=== PATIENT | female | born 1985 | race Caucasian/White ===

== ENCOUNTER 2016-05-18 20:16 | Observation (INO) | payer SELFPAY ==
[~2016-05-18] VITALS: Ht 165.1 cm; Wt 63.7 kg
[2016-05-18] MEDS ORDERED: SODIUM CHLORIDE 0.9% 1000ML 1,000 ML IV STA (20:59)
[2016-05-18] MEDS ORDERED: METH10TA2 PO (21:11)
[2016-05-18] MEDS ORDERED: FERR18TA2 PO (21:11)
[2016-05-18] MEDS ORDERED: HYDROmorphone INJ 1 MG/ML SYR IV STA (21:24)
--- NOTE | 2016-05-18 21:31 | EMERGENCY ROOM VISIT NOTE ---
History Report prepared by Tala: Matt Ann Under the Supervision of: Dr. Mynor Cali M.D. First contact with patient: 20:51 Chief Complaint: URINARY SYMPTOMS Stated Complaint: PAIN IN THE BLADDER Nursing Triage Summary: c/o abd pain and bladder pain hx of lymphoma takes methadone for pain has had uti not any better. pt required an relationship associate in triage. History of Present Illness The patient is a 30 year old female who presents to the Emergency Room with complaints of persistent urinary symptoms beginning 10 days ago. She notes having burning during urination and has had pain in her bladder area and lower abdomen. She has been on Amoxicillin for 5 days which initially helped, but her symptoms have returned. She notes having chills, rhinorrhea, and cough, but denies any fever, rashes, nausea, vomiting, or vaginal pain. She has not recently passed out or fallen. The patient has been taking Methadone for chronic pain. She has no known drug allergies. Source of History: patient Onset: 10 days ago Position: pelvis, other (bladder) Quality: burning, other (urinary symptoms) Timing: other (persistent) Modifying Factors (Relieving): other (Amoxicillin) Associated Symptoms: + abdominal pain, + chills, + cough, No fevers, No nausea, No rash, No vomiting Note: The patient notes having rhinorrhea. The patient denies any vaginal pain. Review of Systems See HPI for pertinent positives & negatives. A total of 10 systems reviewed and were otherwise negative. Past Medical & Surgical Medical Problems: (1) Abdominal pain (2) No Known Active Medical Problems Family History No pertinent family history stated. Social History Smoking Status: Never Smoker Current/Historical Medications Scheduled Ferrous Fumarate (Iron), 1 TAB PO TID Methadone Hcl (Dolophine), 10 MG PO QID Allergies Coded Allergies: No Known Allergies (Unverified , 05/18/16) Physical Exam Vital Signs Date Time Temp Pulse Resp B/P Pulse Ox O2 Delivery O2 Flow Rate FiO2 05/18/16 23:15 78 18 106/62 98 Room Air 05/18/16 21:54 81 18 106/64 100 Room Air 05/18/16 20:21 36.8 97 18 99/66 99 Room Air Physical Exam GENERAL: Patient is uncomfortable appearing and in mild distress. HEENT: No acute trauma, normocephalic atraumatic, mucous membranes moist, no nasal congestion, no scleral icterus. NECK: No stridor, no adenopathy, no meningismus, trachea is midline. LUNGS: No dyspnea. Clear to auscultation and equal bilaterally. No wheeze, no rhonchi. HEART: Regular rate and rhythm. No murmurs, rubs, gallops appreciated. ABDOMEN: Soft; vague left lower quadrant tenderness to palpation; bowel sounds positive, no masses appreciated, no peritonitis. BACK: No midline tenderness, no CVA tenderness EXTREMITIES: Normal motion all extremities, no cyanosis, no edema. NEUROLOGIC: Alert and oriented, no acute motor or sensory deficits, no focal weakness, cranial nerves grossly intact. SKIN: No rash, no jaundice, no diaphoresis. Medical Decision & Procedures ER Provider Diagnostic Interpretation: CT results are stated below per my interpretation and the radiologist's interpretation. CT SCAN OF THE ABDOMEN AND PELVIS WITH IV CONTRAST FINDINGS: Lung bases: The heart is normal in size and without pericardial effusion. Postoperative change is suspected at the medial right lung base with associated scarring. There is dependent atelectasis. Lung bases are otherwise clear. Liver: The contrast-enhanced liver is normal in size, contour, and attenuation. There is central intrahepatic biliary ductal dilatation. The hepatic veins and portal veins are patent. Fatty infiltration is seen adjacent to the falciform ligament. Gallbladder: The gallbladder is nondistended. There is questionable gallbladder wall thickening/edema. No significant pericholecystic inflammation is seen. Spleen: The spleen is enlarged, measuring 14.8 cm in length. Pancreas: Unremarkable. Adrenal glands: Unremarkable. Kidneys: The contrast enhanced kidneys are normal in size and without hydronephrosis. The kidneys enhance symmetrically. Abdominal vasculature: The abdominal aorta is normal in course and caliber. Bowel: The rectal wall is markedly thickened, edematous, and hyperemic. Mildly enlarged perirectal lymph nodes are likely on a reactive basis. There is moderate to severe constipation. No bowel obstruction is identified. The appendix is well-visualized and normal. Peritoneum: There is no intraperitoneal free air or abdominal ascites. There is a small fat-containing umbilical hernia. Lymphadenopathy: None. Pelvic viscera: The bladder, uterus, and adnexa are normal as visualized. There are bilateral ovarian follicles. Skeletal structures: No lytic or blastic lesions are seen. IMPRESSION: 1. The rectum is markedly thickened, edematous, and hyperemic. The appearance is consistent with a nonspecific proctitis. 2. Severe constipation. No bowel obstruction is seen. 3. There is intrahepatic biliary ductal dilatation. The gallbladder is nondistended but the wall appears slightly thickened/edematous. There is no pericholecystic inflammation identified. Correlate with serum bilirubin levels and clinical findings for evidence of cholecystitis. If further assessment is desired then a right upper quadrant ultrasound would be appropriate. 4. Splenomegaly. 5. Postoperative change is identified at the medial right lung base. Correlation with clinical/surgical history will be required. 6. Additional changes as above. Electronically signed by: Jose Leonardo M.D. 05/18/2016 10:41 PM Dictated Date/Time: 05/18/2016 10:33 PM Laboratory Results 05/18/16 21:12 Red Blood Count 4.19, Mean Corpuscular Volume 66.3, Mean Corpuscular Hemoglobin 19.6, Mean Corpuscular Hemoglobin Concent 29.5, Mean Platelet Volume 8.9 05/18/16 21:12 Test 05/18/16 21:12 White Blood Count 4.67 K/uL (4.8-10.8) Red Blood Count 4.19 M/uL (4.2-5.4) Hemoglobin 8.2 g/dL (12.0-16.0) Hematocrit 27.8 % (37-47) Mean Corpuscular Volume 66.3 fL (80-100) Mean Corpuscular Hemoglobin 19.6 pg (25-34) Mean Corpuscular Hemoglobin Concent 29.5 g/dl (32-36) Platelet Count 414 K/uL (130-400) Mean Platelet Volume 8.9 fL (7.4-10.4) RDW Standard Deviation 47.8 fL (36.4-46.3) RDW Coefficient of Variation 21.1 % (11.5-14.5) Neutrophils % (Manual) 69.3 % Lymphocytes % (Manual) 15.8 % Variant Lymphocytes % (manual) 11.4 % Monocytes % (Manual) 0.9 % Eosinophils % (Manual) 2.6 % Neutrophils # (Manual) 3.24 K/uL (1.4-6.5) Total Absolute Neutrophils 3.24 K/uL (1.4-6.5) Lymphocytes # (Manual) 0.74 K/uL (1.2-3.4) Absolute Variant Lymphocytes 0.53 K/uL Total Absolute Lymphocytes 1.27 K/uL (1.2-3.4) Monocytes # (Manual) 0.04 K/uL (0.11-0.59) Eosinophils # (Manual) 0.12 K/uL (0-0.5) Polychromasia 1+ Anisocytosis PRESENT Microcytosis PRESENT Tear Drop Cells OCCASIONAL Urine Color YELLOW Urine Appearance CLEAR (CLEAR) Urine pH 7.5 (4.5-7.5) Urine Specific [place] 1.011 (1.000-1.030) Urine Protein NEG (NEG) Urine Glucose (UA) NEG (NEG) Urine Ketones NEG (NEG) Urine Occult Blood NEG (NEG) Urine Nitrite NEG (NEG) Urine Bilirubin NEG (NEG) Urine Urobilinogen NEG (NEG) Urine Leukocyte Esterase NEG (NEG) Urine WBC (Auto) 1-5 /hpf (0-5) Urine RBC (Auto) 0-4 /hpf (0-4) Urine Hyaline Casts (Auto) 1-5 /lpf (0-5) Urine Epithelial Cells (Auto) >30 /lpf (0-5) Urine Bacteria (Auto) NEG (NEG) Urine Test NEG (NEG) Anion Gap 9.0 mmol/L (3-11) Est Creatinine Clear Calc Drug Dose 83.0 ml/min Estimated GFR () 100.1 Estimated GFR (Non- 86.4 BUN/Creatinine Ratio 12.8 (10-20) Calcium Level 8.8 mg/dl (8.5-10.1) Total Bilirubin 0.2 mg/dl (0.2-1) Direct Bilirubin < 0.1 mg/dl (0-0.2) Aspartate Amino Transf (AST/SGOT) 20 U/L (15-37) Alanine Aminotransferase (ALT/SGPT) 46 U/L (12-78) Alkaline Phosphatase 143 U/L (45-117) Total Protein 7.5 gm/dl (6.4-8.2) Albumin 3.2 gm/dl (3.4-5.0) Lipase 98 U/L (73-393) Laboratory results as reviewed by me. Medications Administered Medications (Trade) Dose Ordered Sig/Garret Route Start Time Stop Time Status Last Admin Dose Admin Sodium Chloride (Nss 1000ml) 1,000 ml @ 999 mls/hr Q1H1M STAT IV 1/17/17 20:59 05/18/16 21:59 DC 05/18/16 21:12 999 MLS/HR Ketorolac Tromethamine (Toradol Inj) 30 mg NOW STAT IV 05/18/16 21:43 05/18/16 21:45 DC 05/18/16 21:51 30 MG Ciprofloxacin/ Dextrose (Cipro / D5w) 400 mg NOW STAT IV 05/18/16 23:41 05/18/16 23:43 DC 05/19/16 00:17 400 MG Metronidazole (Flagyl / Nss) 500 mg NOW STAT IV 05/18/16 23:41 05/18/16 23:43 DC 05/19/16 00:17 500 MG Sodium Biphosphate/ Sodium Phosphate (Fleet Enema) 132 ml NOW STAT OK 05/18/16 23:41 05/18/16 23:43 DC 05/19/16 00:17 132 ML ED Course 2051: The patient was evaluated in room C5. A complete history and physical exam was performed. 2058: Ordered NSS 1,000 ml @ 999 mls/hr IV. 2123: Ordered Dilaudid Inj 1 mg IV. 3: Ordered Toradol Inj 30 mg IV. 8: I talked to the patient about a CT and she is in agreement. 2315: I spoke with Dr. Elier Corona. He advised fleet enema and antibiotics plus or minus. 2319: The patient cannot decide if she wants to stay or go home. 2340: The patient is willing to stay. 2341: Ordered Fleet Enema 132 ml OK, Flagyl / Nss 500 mg IV, and Cipro / D5w 400 mg IV. Medical Decision Differential: Appendicitis, Ovarian Torsion, PID, Tubo-ovarian Abscess, Intrauterine , Ectopic , Endometriosis, amongst other pathologies entertained. 30 yr old female arrives with mid/left lower abdominal/pelvic pain. Recently treated for UTI without improvement thus comes to ED for further evaluation. She is clearly uncomfortable though declined pain medications initially. UA is clear thus felt further work-up necessary. CT notes severe constipation with severe proctitis. She was also found to be anemic with microcytic. I discussed case with GI who note that she may warrant colonoscopy/sigmoidoscopy in am and they will evaluate her as inpatient. Discussed with medical team who will evaluate her for further work-up/treatment. She is Indonesian speaking only thus prototype fabricator was used for much of discussions with patient. Given she was recently on abx and has worsening of symptoms felt dose abx here in ED reasonable. Consults Time Called: [phone] Consulting Physician: Chloe Cleveland Returned Call: [phone] Elier Corona. He advised fleet enema and antibiotics plus or minus. Impression Primary Impression: Proctitis Additional Impression: Constipation Scribe Attestation The scribe's documentation has been prepared under my direction and personally reviewed by me in its entirety. I confirm that the note above accurately reflects all work, treatment, procedures, and medical decision making performed by me. Departure Information Referrals No Doctor, Assigned (PCP) Patient Instructions [facility] Problem Qualifiers Additional Impression: Constipation Constipation type: unspecified constipation type Qualified Codes: K59.00 - Constipation, unspecified
[2016-05-18 21:36] LABS: URINE APPEARANCE CLEAR (CLEAR); URINE BILIRUBIN NEG (NEG); URINE COLOR YELLOW; URINE EPITHELIAL CELL AUTO >30 /lpf (0-5); URINE NITRITE NEG (NEG); URINE PH 7.5 (4.5-7.5); URINE SPECIFIC GRAVITY 1.011 (1.000-1.030); UROBILINOGEN NEG (NEG); ZZUR CULT IF INDIC CLEAN CATCH NO
[2016-05-18 21:38] LABS: MANUAL MICROSCOPIC REQUIRED? NO; REVIEW REQ? NO
[2016-05-18 21:43] LABS: BUN/CREATININE RATIO 12.8 (10-20); CALCIUM 8.8 mg/dl (8.5-10.1); CREATININE 0.9 mg/dl (0.60-1.20)
[2016-05-18] MEDS ORDERED: KETOROLAC TROMETHAMINE 30 MG/ML VIAL IV STA (21:43)
[2016-05-18 21:58] LABS: ANISOCYTOSIS PRESENT; COMPLETE YES; EOSINOPHIL % 2.6 %; HEMATOCRIT 27.8 % (37-47); LYMPH ABS # 0.74 K/uL (1.2-3.4); LYMPHOCYTE % 15.8 %; MEAN CELL VOLUME 66.3 fL (80-100); MEAN CORPUSCULAR HEMOGLOBIN 19.6 pg (25-34); MEAN CORPUSCULAR HGB CONC 29.5 g/dl (32-36); MEAN PLATELET VOLUME 8.9 fL (7.4-10.4); MICROCYTOSIS PRESENT; NEUTROPHILS % 69.3 %; PLATELET COUNT 414 K/uL (130-400); POLYCHROMASIA 1+; RED BLOOD COUNT 4.19 M/uL (4.2-5.4); TEAR DROP CELLS OCCASIONAL; VARIANT LYM ABS # 0.53 K/uL; VARIANT LYMPHOCYTE % 11.4 %; WHITE BLOOD COUNT 4.67 K/uL (4.8-10.8)
[2016-05-18] MEDS ORDERED: OPTIRAY 320 IV PRN (22:15)
--- NOTE | 2016-05-18 22:42 | DIAGNOSTIC IMAGING REPORT ---
CT SCAN OF THE ABDOMEN AND PELVIS WITH IV CONTRAST CLINICAL HISTORY: Left lower quadrant abdominal pain. COMPARISON STUDY: Pelvic ultrasound dated 03/16/2016. TECHNIQUE: Following the IV administration of 94 cc of Optiray 320, CT scan of the abdomen and pelvis is performed from the lung bases to the proximal femora. Images are reviewed in the axial, sagittal, and coronal planes. IV contrast was administered without complication. Automated dose control exposure was utilized. CT DOSE: 334.33 mGy.cm FINDINGS: Lung bases: The heart is normal in size and without pericardial effusion. Postoperative change is suspected at the medial right lung base with associated scarring. There is dependent atelectasis. Lung bases are otherwise clear. Liver: The contrast-enhanced liver is normal in size, contour, and attenuation. There is central intrahepatic biliary ductal dilatation. The hepatic veins and portal veins are patent. Fatty infiltration is seen adjacent to the falciform ligament. Gallbladder: The gallbladder is nondistended. There is questionable gallbladder wall thickening/edema. No significant pericholecystic inflammation is seen. Spleen: The spleen is enlarged, measuring 14.8 cm in length. Pancreas: Unremarkable. Adrenal glands: Unremarkable. Kidneys: The contrast enhanced kidneys are normal in size and without hydronephrosis. The kidneys enhance symmetrically. Abdominal vasculature: The abdominal aorta is normal in course and caliber. Bowel: The rectal wall is markedly thickened, edematous, and hyperemic. Mildly enlarged perirectal lymph nodes are likely on a reactive basis. There is moderate to severe constipation. No bowel obstruction is identified. The appendix is well-visualized and normal. Peritoneum: There is no intraperitoneal free air or abdominal ascites. There is a small fat-containing umbilical hernia. Lymphadenopathy: None. Pelvic viscera: The bladder, uterus, and adnexa are normal as visualized. There are bilateral ovarian follicles. Skeletal structures: No lytic or blastic lesions are seen. IMPRESSION: 1. The rectum is markedly thickened, edematous, and hyperemic. The appearance is consistent with a nonspecific proctitis. 2. Severe constipation. No bowel obstruction is seen. 3. There is intrahepatic biliary ductal dilatation. The gallbladder is nondistended but the wall appears slightly thickened/edematous. There is no pericholecystic inflammation identified. Correlate with serum bilirubin levels and clinical findings for evidence of cholecystitis. If further assessment is desired then a right upper quadrant ultrasound would be appropriate. 4. Splenomegaly. 5. Postoperative change is identified at the medial right lung base. Correlation with clinical/surgical history will be required. 6. Additional changes as above. Electronically signed by: Jose Leonardo M.D. 05/18/2016 10:41 PM Dictated Date/Time: 05/18/2016 10:33 PM
[2016-05-18 23:25] LABS: ALKALINE PHOSPHATASE 143 U/L (45-117); ALT/SGPT 46 U/L (12-78); AST/SGOT 20 U/L (15-37)
[2016-05-18] MEDS ORDERED: METRONIDAZOLE 500MG / 100ML NSS IV STA (23:41)
[2016-05-18] MEDS ORDERED: CIPROFLOXACIN 400MG / 200ML D5W IV STA (23:41)
[2016-05-18] MEDS ORDERED: SOD PHOSPHATE/SOD BIPHOSPHATE ENEMA 132 ML BTL PR STA (23:41)
[2016-05-19] MEDS ORDERED: TRAMADOL HCL 50 MG TAB PO PRN (01:00)
[2016-05-19] MEDS ORDERED: PROMETHAZINE HCL INJ 12.5 MG in SODIUM CHLORIDE 0.9% 50ML 50 ML IV PRN (01:00)
[2016-05-19] MEDS ORDERED: ACETAMINOPHEN 325 MG TAB PO PRN (01:00)
[2016-05-19] MEDS ORDERED: IBUPROFEN 200 MG TAB PO PRN (01:00)
[2016-05-19] MEDS ORDERED: DOCUSATE SODIUM/SENNA 50/8.6MG TAB PO ONE (01:12)
[2016-05-19 01:40] VITALS: BP 91/60; PULSE 78; TEMP 36.8; O2SAT 98; Ht 165.1 cm; Wt 63.7 kg
[2016-05-19 01:51] LABS: MAGNESIUM 2.6 mg/dl (1.8-2.4)
[2016-05-19] MEDS: KETOROLAC TROMETHAMINE 30 MG/ML VIAL IV PRN ×3 (02:15→17:20)
--- NOTE | 2016-05-19 03:20 | HISTORY & PHYSICAL EXAMINATION ---
DATE OF ADMISSION: 05/19/2016 PCP: EDWARD Limited history from the patient secondary to language barrier. History obtained from patient through assistance of spanish interpreter. Additional history obtained from records and ER MD CHIEF COMPLAINT: Abdominal pain. HISTORY OF PRESENT ILLNESS: Medical history is significant for Hodgkin's lymphoma sp chemoradiation, history of chronic pain on narcotics, history of lung surgery for lung infection related to radiotx as per px. chronic anemia/thalassemia (baseline hemoglobin 7). Patient diagnosed to have Hodgkin's lymphoma in 2008, subsequently underwent chemoradiation in [facility]. Subsequently, she developed lung infection requiring lung surgery leading to chronic pain. Patient moved to [facility] a few years ago for chemotherapy at [facility]. Px currently in remission. Patient recently moved to [facility]. Px currently [facility] [place]. Last week, patient noted hypogastric discomfort, incomplete bladder emptying, some chills, somewhat constipated. Last BM today. No chest pain, no shortness of breath. Patient denies hx of black bloody stools. Patient was seen at the Emergency Room. CAT scan showed markedly thickened, edematous, hyperemic rectum proctitis, constipation, intrahepatic biliary dilatation, splenomegaly. Patient received Cipro, Flagyl and Fleet enema in the Emergency Room. MEDICAL HISTORY: As above. Recent outpatient anemia workup showed iron deficiency anemia. SURGERIES: She has had lung surgery. HOME MEDICATIONS: Include; methadone and ferrous sulfate. ALLERGIES: No drug allergies. FAMILY HISTORY: Cannot be obtained. PERSONAL AND SOCIAL HISTORY: Nonsmoker. No chronic intake of alcoholic beverages. 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 REVIEW OF SYSTEMS: Cannot be reliably obtained. PHYSICAL EXAMINATION: VITAL SIGNS: Blood pressure was noted to be 106/64, pulse rate 81, RR 18, temperature 36.8, sats 99 on room air. GENERAL: comfortable, no resp distress SKIN : pallor . HEENT: Pale palpebral conjunctivae. Dry mucosa. NECK: No JVD. Supple. CHEST: Clear to auscultation. HEART: Regular rate and rhythm. ABDOMEN: soft NT. EXTREMITIES: No edema, no tenderness. NEUROLOGIC: No gross focality. LABORATORIES: Hemoglobin was noted to be 8.2, BC 4.6, platelets 414 Sodium 140 potassium 4, chloride 104, CO2 27, BUN 12, creatinine 0.[address] of abdomen and pelvis as above. UA : white lacey, 1-5 hyaline casts, epithelial cells ASSESSMENT: 1. Abdominal pain secondary to proctitis likely secondary to narcotic induced constipation. chronic pain on narcotics 2. History of HL sp chemoradiation, currently in remission. 3. Chronic anemia hx thalassemia as per outpx records hemoglobin better than baseline of 7 as per outpx records 4. hx lung surgery PLAN: Observation GMF Bowel regimen. stool softeners on discharge GI consult. ER MD already in touch with fire claims adjuster retail client solutions analyst, Dr. Thapa. possible endocopy in AM as per GI DVT prophylaxis, SCDs RE anemia. Full code. MTDD
[2016-05-19] MEDS ORDERED: SODIUM CHLORIDE 0.9% 1000ML 1,000 ML IV SCH (04:15)
[2016-05-19 08:01] VITALS: BP 81/51; PULSE 80; TEMP 36.6; O2SAT 95
[2016-05-19] MEDS: METHADONE HCL 10 MG TAB PO SCH ×4 (09:07→21:54)
[2016-05-19] MEDS: DOCUSATE SODIUM/SENNA 50/8.6MG TAB PO SCH ×2 (09:07→21:55)
[2016-05-19] MEDS: FERROUS FUMARATE CONTR REL CAP 65 MG CAPCR PO SCH ×3 (09:07→17:20)
[2016-05-19] MEDS ORDERED: PROPOFOL IV EMULSION 10 MG/ML 20 ML VIAL IV ONE (15:17)
[2016-05-19] MEDS ORDERED: LIDOCAINE HCL 2% 2 ML VIAL (20MG/ML) ONE (15:17)
[2016-05-19 15:33] VITALS: BP 94/62; PULSE 87; TEMP 36.4; O2SAT 98
[2016-05-19] MEDS ORDERED: SOD PHOSPHATE/SOD BIPHOSPHATE ENEMA 132 ML BTL ONE (15:40)
[2016-05-19 15:45] VITALS: O2SAT 98
[2016-05-19] MEDS ORDERED: NURSING VERBAL MED ORDER ONE (15:45)
--- NOTE | 2016-05-19 18:37 | Progress Note ---
Medicine Progress Note Date & Time of Visit: May 19, 2016 at 18:30. Subjective seen laying in bed, talking on her cellphone states her abdominal pain, lower abdomen, central, still about the same- pressure type no nausea (+) flatus, no BM yet denies other symptoms Objective Last 8 Hrs Date Time Temp Pulse Resp B/P Pulse Ox O2 Delivery O2 Flow Rate FiO2 05/19/16 15:33 36.4 87 20 94/62 98 Room Air Physical Exam: General- oriented x 3, not in distress, speaks in sentences Eyes- EOMI, anicteric Neck- no JVD Lungs- clear to auscultation b/l Heart-normal rate, regular rhythm; no murmurs Abdomen- normal bowel sounds, non distended, soft, mild tenderness on the lower abdomen Extremities- no pretibial edema, no calf tenderness Neuro- alert, oriented x 3;no gross focal deficits Skin- warm & dry Laboratory Results: Last 24 Hours Test 05/18/16 21:12 White Blood Count 4.67 K/uL Red Blood Count 4.19 M/uL Hemoglobin 8.2 g/dL Hematocrit 27.8 % Mean Corpuscular Volume 66.3 fL Mean Corpuscular Hemoglobin 19.6 pg Mean Corpuscular Hemoglobin Concent 29.5 g/dl Platelet Count 414 K/uL Mean Platelet Volume 8.9 fL RDW Standard Deviation 47.8 fL RDW Coefficient of Variation 21.1 % Neutrophils % (Manual) 69.3 % Lymphocytes % (Manual) 15.8 % Variant Lymphocytes % (manual) 11.4 % Monocytes % (Manual) 0.9 % Eosinophils % (Manual) 2.6 % Neutrophils # (Manual) 3.24 K/uL Total Absolute Neutrophils 3.24 K/uL Lymphocytes # (Manual) 0.74 K/uL Absolute Variant Lymphocytes 0.53 K/uL Total Absolute Lymphocytes 1.27 K/uL Monocytes # (Manual) 0.04 K/uL Eosinophils # (Manual) 0.12 K/uL Polychromasia 1+ Anisocytosis PRESENT Microcytosis PRESENT Tear Drop Cells OCCASIONAL Urine Color YELLOW Urine Appearance CLEAR Urine pH 7.5 Urine Specific Pep 1.011 Urine Protein NEG Urine Glucose (UA) NEG Urine Ketones NEG Urine Occult Blood NEG Urine Nitrite NEG Urine Bilirubin NEG Urine Urobilinogen NEG Urine Leukocyte Esterase NEG Urine WBC (Auto) 1-5 /hpf Urine RBC (Auto) 0-4 /hpf Urine Hyaline Casts (Auto) 1-5 /lpf Urine Epithelial Cells (Auto) >30 /lpf Urine Bacteria (Auto) NEG Urine Test NEG Sodium Level 140 mmol/L Potassium Level 4.0 mmol/L Chloride Level 104 mmol/L Carbon Dioxide Level 27 mmol/L Anion Gap 9.0 mmol/L Blood Urea Nitrogen 12 mg/dl Creatinine 0.90 mg/dl Est Creatinine Clear Calc Drug Dose 83.0 ml/min Estimated GFR () 100.1 Estimated GFR (Non- 86.4 BUN/Creatinine Ratio 12.8 Random Glucose 88 mg/dl Calcium Level 8.8 mg/dl Magnesium Level 2.6 mg/dl Total Bilirubin 0.2 mg/dl Direct Bilirubin < 0.1 mg/dl Aspartate Amino Transf (AST/SGOT) 20 U/L Alanine Aminotransferase (ALT/SGPT) 46 U/L Alkaline Phosphatase 143 U/L Total Protein 7.5 gm/dl Albumin 3.2 gm/dl Lipase 98 U/L Thyroid Stimulating Hormone (TSH) 1.670 uIu/ml Date/Time Source Procedure Growth Status 05/18/16 21:12 Urine , Clean Catch Urine Culture Pending Received Assessment & Plan ABDOMINAL PAIN, LIKELY FROM CONSTIPATION, R/O PROCTITIS - fleet enema x 2 , unsuccessful discussed with Dr. Thapa for Colonoscopy in AM may have clears for dinner - PRN Morphine, Toradol History of HL sp chemoradiation, currently in remission. Chronic anemia hx thalassemia as per outpx records hemoglobin better than baseline of 7 as per outpx records - obtain outpatient records hx lung surgery - respiratory status stable Current Inpatient Medications: Current Inpatient Medications Medications (Trade) Dose Ordered Sig/Garret Route Start Time Stop Time Status Last Admin Dose Admin Ioversol (Optiray 320) 100 ml UD PRN IV 05/18/16 22:15 05/22/16 22:14 Senna/Docusate Sodium (Senokot S Tab) 1 tab BID PO 05/19/16 09:00 06/18/16 08:59 05/19/16 09:07 1 TAB Acetaminophen (Tylenol Tab) 650 mg Q4H PRN PO 05/19/16 01:00 06/18/16 00:59 Ketorolac Tromethamine (Toradol Inj) 30 mg Q6H PRN IV 05/19/16 01:00 1/23/17 00:59 05/19/16 17:20 30 MG Tramadol HCl (Ultram Tab) 25 mg Q6H PRN PO 05/19/16 01:00 06/18/16 00:59 Ibuprofen (Advil Tab) 400 mg Q6H PRN PO 05/19/16 01:00 06/18/16 00:59 Ondansetron HCl 4 mg 4 mg Q6H PRN IV 05/19/16 01:00 06/18/16 00:59 Promethazine HCl 12.5 mg/Sodium Chloride 50.5 ml @ 204 mls/hr Q6H PRN IV 05/19/16 01:00 06/18/16 00:59 Sodium Chloride (Nss 1000ml) 1,000 ml @ 50 mls/hr Q20H IV 05/19/16 04:15 06/18/16 04:14 05/19/16 05:24 50 MLS/HR Methadone HCl (Dolophine Tab) 10 mg QID PO 05/19/16 09:00 06/02/16 08:59 05/19/16 17:19 10 MG Ferrous Fumarate (Cathy-Sequels Contr Rel Cap) 50 mg TIDM PO 05/19/16 08:00 06/18/16 07:59 05/19/16 17:20 50 MG Morphine Sulfate (MoRPHine SULFATE INJ) 4 mg Q6H PRN IV 05/19/16 01:00 06/02/16 00:59 Polyethylene Glycol/ Electrolytes (Golytely Soln) 1 dose UD PO 05/19/16 18:15 06/18/16 18:14 UNV
[2016-05-19] MEDS ORDERED: LAVAGE SOLUTION 4000ML PO SCH (19:00)
[2016-05-19] MEDS: MoRPHine SULFATE 4 MG/ML 1 ML CARP\\VIAL IV PRN (19:03)
[2016-05-19] MEDS: D5W AND NSS 1,000 ML IV SCH (19:11)
[2016-05-19 23:30] VITALS: BP 94/61; PULSE 87; TEMP 36.9; O2SAT 94
[2016-05-20] VITALS (11 sets, daily range): BP systolic 80–113; BP diastolic 48–76; PULSE 69–90; TEMP 36.2–37; O2SAT 94–100
[2016-05-20] MEDS: ONDANSETRON INJ 2 MG/ML 2 ML VIAL IV PRN ×2 (00:06→07:25)
[2016-05-20] MEDS: KETOROLAC TROMETHAMINE 30 MG/ML VIAL IV PRN ×3 (00:06→20:38)
[2016-05-20] MEDS: D5W AND NSS 1,000 ML IV SCH ×2 (05:30→14:12)
[2016-05-20] MEDS: FERROUS FUMARATE CONTR REL CAP 65 MG CAPCR PO SCH ×3 (07:24→18:25)
[2016-05-20] MEDS: DOCUSATE SODIUM/SENNA 50/8.6MG TAB PO SCH ×2 (07:25→20:52)
[2016-05-20] MEDS: METHADONE HCL 10 MG TAB PO SCH ×4 (07:25→22:25)
[2016-05-20 07:52] LABS: BASO % 0.3 %; BASO ABS # 0.01 K/uL (0-0.2); EOS % 2.5 %; HEMATOCRIT 24.4 % (37-47); LYMPH % 40.4 %; LYMPH ABS # 1.28 K/uL (1.2-3.4); MEAN CELL VOLUME 65.6 fL (80-100); MEAN CORPUSCULAR HEMOGLOBIN 19.1 pg (25-34); MEAN CORPUSCULAR HGB CONC 29.1 g/dl (32-36); MEAN PLATELET VOLUME 9.2 fL (7.4-10.4); MONO % 7.3 %; NEUT % 49.5 %; PLATELET COUNT 347 K/uL (130-400); RED BLOOD COUNT 3.72 M/uL (4.2-5.4); WHITE BLOOD COUNT 3.17 K/uL (4.8-10.8)
[2016-05-20 08:21] LABS: BUN/CREATININE RATIO 10.9 (10-20); CALCIUM 7.5 mg/dl (8.5-10.1); CREATININE 0.65 mg/dl (0.60-1.20); POTASSIUM 3.6 mmol/L (3.5-5.1)
[2016-05-20 08:32] LABS: ANISOCYTOSIS PRESENT; COMPLETE YES; MICROCYTOSIS PRESENT; OVALOCYTES 1+; POIKILOCYTOSIS PRESENT
[2016-05-20] MEDS ORDERED: SOD PHOSPHATE/SOD BIPHOSPHATE ENEMA 132 ML BTL PR STA (10:50)
[2016-05-20] MEDS ORDERED: MAGNESIUM CITRATE 296 ML/BTL PO ONE (11:00)
[2016-05-20] MEDS ORDERED: METOCLOPRAMIDE HCL INJ 5 MG/ML 2 ML VIAL IV PRN (11:00)
--- NOTE | 2016-05-20 11:13 | Progress Note ---
Medicine Progress Note Date & Time of Visit: May 20, 2016 at 11:05. Subjective seen with HATTIE Perkins at bedside, Helmet Coverer via Ipad utilized sitting up in bed, comfortable states she had few moderate BMs since last night- dark green, no blood states abdominal pain has improved- mild not tolerating golytely well- finished 05/04 so far, due to nausea otherwise, denies chest pain, dyspnea, palpitations, dizziness no changes with urination, no vaginal bleeding Objective Last 8 Hrs Date Time Temp Pulse Resp B/P Pulse Ox O2 Delivery O2 Flow Rate FiO2 05/20/16 08:00 Room Air 05/20/16 07:26 36.8 80 18 96/62 97 05/20/16 04:00 Room Air Physical Exam: General- oriented x 3, not in distress, speaks in sentences Eyes-anicteric Lungs- clear breath sounds bilaterally Heart-normal rate, regular rhythm; no murmurs Abdomen- normal bowel sounds, non distended, soft, mild tenderness on the lower abdomen Extremities- no pretibial edema, no calf tenderness Neuro- alert, oriented x 3;no gross focal deficits Skin- warm & dry Laboratory Results: Last 24 Hours Test 05/20/16 06:59 White Blood Count 3.17 K/uL Red Blood Count 3.72 M/uL Hemoglobin 7.1 g/dL Hematocrit 24.4 % Mean Corpuscular Volume 65.6 fL Mean Corpuscular Hemoglobin 19.1 pg Mean Corpuscular Hemoglobin Concent 29.1 g/dl Platelet Count 347 K/uL Mean Platelet Volume 9.2 fL Neutrophils (%) (Auto) 49.5 % Lymphocytes (%) (Auto) 40.4 % Monocytes (%) (Auto) 7.3 % Eosinophils (%) (Auto) 2.5 % Basophils (%) (Auto) 0.3 % Neutrophils # (Auto) 1.57 K/uL Lymphocytes # (Auto) 1.28 K/uL Monocytes # (Auto) 0.23 K/uL Eosinophils # (Auto) 0.08 K/uL Basophils # (Auto) 0.01 K/uL RDW Standard Deviation 48.8 fL RDW Coefficient of Variation 21.7 % Immature Granulocyte % (Auto) 0.0 % Immature Granulocyte # (Auto) 0.00 K/uL Poikilocytosis PRESENT Anisocytosis PRESENT Microcytosis PRESENT Ovalocytes 1+ Sodium Level 143 mmol/L Potassium Level 3.6 mmol/L Chloride Level 111 mmol/L Carbon Dioxide Level 23 mmol/L Anion Gap 9.0 mmol/L Blood Urea Nitrogen 7 mg/dl Creatinine 0.65 mg/dl Est Creatinine Clear Calc Drug Dose 106.4 ml/min Estimated GFR () 139.1 Estimated GFR (Non- 120.0 BUN/Creatinine Ratio 10.9 Random Glucose 84 mg/dl Calcium Level 7.5 mg/dl Assessment & Plan ABDOMINAL PAIN, LIKELY FROM CONSTIPATION- OPIOID INDUCED?, R/O PROCTITIS - improving with BMs - will try Mag Citrate and Fleet enema prior to colonoscopy today Reglan PRN added discussed with Dr. Thapa History of HL sp chemoradiation, currently in remission. - follows with Dr. 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 Mine Warfare Officer on feso4 - work up in progress for possible thalassemia Chronic Pain - on Methadone History of lung surgery - respiratory status stable Irregular Menstruation - follows with Gyne as outpatient DVT prophlaxis SCDs for now Dispo pending Current Inpatient Medications: Current Inpatient Medications Medications (Trade) Dose Ordered Sig/Garret Route Start Time Stop Time Status Last Admin Dose Admin Ioversol (Optiray 320) 100 ml UD PRN IV 05/18/16 22:15 05/22/16 22:14 Senna/Docusate Sodium (Senokot S Tab) 1 tab BID PO 05/19/16 09:00 06/18/16 08:59 05/20/16 07:25 1 TAB Acetaminophen (Tylenol Tab) 650 mg Q4H PRN PO 05/19/16 01:00 06/18/16 00:59 Ketorolac Tromethamine (Toradol Inj) 30 mg Q6H PRN IV 05/19/16 01:00 05/24/16 00:59 05/20/16 07:25 30 MG Tramadol HCl (Ultram Tab) 25 mg Q6H PRN PO 05/19/16 01:00 06/18/16 00:59 Ibuprofen (Advil Tab) 400 mg Q6H PRN PO 05/19/16 01:00 06/18/16 00:59 Ondansetron HCl 4 mg 4 mg Q6H PRN IV 05/19/16 01:00 06/18/16 00:59 05/20/16 07:25 4 MG Promethazine HCl/ Sodium Chloride (Phenergan Inj/ Nss 50ml) 50.5 ml @ 204 mls/hr Q6H PRN IV 05/19/16 01:00 06/18/16 00:59 Methadone HCl (Dolophine Tab) 10 mg QID PO 05/19/16 09:00 06/02/16 08:59 05/20/16 07:25 10 MG Ferrous Fumarate (Cathy-Sequels Contr Rel Cap) 50 mg TIDM PO 05/19/16 08:00 06/18/16 07:59 05/20/16 07:24 50 MG Morphine Sulfate 4 mg 4 mg Q6H PRN IV 05/19/16 01:00 06/02/16 00:59 05/19/16 19:03 4 MG Dextrose/Sodium Chloride (D5W And Nss) 1,000 ml @ 100 mls/hr Q10H IV 05/19/16 18:45 06/18/16 18:44 05/20/16 05:30 100 MLS/HR Metoclopramide HCl (Reglan Inj) 10 mg Q6H PRN IV 05/20/16 11:00 06/19/16 10:59
[2016-05-20] MEDS: MoRPHine SULFATE 4 MG/ML 1 ML CARP\\VIAL IV PRN ×3 (13:15→23:44)
--- NOTE | 2016-05-20 14:02 | GASTROINTESTINAL CONSULTATION ---
DATE OF CONSULTATION: 05/19/2016 CHIEF COMPLAINT: Obstipation, abnormal CT with rectal inflammation, microcytic anemia. I was contacted through the Emergency Room regarding the patient with obstipation and abnormal CT changes. The patient has a history of Hodgkin lymphoma treated in 2008 with chemoradiation in [facility]. The patient moved to [place] 2-3 years ago and received chemotherapy at [facility] and the patient is currently seeing a [facility] medical oncologist for Hodgkin lymphoma. The patient reports a lower suprapubic pain for the past week or so, for which initially urinalysis was obtained and performed and UTI was suspected. The patient received amoxicillin according to the patient's who was present in the room this evening. This however did not relieve the symptoms. Her pain continued and subsequently presented to the Emergency Room where CT scan found evidence of obstipation in the rectum along with thickening of the rectal wall of uncertain significance. The patient denies any diarrhea, rectal bleeding, weight loss or prior history of chronic inflammatory bowel disease. PAST MEDICAL HISTORY: Includes the Hodgkin lymphoma. The patient had an outpatient workup also for iron deficiency anemia and there was mention that the patient may have a thalassemia, although the details of this are not available or clear. Additional past medical history includes lung surgery for a lung infection, related to the radiation treatment and there is report of a baseline hemoglobin of approximately 7. MEDICATIONS AT HOME: Include methadone and ferrous sulfate for the iron deficiency. ALLERGIES: The patient has no known drug allergies. FAMILY HISTORY: Essentially unremarkable and noncontributory. SOCIAL HISTORY: The patient denies tobacco or alcohol use, is with 1 child. REVIEW OF SYSTEMS: Limited, however there are no abnormalities except for noted above by 14-point exam. There has been no recent fever, shaking chills, nausea, vomiting, hematemesis, or coffee-ground emesis. She denies dysuria or hematuria. PHYSICAL EXAMINATION: Today, VITAL SIGNS ON ADMISSION: Blood pressure 106/64, heart rate 81, respirations 18. She is 99% on room air, afebrile. GENERAL: The patient currently is resting in bed. She is awake, alert and oriented although much of our conversation was through her in order to obtain history. HEENT: The oral mucosa is moist. NECK: There is no cervical or supraclavicular adenopathy. I do not appreciate thyromegaly. HEART: Normal S1, S2. LUNGS: Clear to auscultation. ABDOMEN: Soft, mildly tender in the suprapubic area without rebound or guarding. There is no evidence of ventral wall hernia, abdominal tenderness or asymmetry. There is no evidence of ascites or shifting dullness. EXTREMITIES: Without clubbing, cyanosis or edema. RECTAL: Deferred at this time. LABORATORY DATA: Laboratory review includes white count 4.6, hemoglobin 8.2, MCV is 66.3, platelets of 414,000. There are microcytosis, anisocytosis, and teardrops noted. On serum chemistry, BUN and creatinine are normal at 12 and 0.9. LFTs show only a mild elevation in alkaline phosphatase at 143 with a slightly diminished albumin of 3.2. Transaminases and bilirubin are also within normal range. TSH is normal at 1.6. Urinalysis showed only greater than 30 urinary epithelial cells without markers to suggest infection, leuk esterase and nitrate are both negative. CT scan demonstrated intrahepatic bile duct dilation of unclear origin. The gallbladder is not distended but the wall may be slightly thickened or edematous, however pericholecystic inflammation is not identified (this may be on the basis of chronic opiate use). There is evidence of splenomegaly and the rectum shows a markedly thickened, edematous and hyperemic pattern, suggesting a nonspecific proctitis. There is also severe constipation. IMPRESSION: A 30-year-old female with Hodgkin lymphoma status post chemotherapy, radiation. Regarding the changes in her CT, there is no family history of Crohn disease or ulcerative colitis. The patient denies melena or bright red blood per rectum and has not had diarrhea. The source of this proctitis is unclear but possibly could be related to changes of fecal retention. I made the following recommendations. We will begin a bowel prep today this evening with anticipation of a colonoscopy tomorrow in order to assess this mucosa. Regarding the anemia, clarification from records regarding thalassemia or iron deficiency would be helpful. If this is suggesting iron deficiency, upper endoscopy may also be warranted. Regarding the patient's ductal dilation, the source of this is unclear but may reflect chronic opiate use. There are no abnormalities with LFT save a slight elevation in alkaline phosphatase. It may be reasonable to perform an MRCP to assess for any filling defects within the bile duct although presently the patient does not have any localizing symptoms in the right upper quadrant. Further recommendations once the colonoscopy is completed. All questions answered. Thank you for allowing me to participate in this patient's care.
--- NOTE | 2016-05-20 16:37 | GI REPORT ---
Procedure Date: 05/20/2016 4:02 PM Procedure: Colonoscopy Indications: Abnormal CT of the GI tract Medicines: Propofol per Anesthesia Complications: No immediate complications. Estimated blood loss: Minimal. Estimated Blood Loss: Estimated blood loss was minimal. Procedure: Pre-Anesthesia Assessment: - Prior to the procedure, a History and Physical was performed, and patient medications and allergies were reviewed. The patient's tolerance of previous anesthesia was also reviewed. The risks and benefits of the procedure and the sedation options and risks were discussed with the patient. All questions were answered, and informed consent was obtained. Prior Anticoagulants: The patient has taken no previous anticoagulant or antiplatelet agents. ASA Grade Assessment: II - A patient with mild systemic disease. After reviewing the risks and benefits, the patient was deemed in satisfactory condition to undergo the procedure. After I obtained informed consent, the scope was passed under direct vision. Throughout the procedure, the patient's blood pressure, pulse, and oxygen saturations were monitored continuously. The scope was introduced through the anus with the intention of advancing to the cecum. The scope was advanced to the transverse colon before the procedure was aborted. Medications were given. The colonoscopy was performed with moderate difficulty due to inadequate bowel prep. The patient tolerated the procedure well. The quality of the bowel preparation was inadequate. Findings: The perianal and digital rectal examinations were normal. Pertinent negatives include normal sphincter tone, no palpable rectal lesions and no anal lesion or abnormality was detected. A continuous area of nonbleeding ulcerated mucosa with no stigmata of recent bleeding was present in the rectum. Biopsies were taken with a cold forceps for histology. Biopsies were taken with a cold forceps for histology. Bx taken for viral culture Estimated blood loss was minimal. Verification of patient identification for the specimen was done by the physician and pathology technician using the patient's name and medical record number. The area from 15 to 80 cm proximal to the anus appeared normal. Biopsies were taken with a cold forceps for histology. Estimated blood loss was minimal. Verification of patient identification for the specimen was done by the physician and pathology technician using the patient's name and medical record number. A large amount of semi-solid stool was found in the entire colon, interfering with visualization. Lavage of the area was performed using a moderate amount of sterile water, resulting in incomplete clearance with continued poor visualization. Impression: - Preparation of the colon was inadequate. - Mucosal ulceration. Biopsied. - The area from 15 to 80 cm proximal to the anus is normal. Biopsied. - Stool in the entire examined colon. - Likely stercoral ulcer however will exclude CMV proctitis and lymphoma by histology and viral cx. Recommendation: - [facility]. - Clear liquid diet. - Continue present medications. - Await pathology results. - Patient needs a formal bowel regimen especially with chronic methadone therapy. This can include Miralax twice daily, mag Citrate or Senokot as tolerated by patient. MD Tuan Rocha MD 05/20/2016 4:35:49 PM This report has been signed electronically. Note Initiated On: 05/20/2016 4:02 PM
--- NOTE | 2016-05-20 16:44 | Anesthesiology Progress Note ---
Anesthesia Post Op Note Date & Time May 20, 2016 at 16:43 Vital Signs Pain Intensity: 0.0 Vital Signs Past 12 Hours Date Time Temp Pulse Resp B/P Pulse Ox O2 Delivery O2 Flow Rate FiO2 05/20/16 16:30 75 16 99/64 97 Room Air 05/20/16 15:32 36.7 86 16 114/75 100 Room Air 05/20/16 15:00 36.5 80 20 80/48 98 Room Air 05/20/16 11:38 36.8 80 18 96/62 97 Room Air 05/20/16 08:00 Room Air 05/20/16 07:26 36.8 80 18 96/62 97 Notes Mental Status: alert / awake / arousable, participated in evaluation Pt Amnestic to Procedure: Yes Nausea / Vomiting: adequately controlled Pain: adequately controlled Airway Patency, RR, SpO2: stable & adequate BP & HR: stable & adequate Hydration State: stable & adequate Anesthetic Complications: no major complications apparent Pt doing well.
--- NOTE | 2016-05-20 17:06 | History & Physical Bridge Note ---
H&P Re-Evaluation Bridge Note: I have examined the patient, reviewed the History & Physical and in the interval since the performance of the History & Physical I have noted the following changes of clinical significance: No changes noted
[2016-05-20] MEDS ORDERED: PANTOprazole INJ 40 MG in SYRINGE 0 ML IV ONE (18:45)
[2016-05-21 00:23] VITALS: BP 109/72; PULSE 72; TEMP 36.6; O2SAT 97
[2016-05-21 00:50] VITALS: BP 105/69; PULSE 72; TEMP 36.5; O2SAT 96
[2016-05-21] MEDS: MoRPHine SULFATE 4 MG/ML 1 ML CARP\\VIAL IV PRN ×2 (05:37→12:28)
[2016-05-21 07:04] VITALS: BP 97/64; PULSE 76; TEMP 36.9; O2SAT 95
[2016-05-21] MEDS: METHADONE HCL 10 MG TAB PO SCH ×2 (07:48→12:27)
[2016-05-21] MEDS: DOCUSATE SODIUM/SENNA 50/8.6MG TAB PO SCH (07:48)
[2016-05-21] MEDS: FERROUS FUMARATE CONTR REL CAP 65 MG CAPCR PO SCH ×2 (07:48→12:27)
[2016-05-21 08:13] LABS: BUN/CREATININE RATIO 5.1 (10-20); CALCIUM 7.9 mg/dl (8.5-10.1); CREATININE 0.72 mg/dl (0.60-1.20); POTASSIUM 3.8 mmol/L (3.5-5.1)
[2016-05-21 08:19] LABS: HEMATOCRIT 31.2 % (37-47); MEAN CORPUSCULAR HEMOGLOBIN 21.9 pg (25-34); MEAN CORPUSCULAR HGB CONC 31.7 g/dl (32-36); MEAN PLATELET VOLUME 9.5 fL (7.4-10.4); PLATELET COUNT 331 K/uL (130-400); RED BLOOD COUNT 4.52 M/uL (4.2-5.4); WHITE BLOOD COUNT 4.17 K/uL (4.8-10.8)
[2016-05-21 09:13] LABS: ANISOCYTOSIS PRESENT; BASO % 0.5 %; BASO ABS # 0.02 K/uL (0-0.2); COMPLETE YES; EOS % 2.9 %; IG% 0.2 %; LYMPH % 32.9 %; LYMPH ABS # 1.37 K/uL (1.2-3.4); MICROCYTOSIS PRESENT; NEUT % 56.5 %; POIKILOCYTOSIS PRESENT; POLYCHROMASIA 1+
[2016-05-21] MEDS: KETOROLAC TROMETHAMINE 30 MG/ML VIAL IV PRN (10:50)
[2016-05-21] MEDS ORDERED: PANTOprazole INJ 40 MG in SYRINGE 0 ML IV SCH (11:00)
[2016-05-21 14:47] VITALS: BP 114/77; PULSE 72; TEMP 37.2; O2SAT 98
[2016-05-21 16:00] VITALS: O2SAT 98
--- NOTE | 2016-05-21 16:13 | Progress Note ---
Medicine Progress Note Date & Time of Visit: May 21, 2016 at 16:03. Subjective s/p Colonoscopy yesterday, tolerated well s/p 2 units PRBC seen sitting up in bed, comfortable, in good spirits states she feels better overall today less abdominal pain tolerating diet well denies other symptoms states she is ready and would like to go home today Objective Last 8 Hrs Date Time Temp Pulse Resp B/P Pulse Ox O2 Delivery O2 Flow Rate FiO2 05/21/16 14:47 37.2 72 18 114/77 98 Physical Exam: General- oriented x 3, not in distress, speaks in sentences Eyes-anicteric Lungs- clear breath sounds bilaterally, no rales/wheeze Heart-normal rate, regular rhythm; no murmurs Abdomen- normal bowel sounds, non distended, soft, no tenderness on the lower abdomen Extremities- no pretibial edema, no calf tenderness Neuro- alert, oriented x 3;no gross focal deficits Skin- warm & dry Laboratory Results: Last 24 Hours Test 05/20/16 16:21 05/21/16 07:14 White Blood Count 4.17 K/uL Red Blood Count 4.52 M/uL Hemoglobin 9.9 g/dL Hematocrit 31.2 % Mean Corpuscular Volume 69.0 fL Mean Corpuscular Hemoglobin 21.9 pg Mean Corpuscular Hemoglobin Concent 31.7 g/dl Platelet Count 331 K/uL Mean Platelet Volume 9.5 fL Neutrophils (%) (Auto) 56.5 % Lymphocytes (%) (Auto) 32.9 % Monocytes (%) (Auto) 7.0 % Eosinophils (%) (Auto) 2.9 % Basophils (%) (Auto) 0.5 % Neutrophils # (Auto) 2.36 K/uL Lymphocytes # (Auto) 1.37 K/uL Monocytes # (Auto) 0.29 K/uL Eosinophils # (Auto) 0.12 K/uL Basophils # (Auto) 0.02 K/uL RDW Standard Deviation 56.5 fL RDW Coefficient of Variation 22.6 % Immature Granulocyte % (Auto) 0.2 % Immature Granulocyte # (Auto) 0.01 K/uL Polychromasia 1+ Poikilocytosis PRESENT Anisocytosis PRESENT Microcytosis PRESENT Sodium Level 141 mmol/L Potassium Level 3.8 mmol/L Chloride Level 110 mmol/L Carbon Dioxide Level 21 mmol/L Anion Gap 10.0 mmol/L Blood Urea Nitrogen 4 mg/dl Creatinine 0.72 mg/dl Est Creatinine Clear Calc Drug Dose 96.1 ml/min Estimated GFR () 131.2 Estimated GFR (Non- 113.2 BUN/Creatinine Ratio 5.1 Random Glucose 79 mg/dl Calcium Level 7.9 mg/dl Assessment & Plan ABDOMINAL PAIN, LIKELY FROM CONSTIPATION- OPIOID INDUCED?, RECTAL ULCER - given Fleet Enemas, Laxatives (+) BMs - s/p Colonoscopy by Dr. Thapa 05/20/16 (full report noted below) (+) rectal mucosa ulcer, biopsy obtained and pathology report pending, please follow up - recommend bowel regimen - abdominal pain has improved - discharge on Senokot S and Miralax ff up with PCP in 3-5 days ff up with Communications Tower Technician Dr. Thapa in 1 week History of Hodgkins Lymphoma - sp chemoradiation - discussed with Dr. Vasquez, follow up with him as advised Chronic anemia, Iron Deficiency - Hg 7.4 on 05/14/16 Hg 7.1 05/20/16 - discussed with Dr. Vasquez, recommended 2 units PRBC transfusion and this was given Hg improved to 9.9 - continue Iron supplement ff up with Dr. Vasquez as advised Chronic Pain - on Methadone History of lung surgery - respiratory status stable Irregular Menstruation - follows with Gyne as outpatient DVT prophlaxis SCDs given Dispo d/c home today ff up with PCP in 3-5 days ff up with Communications Tower Technician Dr. Tuan Thapa in 1 week Tel. No. ff up with Dr. Vasquez as advised COLONOSCOPY 05/20/16 Impression: - Preparation of the colon was inadequate. - Mucosal ulceration. Biopsied. - The area from 15 to 80 cm proximal to the anus is normal. Biopsied. - Stool in the entire examined colon. - Likely stercoral ulcer however will exclude CMV proctitis and lymphoma by histology and viral cx. Recommendation: - [facility] to [facility] for [facility] care. - Clear liquid diet. - Continue present medications. - Await pathology results. - Patient needs a formal bowel regimen especially with chronic methadone therapy. This can include Miralax twice daily, mag Citrate or Senokot as tolerated by patient. Current Inpatient Medications: Current Inpatient Medications Medications (Trade) Dose Ordered Sig/Garret Route Start Time Stop Time Status Last Admin Dose Admin Ioversol (Optiray 320) 100 ml UD PRN IV 05/18/16 22:15 05/22/16 22:14 Senna/Docusate Sodium (Senokot S Tab) 1 tab BID PO 05/19/16 09:00 06/18/16 08:59 05/21/16 07:48 1 TAB Acetaminophen (Tylenol Tab) 650 mg Q4H PRN PO 05/19/16 01:00 06/18/16 00:59 Ketorolac Tromethamine (Toradol Inj) 30 mg Q6H PRN IV 05/19/16 01:00 05/24/16 00:59 05/21/16 10:50 30 MG Tramadol HCl (Ultram Tab) 25 mg Q6H PRN PO 05/19/16 01:00 06/18/16 00:59 05/20/16 22:26 25 MG Ibuprofen (Advil Tab) 400 mg Q6H PRN PO 05/19/16 01:00 06/18/16 00:59 Ondansetron HCl 4 mg 4 mg Q6H PRN IV 05/19/16 01:00 06/18/16 00:59 05/20/16 07:25 4 MG Promethazine HCl/ Sodium Chloride (Phenergan Inj/ Nss 50ml) 50.5 ml @ 204 mls/hr Q6H PRN IV 05/19/16 01:00 06/18/16 00:59 Methadone HCl (Dolophine Tab) 10 mg QID PO 05/19/16 09:00 06/02/16 08:59 05/21/16 12:27 10 MG Ferrous Fumarate (Cathy-Sequels Contr Rel Cap) 50 mg TIDM PO 05/19/16 08:00 06/18/16 07:59 05/21/16 12:27 50 MG Morphine Sulfate (MoRPHine SULFATE INJ) 4 mg Q6H PRN IV 05/19/16 01:00 06/02/16 00:59 05/21/16 12:28 4 MG Metoclopramide HCl 10 mg 10 mg Q6H PRN IV 05/20/16 11:00 06/19/16 10:59 05/20/16 11:12 10 MG Pantoprazole Sodium/Syringe (Protonix Inj/ Syringe) 10 ml @ 5 mls/min DAILY@11 IV 05/21/16 11:00 06/20/16 10:59 05/21/16 10:50 5 MLS/MIN
[2016-05-21] MEDS ORDERED: SENN8.6T7 PO (16:18)
[2016-05-21] MEDS ORDERED: MRLP17X PO (16:18)
--- NOTE | 2016-05-21 16:26 | Discharge Instructions ---
Discharge Instructions Admission Reason for Admission: Abdominal Pain Discharge Discharge Diagnosis / Problem: ABDOMINAL PAIN FROM CONSTIPATION, RECTAL MUCOSA ULCER Discharge Goals Goal(s): Diagnostic testing, Therapeutic intervention Activity Recommendations Activity Limitations: as noted below (no heavy exertion until re-evaluated by Primary Care Physician) . Instructions / Follow-Up Instructions / Follow-Up PLEASE REVIEW YOUR MEDICATION LIST AND FOLLOW INSTRUCTIONS CAREFULLY. CALL YOUR PRIMARY CARE PHYSICIAN IF WITH CONSTIPATION FOR MORE THAN 2 DAYS, RETURN OR WORSENING OF SYMPTOMS, BLACK OR BLOOD IN THE STOOLS, WEAKNESS, DIZZINESS, SHORTNESS OF BREATH. DRINK PLENTY OF FLUIDS. EAT HIGH FIBER DIET. FOLLOW UP WITH PRIMARY CARE PHYSICIAN IN 3-[address] JORGENSEN SCHEDUL[address]. DR. AMBROSIO GOMEZ (ENFORCEMENT MANAGER) IN 1 WEEK. TEL NO. Current Hospital Diet Patient's current hospital diet: Clear Liquid Diet Discharge Diet Recommended Diet: Regular Diet Procedures Procedures Performed: COLONOSCOPY, WITH BIOPSY Pending Studies Studies pending at discharge: yes List of pending studies: Repeat blood work- CBC, Follow up Biopsy from Colonoscopy Laboratory Results Lipid Panel Test 03/31/16 09:45 Range/Units Triglycerides Level 79 0-150 mg/dl Cholesterol Level 123 0-200 mg/dl HDL Cholesterol 53 mg/dl Cholesterol/HDL Ratio 2.3 LDL Cholesterol, Calculated 54 mg/dl Medical Emergencies . Who to Call and When: Medical Emergencies: If at any time you feel your situation is an emergency, please call 911 immediately. . Non-Emergent Contact Non-Emergency issues call your: Primary Care Provider Call Non-Emergent contact if: you have a fever, your pain is not controlled . . "Provider Documentation" section prepared by David Miller. VTE Core Measure Inpt VTE Proph given/why not?: SCD's [place] Drug Monitoring Program Search Results: patient reviewed within database, no issues identified
--- NOTE | 2016-05-21 16:30 | Discharge Summary ---
Discharge Summary Admission Date: May 19, 2016 at 00:30 Discharge Date: May 21, 2016 Discharge Disposition: Home Principal Diagnosis: ABDOMINAL PAIN, LIKELY FROM CONSTIPATION- possibly OPIOID INDUCED, RECTAL ULCER Secondary Diagnoses/Problems: Please refer to hospital course below. Procedures: s/p Colonoscopy with Biopsy 05/20/16 Consultations: Banking Pin Adjuster Dr. Tuan Thapa- [facility] Pending Studies/Follow-Up: Repeat CBC to monitor Hg, Follow up Biopsy of the Rectal Mucosa, Please refer to hospital course below for further details. Medication Reconciliation New Medications: Polyethylene (Miralax) 17 Gm Pow 17 GM PO DAILY PRN for Constipation, #14 PKT 0 Refills Sennosides-Docusate Sodium (Senokot S) 1 Tab Tab 1 TAB PO BID for 30 Days, #60 TAB 2 Refills Continued Medications: Ferrous Fumarate (Iron) Unknown Strength Tab 1 TAB PO TID Methadone Hcl (Dolophine) 10 Mg Tab 10 MG PO QID, TAB Admission Information HPI (per Admitting provider): Limited history from the patient secondary to language barrier. History obtained from patient through assistance of prosthetic technician. Additional history obtained from records and ER MD CHIEF COMPLAINT: Abdominal pain. HISTORY OF PRESENT ILLNESS: Medical history is significant for Hodgkin's lymphoma sp chemoradiation, history of chronic pain on narcotics, history of lung surgery for lung infection related to radiotx as per px. chronic anemia/thalassemia (baseline hemoglobin 7). Patient diagnosed to have Hodgkin's lymphoma in 2008, subsequently underwent chemoradiation in [facility]. Subsequently, she developed lung infection requiring lung surgery leading to chronic pain. Patient moved to [facility] a few years ago for chemotherapy at [facility]. Px currently in remission. Patient recently moved to [facility]. Px currently seeing [facility] Oncology for HL. Last week, patient noted hypogastric discomfort, incomplete bladder emptying, some chills, somewhat constipated. Last BM today. No chest pain, no shortness of breath. Patient denies hx of black bloody stools. Patient was seen at the Emergency Room. CAT scan showed markedly thickened, edematous, hyperemic rectum proctitis, constipation, intrahepatic biliary dilatation, splenomegaly. Patient received Cipro, Flagyl and Fleet enema in the Emergency Room. Physical Exam (per Admitting): VITAL SIGNS: Blood pressure was noted to be 106/64, pulse rate 81, RR 18, temperature 36.8, sats 99 on room air. GENERAL: comfortable, no resp distress SKIN : pallor . HEENT: Pale palpebral conjunctivae. Dry mucosa. NECK: No JVD. Supple. CHEST: Clear to auscultation. HEART: Regular rate and rhythm. ABDOMEN: soft NT. EXTREMITIES: No edema, no tenderness. NEUROLOGIC: No gross focality. Hospital Course ABDOMINAL PAIN, LIKELY FROM CONSTIPATION- OPIOID INDUCED?, RECTAL ULCER - given Fleet Enemas, Laxatives (+) BMs - s/p Colonoscopy by Dr. Thapa 05/20/16 (full report noted below) (+) rectal mucosa ulcer, biopsy obtained and pathology report pending, please follow up - recommend bowel regimen - abdominal pain has improved - discharge on Senokot S and Miralax ff up with PCP in 3-5 days ff up with Banking Pin Adjuster Dr. Thapa in 1 week History of Hodgkins Lymphoma - sp chemoradiation - discussed with Dr. Jorgensen, follow up with him as advised Chronic anemia, Iron Deficiency - Hg 7.4 on 05/14/16 Hg 7.1 05/20/16 - discussed with Dr. Jorgensen, recommended 2 units PRBC transfusion and this was given Hg improved to 9.9 - continue Iron supplement ff up with Dr. Jorgensen as advised Chronic Pain - on Methadone History of lung surgery - respiratory status stable Irregular Menstruation - follows with Gyne as outpatient DVT prophlaxis SCDs given Dispo d/c home today ff up with PCP in 3-5 days ff up with Banking Pin Adjuster Dr. Tuan Thapa in 1 week Tel. No. [phone] Jorgensen as advised COLONOSCOPY 05/20/16 Impression: - Preparation of the colon was inadequate. - Mucosal ulceration. Biopsied. - The area from 15 to 80 cm proximal to the anus is normal. Biopsied. - Stool in the entire examined colon. - Likely stercoral ulcer however will exclude CMV proctitis and lymphoma by histology and viral cx. Recommendation: - [facility] to [facility] for [facility] care. - Clear liquid diet. - Continue present medications. - Await pathology results. - Patient needs a formal bowel regimen especially with chronic methadone therapy. This can include Miralax twice daily, mag Citrate or Senokot as tolerated by patient. Total time spent on discharge = 40 minutes This includes examination of the patient, discharge planning, medication reconciliation, and communication with other providers. Discharge Instructions Discharge Instructions Admission Reason for Admission: Abdominal Pain Discharge Discharge Diagnosis / Problem: ABDOMINAL PAIN FROM CONSTIPATION, RECTAL MUCOSA ULCER Discharge Goals Goal(s): Diagnostic testing, Therapeutic intervention Activity Recommendations Activity Limitations: as noted below (no heavy exertion until re-evaluated by Primary Care Physician) . Instructions / Follow-Up Instructions / Follow-Up PLEASE REVIEW YOUR MEDICATION LIST AND FOLLOW INSTRUCTIONS CAREFULLY. CALL YOUR PRIMARY CARE PHYSICIAN IF WITH CONSTIPATION FOR MORE THAN 2 DAYS, RETURN OR WORSENING OF SYMPTOMS, BLACK OR BLOOD IN THE STOOLS, WEAKNESS, DIZZINESS, SHORTNESS OF BREATH. DRINK PLENTY OF FLUIDS. EAT HIGH FIBER DIET. FOLLOW UP WITH PRIMARY CARE PHYSICIAN IN 3-[address] JORGENSEN SCHEDUL[address]. DR. TUAN THAPA (DIRECTOR OF MANAGED SERVICES) IN 1 WEEK. TEL NO. Current Hospital Diet Patient's current hospital diet: Clear Liquid Diet Discharge Diet Recommended Diet: Regular Diet Procedures Procedures Performed: COLONOSCOPY, WITH BIOPSY Pending Studies Studies pending at discharge: yes List of pending studies: Repeat blood work- CBC, Follow up Biopsy from Colonoscopy Laboratory Results Lipid Panel Test 03/31/16 09:45 Range/Units Triglycerides Level 79 0-150 mg/dl Cholesterol Level 123 0-200 mg/dl HDL Cholesterol 53 mg/dl Cholesterol/HDL Ratio 2.3 LDL Cholesterol, Calculated 54 mg/dl Medical Emergencies . Who to Call and When: Medical Emergencies: If at any time you feel your situation is an emergency, please call 911 immediately. . Non-Emergent Contact Non-Emergency issues call your: Primary Care Provider Call Non-Emergent contact if: you have a fever, your pain is not controlled . . "Provider Documentation" section prepared by David Miller. VTE Core Measure Inpt VTE Proph given/why not?: SCD's [place] Drug Monitoring Program Search Results: patient reviewed within database, no issues identified
[2016-05-21 16:55] VITALS: BP 114/77; PULSE 72; TEMP 37.2; O2SAT 98
== END 2016-05-21 17:56 | disposition home or self-care (01) ==
LOC: ENRESERVTM → ENRESERVDT → C.EDB 20:17 → C.MS2W 05-19 00:30
PROVIDERS: ADMIT Internal Medicine; ATTEND Internal Medicine
DX: R10.9 Unspecified abdominal pain (principal); K59.00 Constipation, unspecified; D50.9 Iron deficiency anemia, unspecified; N92.6 Irregular menstruation, unspecified; G89.29 Other chronic pain; Z85.71 Personal history of Hodgkin lymphoma; Z87.440 Personal history of urinary (tract) infections; Z92.3 Personal history of irradiation

== ENCOUNTER 2016-11-08 11:14 | Observation (INO) | payer OTHER ==
[~2016-11-08] VITALS: Ht 152.4 cm; Wt 56.1 kg
[~2016-11-08 11:14] MED LIST: METH10TA2 PO; MRLP17X PO; SENN8.6T7 PO
[2016-11-08] MEDS ORDERED: SODIUM CHLORIDE 0.9% 1000ML 1,000 ML IV STA (12:24)
[2016-11-08] MEDS ORDERED: ONDANSETRON INJ 2 MG/ML 2 ML VIAL IV STA (12:24)
[2016-11-08] MEDS: MoRPHine SULFATE 4 MG/ML 1 ML CARP\\VIAL IV PRN ×4 (12:36→21:39)
--- NOTE | 2016-11-08 13:15 | DIAGNOSTIC IMAGING REPORT ---
CHEST ONE VIEW PORTABLE CLINICAL HISTORY: 31 years-old Female presenting with ABDOMINAL PAIN/GI. TECHNIQUE: Portable upright AP view of the chest was obtained. COMPARISON: CT from 05/18/2016. FINDINGS: Right subclavian Mediport terminating in the superior vena cava has been accessed. Cardiomediastinal silhouette normal. Mediastinal surgical clip and a suture margin is noted in the right mid to lower paramediastinal lung. Associated retractile changes of the right lung base and elevation of the right hemidiaphragm. No focal opacity. Pleural spaces clear. Osseous structures and upper abdomen normal. IMPRESSION: 1. No acute cardiopulmonary disease. Postsurgical changes of the right mid to lower lung. Electronically signed by: Robert Patel 11/08/2016 1:14 PM Dictated Date/Time: 11/08/2016 1:11 PM
[2016-11-08 13:36] LABS: BASO % 0.2 %; BASO ABS # 0.01 K/uL (0-0.2); COMPLETE YES; EOS % 0.2 %; HEMATOCRIT 33.1 % (37-47); LYMPH % 12.2 %; LYMPH ABS # 0.66 K/uL (1.2-3.4); MEAN CELL VOLUME 77.3 fL (80-100); MEAN CORPUSCULAR HEMOGLOBIN 24.1 pg (25-34); MEAN CORPUSCULAR HGB CONC 31.1 g/dl (32-36); MONO % 4.4 %; PLATELET COUNT 276 K/uL (130-400); RED BLOOD COUNT 4.28 M/uL (4.2-5.4)
[2016-11-08] MEDS ORDERED: HYDROmorphone INJ 2 MG/ML SYR/VIAL IV STA (13:37)
[2016-11-08] MEDS ORDERED: PROCHLORPERAZINE 5 MG/ML 2 ML VIAL IV STA (13:37)
[2016-11-08 13:42] LABS: INR 1.1 (0.9-1.1); PROTHROMBIN TIME (PATIENT) 11.4 SECONDS (9.0-12.0)
[2016-11-08 13:48] LABS: ALT/SGPT 48 U/L (12-78); AST/SGOT 16 U/L (15-37); BLOOD UREA NITROGEN 12 mg/dl (7-18); BUN/CREATININE RATIO 15.8 (10-20); CALCIUM 7.8 mg/dl (8.5-10.1); CARBON DIOXIDE 22 mmol/L (21-32); CHLORIDE 111 mmol/L (98-107); CREATININE 0.74 mg/dl (0.60-1.20); GLUCOSE 114 mg/dl (70-99); POTASSIUM 3.6 mmol/L (3.5-5.1); SODIUM 140 mmol/L (136-145)
[2016-11-08 13:51] LABS: ALKALINE PHOSPHATASE 77 U/L (45-117)
[2016-11-08] MEDS ORDERED: KETOROLAC TROMETHAMINE 30 MG/ML VIAL IV STA (15:17)
[2016-11-08] MEDS ORDERED: MoRPHine SULFATE 4 MG/ML 1 ML CARP\\VIAL IV STA ×2 (15:17→17:57)
[2016-11-08] MEDS ORDERED: SOAP SUDS ENEMA PR ONE (15:30)
[2016-11-08] MEDS ORDERED: SENNA 8.6 MG TAB PO ONE (16:30)
[2016-11-08] MEDS ORDERED: OPTIRAY 320 IV PRN (16:30)
[2016-11-08] MEDS ORDERED: SENN-65 PO (16:31)
--- NOTE | 2016-11-08 16:37 | DIAGNOSTIC IMAGING REPORT ---
CT ABD/PELVIS IV CONTRAST ONLY CLINICAL HISTORY: Generalized abdominal pain, vomiting, bodyaches. COMPARISON STUDY: 05/18/2016 TECHNIQUE: Following the IV administration of 116 mL of Optiray-320, CT scan of the abdomen and pelvis was performed from the lung bases to the proximal femurs. Images are reviewed in the axial, sagittal, and coronal planes. IV contrast was administered without complication. CT DOSE: 302.77 mGycm FINDINGS: Lower chest: There are postsurgical changes in the right hemithorax. Liver: The contrast-enhanced liver is normal in size, contour, and attenuation. There is no intrahepatic biliary ductal dilatation. The hepatic veins and portal veins are patent. Gallbladder: Unremarkable. Spleen: Normal in size and attenuation. Pancreas: Unremarkable. Adrenal glands: Unremarkable. Kidneys: There is symmetric renal cortical enhancement. The kidneys are normal in size without hydronephrosis. Bowel: There is moderate fecal retention. There is persistent but decreasing rectal wall thickening. There are no transition zones indicate bowel obstruction. There is borderline gastric antral wall thickening. The appendix is not visualized with certainty. There are no findings to indicate acute appendicitis. Peritoneum: There is no intraperitoneal free air or abdominal ascites. Vasculature: The abdominal aorta is normal in course and caliber. Adenopathy: None. Pelvic viscera: The bladder, and pelvic viscera are unremarkable. Skeletal structures: No destructive osseous lesions are seen. IMPRESSION: 1. No evidence of bowel obstruction. No evidence of free air 2. Moderate fecal retention 3. No evidence of acute diverticulitis. No evidence of acute appendicitis 4. Improving rectal wall thickening 5. Borderline gastric antral wall thickening Electronically signed by: Kumar Bhagat M.D. 11/08/2016 4:35 PM Dictated Date/Time: 11/08/2016 4:30 PM
--- NOTE | 2016-11-08 17:17 | EMERGENCY ROOM VISIT NOTE ---
History Report prepared by Raghuibmabel: Mario Kuo Under the Supervision of: Dr. José Brown D.O. First contact with patient: 12:17 Chief Complaint: VOMITING Stated Complaint: VOMITTING, BODY ACHES (CANCER PT) History of Present Illness The patient is a 31 year old female who presents to the Emergency Room with complaints of severe and persistent upper abdominal pain starting this morning. The patient is currently in remission for Non-Hodgkin Lymphoma. She is chronically on Methadone treatment for chronic pain. She recently ran out of the methadone but got it refilled today. She took one dose today but had a vomiting episode soon after. She has had 5 episodes of vomiting today since the onset of her pain this morning. She currently complains of abdominal pain. She describes her current pain to be similar to her chronic pain but it is worse in severity than her normal pain. She rates a pain intensity of 8/10. She denies fevers, chest pain, shortness of breath, diarrhea, or any other complaints. Source of History: patient Onset: ths morning Position: abdomen (upper) Symptom Intensity: 8/10 Timing: other (persistent) Associated Symptoms: + vomiting, No fevers, No chest pain, No SOB, No diarrhea Review of Systems See HPI for pertinent positives & negatives. A total of 10 systems reviewed and were otherwise negative. Past Medical & Surgical Medical Problems: (1) Abdominal pain Family History Patient reports no known family medical history. Social History Smoking Status: Never Smoker Marital Status: Occupation Status: unemployed Current/Historical Medications Scheduled Senna/Docusate Sod (Senokot S), 1 TAB PO HS Allergies Coded Allergies: No Known Allergies (Unverified , 11/08/16) Physical Exam Vital Signs Date Time Temp Pulse Resp B/P (MAP) Pulse Ox O2 Delivery O2 Flow Rate FiO2 11/08/16 20:31 74 20 91/53 100 Room Air 11/08/16 18:57 76 20 96/62 97 Room Air 11/08/16 13:57 81 15 93/49 100 Room Air 11/08/16 12:43 Room Air 11/08/16 11:20 37.2 91 20 120/68 96 Room Air Physical Exam CONSTITUTIONAL/VITAL SIGNS: Reviewed / noted above. GENERAL: Non-toxic in appearance. Vomiting in the Emergency Department. INTEGUMENTARY: Warm, dry, and Gail. HEAD: Normocephalic. EYES: without scleral icterus or trauma. ENT/OROPHARYNX: clear and moist. LYMPHADENOPATHY/NECK: Is supple without lymphadenopathy or meningismus. RESPIRATORY: Lungs clear and equal. CARDIOVASCULAR: Regular rate and rhythm. GI/ABDOMEN: Soft. Mildly tender in the upper abdominal region. No organomegaly or pulsatile mass. No rebound or guarding. Normal bowel sounds. RECTAL: Moderate amount of hard stool in the rectal vault just proximal to finger length. EXTREMITIES: Warm and well perfused. BACK: No CVA tenderness. NEUROLOGICAL: Intact without focal deficits. PSYCHIATRIC: normal affect. MUSCULOSKELETAL: Normally developed with good muscle tone. Medical Decision & Procedures ER Provider Diagnostic Interpretation: X ray results and stated below per my interpretation and radiology interpretation. CHEST ONE VIEW PORTABLE CLINICAL HISTORY: 31 years-old Female presenting with ABDOMINAL PAIN/GI. TECHNIQUE: Portable upright AP view of the chest was obtained. COMPARISON: CT from 05/18/2016. FINDINGS: Right subclavian Mediport terminating in the superior vena cava has been accessed. Cardiomediastinal silhouette normal. Mediastinal surgical clip and a suture margin is noted in the right mid to lower paramediastinal lung. Associated retractile changes of the right lung base and elevation of the right hemidiaphragm. No focal opacity. Pleural spaces clear. Osseous structures and upper abdomen normal. IMPRESSION: 1. No acute cardiopulmonary disease. Postsurgical changes of the right mid to lower lung. Electronically signed by: Robert Patel 11/08/2016 1:14 PM Dictated Date/Time: 11/08/2016 1:[address] results as stated below per my review and radiologist interpretation: CT ABD/PELVIS IV CONTRAST ONLY CLINICAL HISTORY: Generalized abdominal pain, vomiting, bodyaches. COMPARISON STUDY: 05/18/2016 TECHNIQUE: Following the IV administration of 116 mL of Optiray-320, CT scan of the abdomen and pelvis was performed from the lung bases to the proximal femurs. Images are reviewed in the axial, sagittal, and coronal planes. IV contrast was administered without complication. CT DOSE: 302.77 mGycm FINDINGS: Lower chest: There are postsurgical changes in the right hemithorax. Liver: The contrast-enhanced liver is normal in size, contour, and attenuation. There is no intrahepatic biliary ductal dilatation. The hepatic veins and portal veins are patent. Gallbladder: Unremarkable. Spleen: Normal in size and attenuation. Pancreas: Unremarkable. Adrenal glands: Unremarkable. Kidneys: There is symmetric renal cortical enhancement. The kidneys are normal in size without hydronephrosis. Bowel: There is moderate fecal retention. There is persistent but decreasing rectal wall thickening. There are no transition zones indicate bowel obstruction. There is borderline gastric antral wall thickening. The appendix is not visualized with certainty. There are no findings to indicate acute appendicitis. Peritoneum: There is no intraperitoneal free air or abdominal ascites. Vasculature: The abdominal aorta is normal in course and caliber. Adenopathy: None. Pelvic viscera: The bladder, and pelvic viscera are unremarkable. Skeletal structures: No destructive osseous lesions are seen. IMPRESSION: 1. No evidence of bowel obstruction. No evidence of free air 2. Moderate fecal retention 3. No evidence of acute diverticulitis. No evidence of acute appendicitis 4. Improving rectal wall thickening 5. Borderline gastric antral wall thickening Electronically signed by: Kumar Bhagat M.D. 11/08/2016 4:35 PM Dictated Date/Time: 11/08/2016 4:30 PM Laboratory Results 11/08/16 13:19 Red Blood Count 4.28, Mean Corpuscular Volume 77.3, Mean Corpuscular Hemoglobin 24.1, Mean Corpuscular Hemoglobin Concent 31.1, Mean Platelet Volume 10.0, Neutrophils (%) (Auto) 83.0, Lymphocytes (%) (Auto) 12.2, Monocytes (%) (Auto) 4.4, Eosinophils (%) (Auto) 0.2, Basophils (%) (Auto) 0.2, Neutrophils # (Auto) 4.48, Lymphocytes # (Auto) 0.66, Monocytes # (Auto) 0.24, Eosinophils # (Auto) 0.01, Basophils # (Auto) 0.01 11/08/16 13:19 Test 11/08/16 13:19 White Blood Count 5.40 K/uL (4.8-10.8) Red Blood Count 4.28 M/uL (4.2-5.4) Hemoglobin 10.3 g/dL (12.0-16.0) Hematocrit 33.1 % (37-47) Mean Corpuscular Volume 77.3 fL (80-100) Mean Corpuscular Hemoglobin 24.1 pg (25-34) Mean Corpuscular Hemoglobin Concent 31.1 g/dl (32-36) Platelet Count 276 K/uL (130-400) Mean Platelet Volume 10.0 fL (7.4-10.4) Neutrophils (%) (Auto) 83.0 % Lymphocytes (%) (Auto) 12.2 % Monocytes (%) (Auto) 4.4 % Eosinophils (%) (Auto) 0.2 % Basophils (%) (Auto) 0.2 % Neutrophils # (Auto) 4.48 K/uL (1.4-6.5) Lymphocytes # (Auto) 0.66 K/uL (1.2-3.4) Monocytes # (Auto) 0.24 K/uL (0.11-0.59) Eosinophils # (Auto) 0.01 K/uL (0-0.5) Basophils # (Auto) 0.01 K/uL (0-0.2) RDW Standard Deviation 41.2 fL (36.4-46.3) RDW Coefficient of Variation 14.4 % (11.5-14.5) Immature Granulocyte % (Auto) 0.0 % Immature Granulocyte # (Auto) 0.00 K/uL (0.00-0.02) Prothrombin Time 11.4 SECONDS (9.0-12.0) Prothromb Time International Ratio 1.1 (0.9-1.1) Activated Partial Thromboplast Time 26.6 SECONDS (21.0-31.0) Partial Thromboplastin Ratio 1.0 Anion Gap 7.0 mmol/L (3-11) Estimated GFR () 126.0 Estimated GFR (Non- 108.7 BUN/Creatinine Ratio 15.8 (10-20) Calcium Level 7.8 mg/dl (8.5-10.1) Total Bilirubin 0.8 mg/dl (0.2-1) Direct Bilirubin 0.2 mg/dl (0-0.2) Aspartate Amino Transf (AST/SGOT) 16 U/L (15-37) Alanine Aminotransferase (ALT/SGPT) 48 U/L (12-78) Alkaline Phosphatase 77 U/L (45-117) Total Protein 7.0 gm/dl (6.4-8.2) Albumin 3.4 gm/dl (3.4-5.0) Lipase 116 U/L (73-393) Laboratory results as stated above per my review. Medications Administered Medications (Trade) Dose Ordered Sig/Garret Route Start Time Stop Time Status Last Admin Dose Admin Sodium Chloride 1,000 ml @ 999 mls/hr Q1H1M STAT IV 11/08/16 12:24 11/08/16 13:24 DC 11/08/16 12:36 999 MLS/HR Ondansetron HCl (Zofran Inj) 4 mg NOW STAT IV 11/08/16 12:24 11/08/16 12:26 DC 11/08/16 12:36 4 MG Morphine Sulfate (MoRPHine SULFATE INJ) 4 mg Q1H PRN IV 11/08/16 12:30 11/22/16 12:29 11/08/16 14:38 4 MG Hydromorphone HCl (Dilaudid Inj) 2 mg NOW STAT IV 11/08/16 13:37 11/08/16 13:39 DC 11/08/16 13:51 8 MG Prochlorperazine Edisylate (Compazine Inj) 10 mg NOW STAT IV 11/08/16 13:37 11/08/16 13:39 DC 11/08/16 13:51 10 MG Ketorolac Tromethamine (Toradol Inj) 30 mg NOW STAT IV 11/08/16 15:17 11/08/16 15:22 DC 11/08/16 18:18 30 MG Miscellaneous (Soap Suds Enema) 1 ea ONE ONCE WV 11/08/16 15:30 11/08/16 15:31 DC 11/08/16 15:30 1 EA Senna (Senokot Tab) 17.2 mg NOW ONCE PO 11/08/16 16:30 11/08/16 16:31 DC 11/08/16 17:00 17.2 MG Morphine Sulfate (MoRPHine SULFATE INJ) 4 mg NOW STAT IV 11/08/16 17:57 11/08/16 18:02 DC 11/08/16 18:07 4 MG Mineral Oil (Fleet Oil Enema) 133 ml ONE ONCE WV 11/08/16 18:00 11/08/16 18:02 DC 11/08/16 19:04 133 ML Magnesium Citrate (Citrate Of Magnesia Soln) 150 ml NOW ONCE PO 11/08/16 18:00 11/08/16 18:02 DC 11/08/16 18:18 150 ML ED Course 1217: Previous medical records were reviewed. The patient was evaluated in room C07. A complete history and physical examination was performed. 1224: Zofran Inj 4 mg IV, Sodium Chloride 1000 ml @ 999 mls/hr IV 1230: Morphine Sulfate 4 mg IV 1337: Compazine Inj 10 mg IV, Dilaudid Inj 2 mg IV 1517: Toradol Inj 30 mg IV, Morphine Sulfate 4 mg IV 1530: Soap Suds Enema 1 ea WV 1630: Senna 17.2 mg PO 171: I reevaluated the patient who continues to complain of her symptoms. 175: Morphine Sulfate 4 mg IV 1800: Magnesium Citrate 150 ml PO, Mineral Oil 133 ml WV 192: I reevaluated the patient who continues to complain of pain. She tried to have a bowel movement but was unable to do so. I discussed the results and findings with her. She verbalized agreement of the treatment plan. The patient will be evaluated for further management and care. 2046: I discussed the patient's case with Dr. Peoples, from [facility]. Medical Decision Medication Reconciliation: I attest that I have personally reviewed the patient' s current medication list. Blood pressure Screening: Patient was found to have normal blood pressure on screening and does not require follow-up. Differential considered: pancreatitis, hepatitis, or acute cholecystitis, AAA, UTI, pyelonephritis, kidney stones, appendicitis, diverticulitis, shingles, bowel obstruction mesenteric ischemia, intussusception,hernia, ovarian torsion, ruptured ovarian cyst,ectopic , . This is a 31-year-old female who presents to the ED with a chief complaint of abdominal pain. The patient states that her symptoms started this morning. She states that she is chronically on methadone for chronic pain issues. The patient is normally well controlled with this. She states that her medication ran out and she did not receive the refills for this until this morning. When she awoke this morning she was having pain and vomiting. She attempted taking her medication but was unable to keep it down. She came to the ED for evaluation. She was in a moderate amount of pain on her arrival. She had some mild abdominal tenderness in the upper abdomen. The patient's exam was otherwise unremarkable. CBC and complete metabolic panel were unremarkable. Lipase was negative. A CT scan of the abdomen and pelvis did not show any significant acute findings. There is evidence moderate constipation. The patient was treated with IV morphine, IV Zofran, IV Dilaudid, IV Compazine and IV fluids as well as IV Toradol. She was given Senokot by mouth and a soapsuds enema. The patient was able to have a bowel movement. On rectal exam, the patient does have some hard stool just about the distance of the tip of my finger. She was then given a mineral oil enema and magnesium citrate. The patient continued having abdominal pain and did not produce a bowel movement. At this point, the patient has been here for almost 9 hours. She will need to be admitted for additional care for constipation and abdominal pain.. There does not appear to be any serious etiology as a cause for her abdominal pain other than constipation. Consults Time Called: 2001 Consulting Physician: Dr. Peoples, from [facility] Returned Call: 2046 I discussed the patient's case with Dr. Peoples, from [facility]. Impression Primary Impression: Abdominal pain Additional Impressions: Constipation Intractable abdominal pain Scribe Attestation The scribe's documentation has been prepared under my direction and personally reviewed by me in its entirety. I confirm that the note above accurately reflects all work, treatment, procedures, and medical decision making performed by me. Departure Information Dispostion Being Evaluated By Hospitalist Prescriptions Senna/Docusate Sod (Senokot S) 1 Tab Tab 1 TAB PO HS for 30 Days, #30 TAB 3 Refills Prov: José Brown D.O. 11/08/16 Referrals [facility] (PCP) Patient Instructions [facility] Problem Qualifiers
[2016-11-08] MEDS ORDERED: MAGNESIUM CITRATE 296 ML/BTL PO ONE (18:00)
[2016-11-08] MEDS ORDERED: MINERAL OIL ENEMA 133 ML BTL PR ONE (18:00)
[2016-11-08] MEDS ORDERED: KETOROLAC TROMETHAMINE 30 MG/ML VIAL ONE (18:12)
[2016-11-08] MEDS ORDERED: MoRPHine SULFATE 2 MG/ML CARP IV STA (22:52)
[2016-11-08 22:57] LABS: URINE APPEARANCE CLEAR (CLEAR); URINE BILIRUBIN NEG (NEG); URINE COLOR YELLOW; URINE NITRITE NEG (NEG); URINE PH 8.5 (4.5-7.5); URINE SPECIFIC GRAVITY > 1.045 (1.000-1.030); UROBILINOGEN NEG (NEG); ZZUR CULT IF INDIC CLEAN CATCH NO
[2016-11-08 23:00] LABS: MANUAL MICROSCOPIC REQUIRED? NO; REVIEW REQ? NO
[2016-11-08] MEDS ORDERED: MAGNESIUM HYDROXIDE SUSP 30 ML UDC PO PRN (23:00)
[2016-11-08] MEDS ORDERED: ACETAMINOPHEN 325 MG TAB PO PRN (23:00)
[2016-11-08] MEDS ORDERED: ALUMINUM/MAGNESIUM/SIMETH (MAALOX MAX) 30 ML UDC PO PRN (23:00)
[2016-11-08 23:02] LABS: SULFASALICYLIC ACID NEG (NEG)
[2016-11-08] MEDS ORDERED: PANTOprazole INJ 40 MG in SYRINGE 0 ML IV STA (23:21)
[2016-11-08] MEDS ORDERED: MAGNESIUM HYDROXIDE SUSP 30 ML UDC PO STA (23:22)
[2016-11-09] MEDS ORDERED: SENNA 17.6 MG/10 ML UDP PO STA (00:06)
[2016-11-09] MEDS ORDERED: IV FLUIDS COMPLETED PRN (00:30)
[2016-11-09] MEDS: D5W AND 1/2NSS + 20MEQ KCL 1,000 ML IV SCH ×2 (00:37→10:15)
[2016-11-09] MEDS ORDERED: KETOROLAC TROMETHAMINE 30 MG/ML VIAL IV STA (00:52)
[2016-11-09] MEDS ORDERED: BISACODYL 5 MG TABEC PO STA (01:00)
[2016-11-09] MEDS ORDERED: DOCUSATE SODIUM 100 MG CAP PO STA (01:00)
[2016-11-09] MEDS ORDERED: HYDROmorphone INJ 0.5 MG/0.5 ML SYR IV STA (01:32)
[2016-11-09] MEDS ORDERED: RANITIDINE HCL 150 MG TAB PO STA (01:46)
--- NOTE | 2016-11-09 02:13 | History and Physical ---
History & Physical Date & Time of Service: Nov 09, 2016 at 01:41 Chief Complaint: Constipation,Intractable Abdominal Pain Primary Care Physician: [facility] History of Present Illness Source: patient, clinic records, hospital records This is a 31 year old female with a PMH of Hodgkin's lymphoma in remission, iron deficiency anemia, hx. of proctitis, chronic pain on methadone presents with severe abdominal pain and fecal retention. She has had this before - had a colonoscopy in May 2016 at [facility] - no significant findings at that time. She presented here; had abdominal/pelvic CT performed - some mild rectal wall thickening, no air fluid levels, no obstruction noted; there is some fecal retention. She was given morphine PRN, Colace, and other constipation medications. She states she feels heartburn at times. Abdominal pain x2 days. No fevers/chills. No chest pain/shortness of breath. Had a few episodes of non- bloody, non-bilious vomiting; states she's had constipation for around 4 days. Past Medical/Surgical History Medical Problems: (1) Abdominal pain Status: Resolved Family History Patient reports no known family medical history. Social History Smoking Status: Never Smoker Marital Status: Housing status: lives with family Occupational Status: unemployed Allergies Coded Allergies: No Known Allergies (Unverified , 11/08/16) Home Medications Scheduled Senna/Docusate Sod (Senokot S), 1 TAB PO HS Review of Systems Constitutional: No fever, No chills, No weakness Cardiovascular: No chest pain Abdomen: + pain, + nausea, + vomiting, + constipation, No diarrhea, No GI bleeding Musculoskeletal: No joint pain, No muscle pain Genitourinary - Female: No dysuria, No urinary frequency, No urinary urgency, No urinary incontinence, No urinary retention, No hematuria Neurologic: No weakness, No numbness/tingling, No vertigo, No balance problems Psychiatric: No depression symptoms, No anxiety, No insomnia Hematologic / Lymphatic: No abnormal bleeding/bruising Integumentary: No rash Allergic / Immunologic: No environmental allergies, No seasonal allergies Physical Exam Vital Signs Date Time Temp Pulse Resp B/P (MAP) Pulse Ox O2 Delivery O2 Flow Rate FiO2 11/08/16 23:25 98 20 103/78 98 Room Air 11/08/16 22:34 76 20 98/63 98 Room Air 11/08/16 20:31 74 20 91/53 100 Room Air 11/08/16 18:57 76 20 96/62 97 Room Air 11/08/16 13:57 81 15 93/49 100 Room Air 11/08/16 12:43 Room Air 11/08/16 11:20 37.2 91 20 120/68 96 Room Air General Appearance: + moderate distress, + severe distress (secondary to abdominal pain) Head: normocephalic, atraumatic Eyes: normal inspection ENT: hearing grossly normal Abdomen/GI: + tenderness, + abnormal bowel sounds (decreased bowel sounds, significant tenderness, difficult to assess due to pain) Extremities/Musculoskelatal: normal capillary refill, no pedal edema Neurologic/Psych: no motor/sensory deficits, alert, oriented x 3 Skin: normal color Lymphatic: no adenopathy Diagnostics Laboratory Results Results Past 24 Hours Test 11/08/16 13:19 11/08/16 18:00 Range/Units White Blood Count 5.40 4.8-10.8 K/uL Red Blood Count 4.28 4.2-5.4 M/uL Hemoglobin 10.3 12.0-16.0 g/dL Hematocrit 33.1 37-47 % Mean Corpuscular Volume 77.3 80-100 fL Mean Corpuscular Hemoglobin 24.1 25-34 pg Mean Corpuscular Hemoglobin Concent 31.1 32-36 g/dl Platelet Count 276 130-400 K/uL Mean Platelet Volume 10.0 7.4-10.4 fL Neutrophils (%) (Auto) 83.0 % Lymphocytes (%) (Auto) 12.2 % Monocytes (%) (Auto) 4.4 % Eosinophils (%) (Auto) 0.2 % Basophils (%) (Auto) 0.2 % Neutrophils # (Auto) 4.48 1.4-6.5 K/uL Lymphocytes # (Auto) 0.66 1.2-3.4 K/uL Monocytes # (Auto) 0.24 0.11-0.59 K/uL Eosinophils # (Auto) 0.01 0-0.5 K/uL Basophils # (Auto) 0.01 0-0.2 K/uL RDW Standard Deviation 41.2 36.4-46.3 fL RDW Coefficient of Variation 14.4 11.5-14.5 % Immature Granulocyte % (Auto) 0.0 % Immature Granulocyte # (Auto) 0.00 0.00-0.02 K/uL Prothrombin Time 11.4 9.0-12.0 SECONDS Prothromb Time International Ratio 1.1 0.9-1.1 Activated Partial Thromboplast Time 26.6 21.0-31.0 SECONDS Partial Thromboplastin Ratio 1.0 Sodium Level 140 136-145 mmol/L Potassium Level 3.6 3.5-5.1 mmol/L Chloride Level 111 98-107 mmol/L Carbon Dioxide Level 22 21-32 mmol/L Anion Gap 7.0 3-11 mmol/L Blood Urea Nitrogen 12 7-18 mg/dl Creatinine 0.74 0.60-1.20 mg/dl Estimated GFR () 126.0 Estimated GFR (Non- 108.7 BUN/Creatinine Ratio 15.8 10-20 Random Glucose 114 70-99 mg/dl Calcium Level 7.8 8.5-10.1 mg/dl Total Bilirubin 0.8 0.2-1 mg/dl Direct Bilirubin 0.2 0-0.2 mg/dl Aspartate Amino Transf (AST/SGOT) 16 15-37 U/L Alanine Aminotransferase (ALT/SGPT) 48 12-78 U/L Alkaline Phosphatase 77 45-117 U/L Total Protein 7.0 6.4-8.2 gm/dl Albumin 3.4 3.4-5.0 gm/dl Lipase 116 73-393 U/L Urine Color YELLOW Urine Appearance CLEAR CLEAR Urine pH 8.5 4.5-7.5 Urine Specific [place] > 1.045 1.000-1.030 Urine Protein NEG NEG Urine Glucose (UA) TRACE NEG Urine Ketones 3+ NEG Urine Occult Blood NEG NEG Urine Nitrite NEG NEG Urine Bilirubin NEG NEG Urine Urobilinogen NEG NEG Urine Leukocyte Esterase NEG NEG Urine WBC (Auto) 0 0-5 /hpf Urine RBC (Auto) 0-4 0-4 /hpf Urine Hyaline Casts (Auto) 1-5 0-5 /lpf Urine Epithelial Cells (Auto) 10-20 0-5 /lpf Urine Bacteria (Auto) NEG NEG Diagnostic Radiology CT ABD/PELVIS IV CONTRAST ONLY CLINICAL HISTORY: Generalized abdominal pain, vomiting, bodyaches. COMPARISON STUDY: 05/18/2016 TECHNIQUE: Following the IV administration of 116 mL of Optiray-320, CT scan of the abdomen and pelvis was performed from the lung bases to the proximal femurs. Images are reviewed in the axial, sagittal, and coronal planes. IV contrast was administered without complication. CT DOSE: 302.77 mGycm FINDINGS: Lower chest: There are postsurgical changes in the right hemithorax. Liver: The contrast-enhanced liver is normal in size, contour, and attenuation. There is no intrahepatic biliary ductal dilatation. The hepatic veins and portal veins are patent. Gallbladder: Unremarkable. Spleen: Normal in size and attenuation. Pancreas: Unremarkable. Adrenal glands: Unremarkable. Kidneys: There is symmetric renal cortical enhancement. The kidneys are normal in size without hydronephrosis. Bowel: There is moderate fecal retention. There is persistent but decreasing rectal wall thickening. There are no transition zones indicate bowel obstruction. There is borderline gastric antral wall thickening. The appendix is not visualized with certainty. There are no findings to indicate acute appendicitis. Peritoneum: There is no intraperitoneal free air or abdominal ascites. Vasculature: The abdominal aorta is normal in course and caliber. Adenopathy: None. Pelvic viscera: The bladder, and pelvic viscera are unremarkable. Skeletal structures: No destructive osseous lesions are seen. IMPRESSION: 1. No evidence of bowel obstruction. No evidence of free air 2. Moderate fecal retention 3. No evidence of acute diverticulitis. No evidence of acute appendicitis 4. Improving rectal wall thickening 5. Borderline gastric antral wall thickening CHEST ONE VIEW PORTABLE CLINICAL HISTORY: 31 years-old Female presenting with ABDOMINAL PAIN/GI. TECHNIQUE: Portable upright AP view of the chest was obtained. COMPARISON: CT from 05/18/2016. FINDINGS: Right subclavian Mediport terminating in the superior vena cava has been accessed. Cardiomediastinal silhouette normal. Mediastinal surgical clip and a suture margin is noted in the right mid to lower paramediastinal lung. Associated retractile changes of the right lung base and elevation of the right hemidiaphragm. No focal opacity. Pleural spaces clear. Osseous structures and upper abdomen normal. IMPRESSION: 1. No acute cardiopulmonary disease. Postsurgical changes of the right mid to lower lung. Impression Assessment and Plan This is a 31 year old female with a PMH of Hodgkin's lymphoma in remission, iron deficiency anemia, hx. of proctitis, chronic pain on methadone presents with severe abdominal pain and fecal retention. Intractable Abdominal Pain Constipation/Rectal Wall Thickening Abdominal CT shows fecal retention, mild rectal wall thickening given morphine PRN, Protonix, Colace, Dulcolax, Senna, Miralax observe overnight in med/surg will try to control pain monitor for constipation if no improvement, may need GI input FULL CODE VTE Prophylaxis VTE Risk Assessment Done? Y/N: Yes Risk Level: Low Given or contraindicated: Treatment not indicated, Treatment not tolerated
[2016-11-09] MEDS: ONDANSETRON INJ 2 MG/ML 2 ML VIAL IV PRN ×2 (03:28→10:15)
[2016-11-09] MEDS: MoRPHine SULFATE 2 MG/ML CARP IV PRN ×3 (03:30→11:36)
[2016-11-09 05:25] VITALS: BP 103/67; PULSE 68; TEMP 37; Ht 152.4 cm; Wt 56.1 kg
[2016-11-09 05:53] LABS: HEMATOCRIT 35.1 % (37-47); MEAN CELL VOLUME 77.5 fL (80-100); MEAN CORPUSCULAR HEMOGLOBIN 23.8 pg (25-34); MEAN CORPUSCULAR HGB CONC 30.8 g/dl (32-36); MEAN PLATELET VOLUME 9.7 fL (7.4-10.4); PLATELET COUNT 268 K/uL (130-400); RED BLOOD COUNT 4.53 M/uL (4.2-5.4); WHITE BLOOD COUNT 5.97 K/uL (4.8-10.8)
[2016-11-09 06:28] LABS: BUN/CREATININE RATIO 21.3 (10-20); CALCIUM 8.2 mg/dl (8.5-10.1); CREATININE 0.63 mg/dl (0.60-1.20); POTASSIUM 3.9 mmol/L (3.5-5.1)
[2016-11-09 07:47] VITALS: BP 108/68; PULSE 77; TEMP 36.8; O2SAT 100
[2016-11-09] MEDS ORDERED: SENNA 17.6 MG/10 ML UDP PO SCH (08:00)
[2016-11-09] MEDS: PANTOprazole INJ 40 MG in SYRINGE 0 ML IV SCH (10:15)
[2016-11-09 11:17] VITALS: BP 114/73; PULSE 65; TEMP 36.9; O2SAT 100
[2016-11-09] MEDS ORDERED: BISACODYL 10 MG SUPP PR ONE (12:20)
[2016-11-09] MEDS ORDERED: BISACODYL 10 MG SUPP PR PRN (12:30)
[2016-11-09] MEDS ORDERED: LACTULOSE SYRUP 30 GM/45 ML UDP PO PRN (12:30)
--- NOTE | 2016-11-09 12:30 | Progress Note ---
Medicine Progress Note Date & Time of Visit: Nov 09, 2016 at 12:24. Subjective patient seen resting in bed states she has small liquid stools this am still has abdominal pain, generalized associated with nausea no chest pain, dyspnea, dizziness, palpitations denies other symptoms Objective Last 8 Hrs Date Time Temp Pulse Resp B/P (MAP) Pulse Ox O2 Delivery O2 Flow Rate FiO2 11/09/16 11:17 36.9 65 16 114/73 (87) 100 Room Air 11/09/16 07:47 36.8 77 16 108/68 (81) 100 Room Air 11/09/16 05:25 37.0 68 16 103/67 Room Air Physical Exam: General- oriented x 3, not in distress, speaks in sentences with no effort Head- atraumatic Eyes- EOMI, anicteric ENT- oropharynx clear Neck- supple, no JVD, no adenopathy Lungs- clear to auscultation bilaterally Heart- regular rhythm; no murmur, normal rate Abdomen- normal bowel sounds, soft, nontender, non distended Extremities- no pretibial edema, no calf tenderness; peripheral pulses intact Neuro- alert, oriented x 3; no gross focal deficits Skin- warm & dry Laboratory Results: Last 24 Hours Test 11/08/16 13:19 11/08/16 18:00 11/09/16 05:37 White Blood Count 5.40 K/uL 5.97 K/uL Red Blood Count 4.28 M/uL 4.53 M/uL Hemoglobin 10.3 g/dL 10.8 g/dL Hematocrit 33.1 % 35.1 % Mean Corpuscular Volume 77.3 fL 77.5 fL Mean Corpuscular Hemoglobin 24.1 pg 23.8 pg Mean Corpuscular Hemoglobin Concent 31.1 g/dl 30.8 g/dl Platelet Count 276 K/uL 268 K/uL Mean Platelet Volume 10.0 fL 9.7 fL Neutrophils (%) (Auto) 83.0 % Lymphocytes (%) (Auto) 12.2 % Monocytes (%) (Auto) 4.4 % Eosinophils (%) (Auto) 0.2 % Basophils (%) (Auto) 0.2 % Neutrophils # (Auto) 4.48 K/uL Lymphocytes # (Auto) 0.66 K/uL Monocytes # (Auto) 0.24 K/uL Eosinophils # (Auto) 0.01 K/uL Basophils # (Auto) 0.01 K/uL RDW Standard Deviation 41.2 fL 41.6 fL RDW Coefficient of Variation 14.4 % 14.6 % Immature Granulocyte % (Auto) 0.0 % Immature Granulocyte # (Auto) 0.00 K/uL Prothrombin Time 11.4 SECONDS Prothromb Time International Ratio 1.1 Activated Partial Thromboplast Time 26.6 SECONDS Partial Thromboplastin Ratio 1.0 Sodium Level 140 mmol/L 136 mmol/L Potassium Level 3.6 mmol/L 3.9 mmol/L Chloride Level 111 mmol/L 106 mmol/L Carbon Dioxide Level 22 mmol/L 22 mmol/L Anion Gap 7.0 mmol/L 8.0 mmol/L Blood Urea Nitrogen 12 mg/dl 13 mg/dl Creatinine 0.74 mg/dl 0.63 mg/dl Estimated GFR () 126.0 139.5 Estimated GFR (Non- 108.7 120.4 BUN/Creatinine Ratio 15.8 21.3 Random Glucose 114 mg/dl 128 mg/dl Calcium Level 7.8 mg/dl 8.2 mg/dl Total Bilirubin 0.8 mg/dl Direct Bilirubin 0.2 mg/dl Aspartate Amino Transf (AST/SGOT) 16 U/L Alanine Aminotransferase (ALT/SGPT) 48 U/L Alkaline Phosphatase 77 U/L Total Protein 7.0 gm/dl Albumin 3.4 gm/dl Lipase 116 U/L Urine Color YELLOW Urine Appearance CLEAR Urine pH 8.5 Urine Specific [place] > 1.045 Urine Protein NEG Urine Glucose (UA) TRACE Urine Ketones 3+ Urine Occult Blood NEG Urine Nitrite NEG Urine Bilirubin NEG Urine Urobilinogen NEG Urine Leukocyte Esterase NEG Urine WBC (Auto) 0 /hpf Urine RBC (Auto) 0-4 /hpf Urine Hyaline Casts (Auto) 1-5 /lpf Urine Epithelial Cells (Auto) 10-20 /lpf Urine Bacteria (Auto) NEG Est Creatinine Clear Calc Drug Dose 103.0 ml/min Assessment & Plan ABDOMINAL PAIN, LIKELY FROM CONSTIPATION- OPIOID INDUCED? - given 2 Fleet Enemas, Senokot, Docusate PO has small liquid stools, still with abdominal pain and nausea - trial of lactulose and dulcolax suppository continue Protonix - NPO for now, IV fluids evaluated by Dr. Thapa last 05/2016, s/p Colonoscopy - will consult GI History of Hodgkins Lymphoma - sp chemoradiation - in remission follows with Dr. Vasquez Chronic anemia, Iron Deficiency Hg 10 stable Chronic Pain - on Methadone 2mg q6h will change to Morphine 40mg IV q6h for now - [place] DMP queried no issues identified History of lung surgery - respiratory status stable DVT prophlaxis SCDs given Dispo pending Current Inpatient Medications: Current Inpatient Medications Medications (Trade) Dose Ordered Sig/Garret Route Start Time Stop Time Status Last Admin Dose Admin Ioversol (Optiray 320) 125 ml UD PRN IV 11/08/16 16:30 11/12/16 16:29 Senna (Senokot Syrup) 17.6 mg QAM PO 11/09/16 08:00 12/09/16 08:59 11/09/16 07:41 17.6 MG Pantoprazole Sodium 40 mg/ Syringe 10 ml @ 5 mls/min DAILY@11 IV 11/09/16 11:00 12/09/16 10:59 11/09/16 10:15 5 MLS/MIN Acetaminophen (Tylenol Tab) 650 mg Q4H PRN PO 11/08/16 23:00 12/08/16 22:59 Al Hydrox/Mg Hydrox/Simethicone (Maalox Max Susp) 15 ml Q4H PRN PO 11/08/16 23:00 12/08/16 22:59 Magnesium Hydroxide (Milk Of Magnesia Susp) 30 ml Q6H PRN PO 11/08/16 23:00 12/08/16 22:59 11/09/16 07:41 30 ML Ondansetron HCl (Zofran Inj) 4 mg Q6H PRN IV 11/08/16 23:00 12/08/16 22:59 11/09/16 10:15 4 MG Senna/Docusate Sodium (Senokot S Tab) 1 tab HS PO 11/09/16 21:00 12/09/16 20:59 Potassium Chloride/Dextrose/ Sod Cl 1,000 ml @ 100 mls/hr Q10H IV 11/08/16 23:59 12/08/16 23:58 11/09/16 10:15 100 MLS/HR Miscellaneous (Iv Fluids Completed) 1 ea PRN PRN N/A 11/09/16 00:30 11/09/17 00:29 Morphine Sulfate (MoRPHine SULFATE INJ) 4 mg Q6H PRN IV 11/09/16 13:00 11/23/16 12:59 UNV
[2016-11-09] MEDS ORDERED: LACTULOSE SYRUP 30 GM/45 ML UDP PO ONE (13:10)
[2016-11-09] MEDS: MoRPHine SULFATE 4 MG/ML 1 ML CARP\\VIAL IV PRN ×3 (13:31→21:56)
[2016-11-09] MEDS: D5W AND NSS 1,000 ML IV SCH ×2 (13:32→21:22)
[2016-11-09] MEDS ORDERED: MAGNESIUM CITRATE 296 ML/BTL PO ONE (14:00)
[2016-11-09 15:15] VITALS: BP 114/75; PULSE 76; TEMP 36.8; O2SAT 100
--- NOTE | 2016-11-09 15:21 | Gastrointestinal Consultation ---
Gastrointestinal Consultation Date of Consultation: Nov 09, 2016 Attending Physician: DR David Miller Consulting Physician: Dr Matt Andrade Reason for Consultation: abdominal pain, fecal retention History of Present Illness Patient is a 31 year old female with CC of abd pain. with patient and helps translate some as well for patient. HPI Review of old records [facility] (no outpt [place] records found) GI consultl [address] Thapa for obstipation and dilated bile duct. Colonoscopy done was poor prep with exam terminated at and rectal ulceration path benign inflammation with CMV negative. Pt is in remision for Non Hodgkins lymphoma. She takes methadone for chronic pain syndrome. She has constipation with no BMs for 4 days prior to admit with abd distension and diffuse pain up to 12/09. Came to ER and given laxative by mouht and enema with no improvement so admitted. CT on admit mod fecal retention, rectal wall thickening improved vs 2016 and mild gastric wall thickening. Hard stool on rectal in ER. Po mag citrate and 2 enemas so far limited bms. Pt states has been having some n/v green but also coffee ground material, no red. Also black stools but no red stools No F/C. Past Medical/Surgical History Medical Problems: (1) Constipation Status: Acute (2) Constipation Status: Acute (3) Intractable abdominal pain Status: Acute (4) Proctitis Status: Acute Family History Patient reports no known family medical history. Social History Smoking Status: Never Smoker Marital Status: Occupation Status: unemployed Allergies Coded Allergies: No Known Allergies (Unverified , 11/08/16) Current Medications Home Meds and Scripts Medications Dose Route/Sig Max Daily Dose Days Date Category Senokot S (Senna/Docusate Sodium) 1 Tab Tab 1 Tab PO HS 30 11/08/16 Rx Review of Systems ROS 10 sytems negative. Physical Exam Date Time Temp Pulse Resp B/P (MAP) Pulse Ox O2 Delivery O2 Flow Rate FiO2 11/09/16 11:17 36.9 65 16 114/73 (87) 100 Room Air 11/09/16 07:47 36.8 77 16 108/68 (81) 100 Room Air 11/09/16 07:30 Room Air 11/09/16 05:25 37.0 68 16 103/67 Room Air 11/08/16 23:25 98 20 103/78 98 Room Air 11/08/16 22:34 76 20 98/63 98 Room Air 11/08/16 20:31 74 20 91/53 100 Room Air 11/08/16 18:57 76 20 96/62 97 Room Air General Appearance: WD/WN, no apparent distress ENT: hearing grossly normal, pharynx normal Neck: supple, no adenopathy Respiratory/Chest: lungs clear, no respiratory distress Cardiovascular: no edema, no murmur Abdomen: normal bowel sounds, soft, no organomegaly, + pertinent finding (no guarding nor rebound, ) Neurologic/Psych: die baker II-XII nml as tested, normal mood/affect, oriented x 3 Skin: normal color Laboratory Results Last 24 Hours Test 11/08/16 18:00 11/09/16 05:37 Urine Color YELLOW Urine Appearance CLEAR Urine pH 8.5 Urine Specific [place] > 1.045 Urine Protein NEG Urine Glucose (UA) TRACE Urine Ketones 3+ Urine Occult Blood NEG Urine Nitrite NEG Urine Bilirubin NEG Urine Urobilinogen NEG Urine Leukocyte Esterase NEG Urine WBC (Auto) 0 /hpf Urine RBC (Auto) 0-4 /hpf Urine Hyaline Casts (Auto) 1-5 /lpf Urine Epithelial Cells (Auto) 10-20 /lpf Urine Bacteria (Auto) NEG White Blood Count 5.97 K/uL Red Blood Count 4.53 M/uL Hemoglobin 10.8 g/dL Hematocrit 35.1 % Mean Corpuscular Volume 77.5 fL Mean Corpuscular Hemoglobin 23.8 pg Mean Corpuscular Hemoglobin Concent 30.8 g/dl RDW Standard Deviation 41.6 fL RDW Coefficient of Variation 14.6 % Platelet Count 268 K/uL Mean Platelet Volume 9.7 fL Sodium Level 136 mmol/L Potassium Level 3.9 mmol/L Chloride Level 106 mmol/L Carbon Dioxide Level 22 mmol/L Anion Gap 8.0 mmol/L Blood Urea Nitrogen 13 mg/dl Creatinine 0.63 mg/dl Est Creatinine Clear Calc Drug Dose 103.0 ml/min Estimated GFR () 139.5 Estimated GFR (Non- 120.4 BUN/Creatinine Ratio 21.3 Random Glucose 128 mg/dl Calcium Level 8.2 mg/dl Impression Imprrssion and plan: Obstipation---mag citrate 296 ml then gallon of golytely. Once moved bowels well will need Miralax 17 gm tid. abd pain--can be from obstipation, PUD in the differential also, no evidence of ischemia or surgical process on CT Hematemesis--continue Protonix. Plan EGD tomorrow. Fe def anemia--follow H and H Abnl CT stomach thickening---EGD Abnl CT rectal thickening--improved vs pior CT likley stercoral ulcer from obstipation.
[2016-11-09] MEDS ORDERED: LAVAGE SOLUTION 4000ML PO ONE (17:30)
[2016-11-09] MEDS ORDERED: NURSING VERBAL MED ORDER ONE (18:15)
[2016-11-09 19:08] VITALS: BP 116/75; PULSE 65; TEMP 36.9; O2SAT 96
[2016-11-09 20:00] VITALS: O2SAT 96
[2016-11-09] MEDS: DOCUSATE SODIUM/SENNA 50/8.6MG TAB PO SCH (22:02)
[2016-11-10] VITALS: BP 116/77; PULSE 69; TEMP 36.9; O2SAT 99
[2016-11-10] MEDS: MoRPHine SULFATE 4 MG/ML 1 ML CARP\\VIAL IV PRN ×4 (01:59→13:10)
[2016-11-10 04:00] VITALS: BP 114/74; PULSE 64; TEMP 36.8; O2SAT 97
[2016-11-10] MEDS ORDERED: NURSING VERBAL MED ORDER ONE (05:30)
[2016-11-10 07:32] VITALS: BP 114/74; PULSE 64; TEMP 36.8; O2SAT 97
[2016-11-10 07:34] VITALS: BP 108/71; PULSE 64; TEMP 36.9; O2SAT 100
[2016-11-10] MEDS: D5W AND NSS 1,000 ML IV SCH ×2 (07:45→18:31)
[2016-11-10] MEDS: PANTOprazole INJ 40 MG in SYRINGE 0 ML IV SCH (10:00)
[2016-11-10] MEDS ORDERED: METHADONE HCL 5 MG TAB PO SCH (13:15)
[2016-11-10] MEDS ORDERED: METH10TA2 PO (13:33)
--- NOTE | 2016-11-10 13:34 | Progress Note ---
Medicine Progress Note Date & Time of Visit: Nov 10, 2016 at 13:26. Subjective patient seen reporting increased abdominal pain, no nausea (+) BMs also reports bilateral pain on her legs and her "lungs" - similar to what she gets at home but more severe denies chest pain, dyspnea, palpitations, dizziness no other symptoms Objective Last 8 Hrs Date Time Temp Pulse Resp B/P (MAP) Pulse Ox O2 Delivery O2 Flow Rate FiO2 11/10/16 08:00 Room Air 11/10/16 07:34 36.9 64 18 108/71 (83) 100 Room Air 11/10/16 07:32 36.8 64 18 114/74 97 Room Air Physical Exam: General- oriented x 3, not in distress, speaks in sentences with no effort Eyes- anicteric Neck- no JVD Lungs- clear breath sounds bilaterally, no rales/wheezes Heart- regular rhythm; no murmur, normal rate Abdomen- normal bowel sounds, soft, mild tenderness, non distended Extremities- no pretibial edema, no calf tenderness Neuro- alert, oriented x 3; no gross focal deficits Skin- warm & dry Laboratory Results: Last 24 Hours Test 11/10/16 12:56 11/10/16 12:58 Assessment & Plan ABDOMINAL PAIN, LIKELY FROM CONSTIPATION- OPIOID INDUCED? r/o PUD - given Golytely, Mg Citrate (+) BMs - for EGD today on Protonix - still having abdominal pain, increased from yesterday check CT abdomen discussed with Dr. Davila- resume usual Methadone, increase Morphine to 4-6mg q4h will consult Pain management History of Hodgkins Lymphoma - sp chemoradiation - in remission follows with Dr. Vasquez Chronic anemia, Iron Deficiency Hg 10 stable Chronic Pain - management as noted above History of lung surgery - respiratory status stable DVT prophlaxis SCDs given for EGD today ambulation encouraged Dispo pending Current Inpatient Medications: Current Inpatient Medications Medications (Trade) Dose Ordered Sig/Garret Route Start Time Stop Time Status Last Admin Dose Admin Ioversol (Optiray 320) 125 ml UD PRN IV 11/08/16 16:30 11/12/16 16:29 Pantoprazole Sodium 40 mg/ Syringe 10 ml @ 5 mls/min DAILY@11 IV 11/09/16 11:00 12/09/16 10:59 11/10/16 10:00 5 MLS/MIN Acetaminophen (Tylenol Tab) 650 mg Q4H PRN PO 11/08/16 23:00 12/08/16 22:59 Al Hydrox/Mg Hydrox/Simethicone (Maalox Max Susp) 15 ml Q4H PRN PO 11/08/16 23:00 12/08/16 22:59 Magnesium Hydroxide (Milk Of Magnesia Susp) 30 ml Q6H PRN PO 11/08/16 23:00 12/08/16 22:59 11/09/16 07:41 30 ML Ondansetron HCl (Zofran Inj) 4 mg Q6H PRN IV 11/08/16 23:00 12/08/16 22:59 11/09/16 10:15 4 MG Senna/Docusate Sodium (Senokot S Tab) 1 tab HS PO 11/09/16 21:00 12/09/16 20:59 11/09/16 22:02 1 TAB Miscellaneous (Iv Fluids Completed) 1 ea PRN PRN N/A 11/09/16 00:30 11/09/17 00:29 Lactulose (Chronulac Syrup) 30 gm TID PRN PO 11/09/16 12:30 12/09/16 12:29 Bisacodyl (Dulcolax Supp) 10 mg DAILY PRN SC 11/09/16 12:30 12/09/16 12:29 Dextrose/Sodium Chloride 1,000 ml @ 100 mls/hr Q10H IV 11/09/16 12:30 12/09/16 12:29 11/10/16 07:45 100 MLS/HR Morphine Sulfate (MoRPHine SULFATE INJ) 4 mg Q4H PRN IV 11/09/16 19:15 11/23/16 19:14 11/10/16 13:10 2 MG Heparin Sodium (Porcine) (Heparin 100 Unit/ml 5ml Flush) 5 ml PRN PRN IV 11/10/16 05:45 12/10/16 05:44 Morphine Sulfate (MoRPHine SULFATE INJ) 6 mg Q4H PRN IV 11/10/16 13:15 11/24/16 13:14 Methadone HCl (Dolophine Tab) 2 mg Q6H PO 11/10/16 13:15 11/24/16 13:14 UNV
[2016-11-10 14:04] LABS: BUN/CREATININE RATIO 11.2 (10-20); CALCIUM 7.9 mg/dl (8.5-10.1); CREATININE 0.54 mg/dl (0.60-1.20); POTASSIUM 3.5 mmol/L (3.5-5.1)
[2016-11-10] MEDS: METHADONE HCL 10 MG TAB PO SCH ×3 (14:05→20:15)
[2016-11-10] MEDS ORDERED: LIDOCAINE HCL 2% 2 ML VIAL (20MG/ML) ONE (14:25)
[2016-11-10] MEDS ORDERED: PROPOFOL IV EMULSION 10 MG/ML 20 ML VIAL IV ONE (14:25)
[2016-11-10 14:27] LABS: PREG INTERNAL NEGATIVE QC NEG CLEAR BACKGROUND; PREG INTERNAL POSITIVE QC POS CONTROL LINE
--- NOTE | 2016-11-10 14:57 | GI REPORT ---
Procedure Date: 11/10/2016 2:46 PM Procedure: Upper GI endoscopy Indications: Epigastric abdominal pain, Abnormal CT of the GI tract Medicines: Propofol per Anesthesia Complications: No immediate complications. Estimated blood loss: Minimal. Estimated Blood Loss: Estimated blood loss was minimal. Procedure: Pre-Anesthesia Assessment: - Prior to the procedure, a History and Physical was performed, and patient medications and allergies were reviewed. The patient's tolerance of previous anesthesia was also reviewed. The risks and benefits of the procedure and the sedation options and risks were discussed with the patient. All questions were answered, and informed consent was obtained. Prior Anticoagulants: The patient has taken no previous anticoagulant or antiplatelet agents. ASA Grade Assessment: II - A patient with mild systemic disease. After reviewing the risks and benefits, the patient was deemed in satisfactory condition to undergo the procedure. After obtaining informed consent, the endoscope was passed under direct vision. Throughout the procedure, the patient's blood pressure, pulse, and oxygen saturations were monitored continuously. The scope was introduced through the mouth, and advanced to the second part of duodenum. The upper GI endoscopy was accomplished without difficulty. The patient tolerated the procedure well. Findings: The examined esophagus was normal. The Z-line was regular and was found 37 cm from the incisors. Localized mildly erythematous mucosa without bleeding was found in the gastric antrum. Biopsies were taken with a cold forceps for Helicobacter pylori testing. The examined duodenum was normal. Retained gastric contents are not identified on this exam. The cardia and gastric fundus were normal on retroflexion. Impression: - Normal esophagus. - Z-line regular, 37 cm from the incisors. - Erythematous mucosa in the antrum. Biopsied. - Normal examined duodenum. Recommendation: - Return patient to [facility] for [facility] care. - Advance diet as tolerated. - Await pathology results. - Continue present medications. MD Tuan Rocha MD 11/10/2016 2:56:47 PM This report has been signed electronically. Note Initiated On: 11/10/2016 2:46 PM I attest to the content of the Intraoperative Record and orders documented therein, exceptions below
--- NOTE | 2016-11-10 15:37 | Anesthesiology Progress Note ---
Anesthesia Post Op Note Date & Time Nov 10, 2016 at 15:37 Vital Signs Pain Intensity: 0 Vital Signs Past 12 Hours Date Time Temp Pulse Resp B/P (MAP) Pulse Ox O2 Delivery O2 Flow Rate FiO2 11/10/16 15:25 51 16 101/59 (73) 100 Room Air 11/10/16 15:10 52 16 99/60 (73) 100 Room Air 11/10/16 14:55 62 10 87/42 (57) 100 Mask 5 11/10/16 14:33 37.2 62 20 113/65 (81) 99 Room Air 62 11/10/16 08:00 Room Air 11/10/16 07:34 36.9 64 18 108/71 (83) 100 Room Air 11/10/16 07:32 36.8 64 18 114/74 97 Room Air 11/10/16 04:00 36.8 64 18 114/74 (87) 97 Room Air Notes Mental Status: alert / awake / arousable, participated in evaluation Pt Amnestic to Procedure: Yes Nausea / Vomiting: adequately controlled Pain: adequately controlled Airway Patency, RR, SpO2: stable & adequate BP & HR: stable & adequate Hydration State: stable & adequate Anesthetic Complications: no major complications apparent
[2016-11-10 15:48] VITALS: BP 99/55; PULSE 57; TEMP 36.7; O2SAT 100
[2016-11-10] MEDS: MoRPHine SULFATE 10 MG/ML CARP/VIAL IV PRN ×2 (16:58→22:01)
[2016-11-10 20:11] VITALS: BP 107/64; PULSE 56; TEMP 36.7; O2SAT 99
[2016-11-10] MEDS: DOCUSATE SODIUM/SENNA 50/8.6MG TAB PO SCH (20:15)
[2016-11-11 00:03] VITALS: BP 98/66; PULSE 67; TEMP 36.6; O2SAT 100
[2016-11-11] MEDS: MoRPHine SULFATE 10 MG/ML CARP/VIAL IV PRN ×2 (02:09→06:08)
[2016-11-11 04:41] VITALS: BP 92/55; PULSE 53; TEMP 36.6; O2SAT 100
[2016-11-11] MEDS: D5W AND NSS 1,000 ML IV SCH (04:45)
[2016-11-11 06:24] LABS: BUN/CREATININE RATIO 12.1 (10-20); CALCIUM 7.4 mg/dl (8.5-10.1); CREATININE 0.54 mg/dl (0.60-1.20); POTASSIUM 3.4 mmol/L (3.5-5.1)
[2016-11-11 08:11] VITALS: BP 96/60; PULSE 53; TEMP 36.6; O2SAT 99
[2016-11-11] MEDS: PANTOprazole INJ 40 MG in SYRINGE 0 ML IV SCH (08:20)
[2016-11-11] MEDS: POLYETHYLENE (MIRALAX) 17 GM PACK PO SCH ×2 (08:20→13:02)
[2016-11-11] MEDS: METHADONE HCL 10 MG TAB PO SCH ×2 (08:20→13:31)
--- NOTE | 2016-11-11 09:17 | Pain Management Consultation ---
Pain Management Consultation Date of Consultation Nov 11, 2016. Reason for Consultation Abdominal pain Pain Location 1 - History Patient admitted with intractable abdominal pain in the mid epigastric abdominal location which has reportedly improved over the past 24 hours with resumption of her methadone and bowel movement status post enema. Patient had fecal retention upon imaging upon this admission. Patient has a past medical history significant for Hodgkin lymphoma in remission, iron deficiency anemia and a chronic pain syndrome on methadone 20 mg 4 times a day of chronic duration. Methadone was held upon admission and resumed within the past 24 hours. Patient reported adequate pain control upon this admission with her methadone therapy which has been without significant dosage adjustment recently. She continues to travel to [facility] for chronic pain control care and prescribing of her methadone therapy. She describes her chronic pain as generalized body aching which is nonlocalized or specific. She does have history of prior right-sided thoracotomy but denies localized pain to the incisional site or the chest wall. The patient currently reports her pain is mild at a 2-3/10 and does continue to utilize IV morphine for breakthrough pain. She expresses a desire to return to home. Patient has no further constitutional complaints. Past Medical/Surgical History (1) S/P thoracotomy (2) Thoracotomy scar of right chest (3) S/P partial lobectomy of lung (4) Abdominal pain (5) Constipation (6) Intractable abdominal pain (7) Non-Hodgkin lymphoma Family History Patient reports no known family medical history. Social / Work History Smoking Status: Former smoker Smokeless Tobacco Use: No Alcohol Use: none Drug Use: none Marital Status: Housing Status: lives with family Occupation: unemployed Allergies Coded Allergies: No Known Allergies (Unverified , 11/08/16) Medications Current Inpatient Medications Medications (Trade) Dose Ordered Sig/Garret Route Start Time Stop Time Status Last Admin Dose Admin Ioversol (Optiray 320) 125 ml UD PRN IV 11/08/16 16:30 11/12/16 16:29 Pantoprazole Sodium 40 mg/ Syringe 10 ml @ 5 mls/min DAILY@11 IV 11/09/16 11:00 12/09/16 10:59 11/11/16 08:20 5 MLS/MIN Acetaminophen (Tylenol Tab) 650 mg Q4H PRN PO 11/08/16 23:00 12/08/16 22:59 Al Hydrox/Mg Hydrox/Simethicone (Maalox Max Susp) 15 ml Q4H PRN PO 11/08/16 23:00 12/08/16 22:59 Magnesium Hydroxide (Milk Of Magnesia Susp) 30 ml Q6H PRN PO 11/08/16 23:00 12/08/16 22:59 11/09/16 07:41 30 ML Ondansetron HCl (Zofran Inj) 4 mg Q6H PRN IV 11/08/16 23:00 12/08/16 22:59 11/09/16 10:15 4 MG Senna/Docusate Sodium (Senokot S Tab) 1 tab HS PO 11/09/16 21:00 12/09/16 20:59 11/10/16 20:15 1 TAB Miscellaneous (Iv Fluids Completed) 1 ea PRN PRN N/A 11/09/16 00:30 11/09/17 00:29 Lactulose (Chronulac Syrup) 30 gm TID PRN PO 11/09/16 12:30 12/09/16 12:29 Bisacodyl (Dulcolax Supp) 10 mg DAILY PRN [place] 11/09/16 12:30 12/09/16 12:29 Dextrose/Sodium Chloride 1,000 ml @ 100 mls/hr Q10H IV 11/09/16 12:30 12/09/16 12:29 11/11/16 04:45 100 MLS/HR Morphine Sulfate (MoRPHine SULFATE INJ) 4 mg Q4H PRN IV 11/09/16 19:15 11/23/16 19:14 11/10/16 13:10 2 MG Heparin Sodium (Porcine) (Heparin 100 Unit/ml 5ml Flush) 5 ml PRN PRN IV 11/10/16 05:45 12/10/16 05:44 11/10/16 14:05 5 ML Morphine Sulfate (MoRPHine SULFATE INJ) 6 mg Q4H PRN IV 11/10/16 13:15 11/24/16 13:14 11/11/16 06:08 6 MG Methadone HCl (Dolophine Tab) 20 mg QID PO 11/10/16 13:30 11/24/16 13:29 11/11/16 08:20 20 MG Polyethylene (Miralax Powder Packet) 17 gm TIDM PO 11/11/16 08:00 12/11/16 07:59 11/11/16 08:20 17 GM Review of Systems Patient denies complaints related to cardiac, pulmonary, GI, , endocrine, neurologic, hepatic, renal, ENT, dermatological or musculoskeletal other than those described above in the history of present illness. Physical Exam Height & Weight: Height 5 feet, inches. Weight 56.100 (Kilograms) 123 (Pounds) Last Vital Signs Documentation Date Time Temp Pulse Resp B/P (MAP) Pulse Ox O2 Delivery O2 Flow Rate FiO2 11/11/16 08:11 36.6 53 16 96/60 (72) 99 Room Air 11/10/16 14:55 5 Exam: General: Patient is lying quietly upon entering the room in no acute distress. Speech and thought process appropriate. Medication was effective as the patient does speak broken Vietnamese. Cognition intact. Musculoskeletal: Patient has no obvious diffuse myofascial tenderness to palpation. Neck: Full range of motion without limitation. Nontender over the midline. No focal facet joint tenderness provocative testing. Spurling's maneuver is negative. Moderate tenderness in the paravertebral, proximal and mid trapezius musculature with spasm. Chest: Right-sided thoracotomy incision is appreciated in the inframammary location extending from the mid axillary line through the mid clavicular line. Patient is nontender to palpation with thoracotomy site. No evidence of allodynia, hyperpathia or hyperalgesic response. Abdomen: Soft and nondistended. No rebound or guarding. Nontender to palpation. Extremities: Strength 5/5 and equal with handgrip and opposition, dorsi and plantar flexion. Sensation intact without deficits. No evidence of edema erythema or skin breakdown. Laboratory Laboratory Review: results personally reviewed by ar Laboratory Results (Last CBC): 11/09/16 05:37 [place] Drug Monitoring Program Search Results: patient reviewed within database, no issues identified Drug Monitoring Findings: PDMP reviewed which revealed consistent prescribing of her methadone from a clinic in [place], [place]. #240 per month. Assessment 1. Abdominal pain-potentially opioid-induced constipation 2. Chronic pain syndrome of unknown etiology on chronic methadone 80 mg daily per pain clinic in [place], [place] 3. History of Hodgkin's lymphoma status post right thoracotomy and chemoradiation 4. Chronic iron deficiency anemia Recommendations 1. Recommend maintaining methadone at 80 mg total daily dose-20 mg 4 times a day which is her chronic outpatient therapy 2. Continue use of IV morphine for when necessary breakthrough pain. Transition to oral as soon as able. Would not recommend discharge with when necessary break through pain medication. 3. We discussed the importance of chronic bowel regimen due to her chronic methadone therapy.
[2016-11-11] MEDS: MoRPHine SULFATE 4 MG/ML 1 ML CARP\\VIAL IV PRN (10:16)
[2016-11-11 12:23] VITALS: BP 96/60; PULSE 53; TEMP 36.6; O2SAT 99
--- NOTE | 2016-11-11 12:39 | Progress Note ---
Medicine Progress Note Date & Time of Visit: Nov 11, 2016 at 12:33. Subjective patient seen resting in bed, eating lunch in good spirits states she feels much better denies abdominal pain, nausea tolerating diet well no other symptoms states she is ready and would like to be discharged today Objective Last 8 Hrs Date Time Temp Pulse Resp B/P (MAP) Pulse Ox O2 Delivery O2 Flow Rate FiO2 11/11/16 12:23 36.6 53 16 99 Room Air 11/11/16 10:51 Room Air 11/11/16 08:11 36.6 53 16 96/60 (72) 99 Room Air 11/11/16 04:41 36.6 53 20 92/55 (67) 100 Room Air Physical Exam: General- oriented x 3, not in distress, speaks in sentences with no effort Lungs- clear breath sounds bilaterally Heart- regular rhythm; no murmur, normal rate Abdomen- normal bowel sounds, soft, , non distended, non tender Extremities- no pretibial edema, no calf tenderness Neuro- alert, oriented x 3; no gross focal deficits Skin- warm & dry Laboratory Results: Last 24 Hours Test 11/10/16 13:34 11/10/16 15:02 11/11/16 05:00 Sodium Level 141 mmol/L 142 mmol/L Potassium Level 3.5 mmol/L 3.4 mmol/L Chloride Level 111 mmol/L 114 mmol/L Carbon Dioxide Level 22 mmol/L 24 mmol/L Anion Gap 8.0 mmol/L 4.0 mmol/L Blood Urea Nitrogen 6 mg/dl 7 mg/dl Creatinine 0.54 mg/dl 0.54 mg/dl Est Creatinine Clear Calc Drug Dose 120.0 ml/min 120.0 ml/min Estimated GFR () 146.8 146.8 Estimated GFR (Non- 126.6 126.6 BUN/Creatinine Ratio 11.2 12.1 Random Glucose 110 mg/dl 97 mg/dl Calcium Level 7.9 mg/dl 7.4 mg/dl Bedside Urine Test NEG Assessment & Plan ABDOMINAL PAIN, LIKELY FROM CONSTIPATION- OPIOID INDUCED? r/o PUD - given Golytely, Mg Citrate (+) BMs - s/p EGD 11/10/[address] Thapa Findings: The examined esophagus was normal. The Z-line was regular and was found 37 cm from the incisors. Localized mildly erythematous mucosa without bleeding was found in the gastric antrum. Biopsies were taken with a cold forceps for Helicobacter pylori testing. The examined duodenum was normal. Retained gastric contents are not identified on this exam. The cardia and gastric fundus were normal on retroflexion. Impression: - Normal esophagus. - Z-line regular, 37 cm from the incisors. - Erythematous mucosa in the antrum. Biopsied. - Normal examined duodenum. Recommendation: - Return patient to [facility] care. - Advance diet as tolerated. - Await pathology results. - Continue present medications. -- evaluated by Dr. Thapa- GI Service cleared for discharge home ff up EGD Biopsy, r/o H Pylori -- discharge on: continue Senokot S daily start Miralax TID PRN Milk of Mg -- encouraged to maintain adequate daily fluid intake, call PCP if with no BMs x 2 days ff up with PCP in 1 week Mild Hypokalemia - K 3.4 - given PO K History of Hodgkins Lymphoma - sp chemoradiation - in remission follows with Dr. Vasquez Chronic anemia, Iron Deficiency Hg 10 stable Chronic Pain - given Morphine PRN usual Methadone dose continued History of lung surgery - respiratory status stable DVT prophlaxis SCDs given Dispo d/c home ff up with PCP in 1 week Current Inpatient Medications: Current Inpatient Medications Medications (Trade) Dose Ordered Sig/Garret Route Start Time Stop Time Status Last Admin Dose Admin Ioversol (Optiray 320) 125 ml UD PRN IV 11/08/16 16:30 11/12/16 16:29 Pantoprazole Sodium 40 mg/ Syringe 10 ml @ 5 mls/min DAILY@11 IV 11/09/16 11:00 12/09/16 10:59 11/11/16 08:20 5 MLS/MIN Acetaminophen (Tylenol Tab) 650 mg Q4H PRN PO 11/08/16 23:00 12/08/16 22:59 Al Hydrox/Mg Hydrox/Simethicone (Maalox Max Susp) 15 ml Q4H PRN PO 11/08/16 23:00 12/08/16 22:59 Magnesium Hydroxide (Milk Of Magnesia Susp) 30 ml Q6H PRN PO 11/08/16 23:00 12/08/16 22:59 11/09/16 07:41 30 ML Ondansetron HCl (Zofran Inj) 4 mg Q6H PRN IV 11/08/16 23:00 12/08/16 22:59 11/09/16 10:15 4 MG Senna/Docusate Sodium (Senokot S Tab) 1 tab HS PO 11/09/16 21:00 12/09/16 20:59 11/10/16 20:15 1 TAB Miscellaneous (Iv Fluids Completed) 1 ea PRN PRN N/A 11/09/16 00:30 11/09/17 00:29 Lactulose (Chronulac Syrup) 30 gm TID PRN PO 11/09/16 12:30 12/09/16 12:29 Bisacodyl (Dulcolax Supp) 10 mg DAILY PRN [place] 11/09/16 12:30 12/09/16 12:29 Dextrose/Sodium Chloride 1,000 ml @ 100 mls/hr Q10H IV 11/09/16 12:30 12/09/16 12:29 11/11/16 04:45 100 MLS/HR Morphine Sulfate (MoRPHine SULFATE INJ) 4 mg Q4H PRN IV 11/09/16 19:15 11/23/16 19:14 11/11/16 10:16 4 MG Heparin Sodium (Porcine) (Heparin 100 Unit/ml 5ml Flush) 5 ml PRN PRN IV 11/10/16 05:45 12/10/16 05:44 11/10/16 14:05 5 ML Morphine Sulfate (MoRPHine SULFATE INJ) 6 mg Q4H PRN IV 11/10/16 13:15 11/24/16 13:14 11/11/16 06:08 6 MG Methadone HCl (Dolophine Tab) 20 mg QID PO 11/10/16 13:30 11/24/16 13:29 11/11/16 08:20 20 MG Polyethylene (Miralax Powder Packet) 17 gm TIDM PO 11/11/16 08:00 12/11/16 07:59 11/11/16 08:20 17 GM Potassium Chloride (Klor-Con M10) 40 meq ONE PO 11/11/16 12:30 12/11/16 12:29 UNV
[2016-11-11] MEDS ORDERED: MOMLX PO (12:43)
[2016-11-11] MEDS ORDERED: MRLP17 PO (12:43)
[2016-11-11] MEDS ORDERED: MCRK20 PO (12:43)
--- NOTE | 2016-11-11 12:46 | Discharge Instructions ---
Discharge Instructions Date of Service Nov 11, 2016. Admission Reason for Admission: Constipation,Intractable Abdominal Pain Discharge Discharge Diagnosis / Problem: CONSTIPATION Discharge Goals Goal(s): Diagnostic testing, Therapeutic intervention Activity Recommendations Activity Limitations: resume your previous activity . Instructions / Follow-Up Instructions / Follow-Up PLEASE REVIEW YOUR NEW MEDICATION LIST AND FOLLOW INSTRUCTIONS CAREFULLY. DO NOT TAKE SENOKOT S AND MIRALAX IF YOU ARE HAVING DIARRHEA. ENSURE ADEQUATE DAILY FLUID INTAKE. CALL PRIMARY CARE PHYSICIAN IF WITH RECURRENCE OF SYMPTOMS OR NO BOWEL MOVEMENT FOR 2 DAYS. Current Hospital Diet Patient's current hospital diet: Clear Liquid Diet Discharge Diet Recommended Diet: Regular Diet (SOFT, THEN ADVANCE TOLERATED) Procedures Procedures Performed: EGD with gastric antrum BIOPSY Pending Studies Studies pending at discharge: no Medical Emergencies . Who to Call and When: Medical Emergencies: If at any time you feel your situation is an emergency, please call 911 immediately. . Non-Emergent Contact Non-Emergency issues call your: Primary Care Provider Call Non-Emergent contact if: you have a fever, your pain is not controlled, your pain is worsening, you have any medication questions . Past History Medical & Surgical History: (1) Constipation (2) Abdominal pain (3) Thoracotomy scar of right chest (4) Non-Hodgkin lymphoma . "Provider Documentation" section prepared by David Miller. . VTE Core Measure Inpt VTE Proph given/why not?: SCD's [place] Drug Monitoring Program Search Results: patient reviewed within database, no issues identified
--- NOTE | 2016-11-11 12:50 | Gastroenterology Progress Note ---
Progress Note Date of Service: Nov 11, 2016 Subjective Pt evaluation today including: conversation w/ patient The patient underwent upper endoscopy yesterday with mild gastritis identified. Biopsies taken to exclude H. pylori and are pending at this time. Patient denies any nausea vomiting or significant abdominal pain. She is on MiraLAX. She denies any chills or Reiger's. She denies rectal bleeding. She seems to tolerate her food well. Laboratory studies were reviewed the patient is mildly hypokalemic. Review of Systems See above. Medications Current Inpatient Medications Medications (Trade) Dose Ordered Sig/Garret Route Start Time Stop Time Status Last Admin Dose Admin Ioversol (Optiray 320) 125 ml UD PRN IV 11/08/16 16:30 11/12/16 16:29 Pantoprazole Sodium 40 mg/ Syringe 10 ml @ 5 mls/min DAILY@11 IV 11/09/16 11:00 12/09/16 10:59 11/11/16 08:20 5 MLS/MIN Acetaminophen (Tylenol Tab) 650 mg Q4H PRN PO 11/08/16 23:00 12/08/16 22:59 Al Hydrox/Mg Hydrox/Simethicone (Maalox Max Susp) 15 ml Q4H PRN PO 11/08/16 23:00 12/08/16 22:59 Magnesium Hydroxide (Milk Of Magnesia Susp) 30 ml Q6H PRN PO 11/08/16 23:00 12/08/16 22:59 11/09/16 07:41 30 ML Ondansetron HCl (Zofran Inj) 4 mg Q6H PRN IV 11/08/16 23:00 12/08/16 22:59 11/09/16 10:15 4 MG Senna/Docusate Sodium (Senokot S Tab) 1 tab HS PO 11/09/16 21:00 12/09/16 20:59 11/10/16 20:15 1 TAB Miscellaneous (Iv Fluids Completed) 1 ea PRN PRN N/A 11/09/16 00:30 11/09/17 00:29 Lactulose (Chronulac Syrup) 30 gm TID PRN PO 11/09/16 12:30 12/09/16 12:29 Bisacodyl (Dulcolax Supp) 10 mg DAILY PRN [place] 11/09/16 12:30 12/09/16 12:29 Dextrose/Sodium Chloride 1,000 ml @ 100 mls/hr Q10H IV 11/09/16 12:30 12/09/16 12:29 11/11/16 04:45 100 MLS/HR Morphine Sulfate (MoRPHine SULFATE INJ) 4 mg Q4H PRN IV 11/09/16 19:15 11/23/16 19:14 11/11/16 10:16 4 MG Heparin Sodium (Porcine) (Heparin 100 Unit/ml 5ml Flush) 5 ml PRN PRN IV 11/10/16 05:45 12/10/16 05:44 11/10/16 14:05 5 ML Morphine Sulfate (MoRPHine SULFATE INJ) 6 mg Q4H PRN IV 11/10/16 13:15 11/24/16 13:14 11/11/16 06:08 6 MG Methadone HCl (Dolophine Tab) 20 mg QID PO 11/10/16 13:30 11/24/16 13:29 11/11/16 08:20 20 MG Polyethylene (Miralax Powder Packet) 17 gm TIDM PO 11/11/16 08:00 12/11/16 07:59 11/11/16 08:20 17 GM Potassium Chloride (Klor-Con M10) 40 meq ONE PO 11/11/16 12:30 12/11/16 12:29 UNV Objective Vital Signs Date Time Temp Pulse Resp B/P (MAP) Pulse Ox O2 Delivery O2 Flow Rate FiO2 11/11/16 12:23 36.6 53 16 99 Room Air 11/11/16 10:51 Room Air 11/11/16 08:11 36.6 53 16 96/60 (72) 99 Room Air 11/11/16 04:41 36.6 53 20 92/55 (67) 100 Room Air 11/11/16 00:10 Room Air 11/11/16 00:03 36.6 67 20 98/66 (77) 100 Room Air 11/10/16 20:11 36.7 56 20 107/64 (78) 99 Room Air 11/10/16 16:00 Room Air 11/10/16 15:48 36.7 57 16 99/55 (70) 100 Room Air 11/10/16 15:25 51 16 101/59 (73) 100 Room Air 11/10/16 15:10 52 16 99/60 (73) 100 Room Air 11/10/16 14:55 62 10 87/42 (57) 100 Mask 5 11/10/16 14:33 37.2 62 20 113/65 (81) 99 Room Air 62 Physical Exam General Appearance: WD/WN, no apparent distress Abdomen: non tender Skin: normal color Patient's physical exam is unchanged from yesterday. Review of systems otherwise noncontributory based on 14 point exam. Vital signs were reviewed. Medications analogy list were reviewed. Laboratory Results Last 24 Hours Test 11/10/16 13:34 11/10/16 15:02 11/11/16 05:00 Sodium Level 141 mmol/L 142 mmol/L Potassium Level 3.5 mmol/L 3.4 mmol/L Chloride Level 111 mmol/L 114 mmol/L Carbon Dioxide Level 22 mmol/L 24 mmol/L Anion Gap 8.0 mmol/L 4.0 mmol/L Blood Urea Nitrogen 6 mg/dl 7 mg/dl Creatinine 0.54 mg/dl 0.54 mg/dl Est Creatinine Clear Calc Drug Dose 120.0 ml/min 120.0 ml/min Estimated GFR () 146.8 146.8 Estimated GFR (Non- 126.6 126.6 BUN/Creatinine Ratio 11.2 12.1 Random Glucose 110 mg/dl 97 mg/dl Calcium Level 7.9 mg/dl 7.4 mg/dl Bedside Urine Test NEG Assessment and Plan Impression plan Mild gastritis identified on upper endoscopy without obstruction retained gastric contents or ulceration. We'll await results of biopsy for H. pylori and will be notified once available. Regarding her constipation MiraLAX 3 times daily with plenty of water throughout the day should be beneficial. If this is ineffective or if constipation returns consideration for a trial of lactulose 15 mL's twice daily and titrate to benefit or a trial of Senokot tablets in addition to MiraLAX. Case was discussed with the patient's hospitalist. All questions answered for the patient. Thank you for allowing us to participate in this patient's care sincerely
--- NOTE | 2016-11-11 12:51 | Discharge Summary ---
Discharge Summary Date of Service Nov 11, 2016. Discharge Summary Admission Date: Nov 08, 2016 at 22:57 Discharge Date: Nov 11, 2016 Discharge Disposition: Home Principal Diagnosis: ABDOMINAL PAIN, FROM CONSTIPATION Secondary Diagnoses/Problems: PLEASE REFER TO HOSPITAL COURSE BELOW. Procedures: EGD WITH GASTRIC ANTRUM BIOPSY BY DR. THAPA 11/10/16 Procedure Date: 11/10/2016 2:46 PM Procedure: Upper GI endoscopy Indications: Epigastric abdominal pain, Abnormal CT of the GI tract Medicines: Propofol per Anesthesia Complications: No immediate complications. Estimated blood loss: Minimal. Estimated Blood Loss: Estimated blood loss was minimal. Procedure: Pre-Anesthesia Assessment: - Prior to the procedure, a History and Physical was performed, and patient medications and allergies were reviewed. The patient's tolerance of previous anesthesia was also reviewed. The risks and benefits of the procedure and the sedation options and risks were discussed with the patient. All questions were answered, and informed consent was obtained. Prior Anticoagulants: The patient has taken no previous anticoagulant or antiplatelet agents. ASA Grade Assessment: II - A patient with mild systemic disease. After reviewing the risks and benefits, the patient was deemed in satisfactory condition to undergo the procedure. After obtaining informed consent, the endoscope was passed under direct vision. Throughout the procedure, the patient's blood pressure, pulse, and oxygen saturations were monitored continuously. The scope was introduced through the mouth, and advanced to the second part of duodenum. The upper GI endoscopy was accomplished without difficulty. The patient tolerated the procedure well. Findings: The examined esophagus was normal. The Z-line was regular and was found 37 cm from the incisors. Localized mildly erythematous mucosa without bleeding was found in the gastric antrum. Biopsies were taken with a cold forceps for Helicobacter pylori testing. The examined duodenum was normal. Retained gastric contents are not identified on this exam. The cardia and gastric fundus were normal on retroflexion. Impression: - Normal esophagus. - Z-line regular, 37 cm from the incisors. - Erythematous mucosa in the antrum. Biopsied. - Normal examined duodenum. Recommendation: - [facility]. - Advance diet as tolerated. - Await pathology results. - Continue present medications. MD Tuan Rocha MD 11/10/2016 2:56:47 PM This report has been signed electronically. Note Initiated On: 11/10/2016 2:46 PM I attest to the content of the Intraoperative Record and orders documented therein, exceptions below CT ABD/PELVIS IV CONTRAST ONLY CLINICAL HISTORY: Generalized abdominal pain, vomiting, bodyaches. COMPARISON STUDY: 05/18/2016 TECHNIQUE: Following the IV administration of 116 mL of Optiray-320, CT scan of the abdomen and pelvis was performed from the lung bases to the proximal femurs. Images are reviewed in the axial, sagittal, and coronal planes. IV contrast was administered without complication. CT DOSE: 302.77 mGycm FINDINGS: Lower chest: There are postsurgical changes in the right hemithorax. Liver: The contrast-enhanced liver is normal in size, contour, and attenuation. There is no intrahepatic biliary ductal dilatation. The hepatic veins and portal veins are patent. Gallbladder: Unremarkable. Spleen: Normal in size and attenuation. Pancreas: Unremarkable. Adrenal glands: Unremarkable. Kidneys: There is symmetric renal cortical enhancement. The kidneys are normal in size without hydronephrosis. Bowel: There is moderate fecal retention. There is persistent but decreasing rectal wall thickening. There are no transition zones indicate bowel obstruction. There is borderline gastric antral wall thickening. The appendix is not visualized with certainty. There are no findings to indicate acute appendicitis. Peritoneum: There is no intraperitoneal free air or abdominal ascites. Vasculature: The abdominal aorta is normal in course and caliber. Adenopathy: None. Pelvic viscera: The bladder, and pelvic viscera are unremarkable. Skeletal structures: No destructive osseous lesions are seen. IMPRESSION: 1. No evidence of bowel obstruction. No evidence of free air 2. Moderate fecal retention 3. No evidence of acute diverticulitis. No evidence of acute appendicitis 4. Improving rectal wall thickening 5. Borderline gastric antral wall thickening Consultations: GASTROENTEROLOGY DR. THAPA Pending Studies/Follow-Up: FOLLOW UP EGD BIOPSY, PLEASE REFER TO HOSPITAL COURSE BELOW. Medication Reconciliation New Medications: Potassium Chloride (Klor-Con M20) 20 Meq Tabcr 1 TAB PO DAILY for 3 Days, #3 TABS Magnesium Hydroxide (Milk of Magnesia) 30 Ml Susp 30 ML PO Q6H PRN for Constipation, #250 ML 1 Refill Polyethylene (Miralax) 17 Gm Pow 17 GM PO TIDM for 30 Days, #90 PKT 1 Refill Continued Medications: Methadone Hcl (Dolophine) 10 Mg Tab 20 MG PO QID for 30 Days, #120 TAB Senna/Docusate Sod (Senokot S) 1 Tab Tab 1 TAB PO HS for 30 Days, #30 TAB 3 Refills Admission Information HPI (per Admitting provider): This is a 31 year old female with a PMH of Hodgkin's lymphoma in remission, iron deficiency anemia, hx. of proctitis, chronic pain on methadone presents with severe abdominal pain and fecal retention. She has had this before - had a colonoscopy in May 2016 at [facility] - no significant findings at that time. She presented here; had abdominal/pelvic CT performed - some mild rectal wall thickening, no air fluid levels, no obstruction noted; there is some fecal retention. She was given morphine PRN, Colace, and other constipation medications. She states she feels heartburn at times. Abdominal pain x2 days. No fevers/chills. No chest pain/shortness of breath. Had a few episodes of non- bloody, non-bilious vomiting; states she's had constipation for around 4 days. Physical Exam (per Admitting): General Appearance: + moderate distress, + severe distress (secondary to abdominal pain) Head: normocephalic, atraumatic Eyes: normal inspection ENT: hearing grossly normal Abdomen/GI: + tenderness, + abnormal bowel sounds (decreased bowel sounds, significant tenderness, difficult to assess due to pain) Extremities/Musculoskelatal: normal capillary refill, no pedal edema Neurologic/Psych: no motor/sensory deficits, alert, oriented x 3 Skin: normal color Lymphatic: no adenopathy Hospital Course ABDOMINAL PAIN, FROM CONSTIPATION - given Golytely, Mg Citrate (+) BMs - s/p EGD 11/10/[address] Thapa Findings: The examined esophagus was normal. The Z-line was regular and was found 37 cm from the incisors. Localized mildly erythematous mucosa without bleeding was found in the gastric antrum. Biopsies were taken with a cold forceps for Helicobacter pylori testing. The examined duodenum was normal. Retained gastric contents are not identified on this exam. The cardia and gastric fundus were normal on retroflexion. Impression: - Normal esophagus. - Z-line regular, 37 cm from the incisors. - Erythematous mucosa in the antrum. Biopsied. - Normal examined duodenum. Recommendation: - Return patient to [facility] for [facility] care. - Advance diet as tolerated. - Await pathology results. - Continue present medications. -- evaluated by Dr. Thapa- GI Service cleared for discharge home ff up EGD Biopsy, r/o H Pylori -- discharge on: continue Senokot S daily start Miralax TID PRN Milk of Mg -- encouraged to maintain adequate daily fluid intake, call PCP if with no BMs x 2 days ff up with PCP in 1 week Mild Hypokalemia - K 3.4 - given PO K History of Hodgkins Lymphoma - sp chemoradiation - in remission follows with Dr. Vasquez Chronic anemia, Iron Deficiency Hg 10 stable Chronic Pain - given Morphine PRN usual Methadone dose continued History of lung surgery - respiratory status stable DVT prophlaxis SCDs given Dispo d/c home ff up with PCP in 1 week Total time spent on discharge = 35 MINUTES This includes examination of the patient, discharge planning, medication reconciliation, and communication with other providers. Discharge Instructions Date of Service Nov 11, 2016. Admission Reason for Admission: Constipation,Intractable Abdominal Pain Discharge Discharge Diagnosis / Problem: CONSTIPATION Discharge Goals Goal(s): Diagnostic testing, Therapeutic intervention Activity Recommendations Activity Limitations: resume your previous activity . Instructions / Follow-Up Instructions / Follow-Up PLEASE REVIEW YOUR NEW MEDICATION LIST AND FOLLOW INSTRUCTIONS CAREFULLY. DO NOT TAKE SENOKOT S AND MIRALAX IF YOU ARE HAVING DIARRHEA. ENSURE ADEQUATE DAILY FLUID INTAKE. CALL PRIMARY CARE PHYSICIAN IF WITH RECURRENCE OF SYMPTOMS OR NO BOWEL MOVEMENT FOR 2 DAYS. Current Hospital Diet Patient's current hospital diet: Clear Liquid Diet Discharge Diet Recommended Diet: Regular Diet (SOFT, THEN ADVANCE TOLERATED) Procedures Procedures Performed: EGD with gastric antrum BIOPSY Pending Studies Studies pending at discharge: no Medical Emergencies . Who to Call and When: Medical Emergencies: If at any time you feel your situation is an emergency, please call 911 immediately. . Non-Emergent Contact Non-Emergency issues call your: Primary Care Provider Call Non-Emergent contact if: you have a fever, your pain is not controlled, your pain is worsening, you have any medication questions . Past History Medical & Surgical History: (1) Constipation (2) Abdominal pain (3) Thoracotomy scar of right chest (4) Non-Hodgkin lymphoma . "Provider Documentation" section prepared by David Miller. . VTE Core Measure Inpt VTE Proph given/why not?: SCD's [place] Drug Monitoring Program Search Results: patient reviewed within database, no issues identified
[2016-11-11] MEDS ORDERED: POTASSIUM CHLORIDE 10 MEQ TABCR PO ONE (13:40)
== END 2016-11-11 14:46 | disposition home or self-care (01) ==
LOC: C.EDB 11:16 → C.4E 22:57 → ENRESERV 23:23
PROVIDERS: ADMIT Family Medicine; ATTEND Internal Medicine
DX: K29.50 Unspecified chronic gastritis without bleeding (principal); K59.00 Constipation, unspecified; G89.29 Other chronic pain; C85.90 Non-Hodgkin lymphoma, unspecified, unspecified site; D50.9 Iron deficiency anemia, unspecified; E87.6 Hypokalemia; Z92.3 Personal history of irradiation; Z79.891 Long term (current) use of opiate analgesic

== ENCOUNTER 2017-09-10 12:17 | Emergency (ER) | payer OTHER ==
[~2017-09-10] VITALS: Ht 154.9 cm; Wt 59.6 kg
[~2017-09-10 12:17] MED LIST changes: +MCRK20 PO; +MOMLX PO; +MRLP17 PO; -MRLP17X PO; +SENN-65 PO; -SENN8.6T7 PO
[2017-09-10 12:22] VITALS: TEMP 37; Ht 154.9 cm; Wt 59.6 kg
[2017-09-10 13:48] VITALS: BP 89/50; PULSE 72; O2SAT 100
--- NOTE | 2017-09-10 15:52 | EMERGENCY ROOM VISIT NOTE ---
ED Visit Note First contact with patient: 12:33 Chief Complaint: Pain medication refill. History of Present Illness: Ms. Ram is a 32-year-old female who ambulates into the ED accompanied by her daughter requesting a pain medication refill prescription. Should be noted that patient's primary language is Malagasy and she is able to understand some Icelandic so a combination of my discussions with her with an learning and development specialist and without an learning and development specialist are recorded in this note and also Dr. Brown assisted because he speaks Malagasy. Historically Hodgkin's lymphoma with metastatic lung cancer. She has a history of being seen locally by [facility] oncology but also in [facility] for her cancer. The last time she was seen in this area for her cancer was in January 2017 by [facility] oncology. She reports that she sees pain specialist in [facility] for her chronic pain medications which is 10 mg of methadone 4 times a day. She presents and up the bottle of the methadone that was filled on August 19 and reports that she has been having increasing pain so she has been using increasing amounts of her methadone and now she is out of medication. She is requesting an additional week's worth of methadone until she can follow- up with her [facility] in [facility]. She reports her last methadone was yesterday and since that time she has been having increasing pain. Currently she was reporting having severe pain throughout her body. She is unable to describe her discomfort. She rates her discomfort 6/10. She has not identified any aggravating factors related to the pain. She has not taken any additional medications for her pain prior to arrival at the hospital and her last dose of methadone yesterday. She denies any associated symptoms including fevers, chills, sweats, skin eruptions, shortness of breath, nausea, vomiting, diarrhea, urinary symptoms. Review of Systems: As noted above in history of present illness. 8 body systems were reviewed and found to be negative as noted above. Past Medical History: As previously noted and iron deficient anemia. Current Medications: Methadone. Allergies to Medications: Patient denies. Social History: Patient is not employed; she feels safe in her home environment ; she denies current tobacco and alcohol use. Physical Examination: Vital Signs: Date Time Temp Pulse Resp B/P (MAP) Pulse Ox O2 Delivery O2 Flow Rate FiO2 09/10/17 13:48 72 16 89/50 100 09/10/17 12:22 37.0 93 18 101/57 100 Room Air GENERAL: 32-year-old female in mild distress due to pain, nontoxic-appearing, afebrile and hemodynamically stable. Patient is anxious and tearful. NEUROLOGICAL: Awake, alert and oriented to person, place and time. Answering questions appropriately and following commands. Normal gait. Good hand eye coordination. ED Course: Patient is assessed as noted above. Patient's medication list was reviewed. Patient was offered physical examination and testing and refused. Patient's case was reviewed with Dr. Coates; he independently assessed the patient we agreed on diagnostic approach, treatment, disposition and plan. Patient was educated about today's findings and instructed on her treatment plan ; she verbalized understanding and agreement with this plan. Clinical Impression: Chronic pain exacerbation. Medication refill request refused. Disposition: Patient discharged to home in stable condition accompanied by her daughter; prior to departure she was reassessed and subjectively reported she was feeling better and rated her discomfort 3/10. Plan: Patient was encouraged to use OTC acetaminophen and ibuprofen as needed for pain every 6 hours. Patient was encouraged either follow-up at the [facility] oncology department or follow-up with her [facility] [employer] in [facility]. Patient was encouraged return the ED for worsening pain or any new/concerning symptoms.
== END 2017-09-10 13:48 | disposition home or self-care (01) ==
LOC: C.EDB 12:19 → C.EDD 13:48
DX: Z76.0 Encounter for issue of repeat prescription (principal); G89.29 Other chronic pain; Z79.899 Other long term (current) drug therapy; Z85.71 Personal history of Hodgkin lymphoma; Z85.118 Personal history of other malignant neoplasm of bronchus and lung

== ENCOUNTER 2017-09-11 13:05 | Emergency (ER) | payer OTHER ==
[~2017-09-11 13:05] MED LIST changes: -MCRK20 PO; -MOMLX PO; -MRLP17 PO; -SENN-65 PO
[2017-09-11 13:09] VITALS: TEMP 37
[2017-09-11] MEDS ORDERED: ONDANSETRON INJ 2 MG/ML 2 ML VIAL IV STA (13:26)
[2017-09-11] MEDS ORDERED: SODIUM CHLORIDE 0.9% 1000ML 1,000 ML IV STA (13:26)
[2017-09-11] MEDS ORDERED: KETOROLAC TROMETHAMINE 15 MG/ML VIAL IV STA (13:37)
--- NOTE | 2017-09-11 13:42 | EMERGENCY ROOM VISIT NOTE ---
History First contact with patient: 13:13 Chief Complaint: PAIN (GENERALIZED) Stated Complaint: ABD PAIN History of Present Illness The patient is a 32 year old female who presents to the Emergency Room via private vehicle with complaints of "abdominal pain/generalized pain". The patient states that she is chronically prescribed methadone and notes that she took too many of her pills because of how much pain she was then and now she has run out before she can fill her next prescription. She states that this has been over the past 2 days since she has been out of her medication. She notes she was seen here yesterday and was unable to have her medication refilled. She was recommended to follow with pain management and notes that her symptoms are now worsening and she presents today with generalized pain over the chest and abdomen region and into her extremities. She rates the pain is a 10/10. She states that she was started on methadone 3 years ago for pain control for her lymphoma. She is associated nausea but denies shortness of breath. Last bowel movement was 2 days ago. She denies chance of . She notes this is the same pain that she experiences when she does not have her medication. Review of Systems A complete 10-point Review of Systems was discussed with the patient, with pertinent positives and negatives listed in the History of Present Illness. All remaining Review of Systems questions can be considered negative unless otherwise specified. Past Medical/Surgical History Medical Problems: (1) Abdominal pain (2) Thoracotomy scar of right chest Surgical Problems: (1) S/P partial lobectomy of lung (2) S/P thoracotomy Family History Patient reports no known family medical history. Non contributory Social History Smoking Status: Never Smoker Marital Status: Occupation Status: unemployed Current/Historical Medications Scheduled Methadone Hcl (Dolophine), 20 MG PO QID Physical Exam Vital Signs Date Time Temp Pulse Resp B/P (MAP) Pulse Ox O2 Delivery O2 Flow Rate FiO2 09/11/17 16:25 95 22 115/79 100 Room Air 09/11/17 14:51 81 18 97/61 100 Room Air 09/11/17 13:09 37.0 96 20 104/61 100 Room Air Physical Exam VITAL SIGNS - Vital signs and nursing notes were reviewed. Stable. GENERAL -32-year-old female appearing her stated age who is in no acute distress but is tearful. Communicates well with provider and answers questions appropriately. SKIN - Without rashes. No meningeal petechial rash HEAD - NC/AT. EYES - PERRL with EOMI bilaterally. Sclera anicteric. EARS - No deformities of external structures noted on gross examination bilaterally. NOSE - Midline and without cyanosis. No epistaxis or purulent drainage noted. MOUTH/OROPHARYNX - Without perioral cyanosis. Buccal mucosa pink and moist and without leukoplakia. Tongue midline with equal elevation of palate bilaterally. No tonsillar hypertrophy, erythema, or exudates noted. There dentition noted. NECK - Neck with FROM. Supple to palpation. No lymphadenopathy noted. No nuchal rigidity. LUNGS - Chest wall symmetric without accessory muscle use, intercostals retractions, or central cyanosis. Normal vesicular breath sounds CTA B/L. No wheezes, rales, or rhonchi appreciated. CARDIAC - RRR with S1/S2. No murmur, rubs, or gallops appreciated. ABDOMEN - Abdominal contour normal without pulsations or visible masses. BS normoactive all four quadrants. No real area of tenderness identified, palpable masses, hepatosplenomegaly, or ascites noted. EXTREMITIES - No clubbing or peripheral cyanosis. +5/5 strength noted in UE/LE bilaterally. NEUROLOGIC - Cranial nerves II through XII grossly intact. Sensory intact to light touch throughout. PSYCH - A&O, and cooperates fully with examiner. Pt is very pleasant and interacts well with examiner. Medical Decision & Procedures ER Provider Diagnostic Interpretation: CHEST AND ABDOMEN 2 VIEWS HISTORY: diffuse abdominal pain, no BM in 2 days COMPARISON: Chest 11/08/2016. FINDINGS: A right Port-A-Cath at the expected location of the SVC. Suture material within the right hilum with volume loss in the right hemithorax consistent with prior postoperative change. Right suprahilar hazy airspace opacity persists and is also likely related to postoperative change. No new focal lung consolidations. Overall, no significant change compared to the prior chest x-ray. No pneumoperitoneum. No pneumatosis. Large amount well-formed stool seen throughout the colon. No dilated loops of bowel to suggest an obstruction. No renal or ureteral calculi. IMPRESSION: 1. Large amount of well-formed stool seen throughout the colon. No evidence for bowel obstruction. 2. Stable postoperative changes within the right hemithorax. No acute process within the chest. Electronically signed by: Lazaro Pisano M.D. 09/11/2017 2:45 PM Dictated Date/Time: 09/11/2017 2:43 PM Laboratory Results 09/11/17 13:41 Red Blood Count 4.61, Mean Corpuscular Volume 72.7, Mean Corpuscular Hemoglobin 22.6, Mean Corpuscular Hemoglobin Concent 31.0, Mean Platelet Volume 9.4, Neutrophils (%) (Auto) 66.4, Lymphocytes (%) (Auto) 26.0, Monocytes (%) (Auto) 6.2, Eosinophils (%) (Auto) 0.8, Basophils (%) (Auto) 0.4, Neutrophils # (Auto) 3.32, Lymphocytes # (Auto) 1.30, Monocytes # (Auto) 0.31, Eosinophils # (Auto) 0.04, Basophils # (Auto) 0.02 09/11/17 13:41 Test 09/11/17 13:41 White Blood Count 5.00 K/uL (4.8-10.8) Red Blood Count 4.61 M/uL (4.2-5.4) Hemoglobin 10.4 g/dL (12.0-16.0) Hematocrit 33.5 % (37-47) Mean Corpuscular Volume 72.7 fL (80-100) Mean Corpuscular Hemoglobin 22.6 pg (25-34) Mean Corpuscular Hemoglobin Concent 31.0 g/dl (32-36) Platelet Count 295 K/uL (130-400) Mean Platelet Volume 9.4 fL (7.4-10.4) Neutrophils (%) (Auto) 66.4 % Lymphocytes (%) (Auto) 26.0 % Monocytes (%) (Auto) 6.2 % Eosinophils (%) (Auto) 0.8 % Basophils (%) (Auto) 0.4 % Neutrophils # (Auto) 3.32 K/uL (1.4-6.5) Lymphocytes # (Auto) 1.30 K/uL (1.2-3.4) Monocytes # (Auto) 0.31 K/uL (0.11-0.59) Eosinophils # (Auto) 0.04 K/uL (0-0.5) Basophils # (Auto) 0.02 K/uL (0-0.2) RDW Standard Deviation 46.4 fL (36.4-46.3) RDW Coefficient of Variation 17.4 % (11.5-14.5) Immature Granulocyte % (Auto) 0.2 % Immature Granulocyte # (Auto) 0.01 K/uL (0.00-0.02) Urine Color YELLOW Urine Appearance CLEAR (CLEAR) Urine pH 7.0 (4.5-7.5) Urine Specific Cubero 1.018 (1.000-1.030) Urine Protein NEG (NEG) Urine Glucose (UA) NEG (NEG) Urine Ketones NEG (NEG) Urine Occult Blood 2+ (NEG) Urine Nitrite NEG (NEG) Urine Bilirubin NEG (NEG) Urine Urobilinogen NEG (NEG) Urine Leukocyte Esterase TRACE (NEG) Urine WBC (Auto) 1-5 /hpf (0-5) Urine RBC (Auto) 0-4 /hpf (0-4) Urine Hyaline Casts (Auto) 1-5 /lpf (0-5) Urine Epithelial Cells (Auto) >30 /lpf (0-5) Urine Bacteria (Auto) 3+ (NEG) Urine Test NEG (NEG) Anion Gap 7.0 mmol/L (3-11) Estimated GFR () 101.5 Estimated GFR (Non- 87.6 BUN/Creatinine Ratio 16.4 (10-20) Calcium Level 8.7 mg/dl (8.5-10.1) Total Bilirubin 0.4 mg/dl (0.2-1) Aspartate Amino Transf (AST/SGOT) 23 U/L (15-37) Alanine Aminotransferase (ALT/SGPT) 66 U/L (12-78) Alkaline Phosphatase 87 U/L (45-117) Troponin I < 0.015 ng/ml (0-0.045) Total Protein 7.7 gm/dl (6.4-8.2) Albumin 3.7 gm/dl (3.4-5.0) Globulin 4.0 gm/dl (2.5-4.0) Albumin/Globulin Ratio 0.9 (0.9-2) Lipase 130 U/L (73-393) Urine Opiates Screen NEG (NEG) Urine Methadone, Qualitative POS (NEG) Urine Barbiturates NEG (NEG) Urine Phencyclidine (PCP) Level NEG (NEG) Ur Amphetamine/Methamphetamine NEG (NEG) MDMA (Ecstasy) Screen NEG (NEG) Urine Benzodiazepines Screen NEG (NEG) Urine Cocaine Metabolite NEG (NEG) Urine Marijuana (THC) NEG (NEG) Medications Administered Medications (Trade) Dose Ordered Sig/Garret Route Start Time Stop Time Status Last Admin Dose Admin Sodium Chloride 1,000 ml @ 999 mls/hr Q1H1M STAT IV 09/11/17 13:26 09/11/17 14:26 DC 09/11/17 13:47 999 MLS/HR Ondansetron HCl (Zofran Inj) 4 mg NOW STAT IV 09/11/17 13:26 09/11/17 13:31 DC 09/11/17 13:48 4 MG Ketorolac Tromethamine (Toradol Inj) 15 mg NOW STAT IV 09/11/17 13:37 09/11/17 13:38 DC 09/11/17 13:48 15 MG Diphenhydramine HCl (Benadryl Inj) 25 mg NOW STAT IV 09/11/17 15:18 09/11/17 15:19 DC 09/11/17 15:26 25 MG Prochlorperazine Edisylate (Compazine Inj) 5 mg NOW STAT IV 09/11/17 15:18 09/11/17 15:19 DC 09/11/17 15:26 5 MG Medical Decision Patient was seen and evaluated as above in room A12. Review was performed of nursing notes and vital signs. After obtaining a thorough history and physical examination the above work up was performed. Previous visit was extensively reviewed. She presents to us today with what appears to be potential withdrawal symptoms from her methadone however it has only been 2 days since her last medication ingestion. Review of her drug monitoring system does reveal that she has had 440 pills total filled since August 03 of this year ( less than 1.5 months ago). She notes that she ran out 2 days ago and cannot have a prescription filled until this coming . This is approximately 4 days from now due to travel/transportation restraints preventing her from going to [place]. She is concerned about what she is going to do until that time. It was noted that yesterday she declined workup and left after she was informed that we could not fill her methadone prescription given that this requires special licensing. She presents today noting a worsening of her symptoms. She declined workup yesterday and now is okay with workup being pursued. She has had no bowel movement in 2 days. She was given IVF 1L NSS, 15mg Toradol IV, and 4mg Zofran IV. She was reevaluated with persistence of her pain. She was then given Benadryl and Compazine. I will note that I was called numerous times regarding the patient creating commotion to include screaming in the room. She has created numerous barriers to her care by continually to request prescription refills of her methadone and IV morphine despite my attempt to verbally de-escalate and inform her that we do not have the authority to write for methadone and we have concerns regarding drug-seeking behavior. I informed her that I am more than happy to evaluate her on a patient medical basis and treat her with nonnarcotic pain medication but she continues to request these medications. She was offered help/rehab. She declined. I then discussed with her whether or not this could be addiction but she declined rehabilitation. She then stated that she will follow with her pain management doctor tomorrow to discuss potential rehab as well as medications. I will also additionally note that I spoke with our painter and paperhanger apprentice here, Dr. Sullivan we discussed the patient case. It is concerning because the half-life of methadone is 5 days. She is only 2-3 days into this therefore should not be experiencing withdrawal symptoms that she has. For this reason I recommended a CAT scan of her abdomen, and pelvis as well as her chest to ensure that there was no other underlying etiology creating her pain and the patient declined these. She then would like to be discharged. I did utilize the help of 1 of our nurses here who speaks fluent Thai to ensure that the patient was able to comprehend what was being said. CBC reveals no leukocytosis. Hemoglobin is 10.4. Metabolic panel negative. Troponin negative. EKG reveals normal sinus rhythm, nonspecific T-wave abnormality. She has diffuse pain which I do not suspect to be of acute emergent etiology.Her urine reveals evidence of menstruation most likely. Urine test is negative. Toxicology screen is positive for methadone otherwise negative. It is important note that the patient has documented she is currently menstruating therefore I believe this is contributing to her urinalysis today. At no point throughout the patient stated she examined with what appeared to be a surgical abdomen. The patient was educated upon management, had questions answered prior to discharge, and was discharged home in good condition. Case was discussed with the attending physician. In the evaluation and treatment of this patient the following differential diagnoses were entertained: Acute intra-abdominal etiology, chest etiology, MN, PE, drug-seeking behavior, withdrawal, among others. , Impression Primary Impression: Abdominal pain Additional Impression: Anemia Departure Information Dispostion Home / Self-Care Condition [facility] (PCP) Patient Instructions My [facility] Additional Instructions You have been treated in the Emergency Department your Abdominal Pain. Please follow-up with her painter and paperhanger apprentice. Unfortunately we are not able to manage her pain long-term or failure methadone prescription. Please follow-up with your family doctor regarding your low blood volume, as well as your EKG showing nonspecific abnormalities. Please discuss this with your family doctor. For pain control, you can use the following [id number] medicines (if >12 yo): - Regular strength (325mg/tab) Tylenol (acetaminophen) 2 tabs every 4-6 hours as needed. Do not exceed 12 tablets in a 24 hour period. Avoid taking more than 3 grams (3000 mg) of Tylenol per day. This includes any other sources of acetaminophen you may take on a regular basis. - Regular strength (200 mg/tab) Advil (ibuprofen) 1-2 tabs every 4-6 hours as needed. Do not exceed a dose of 3200 mg per day. Drink plenty of water and stay well hydrated. As with any trip to the Emergency Department, you should follow-up with your Primary Care Provider from today's visit. Return to the emergency department if your symptoms persist despite treatment plan outlined above or if the following symptoms occur: increased fevers, chills , worsening nausea/vomiting, blood in your stool or urine. Problem Qualifiers
[2017-09-11 13:56] LABS: BASO % 0.4 %; BASO ABS # 0.02 K/uL (0-0.2); EOS % 0.8 %; EOS ABS # 0.04 K/uL (0-0.5); HEMATOCRIT 33.5 % (37-47); HEMOGLOBIN 10.4 g/dL (12.0-16.0); IG# 0.01 K/uL (0.00-0.02); MEAN CELL VOLUME 72.7 fL (80-100); MEAN CORPUSCULAR HEMOGLOBIN 22.6 pg (25-34); MEAN PLATELET VOLUME 9.4 fL (7.4-10.4); MONO % 6.2 %; MONO ABS # 0.31 K/uL (0.11-0.59); NEUT % 66.4 %; NEUT ABS # 3.32 K/uL (1.4-6.5); PLATELET COUNT 295 K/uL (130-400); RED CELL DISTRIBUTION WIDTH CV 17.4 % (11.5-14.5); RED CELL DISTRIBUTION WIDTH SD 46.4 fL (36.4-46.3)
[2017-09-11 14:14] LABS: ALBUMIN 3.7 gm/dl (3.4-5.0); ALT/SGPT 66 U/L (12-78); AST/SGOT 23 U/L (15-37); BLOOD UREA NITROGEN 14 mg/dl (7-18); CALCIUM 8.7 mg/dl (8.5-10.1); CARBON DIOXIDE 26 mmol/L (21-32); CREATININE 0.88 mg/dl (0.60-1.20); GLUCOSE 90 mg/dl (70-99); LIPASE 130 U/L (73-393); POTASSIUM 4.1 mmol/L (3.5-5.1); SODIUM 140 mmol/L (136-145)
[2017-09-11 14:18] LABS: ALKALINE PHOSPHATASE 87 U/L (45-117); TOTAL PROTEIN 7.7 gm/dl (6.4-8.2)
--- NOTE | 2017-09-11 14:46 | DIAGNOSTIC IMAGING REPORT ---
CHEST AND ABDOMEN 2 VIEWS HISTORY: diffuse abdominal pain, no BM in 2 days COMPARISON: Chest 11/08/2016. FINDINGS: A right Port-A-Cath at the expected location of the SVC. Suture material within the right hilum with volume loss in the right hemithorax consistent with prior postoperative change. Right suprahilar hazy airspace opacity persists and is also likely related to postoperative change. No new focal lung consolidations. Overall, no significant change compared to the prior chest x-ray. No pneumoperitoneum. No pneumatosis. Large amount well-formed stool seen throughout the colon. No dilated loops of bowel to suggest an obstruction. No renal or ureteral calculi. IMPRESSION: 1. Large amount of well-formed stool seen throughout the colon. No evidence for bowel obstruction. 2. Stable postoperative changes within the right hemithorax. No acute process within the chest. Electronically signed by: Lazaro Pisano M.D. 09/11/2017 2:45 PM Dictated Date/Time: 09/11/2017 2:43 PM
[2017-09-11] MEDS ORDERED: DiphenhydrAMINE HCL 50 MG/ML VIAL IV STA (15:18)
[2017-09-11] MEDS ORDERED: PROCHLORPERAZINE 5 MG/ML 2 ML VIAL IV STA (15:18)
[2017-09-11 16:25] VITALS: BP 115/79; PULSE 95; O2SAT 100
[2017-09-11] MEDS ORDERED: OPTIRAY 320 IV PRN (16:45)
[2017-09-12] MEDS ORDERED: [UNRECOGNIZED DRUG - CODE] PO (18:14)
--- NOTE | 2017-09-13 16:18 | Pharmacy Progress Note ---
ED Pharmacist Culture FollowUp Date of Service: September 13, 2017. E. coli isolated from urine culture. Patient returned to ED after this visit and is currently admitted to the hospital. Hospitalist aware of possible UTI per prog note today. Currently receiving piperacillin/tazobactam which should cover the E. coli isolated in urine culture. No further intervention required by ED staff at this time. Please reference other visit for additional information if needed.
== END 2017-09-11 16:50 | disposition home or self-care (01) ==
LOC: C.EDB 13:06 → C.EDA 16:50
DX: R10.9 Unspecified abdominal pain (principal); D64.9 Anemia, unspecified

== ENCOUNTER 2017-09-12 17:36 | Inpatient (IN) | payer SELFPAY ==
[2017-09-12] MEDS ORDERED: [UNRECOGNIZED DRUG - CODE] PO (18:14)
[2017-09-12] MEDS ORDERED: DiphenhydrAMINE HCL 50 MG/ML VIAL IV STA (18:27)
[2017-09-12] MEDS ORDERED: SODIUM CHLORIDE 0.9% 1000ML 1,000 ML IV STA (18:27)
[2017-09-12] MEDS ORDERED: PROCHLORPERAZINE 5 MG/ML 2 ML VIAL IV STA (18:27)
[2017-09-12] MEDS ORDERED: OPTIRAY 320 IV PRN (18:45)
[2017-09-12 19:05] LABS: INR 1.1 (0.9-1.1); PTT PATIENT 22.8 SECONDS (21.0-31.0)
[2017-09-12 19:06] LABS: BASO % 0.3 %; BASO ABS # 0.02 K/uL (0-0.2); HEMATOCRIT 33.7 % (37-47); HEMOGLOBIN 10.4 g/dL (12.0-16.0); IG# 0.01 K/uL (0.00-0.02); LYMPH % 18.8 %; MEAN CELL VOLUME 71.9 fL (80-100); MEAN CORPUSCULAR HEMOGLOBIN 22.2 pg (25-34); MEAN CORPUSCULAR HGB CONC 30.9 g/dl (32-36); MEAN PLATELET VOLUME 9.3 fL (7.4-10.4); MONO % 4.5 %; MONO ABS # 0.31 K/uL (0.11-0.59); NEUT % 76.3 %; NEUT ABS # 5.27 K/uL (1.4-6.5); PLATELET COUNT 332 K/uL (130-400); RED CELL DISTRIBUTION WIDTH CV 17.3 % (11.5-14.5); RED CELL DISTRIBUTION WIDTH SD 45.2 fL (36.4-46.3); WHITE BLOOD COUNT 6.91 K/uL (4.8-10.8)
[2017-09-12 19:28] LABS: ALBUMIN 4.4 gm/dl (3.4-5.0); AST/SGOT 20 U/L (15-37); BLOOD UREA NITROGEN 12 mg/dl (7-18); CALCIUM 9.2 mg/dl (8.5-10.1); CARBON DIOXIDE 20 mmol/L (21-32); GLUCOSE 127 mg/dl (70-99); POTASSIUM 3.1 mmol/L (3.5-5.1); SODIUM 139 mmol/L (136-145)
[2017-09-12 19:36] LABS: ALKALINE PHOSPHATASE 90 U/L (45-117); ALT/SGPT 57 U/L (12-78); TOTAL PROTEIN 8.7 gm/dl (6.4-8.2)
[2017-09-12] MEDS ORDERED: METOCLOPRAMIDE HCL INJ 5 MG/ML 2 ML VIAL IV. STA (19:46)
--- NOTE | 2017-09-12 19:49 | EMERGENCY ROOM VISIT NOTE ---
ED Visit Note First contact with patient: 17:47 The patient was seen and examined with Gavi Dickinson PA-C. I agree with the history, physical and findings. Please see the note for disposition and details. The patient has presented to this ER for the last 2 days and today. She initially declined a workup on her first visit. She had some workup yesterday but then refused CT imaging. She admitted to taking more than her prescribed methadone and is out. She is requesting admission for IV morphine. She was very nauseated and did vomit. She was treated with multiple rounds of IV and IM medications. She was not given narcotics. When she checked into the emergency department today she gave a different last name to registration. [place] was recorded by registration. Registration noted that they had her spell the name 3 times to ensure that it was correct. After being notified from the providers that this was likely an incorrect last name they obtained her ID and noted it to be Ram. PDMP review noted prescriptions for methadone for her name and birthday under Ram, Alt[place]roaao, and [place]. Clearly the patient has a narcotic issue. Her CT imaging reveals severe constipation with some bowel wall thickening likely related to her chronic narcotic use/abuse. She admitted to using more than her daily recommended amount. She stated that she actually went to [place] earlier today and was turned down by her primary clinic that prescribed her methadone since she is short. She then drove back from [place] and came to the hospital here. Because of the issues with her multiple last names [employer] police were notified. They did confirm her address locally. They did not have any outstanding warrants or history to provide. The patient had multiple episodes of vomiting in the emergency department. She will need a bowel cleansing. She was offered rehab services yesterday but declined. She clearly has an addiction to the medication and this was discussed with internal medicine. The patient was evaluated by internal medicine for further management in the hospital. She did not receive any narcotics in the emergency department. We did discuss consultation with pain management and this will likely be done in the hospital.
[2017-09-12] MEDS ORDERED: DICYCLOMINE HCL 10 MG/ML 2 ML AMP IM ONE (20:00)
[2017-09-12] MEDS ORDERED: PROMETHAZINE HCL INJ 25 MG/ML 1 ML VIAL IM STA (20:51)
--- NOTE | 2017-09-12 20:57 | DIAGNOSTIC IMAGING REPORT ---
ABD/PELVIS IV CONTRAST ONLY CLINICAL HISTORY: 32 years-old Female presenting with abdominal pain. TECHNIQUE: Multidetector CT of the abdomen and pelvis was performed after the administration of intravenous contrast. IV contrast: 95 mL of Optiray. A dose lowering technique was used consistent with the principles of ALARA (as low as reasonably achievable). COMPARISON: None. CT DOSE (mGy.cm): The estimated cumulative dose is 462.27. FINDINGS: [employer] Manager topogram: Right subclavian Mediport. Lung bases: Lungs and pleural spaces clear. Normal heart size. No pericardial or pleural effusion. Liver: Normal morphology. No liver lesion. Patent hepatic vasculature. Biliary: Mild central intrahepatic ductal prominence. No extrahepatic biliary ductal dilatation. Normal gallbladder. Pancreas: Normal. Spleen: Normal. Adrenal glands: Normal. Kidneys and ureters: Normal. No hydronephrosis. Bladder: Incompletely evaluated secondary to underdistention. Pelvic organs: Uterus and ovaries normal. Bowel: Circumferential wall thickening of the rectum involving the entire rectum. Minimal infiltration of the mesorectal fat. Thickening of the mesorectal fascia. No soft tissue nodularity in the mesorectal fat moderate stool burden. No bowel obstruction. Large duodenal diverticulum. No associated inflammatory change. Peritoneal cavity: No free fluid or intraperitoneal gas. Lymph nodes: No enlarged lymph nodes in the abdomen or pelvis. Vasculature: Aorta and IVC patent and normal in caliber. Abdominal wall: Normal. Musculoskeletal: Normal. IMPRESSION: 1. Circumferential wall thickening of the rectum with associated inflammatory changes. This may represent infectious or post radiation change. If there is clinical concern for neoplasm, direct visualization could be performed though this is felt to be unlikely. Correlate with the patient's clinical history. 2. Moderate stool burden suggest constipation. Electronically signed by: Robert Patel M.D. 09/12/2017 8:56 PM Dictated Date/Time: 09/12/2017 8:49 PM
--- NOTE | 2017-09-12 21:04 | DIAGNOSTIC IMAGING REPORT ---
ADDENDUM Prior images performed in outside hospital from 12/15/2016 are made available for comparison. The reported findings in the right lung (IMPRESSIONS 1-3) are unchanged from prior exam. No significant change since November. The report will be called/faxed according to standard departmental protocol. Electronically signed by: Robert Patel M.D. 09/15/2017 2:44 PM Dictated Date/Time: 09/15/2017 2:[address] (CHEST) THORAX WITH CLINICAL HISTORY: 32 years-old Female presenting with chest pain. TECHNIQUE: Multidetector CT imaging of the chest was performed after the administration of intravenous contrast. IV contrast: 95 mL of Optiray 320. A dose lowering technique was used consistent with the principles of ALARA (as low as reasonably achievable). COMPARISON: None. CT DOSE (mGy.cm): The estimated cumulative dose is 462.27 mGy.cm. FINDINGS: [employer] Equipment Mechanic topogram: Right subclavian Mediport. On soft tissue windows, normal thyroid and thoracic inlet. No axillary, supraclavicular, hilar, or mediastinal lymphadenopathy. Normal aorta. Normal heart size. No pericardial or pleural effusion. Upper abdomen normal. On lung windows, anterior subpleural/peripheral consolidation in the right upper lobe. Patchy nodular opacities in the posterior right upper lobe and superior segment of the right lower lobe. Focal nodule also noted in the superior segment of the right lower lobe (series 6 image 80). Additional nodularity noted elsewhere in the right lung marked on the images. Focal bronchiectasis and bronchial wall thickening evident in the posterior segment of the right upper lobe. Postsurgical changes of right middle lobectomy. Central airways patent. On bone windows, bone island suspected in the right glenoid. No destructive osseous lesion. IMPRESSION: 1. Nodular opacities in the right upper and lower lobes concerning for infectious bronchiolitis, atypical infectious etiologies not excluded. Nodular opacities should be followed to resolution given the patient's presumed history of malignancy. 2. Anterior subpleural/peripheral consolidation in the right upper lobe likely represents post radiation change if the patient has a history of right breast cancer. 3. Post surgical changes of right middle lobectomy. Electronically signed by: Robert Patel M.D. 09/12/2017 9:03 PM Dictated Date/Time: 09/12/2017 8:57 PM
--- NOTE | 2017-09-12 21:44 | EMERGENCY ROOM VISIT NOTE ---
History First contact with patient: 17:47 Chief Complaint: ABDOMINAL PAIN Stated Complaint: ABD PAIN Nursing Triage Summary: Pt screaming and holding abd. Reports abd pain, lymphoma remission and had chemo 2 days ago. Was here at [facility] yesterday for pain. Pt vomited when brought back to room B5 and when she stood up from w/c, chair was wet and patient reported she was incontinent. History of Present Illness The patient is a 32 year old female who presents to the Emergency Room with complaints of severe abdominal pain. The history is difficult to elicit, the patient is moaning in pain throughout attempts at examination. She had initially provided us with last names of Autumn and Morris, so there were complications with locating the medical record. The patient states she primarily speaks Mohawk, however seems to understand most uzbek. She states she was here yesterday for severe pain and sent home. She reports a history of lymphoma, and states she is in remission, but states she had chemotherapy 2 days ago. She states she lives here in [place] now, however has been getting methadone in [place]. She states her abdominal pain is sharp and the same as it has been for the past 3 days. She states this is consistent with her pain from her lymphoma for which she takes methadone. She denies any fever or diarrhea. She does she has had some constipation. She has taken no OTC medications for her symptoms. She states the pain is in the mid abdomen, but is unable to localize it. She states she has been unable to eat or drink. She denies any recent illness. She did refuse CT scanning yesterday. Review of Systems A complete 10 point review of systems was reviewed with the patient with pertinent positives and negatives as per history of present illness. All else were negative. Past Medical/Surgical History Lymphoma Social History Smoking Status: Never Smoker Smokeless Tobacco Use: No Alcohol Use: none Drug Use: none Housing Status: lives with family Current/Historical Medications Scheduled Methadone HCl (Methadone HCl), 20 MG PO Q4 Physical Exam Vital Signs Date Time Temp Pulse Resp B/P (MAP) Pulse Ox O2 Delivery O2 Flow Rate FiO2 09/12/17 21:58 87 09/12/17 21:07 85 16 105/69 09/12/17 20:29 87 16 93/48 98 Room Air 09/12/17 18:37 86 18 95/54 100 Room Air 09/12/17 18:35 100 Room Air 09/12/17 17:57 75 09/12/17 17:39 37.4 76 18 133/65 95 Room Air Physical Exam VITALS: Vitals are noted on the nurse's note and reviewed by myself. Vital signs stable. GENERAL: This is a 32-year-old female, in no acute distress, nondiaphoretic, well-developed well-nourished. SKIN: The skin was without rashes, erythema, edema, or bruising. There is no tenting of the skin. Capillary reflex less than 2 seconds. HEAD: Normocephalic atraumatic. EARS: External auditory canals clear, tympanic membranes pearly genao without erythema or effusion bilaterally. EYES: Pupils equal round and reactive to light and accommodation. Conjunctivae without injection, sclerae without icterus. Extraocular movements intact. NOSE: Patent, turbinates without inflammation or discharge. No sinus tenderness. MOUTH: Mucous membranes moist. Tonsils are not enlarged. Pharynx without erythema or exudate. Uvula midline. Airway patent. Tongue does not deviate. NECK: Supple without nuchal rigidity. No lymphadenopathy. No thyromegaly. Cervical spine is nontender. No JVD. HEART: Regular rate and rhythm without murmurs gallops or rubs. LUNGS: Clear to auscultation bilaterally without wheezes, rales or rhonchi. No dullness to percussion. No retractions or accessory muscle use. ABDOMEN: Positive bowel sounds x 4. Normal tympanic percussion. Diffuse numbness on examination. The patient did not tolerate deep palpation. The abdomen was distended with guarding. No obvious masses or organomegaly. MUSCULOSKELETAL: No muscle atrophy, erythema, or edema noted. Full range of motion without joint tenderness in all extremities. No tenderness to palpation. Normal gait. Strength 5/5 throughout. NEURO: Patient was alert and oriented to person place and time. No focal neurological deficits. Medical Decision & Procedures ER Provider Diagnostic Interpretation: CT (CHEST) THORAX WITH CLINICAL HISTORY: 32 years-old Female presenting with chest pain. TECHNIQUE: Multidetector CT imaging of the chest was performed after the administration of intravenous contrast. IV contrast: 95 mL of Optiray 320. A dose lowering technique was used consistent with the principles of ALARA (as low as reasonably achievable). COMPARISON: None. CT DOSE (mGy.cm): The estimated cumulative dose is 462.27 mGy.cm. FINDINGS: Liquid Fertilizer Servicer topogram: Right subclavian Mediport. On soft tissue windows, normal thyroid and thoracic inlet. No axillary, supraclavicular, hilar, or mediastinal lymphadenopathy. Normal aorta. Normal heart size. No pericardial or pleural effusion. Upper abdomen normal. On lung windows, anterior subpleural/peripheral consolidation in the right upper lobe. Patchy nodular opacities in the posterior right upper lobe and superior segment of the right lower lobe. Focal nodule also noted in the superior segment of the right lower lobe (series 6 image 80). Additional nodularity noted elsewhere in the right lung marked on the images. Focal bronchiectasis and bronchial wall thickening evident in the posterior segment of the right upper lobe. Postsurgical changes of right middle lobectomy. Central airways patent. On bone windows, bone island suspected in the right glenoid. No destructive osseous lesion. IMPRESSION: 1. Nodular opacities in the right upper and lower lobes concerning for infectious bronchiolitis, atypical infectious etiologies not excluded. Nodular opacities should be followed to resolution given the patient's presumed history of malignancy. 2. Anterior subpleural/peripheral consolidation in the right upper lobe likely represents post radiation change if the patient has a history of right breast cancer. 3. Post surgical changes of right middle lobectomy. Electronically signed by: Robert Patel M.D. 09/12/2017 9:03 PM Dictated Date/Time: 09/12/2017 8:57 PM ABD/PELVIS IV CONTRAST ONLY CLINICAL HISTORY: 32 years-old Female presenting with abdominal pain. TECHNIQUE: Multidetector CT of the abdomen and pelvis was performed after the administration of intravenous contrast. IV contrast: 95 mL of Optiray. A dose lowering technique was used consistent with the principles of ALARA (as low as reasonably achievable). COMPARISON: None. CT DOSE (mGy.cm): The estimated cumulative dose is 462.27. FINDINGS: Liquid Fertilizer Servicer topogram: Right subclavian Mediport. Lung bases: Lungs and pleural spaces clear. Normal heart size. No pericardial or pleural effusion. Liver: Normal morphology. No liver lesion. Patent hepatic vasculature. Biliary: Mild central intrahepatic ductal prominence. No extrahepatic biliary ductal dilatation. Normal gallbladder. Pancreas: Normal. Spleen: Normal. Adrenal glands: Normal. Kidneys and ureters: Normal. No hydronephrosis. Bladder: Incompletely evaluated secondary to underdistention. Pelvic organs: Uterus and ovaries normal. Bowel: Circumferential wall thickening of the rectum involving the entire rectum. Minimal infiltration of the mesorectal fat. Thickening of the mesorectal fascia. No soft tissue nodularity in the mesorectal fat moderate stool burden. No bowel obstruction. Large duodenal diverticulum. No associated inflammatory change. Peritoneal cavity: No free fluid or intraperitoneal gas. Lymph nodes: No enlarged lymph nodes in the abdomen or pelvis. Vasculature: Aorta and IVC patent and normal in caliber. Abdominal wall: Normal. Musculoskeletal: Normal. IMPRESSION: 1. Circumferential wall thickening of the rectum with associated inflammatory changes. This may represent infectious or post radiation change. If there is clinical concern for neoplasm, direct visualization could be performed though this is felt to be unlikely. Correlate with the patient's clinical history. 2. Moderate stool burden suggest constipation. Electronically signed by: Robert Patel M.D. 09/12/2017 8:56 PM Dictated Date/Time: 09/12/2017 8:49 PM Laboratory Results 09/12/17 17:55 Red Blood Count 4.69, Mean Corpuscular Volume 71.9, Mean Corpuscular Hemoglobin 22.2, Mean Corpuscular Hemoglobin Concent 30.9, Mean Platelet Volume 9.3, Neutrophils (%) (Auto) 76.3, Lymphocytes (%) (Auto) 18.8, Monocytes (%) (Auto) 4.5, Eosinophils (%) (Auto) 0.0, Basophils (%) (Auto) 0.3, Neutrophils # (Auto) 5.27, Lymphocytes # (Auto) 1.30, Monocytes # (Auto) 0.31, Eosinophils # (Auto) 0.00, Basophils # (Auto) 0.02 09/12/17 17:55 Test 09/12/17 17:55 09/12/17 21:10 White Blood Count 6.91 K/uL (4.8-10.8) Red Blood Count 4.69 M/uL (4.2-5.4) Hemoglobin 10.4 g/dL (12.0-16.0) Hematocrit 33.7 % (37-47) Mean Corpuscular Volume 71.9 fL (80-100) Mean Corpuscular Hemoglobin 22.2 pg (25-34) Mean Corpuscular Hemoglobin Concent 30.9 g/dl (32-36) Platelet Count 332 K/uL (130-400) Mean Platelet Volume 9.3 fL (7.4-10.4) Neutrophils (%) (Auto) 76.3 % Lymphocytes (%) (Auto) 18.8 % Monocytes (%) (Auto) 4.5 % Eosinophils (%) (Auto) 0.0 % Basophils (%) (Auto) 0.3 % Neutrophils # (Auto) 5.27 K/uL (1.4-6.5) Lymphocytes # (Auto) 1.30 K/uL (1.2-3.4) Monocytes # (Auto) 0.31 K/uL (0.11-0.59) Eosinophils # (Auto) 0.00 K/uL (0-0.5) Basophils # (Auto) 0.02 K/uL (0-0.2) RDW Standard Deviation 45.2 fL (36.4-46.3) RDW Coefficient of Variation 17.3 % (11.5-14.5) Immature Granulocyte % (Auto) 0.1 % Immature Granulocyte # (Auto) 0.01 K/uL (0.00-0.02) Microcytosis PRESENT Prothrombin Time 11.1 SECONDS (9.0-12.0) Prothromb Time International Ratio 1.1 (0.9-1.1) Activated Partial Thromboplast Time 22.8 SECONDS (21.0-31.0) Partial Thromboplastin Ratio 0.9 Anion Gap 12.0 mmol/L (3-11) Estimated GFR () 86.9 Estimated GFR (Non- 75.0 BUN/Creatinine Ratio 12.0 (10-20) Calcium Level 9.2 mg/dl (8.5-10.1) Total Bilirubin 0.9 mg/dl (0.2-1) Aspartate Amino Transf (AST/SGOT) 20 U/L (15-37) Alanine Aminotransferase (ALT/SGPT) 57 U/L (12-78) Alkaline Phosphatase 90 U/L (45-117) Troponin I < 0.015 ng/ml (0-0.045) Total Protein 8.7 gm/dl (6.4-8.2) Albumin 4.4 gm/dl (3.4-5.0) Globulin 4.3 gm/dl (2.5-4.0) Albumin/Globulin Ratio 1.0 (0.9-2) Urine Color YELLOW Urine Appearance CLEAR (CLEAR) Urine pH 7.5 (4.5-7.5) Urine Specific [place] > 1.045 (1.000-1.030) Urine Protein NEG (NEG) Urine Glucose (UA) NEG (NEG) Urine Ketones 1+ (NEG) Urine Occult Blood TRACE (NEG) Urine Nitrite NEG (NEG) Urine Bilirubin NEG (NEG) Urine Urobilinogen NEG (NEG) Urine Leukocyte Esterase SMALL (NEG) Urine WBC (Auto) 5-10 /hpf (0-5) Urine RBC (Auto) 0-4 /hpf (0-4) Urine Hyaline Casts (Auto) 1-5 /lpf (0-5) Urine Epithelial Cells (Auto) >30 /lpf (0-5) Urine Bacteria (Auto) 1+ (NEG) Urine Opiates Screen NEG (NEG) Urine Methadone, Qualitative POS (NEG) Urine Barbiturates NEG (NEG) Urine Phencyclidine (PCP) Level NEG (NEG) Ur Amphetamine/Methamphetamine NEG (NEG) MDMA (Ecstasy) Screen NEG (NEG) Urine Benzodiazepines Screen NEG (NEG) Urine Cocaine Metabolite NEG (NEG) Urine Marijuana (THC) NEG (NEG) Medications Administered Medications (Trade) Dose Ordered Sig/Garret Route Start Time Stop Time Status Last Admin Dose Admin Sodium Chloride 1,000 ml @ 999 mls/hr Q1H1M STAT IV 09/12/17 18:27 09/12/17 19:27 DC 09/12/17 18:35 999 MLS/HR Diphenhydramine HCl (Benadryl Inj) 50 mg NOW STAT IV 09/12/17 18:27 09/12/17 18:30 DC 09/12/17 18:34 50 MG Prochlorperazine Edisylate (Compazine Inj) 10 mg NOW STAT IV 09/12/17 18:27 09/12/17 18:30 DC 09/12/17 18:34 10 MG Dicyclomine HCl (Bentyl Inj) 20 mg NOW ONCE IM 09/12/17 20:00 09/12/17 20:01 DC 09/12/17 19:58 20 MG Metoclopramide HCl (Reglan Inj) 10 mg NOW STAT IV. 09/12/17 19:46 5/14/18 19:48 DC 09/12/17 19:58 10 MG Promethazine HCl (Phenergan Inj) 25 mg NOW STAT IM 09/12/17 20:51 09/12/17 20:52 DC 09/12/17 21:05 25 MG ED Course The patient was seen and evaluated as above. IV access obtained, labs drawn. Spoke with registration regarding the proper name and information for the patient. The patient provided multiple different names during registration so there was some confusion regarding the proper account. Previous medical records reviewed. I advised the charge nurse about the patient various names and desire for pain medication. José contacted PD and requested an officer come down to investigate. I discussed the case with Dr. Farrar. He was familiar with the patient, as he had been the attending yesterday on the case. He advised me that the patient refused CT scanning yesterday and was requesting IV pain medications and wanted admission for IV morphine. The patient was given 50 mg Benadryl and 10 mg Compazine. The patient was seen and evaluated by Dr. Farrar. The patient is continuing to vomit. She was given Reglan and dicyclomine at this time. [place] PD officer spoke with the patient. CT scan performed and reviewed by myself and Dr. Farrar. Labs reviewed by myself and Dr. Farrar. The patient is continuing to vomit. She was given promethazine IM injection at this time. Dr. Farrar spoke with the hospitalist regarding admission due to abnormal CT scan, electrolyte abnormality, intractable vomiting, and concern for risk of bowel obstruction. Please see hospitalist dictation regarding further management and care. Medical Decision This is a 32-year-old female patient presents emergency department for the third time in 3 days. The patient reports being on methadone, however her history is difficult to establish, as she states she speaks only minimal Maltese. Throughout her visit, the patient is moaning in pain, and requesting IV morphine to help her. Yesterday, she refused imaging studies, and gave a similar history. The patient does have a history of chronic methadone use. She does see a provider in [place] for this medication. She has given multiple different names to our ED today and was found in PDMP under multiple different names with various prescriptions for methadone found, most recently for 240 10mg tablets filled on 08/19/17. The patient states this was only a 15 day supply, however it does appear to have been a 30 day supply. Labs are significant for mild anemia with Hgb 10.4. No leukocytosis. Coagulation studies normal. Urinalysis positive for blood, ketones, bacteria, WBC, and epithelial cells. Renal and hepatic function normal. Electrolytes significant for low potassium of 3.1. UDS positive for methadone. I suspect the patient's symptoms are related to constipation associated with opioid induced constipation as well as her malignancy history. The patient will be admitted to medicine for ongoing monitoring and management of her symptoms. Etiologies such as appendicitis, diverticulitis, obstruction, inflammatory bowel disease, renal colic, PUD, biliary pathology, pancreatitis, mesenteric ischemia, aortic pathology, infections, genitourinary, UTI, perforated viscus, drug-seeking behavior, as well as others were entertained. The chart was completed utilizing [employer] Speech voice recognition software. Grammatical errors, random word insertions, pronoun errors, and incomplete sentences are an occasional consequence of this system due to software limitations, ambient noise, and hardware issues. Any formal questions or concerns about the content, text, or information contained within the body of this dictation should be directly addressed to the provider for clarification. [place] Drug Monitoring Program Search Results: patient reviewed within database (see MDM) Medication Reconcilliation Current Medication List: was personally reviewed by me Blood Pressure Screening Patient's blood pressure: Normal blood pressure Impression Primary Impression: Abdominal pain Additional Impressions: Hypokalemia Intractable nausea and vomiting Constipation Departure Information Dispostion Being Evaluated By Hospitalist [facility] (PCP) Patient Instructions My [facility] Health Problem Qualifiers Primary Impression: Abdominal pain Abdominal location: generalized Qualified Codes: R10.84 - Generalized abdominal pain Additional Impressions: Intractable nausea and vomiting Vomiting type: unspecified Qualified Codes: R11.2 - Nausea with vomiting, unspecified Constipation Constipation type: unspecified constipation type Qualified Codes: K59.00 - Constipation, unspecified
[2017-09-12] MEDS ORDERED: BISACODYL 5 MG TABEC PO PRN (22:15)
[2017-09-12] MEDS ORDERED: ONDANSETRON INJ 2 MG/ML 2 ML VIAL IV PRN (22:15)
[2017-09-12] MEDS ORDERED: METHYLNALTREXONE BROMIDE INJ 12 MG/0.6 ML SYR SQ STA (22:30)
--- NOTE | 2017-09-12 22:44 | History and Physical ---
History & Physical Date & Time of Service: September 12, 2017 at 22:29 Chief Complaint: Abd Pain Primary Care Physician: Catherine Christopherin Medicine History of Present Illness Source: patient, clinic records, hospital records 32 years old female with past medical history of Hodgkin lymphoma in remission, chronic methadone use where she gets the prescription in [place] presented to the ER with severe abdominal pain. Patient was recently in the ER on the and for the abdominal pain. Patient came to the ER yesterday requests prescription for methadone because she was having a lot of pain. She said that she ran out of her methadone because she has been taking more due to the pain. Patient said that she has chronic abdominal pain and she has been on methadone for the past 2-3 years. She said that she ran out of her methadone about 4 days ago. She traveled to [place] today's to get a new prescription for methadone but her pain management doctor was off today. She saw her colleague that said that she is not due yet for another prescription until . Patient said that her pain is 10 out of 10, describes it as constant and crampy , diffuse, nonradiating associated with nausea and vomiting. She said she started to vomiting today. She said her last bowel movement was about 5-6 days ago. Reviewed prescription drug monitoring program showed that his last prescription was filled for methadone was on 08/19 for 30 days supply with quantity for 240 tabs. Also she had another prescription that was filled on 08/03 for 200 tablets for 25 days supply. Patient used 440 tabs of methadone 10 mg in 5 weeks. Currently patient is lying in bed moaning in pain. denies any chills, shortness of breath, chest pain, dizziness, and fever. Social History Smoking Status: Never Smoker Smokeless Tobacco Use: No Drug Use: none Allergies Coded Allergies: No Known Allergies (Unverified , 09/12/17) Home Medications Scheduled Methadone HCl (Methadone HCl), 20 MG PO Q4 Review of Systems Constitutional: No fever, No sweats, No weight loss Eyes: No eye pain, No diplopia ENT: No nasal symptoms, No sore throat Respiratory: No cough, No sputum, No shortness of breath Cardiovascular: No chest pain, No palpitations Abdomen: + pain, + nausea, + vomiting, + constipation Musculoskeletal: No joint pain, No calf pain Genitourinary - Female: No dysuria, No urinary frequency Neurologic: No memory loss, No paralysis Psychiatric: + substance abuse Endocrine: No fatigue Hematologic / Lymphatic: No night sweats Integumentary: No rash, No itch Physical Exam Vital Signs Date Time Temp Pulse Resp B/P (MAP) Pulse Ox O2 Delivery O2 Flow Rate FiO2 09/12/17 21:58 87 09/12/17 21:07 85 16 105/69 09/12/17 20:29 87 16 93/48 98 Room Air 09/12/17 18:37 86 18 95/54 100 Room Air 09/12/17 18:35 100 Room Air 09/12/17 17:57 75 09/12/17 17:39 37.4 76 18 133/65 95 Room Air General Appearance: WD/WN, + pertinent finding (Crying and pain) Head: normocephalic, atraumatic Eyes: normal inspection, PERRL, EOMI ENT: hearing grossly normal Neck: no JVD, trachea midline Respiratory/Chest: lungs clear, no respiratory distress, no accessory muscle use Cardiovascular: regular rate, rhythm, no edema, no murmur Abdomen/GI: soft, + tenderness Back: no CVA tenderness Extremities/Musculoskelatal: no calf tenderness Neurologic/Psych: no motor/sensory deficits, alert, oriented x 3 Skin: warm/dry, no rash Diagnostics Laboratory Results Results Past 24 Hours Test 09/12/17 17:55 09/12/17 21:10 Range/Units White Blood Count 6.91 4.8-10.8 K/uL Red Blood Count 4.69 4.2-5.4 M/uL Hemoglobin 10.4 12.0-16.0 g/dL Hematocrit 33.7 37-47 % Mean Corpuscular Volume 71.9 80-100 fL Mean Corpuscular Hemoglobin 22.2 25-34 pg Mean Corpuscular Hemoglobin Concent 30.9 32-36 g/dl Platelet Count 332 130-400 K/uL Mean Platelet Volume 9.3 7.4-10.4 fL Neutrophils (%) (Auto) 76.3 % Lymphocytes (%) (Auto) 18.8 % Monocytes (%) (Auto) 4.5 % Eosinophils (%) (Auto) 0.0 % Basophils (%) (Auto) 0.3 % Neutrophils # (Auto) 5.27 1.4-6.5 K/uL Lymphocytes # (Auto) 1.30 1.2-3.4 K/uL Monocytes # (Auto) 0.31 0.11-0.59 K/uL Eosinophils # (Auto) 0.00 0-0.5 K/uL Basophils # (Auto) 0.02 0-0.2 K/uL RDW Standard Deviation 45.2 36.4-46.3 fL RDW Coefficient of Variation 17.3 11.5-14.5 % Immature Granulocyte % (Auto) 0.1 % Immature Granulocyte # (Auto) 0.01 0.00-0.02 K/uL Microcytosis PRESENT Prothrombin Time 11.1 9.0-12.0 SECONDS Prothromb Time International Ratio 1.1 0.9-1.1 Activated Partial Thromboplast Time 22.8 21.0-31.0 SECONDS Partial Thromboplastin Ratio 0.9 Sodium Level 139 136-145 mmol/L Potassium Level 3.1 3.5-5.1 mmol/L Chloride Level 107 98-107 mmol/L Carbon Dioxide Level 20 21-32 mmol/L Anion Gap 12.0 3-11 mmol/L Blood Urea Nitrogen 12 7-18 mg/dl Creatinine 1.00 0.60-1.20 mg/dl Estimated GFR () 86.9 Estimated GFR (Non- 75.0 BUN/Creatinine Ratio 12.0 10-20 Random Glucose 127 70-99 mg/dl Calcium Level 9.2 8.5-10.1 mg/dl Total Bilirubin 0.9 0.2-1 mg/dl Aspartate Amino Transf (AST/SGOT) 20 15-37 U/L Alanine Aminotransferase (ALT/SGPT) 57 12-78 U/L Alkaline Phosphatase 90 45-117 U/L Troponin I < 0.015 0-0.045 ng/ml Total Protein 8.7 6.4-8.2 gm/dl Albumin 4.4 3.4-5.0 gm/dl Globulin 4.3 2.5-4.0 gm/dl Albumin/Globulin Ratio 1.0 0.9-2 Urine Color YELLOW Urine Appearance CLEAR CLEAR Urine pH 7.5 4.5-7.5 Urine Specific [place] > 1.045 1.000-1.030 Urine Protein NEG NEG Urine Glucose (UA) NEG NEG Urine Ketones 1+ NEG Urine Occult Blood TRACE NEG Urine Nitrite NEG NEG Urine Bilirubin NEG NEG Urine Urobilinogen NEG NEG Urine Leukocyte Esterase SMALL NEG Urine WBC (Auto) 5-10 0-5 /hpf Urine RBC (Auto) 0-4 0-4 /hpf Urine Hyaline Casts (Auto) 1-5 0-5 /lpf Urine Epithelial Cells (Auto) >30 0-5 /lpf Urine Bacteria (Auto) 1+ NEG Urine Opiates Screen NEG NEG Urine Methadone, Qualitative POS NEG Urine Barbiturates NEG NEG Urine Phencyclidine (PCP) Level NEG NEG Ur Amphetamine/Methamphetamine NEG NEG MDMA (Ecstasy) Screen NEG NEG Urine Benzodiazepines Screen NEG NEG Urine Cocaine Metabolite NEG NEG Urine Marijuana (THC) NEG NEG Microbiology Results 09/12/17 Urine Culture, Received Pending Diagnostic Radiology ABD/PELVIS IV CONTRAST ONLY CLINICAL HISTORY: 32 years-old Female presenting with abdominal pain. TECHNIQUE: Multidetector CT of the abdomen and pelvis was performed after the administration of intravenous contrast. IV contrast: 95 mL of Optiray. A dose lowering technique was used consistent with the principles of ALARA (as low as reasonably achievable). COMPARISON: None. CT DOSE (mGy.cm): The estimated cumulative dose is 462.27. FINDINGS: Nuclear Supervising Operator topogram: Right subclavian Mediport. Lung bases: Lungs and pleural spaces clear. Normal heart size. No pericardial or pleural effusion. Liver: Normal morphology. No liver lesion. Patent hepatic vasculature. Biliary: Mild central intrahepatic ductal prominence. No extrahepatic biliary ductal dilatation. Normal gallbladder. Pancreas: Normal. Spleen: Normal. Adrenal glands: Normal. Kidneys and ureters: Normal. No hydronephrosis. Bladder: Incompletely evaluated secondary to underdistention. Pelvic organs: Uterus and ovaries normal. Bowel: Circumferential wall thickening of the rectum involving the entire rectum. Minimal infiltration of the mesorectal fat. Thickening of the mesorectal fascia. No soft tissue nodularity in the mesorectal fat moderate stool burden. No bowel obstruction. Large duodenal diverticulum. No associated inflammatory change. Peritoneal cavity: No free fluid or intraperitoneal gas. Lymph nodes: No enlarged lymph nodes in the abdomen or pelvis. Vasculature: Aorta and IVC patent and normal in caliber. Abdominal wall: Normal. Musculoskeletal: Normal. IMPRESSION: 1. Circumferential wall thickening of the rectum with associated inflammatory changes. This may represent infectious or post radiation change. If there is clinical concern for neoplasm, direct visualization could be performed though this is felt to be unlikely. Correlate with the patient's clinical history. 2. Moderate stool burden suggest constipation. Electronically signed by: Robert Patel M.D. 09/12/2017 8:56 PM Dictated Date/Time: 09/12/2017 8:[address] (CHEST) THORAX WITH CLINICAL HISTORY: 32 years-old Female presenting with chest pain. TECHNIQUE: Multidetector CT imaging of the chest was performed after the administration of intravenous contrast. IV contrast: 95 mL of Optiray 320. A dose lowering technique was used consistent with the principles of ALARA (as low as reasonably achievable). COMPARISON: None. CT DOSE (mGy.cm): The estimated cumulative dose is 462.27 mGy.cm. FINDINGS: Nuclear Supervising Operator topogram: Right subclavian Mediport. On soft tissue windows, normal thyroid and thoracic inlet. No axillary, supraclavicular, hilar, or mediastinal lymphadenopathy. Normal aorta. Normal heart size. No pericardial or pleural effusion. Upper abdomen normal. On lung windows, anterior subpleural/peripheral consolidation in the right upper lobe. Patchy nodular opacities in the posterior right upper lobe and superior segment of the right lower lobe. Focal nodule also noted in the superior segment of the right lower lobe (series 6 image 80). Additional nodularity noted elsewhere in the right lung marked on the images. Focal bronchiectasis and bronchial wall thickening evident in the posterior segment of the right upper lobe. Postsurgical changes of right middle lobectomy. Central airways patent. On bone windows, bone island suspected in the right glenoid. No destructive osseous lesion. IMPRESSION: 1. Nodular opacities in the right upper and lower lobes concerning for infectious bronchiolitis, atypical infectious etiologies not excluded. Nodular opacities should be followed to resolution given the patient's presumed history of malignancy. 2. Anterior subpleural/peripheral consolidation in the right upper lobe likely represents post radiation change if the patient has a history of right breast cancer. 3. Post surgical changes of right middle lobectomy. Electronically signed by: Robert Patel M.D. 09/12/2017 9:03 PM Dictated Date/Time: 09/12/2017 8:57 PM Impression Assessment and Plan Abdominal pain associated with nausea and vomiting. History of asking lymphoma in remission CT abd/pelvis showed circumferential wall thickening of the rectum with associated inflammatory changes and moderate stool burden suggest constipation We will start on IV fluid Toradol for pain for now We will add morphine as needed as well Monitor electrolytes Zofran as needed N.p.o. for now Chronic methadone dependent Has been getting methadone prescription from pain management in [place] Used 440 tabs of methadone 10 mg in 5 weeks Discussed with patient for inpatient methadone rehab Consult pain management Right upper lung nodule No sign of infection No leukocytosis, afebrile Need outpatient follow due to pt history malignancy History of Hodgkin lymphoma In remission Constipation Opioid-induced constipation CT abd showed moderate stool burden suggest constipation Last bowel movement was about 5-6 days ago Relistor 1 given Consider Dulcolax twice daily DVT px Ambulating/scds CODE STATUS FULL CODE Resuscitation Status
[2017-09-13 00:15] VITALS: BP 124/78; PULSE 70; TEMP 36.3
[2017-09-13] MEDS ORDERED: MoRPHine SULFATE 4 MG/ML 1 ML CARP\\VIAL IV PRN (00:15)
[2017-09-13] MEDS: SODIUM CHLORIDE 0.9% 1000ML 1,000 ML IV SCH ×3 (00:31→20:38)
[2017-09-13] MEDS: KETOROLAC TROMETHAMINE 15 MG/ML VIAL IV. PRN ×3 (00:32→15:42)
[2017-09-13] MEDS ORDERED: ACETAMINOPHEN IV 1,000 MG in EMPTY BAG 0 ML IV ONE (04:00)
[2017-09-13] MEDS: POTASSIUM CHLR 10 MEQ / WTR 100 ML IV SCH ×4 (04:52→11:29)
[2017-09-13 06:53] VITALS: BP 110/70; PULSE 66; TEMP 37.4; O2SAT 98
[2017-09-13 08:02] LABS: BLOOD UREA NITROGEN 10 mg/dl (7-18); CALCIUM 8.5 mg/dl (8.5-10.1); CARBON DIOXIDE 22 mmol/L (21-32); CREATININE 0.79 mg/dl (0.60-1.20); GLUCOSE 112 mg/dl (70-99); POTASSIUM 3.3 mmol/L (3.5-5.1); SODIUM 141 mmol/L (136-145)
[2017-09-13] MEDS ORDERED: POLYETHYLENE (MIRALAX) 17 GM PACK PO PRN (09:45)
[2017-09-13] MEDS ORDERED: HYDROmorphone INJ 0.5 MG/0.5 ML SYR IV STA (09:57)
[2017-09-13] MEDS ORDERED: SENNA 8.6 MG TAB PO STA (09:57)
[2017-09-13] MEDS ORDERED: PIPERACILL/TAZOBAC CONSULT ACTIVE PRN (10:00)
--- NOTE | 2017-09-13 10:04 | Pain Management Consultation ---
Pain Management Consultation Date of Consultation September 13, 2017. Reason for Consultation Intractable abdominal pain Pain Location 1 - History Mrs. Teran is a 32-year-old female with past medical history of Hodgkin lymphoma reportedly in remission status post chemotherapy, radiation as well as a right-sided thoracotomy procedure. Patient has history of chronic abdominal pain and chronic methadone dependency. The patient is currently under the care of a methadone clinic in [facility] reportedly receiving 80 mg total daily dosing. Patient reports she has been out of her methadone over the past 5 days due to reported increased use due to increased abdominal pain. Patient indicates that her abdominal pain is diffuse and nonspecific and chronic in nature with recent increase in severity especially without use of her methadone over the past few days. She has found IV morphine to be effective at diminishing her pain for 2-3 hours upon this admission which was given 1. She is finding minimal benefit from use of Toradol. She denies diarrhea but has been experiencing nausea and vomiting. She denies back pain. She reportedly finished her chemotherapy and radiation approximately 2-3 years ago. She reports no bowel movements over the past 3 days. She denies any significant difficulty with chronic constipation. She reports her pain is a 10/10 at this time reporting it as crampy and colicky in nature. Patient denies low back or lumbar radicular pain. She denies any bowel or bladder incontinence and reports no further constitutional complaints. Plan of care discussed with Dr. Davila. Past Medical/Surgical History (1) Thoracotomy scar of right chest (2) Abdominal pain (3) Constipation (4) Hypokalemia (5) Abdominal pain (6) Intractable nausea and vomiting (7) Non-Hodgkin lymphoma (8) S/P thoracotomy (9) S/P partial lobectomy of lung Family History Patient reports no known family medical history. Social / Work History Smoking Status: Never smoker Smokeless Tobacco Use: No Alcohol Use: socially Drug Use: methadone program Marital Status: single Housing Status: lives with significant other Occupation: unemployed Allergies Coded Allergies: No Known Allergies (Unverified , 09/11/17) Medications Current Inpatient Medications Medications (Trade) Dose Ordered Sig/Garret Route Start Time Stop Time Status Last Admin Dose Admin Ioversol (Optiray 320) 100 ml UD PRN IV 09/12/17 18:45 09/16/17 18:44 Bisacodyl (Dulcolax Tab) 5 mg BID PRN PO 5/14/18 22:15 10/12/17 22:14 Ondansetron HCl (Zofran Inj) 4 mg Q6H PRN IV 09/12/17 22:15 10/12/17 22:14 Ketorolac Tromethamine (Toradol Inj) 15 mg Q6H PRN IV. 09/12/17 22:15 09/17/17 22:14 09/13/17 07:37 15 MG Sodium Chloride 1,000 ml @ 100 mls/hr Q10H IV 09/12/17 23:59 10/12/17 23:58 09/13/17 00:31 100 MLS/HR Methadone HCl (Dolophine Tab) 20 mg Q6 PO 09/13/17 12:00 09/27/17 11:59 Review of Systems Constitutional: Negative for fever, chills, sweats Eyes: Negative for eye pain, photophobia, drainage Ear, nose, mouth, throat: Negative for ear pain, nasal congestion, mouth lesions , change in voice Respiratory: Negative for wheezing, sputum production Cardiovascular: Negative for chest pain, palpitations, calf pain Gastrointestinal: Negative for abdominal pain, belching, bloating Genitourinary: Negative for dysuria, urinary incontinence, urinary urgency Musculoskeletal: Negative for deformities Integumentary: Negative for nail changes, skin yellowing, pruritus Neurological: Negative for abnormal speech, seizure type activity Physical Exam Height & Weight: Height feet, inches. Weight 59.600 (Kilograms) 131 (Pounds) Last Vital Signs Documentation Date Time Temp Pulse Resp B/P (MAP) Pulse Ox O2 Delivery O2 Flow Rate FiO2 09/13/17 08:00 Room Air 09/13/17 06:53 37.4 66 19 110/70 (83) 98 Exam: General: Patient lying upon entering the room frequently crying out in pain requesting pain medications grabbing her abdominal region. Patient appears to be age-appropriate in height and weight appropriate. She does not appear to be malnourished. Skin: Normal turgor. No evidence of skin breakdown or rashes. Chest: Nontender to palpation over the anterior posterior lateral chest wall. Nontender with AP/lateral compression. Patient is evidence of a right thoracotomy scar. Patient has a port in the right upper chest wall in the infraclavicular region. Abdomen: Soft and nondistended. Diffuse tenderness to palpation throughout which is nonfocal. No appreciable organomegaly. Extremities: Strength testing was 5/5 throughout the upper and lower extremities. Sensation was intact but this is no evidence of edema, erythema or skin breakdown. Neurologic: Cranial nerves grossly intact. Ambulation not witness. Laboratory Laboratory Results (Last CBC): 09/12/17 17:55 Red Blood Count 4.69, Mean Corpuscular Volume 71.9 L, Mean Corpuscular Hemoglobin 22.2 L, Mean Corpuscular Hemoglobin Concent 30.9 L, Mean Platelet Volume 9.3, Neutrophils (%) (Auto) 76.3, Lymphocytes (%) (Auto) 18.8, Monocytes (%) (Auto) 4.5, Eosinophils (%) (Auto) 0.0, Basophils (%) (Auto) 0.3, Neutrophils # (Auto) 5.27, Lymphocytes # (Auto) 1.30, Monocytes # (Auto) 0.31, Eosinophils # (Auto) 0.00, Basophils # (Auto) 0.[address]: reports reviewed CT Findings Patient: VERONICA TERAN Address1: [address] Rec: [id number] Address2: [facility] ID: [id number] [facility] Zip: [place] [address] Date: 1985 Sex: F Room/Bed: [facility] Ref Phy: [facility] SC: JONATHANW Att Phy: Bashir Christine M.D. Report #: [id number] Lori Phy: [facility] Test: APIV Admit Phy: Abe Dunn M.D. Parent Partner: HONORIO Interpreting Phy: Robert Patel MD Diagnosis: ABD PAIN, INTRACTABLE NAUSEA AND VOMITING Ordering Phy: Gavi Dickinson PA-C Service Date: 09/12/17 Admit Date: 09/12/1804/14/18 MNE: [id number] CONF: DICTATED BY: Robert Patel MD]] CC: [facility] Gavi Dickinson PA-C Wong, Gary K., M.D. Endcc: [~ rep ct add3]] ABD/PELVIS IV CONTRAST ONLY CLINICAL HISTORY: 32 years-old Female presenting with abdominal pain. TECHNIQUE: Multidetector CT of the abdomen and pelvis was performed after the administration of intravenous contrast. IV contrast: 95 mL of Optiray. A dose lowering technique was used consistent with the principles of ALARA (as low as reasonably achievable). COMPARISON: None. CT DOSE (mGy.cm): The estimated cumulative dose is 462.27. FINDINGS: Machine Shop Worker topogram: Right subclavian Mediport. Lung bases: Lungs and pleural spaces clear. Normal heart size. No pericardial or pleural effusion. Liver: Normal morphology. No liver lesion. Patent hepatic vasculature. Biliary: Mild central intrahepatic ductal prominence. No extrahepatic biliary ductal dilatation. Normal gallbladder. Pancreas: Normal. Spleen: Normal. Adrenal glands: Normal. Kidneys and ureters: Normal. No hydronephrosis. Bladder: Incompletely evaluated secondary to underdistention. Pelvic organs: Uterus and ovaries normal. Bowel: Circumferential wall thickening of the rectum involving the entire rectum. Minimal infiltration of the mesorectal fat. Thickening of the mesorectal fascia. No soft tissue nodularity in the mesorectal fat moderate stool burden. No bowel obstruction. Large duodenal diverticulum. No associated inflammatory change. Peritoneal cavity: No free fluid or intraperitoneal gas. Lymph nodes: No enlarged lymph nodes in the abdomen or pelvis. Vasculature: Aorta and IVC patent and normal in caliber. Abdominal wall: Normal. Musculoskeletal: Normal. IMPRESSION: 1. Circumferential wall thickening of the rectum with associated inflammatory changes. This may represent infectious or post radiation change. If there is clinical concern for neoplasm, direct visualization could be performed though this is felt to be unlikely. Correlate with the patient's clinical history. 2. Moderate stool burden suggest constipation. Electronically signed by: Robert Patel M.D. 09/12/2017 8:56 PM Dictated Date/Time: 09/12/2017 8:49 PM The status of this report is Signed. Draft = Not yet reviewed or approved by Radiologist. Signed = Reviewed and approved by Radiologist. Patient: VERONICA TERAN Address1: [address] Rec: [id number] Address2: Acct ID: [id number] [facility] Zip: [place] [address] Date: 1985 Sex: F Room/Bed: [facility] Ref Phy: [facility] SC: TAMI Att Phy: Bashir Christine M.D. Report #: [id number] Lori Phy: [facility] Test: CX Admit Phy: Abe Dunn M.D. Parent Partner: HNOORIO Veloz Phy: Robert Patel MD Diagnosis: ABD PAIN, INTRACTABLE NAUSEA AND VOMITING Ordering Phy: Gavi Dickinson PA-C Service Date: 09/12/17 Admit Date: 09/12/1804/14/18 MNE: [id number] CONF: DICTATED BY: Robert Patel MD]] CC: [facility] Gavi Dickinson, Bashir Sorto M.D. Endcc: [~ rep ct add3]] CT (CHEST) THORAX WITH CLINICAL HISTORY: 32 years-old Female presenting with chest pain. TECHNIQUE: Multidetector CT imaging of the chest was performed after the administration of intravenous contrast. IV contrast: 95 mL of Optiray 320. A dose lowering technique was used consistent with the principles of ALARA (as low as reasonably achievable). COMPARISON: None. CT DOSE (mGy.cm): The estimated cumulative dose is 462.27 mGy.cm. FINDINGS: Machine Shop Worker topogram: Right subclavian Mediport. On soft tissue windows, normal thyroid and thoracic inlet. No axillary, supraclavicular, hilar, or mediastinal lymphadenopathy. Normal aorta. Normal heart size. No pericardial or pleural effusion. Upper abdomen normal. On lung windows, anterior subpleural/peripheral consolidation in the right upper lobe. Patchy nodular opacities in the posterior right upper lobe and superior segment of the right lower lobe. Focal nodule also noted in the superior segment of the right lower lobe (series 6 image 80). Additional nodularity noted elsewhere in the right lung marked on the images. Focal bronchiectasis and bronchial wall thickening evident in the posterior segment of the right upper lobe. Postsurgical changes of right middle lobectomy. Central airways patent. On bone windows, bone island suspected in the right glenoid. No destructive osseous lesion. IMPRESSION: 1. Nodular opacities in the right upper and lower lobes concerning for infectious bronchiolitis, atypical infectious etiologies not excluded. Nodular opacities should be followed to resolution given the patient's presumed history of malignancy. 2. Anterior subpleural/peripheral consolidation in the right upper lobe likely represents post radiation change if the patient has a history of right breast cancer. 3. Post surgical changes of right middle lobectomy. Electronically signed by: Robert Patel M.D. 09/12/2017 9:03 PM Dictated Date/Time: 09/12/2017 8:57 PM The status of this report is Signed. Draft = Not yet reviewed or approved by Radiologist. Signed = Reviewed and approved by Radiologist. <AttendingPhy>Bashir Christine M.D.</AttendingPhy> <FamilyPhy>[facility]</FamilyPhy> <PrimaryPhy>[facility]</ PrimaryPhy> <UnitNumber>[id number]</UnitNumber [place] Drug Monitoring Program Search Results: patient reviewed within database Drug Monitoring Findings: Review of PDM P reveals 18 total prescriptions in the past 1 year with 5 prescribers and 3 pharmacies utilized. 30 day average MME per day 208.0 3 most recent prescriptions, the patient received methadone 10 mg 240 tablets on 08/19/2017, methadone 10 mg 200 tablets on 08/03/2017 and methadone 10 mg 240 tablets on 07/06/2017. Opioid Risk Assessment Risk assessment performed, high risk identified Drug Testing Type: Urine Findings: Consistent Additional Notes Methadone was present and urine without evidence of other illicit drugs. Methadone metabolites and confirmatory testing was pending at the time of dictation Assessment 1. Chronic abdominal pain with history of non-Hodgkin lymphoma 2. History of right-sided thoracotomy 3. Chronic methadone therapy-methadone clinic [facility] 4. Constipation--likely opioid induced Recommendations 1. Will at this time resume her chronic methadone dosing at 10 mg 2 tablets every 6 hours while inpatient. EKG was reviewed which revealed QTC of 470. Urine screening was consistent with methadone without evidence of illicit drugs. Recommend patient follow-up with her outpatient methadone clinic upon discharge for future planning. There does appear to be evidence of opiate misuse versus abuse upon review of her PDMP. Consideration of inpatient rehab needs to be considered. 2. Consider repeating Relistor upon this admission and attempt to facilitate further bowel movement which may be contributing to her nausea/vomiting 3. Consider behavioral health evaluation 4. Consider Movantik therapy chronically for opioid induced constipation Additional Copies To [facility]
[2017-09-13] MEDS ORDERED: PIPERACILL/TAZOBAC IV 3.375 GM in D5W 100 ML IV ONE (10:15)
--- NOTE | 2017-09-13 10:21 | Progress Note ---
Internal Med Progress Note Date of Service: September 13, 2017. Provider Documentation: SUBJECTIVE: Patient was seen and examined by medicine hospitalist physician. She had been seen by pain management physician earlier as per nurse. Patient reported abdominal pain. Patient reports several days of constipation OBJECTIVE: Exam: General- reports of being in pain, mild distress Eyes- EOMI Neck- no JVD Lungs- CTABL, no wheezing Heart-regular rate Abdomen- positive bowel sounds, soft, pain on palpation somewhat left of umbilicus Extremities- no edema Neuro- awake, speaks in full sentences ASSESSMENT & PLAN: Abdominal pain associated with nausea and vomiting with differentials of opioid induced constipation vs urinary tract infection in a patient with chronic methadone use and history of Hodgkin lymphoma reportedly in remission Hodgkin 's lymphoma mixed cellularity diagnosed early 2010 -Patient has seen Hematology/oncology 07/19/[address] Jamari Hdz: "last treatment was received in the form of brentuximab in 7917-3136. Since 2014 she has done quite well and has no evidence of recurrent disease" -Chest CT 12/15/2016 as outpatient: "There is unchanged wedge-shaped consolidation in the anterior aspect of the right upper lobe with nonspecific scattered ground-glass densities in the right upper lobe" -Patient has no respiratory complaints on this admission but admission CT lung has multiple differentials and may be due to lack of comparison outpatient imaging comparisons, however regardless patient should follow up with Hematology /oncology Dr. Jamari Hdz when discharged from inpatient -CT chest lung on admission 1. Nodular opacities in the right upper and lower lobes concerning for infectious bronchiolitis, atypical infectious etiologies not excluded. Nodular opacities should be followed to resolution given the patient's presumed history of malignancy. 2. Anterior subpleural/peripheral consolidation in the right upper lobe likely represents post radiation change if the patient has a history of right breast cancer. 3. Post surgical changes of right middle lobectomy. CT abd/pelvis 1. Circumferential wall thickening of the rectum with associated inflammatory changes. This may represent infectious or post radiation change. If there is clinical concern for neoplasm, direct visualization could be performed though this is felt to be unlikely. 2. Moderate stool burden suggest constipation. Chronic methadone use: possible opioid induced constipation Has been getting methadone prescription from pain management clinic in [place] , reportedly used 440 tabs of methadone 10 mg in 5 weeks Was given Relistor x 1 dose by admitting hospitalist physician, bowel regimen also started Patient restarted on methadone as inpatient by inpatient Pain management consult service on 09/13/17 Pain management recommendations 09/13/17: "1. Will at this time resume her chronic methadone dosing at 10 mg 2 tablets every 6 hours while inpatient. EKG was reviewed which revealed QTC of 470. Urine screening was consistent with methadone without evidence of illicit drugs. Recommend patient follow-up with her outpatient methadone clinic upon discharge for future planning. There does appear to be evidence of opiate misuse versus abuse upon review of her PDMP. Consideration of inpatient rehab needs to be considered. 2. Consider repeating Relistor upon this admission and attempt to facilitate further bowel movement which may be contributing to her nausea/vomiting 3. Consider behavioral health evaluation 4. Consider Movantik therapy chronically for opioid induced constipation" Behavioral Health/Psychiatry consulted Antiemetics for vomiting Hypokalemia possibly from GI losses -replete with IV potassium, check magnesium level Urinary Tract Infection -Patient denies problems with urination -UA: gram negative bacilli, follow up cultures, empirically started Zosyn on DVT ppx: SCDs Vital Signs: Date Time Temp Pulse Resp B/P (MAP) Pulse Ox O2 Delivery O2 Flow Rate FiO2 09/13/17 08:00 Room Air 09/13/17 06:53 37.4 66 19 110/70 (83) 98 Room Air 09/13/17 00:15 36.3 70 16 124/78 Room Air 09/12/17 23:44 85 18 105/72 98 09/12/17 22:51 103 18 105/72 09/12/17 21:58 87 09/12/17 21:07 85 16 105/69 09/12/17 20:29 87 16 93/48 98 Room Air 09/12/17 18:37 86 18 95/54 100 Room Air 09/12/17 18:35 100 Room Air 09/12/17 17:57 75 09/12/17 17:39 37.4 76 18 133/65 95 Room Air Lab Results: Results Past 24 Hours Test 09/12/17 17:55 09/12/17 21:10 09/13/17 07:09 Range/Units White Blood Count 6.91 4.8-10.8 K/uL Red Blood Count 4.69 4.2-5.4 M/uL Hemoglobin 10.4 12.0-16.0 g/dL Hematocrit 33.7 37-47 % Mean Corpuscular Volume 71.9 80-100 fL Mean Corpuscular Hemoglobin 22.2 25-34 pg Mean Corpuscular Hemoglobin Concent 30.9 32-36 g/dl Platelet Count 332 130-400 K/uL Mean Platelet Volume 9.3 7.4-10.4 fL Neutrophils (%) (Auto) 76.3 % Lymphocytes (%) (Auto) 18.8 % Monocytes (%) (Auto) 4.5 % Eosinophils (%) (Auto) 0.0 % Basophils (%) (Auto) 0.3 % Neutrophils # (Auto) 5.27 1.4-6.5 K/uL Lymphocytes # (Auto) 1.30 1.2-3.4 K/uL Monocytes # (Auto) 0.31 0.11-0.59 K/uL Eosinophils # (Auto) 0.00 0-0.5 K/uL Basophils # (Auto) 0.02 0-0.2 K/uL RDW Standard Deviation 45.2 36.4-46.3 fL RDW Coefficient of Variation 17.3 11.5-14.5 % Immature Granulocyte % (Auto) 0.1 % Immature Granulocyte # (Auto) 0.01 0.00-0.02 K/uL Microcytosis PRESENT Prothrombin Time 11.1 9.0-12.0 SECONDS Prothromb Time International Ratio 1.1 0.9-1.1 Activated Partial Thromboplast Time 22.8 21.0-31.0 SECONDS Partial Thromboplastin Ratio 0.9 Sodium Level 139 141 136-145 mmol/L Potassium Level 3.1 3.3 3.5-5.1 mmol/L Chloride Level 107 109 98-107 mmol/L Carbon Dioxide Level 20 22 21-32 mmol/L Anion Gap 12.0 10.0 3-11 mmol/L Blood Urea Nitrogen 12 10 7-18 mg/dl Creatinine 1.00 0.79 0.60-1.20 mg/dl Estimated GFR () 86.9 115.6 Estimated GFR (Non- 75.0 99.8 BUN/Creatinine Ratio 12.0 12.5 10-20 Random Glucose 127 112 70-99 mg/dl Calcium Level 9.2 8.5 8.5-10.1 mg/dl Total Bilirubin 0.9 0.2-1 mg/dl Aspartate Amino Transf (AST/SGOT) 20 15-37 U/L Alanine Aminotransferase (ALT/SGPT) 57 12-78 U/L Alkaline Phosphatase 90 45-117 U/L Troponin I < 0.015 0-0.045 ng/ml Total Protein 8.7 6.4-8.2 gm/dl Albumin 4.4 3.4-5.0 gm/dl Globulin 4.3 2.5-4.0 gm/dl Albumin/Globulin Ratio 1.0 0.9-2 Urine Color YELLOW Urine Appearance CLEAR CLEAR Urine pH 7.5 4.5-7.5 Urine Specific [place] > 1.045 1.000-1.030 Urine Protein NEG NEG Urine Glucose (UA) NEG NEG Urine Ketones 1+ NEG Urine Occult Blood TRACE NEG Urine Nitrite NEG NEG Urine Bilirubin NEG NEG Urine Urobilinogen NEG NEG Urine Leukocyte Esterase SMALL NEG Urine WBC (Auto) 5-10 0-5 /hpf Urine RBC (Auto) 0-4 0-4 /hpf Urine Hyaline Casts (Auto) 1-5 0-5 /lpf Urine Epithelial Cells (Auto) >30 0-5 /lpf Urine Bacteria (Auto) 1+ NEG Urine Opiates Screen NEG NEG Urine Methadone, Qualitative POS NEG Urine Barbiturates NEG NEG Urine Phencyclidine (PCP) Level NEG NEG Ur Amphetamine/Methamphetamine NEG NEG MDMA (Ecstasy) Screen NEG NEG Urine Benzodiazepines Screen NEG NEG Urine Cocaine Metabolite NEG NEG Urine Marijuana (THC) NEG NEG Magnesium Level 2.0 1.8-2.4 mg/dl Microbiology Results 09/12/17 Urine Culture - Preliminary, Resulted Gram Negative Bacilli
[2017-09-13] MEDS: METHADONE HCL 10 MG TAB PO SCH ×3 (11:07→23:57)
[2017-09-13] MEDS ORDERED: METOCLOPRAMIDE HCL INJ 5 MG/ML 2 ML VIAL IV. PRN (12:30)
--- NOTE | 2017-09-13 14:20 | Psychiatric Consultation ---
Consultation Date of Consultation September 13, 2017. Identifying Data 32 yo female with 5 year hx of Hodgkins Lymphoma, now in remission, who is also on chronic methadone, and now admitted for uncontrolled abd pain after running out of her methadone early. We are consulted to evaluate opiate dependence and mood. Information is gathered from the patient, the electronic medical record and [facility]. All are considered to be reliable. Chief Complaint "I have pain.". History of Present Illness The patient is a 32 yo woman who was diagnosed with Hodgkins Lymphone 5 years ago and has undergone treatment with Dr. Hdz, and is now in remission. She reports that after the diagnosis, and during her initial treatment she was given morphine for her pain, but was eventually switched to methadone, and is now receiving her methadone monthly from a Clinic in [place]. She has been on methadone for 3 years. Over the course of the last month , she reports increasing abdominal pain, and admits that she has been taking an extra 30 mg. each day to medicate her pain. This obviously resulted in running out early. She presented to our ED on September 10 and due to abd pain and opiate withdrawal. She had been without methadone for 4 days. She attempted to get her rx refilled in [place], but they refused to refill early. At the time of my visit, the patient is lying in her bed, in a darkened room. I can hear her moaning as I approach the room. She has dark circles under her eyes, and is disheveled. She immediately tells me that she has pain and needs more medicine. She says that she vomitted her medications. Her nurse says that she had administered the methadone 45 min prior to the episode of emesis. The patient is cooperative with the conversation. She is a good historian, and can provide a good history. She says that she goes to [place] for her methadone as it is free there, where here she would have to pay a fee. She is seen at [facility] for routine medical care, last seen on 08/25, and they are aware that she is on methadone from a [place] clinic. They have a policy that they do no prescribe methadone. The patient says that she is not depressed, nor is she anxious. She says that she got a job in the last month and that's why she thinks that her abd pain is worse. She reports good sleep, but reduced appetite lately. She denies SI. She denies ever having gotten drugs off of the street and denies the use of any illegal substances. Review of [place] PDMP indicates that she regularly gets rx's from 2 [place] providers, Daylin BETHEA and Ishaan Gaona NP. She had been getting them about once per month until 08/03 when she fille 52664 mg. pill for a 25 day supply and then again on 08/19 for 240 pill a 30 day supply. This corresponds with the patient reports of more meds over the last month. Review of public court records reveal no drug related offenses. Past Psychiatric History Current OP Treatment: no current treatment Prior OP Treatment: no prior treatment Prior Psych Hospitalizations: none Access to a Gun: No Suicide Attempts: No Past Medical/Surgical History (1) Non-Hodgkin lymphoma Allergies Allergies: Coded Allergies: No Known Allergies (Unverified , 09/11/17) Home Medications Scheduled Methadone HCl (Methadone HCl), 20 MG PO Q4 Methadone Hcl (Dolophine), 20 MG PO QID Family History Patient reports no known family medical history. 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, yet told me that she started working in the last month Relationship History: Children: 1 5 yo daughter Spiritual Affiliation: protestant Legal History: none Psychological Trauma History: Denies Hx Traumatic Event Review of Systems Constitutional: malaise Eyes: denies: no symptoms, as stated in HPI, eye pain, tearing, itching, redness, discharge, double vision, visual changes, blurred vision, photophobia, other ENT: denies: no symptoms reported, see HPI, ear pain, ear discharge, loss of hearing, tinnitus, nasal pain, nasal congestion, rhinorrhea, epistaxis, sore throat, stidor, throat swelling, mouth pain, mouth swelling, dental pain, gum swelling, other Cardiovascular: denies: no symptoms reported, see HPI, chest pain, chest tightness, chest pressure, diaphoresis, palpitations, syncope, other Respiratory: denies: no symptoms reported, see HPI, cough, orthopnea, short of breath, stridor, wheezing, sputum production, cyanosis, PANTOJA, PND, other Gastrointestinal: abdominal pain, other (constipation) Genitourinary - Female: denies: no symptoms, see HPI, rash, amenorrhea, dysmenorrhea, menorrhagia, metrorrhagia, , vaginal bleeding, vaginal itching, vaginal discharge, vulvadynia, other Musculoskeletal: denies no symptoms reported, denies see HPI, denies back pain , denies gout, denies joint pain, denies joint swelling, denies muscle pain, denies muscle stiffness, denies neck pain, denies other Integumentary: denies no symptoms reported, denies see HPI, denies change in color, denies change in hair/nails, denies dryness, denies lesions, denies lumps , denies rash, denies other Neurologic: denies: no symptoms, see HPI, headache, numbness, paresthesias, pre -existing deficit, seizure, tingling, tremors, general weakness, tics, focal weakness, vertigo, lethargy, memory loss, dizziness, other Endocrine: denies: no symptoms, as stated in HPI, cold intolerance, heat intolerance, hair changes, goiter, polydipsia, polyuria, skin changes, other Hematologic / Lymphatic: denies: no symptoms, as stated in HPI, abnormal clotting, adenopathy, anemia, easy bleeding, easy bruising, gums bleeding, petechiae, other Examination Vital Signs Vital Signs Past 12 Hours Date Time Temp Pulse Resp B/P (MAP) Pulse Ox O2 Delivery O2 Flow Rate FiO2 09/13/17 08:00 Room Air 09/13/17 06:53 37.4 66 19 110/70 (83) 98 Room Air Laboratory Results Last 24 Hours Test 09/12/17 17:55 09/12/17 21:10 09/13/17 07:09 White Blood Count 6.91 K/uL Red Blood Count 4.69 M/uL Hemoglobin 10.4 g/dL Hematocrit 33.7 % Mean Corpuscular Volume 71.9 fL Mean Corpuscular Hemoglobin 22.2 pg Mean Corpuscular Hemoglobin Concent 30.9 g/dl Platelet Count 332 K/uL Mean Platelet Volume 9.3 fL Neutrophils (%) (Auto) 76.3 % Lymphocytes (%) (Auto) 18.8 % Monocytes (%) (Auto) 4.5 % Eosinophils (%) (Auto) 0.0 % Basophils (%) (Auto) 0.3 % Neutrophils # (Auto) 5.27 K/uL Lymphocytes # (Auto) 1.30 K/uL Monocytes # (Auto) 0.31 K/uL Eosinophils # (Auto) 0.00 K/uL Basophils # (Auto) 0.02 K/uL RDW Standard Deviation 45.2 fL RDW Coefficient of Variation 17.3 % Immature Granulocyte % (Auto) 0.1 % Immature Granulocyte # (Auto) 0.01 K/uL Microcytosis PRESENT Prothrombin Time 11.1 SECONDS Prothromb Time International Ratio 1.1 Activated Partial Thromboplast Time 22.8 SECONDS Partial Thromboplastin Ratio 0.9 Sodium Level 139 mmol/L 141 mmol/L Potassium Level 3.1 mmol/L 3.3 mmol/L Chloride Level 107 mmol/L 109 mmol/L Carbon Dioxide Level 20 mmol/L 22 mmol/L Anion Gap 12.0 mmol/L 10.0 mmol/L Blood Urea Nitrogen 12 mg/dl 10 mg/dl Creatinine 1.00 mg/dl 0.79 mg/dl Estimated GFR () 86.9 115.6 Estimated GFR (Non- 75.0 99.8 BUN/Creatinine Ratio 12.0 12.5 Random Glucose 127 mg/dl 112 mg/dl Calcium Level 9.2 mg/dl 8.5 mg/dl Total Bilirubin 0.9 mg/dl Aspartate Amino Transf (AST/SGOT) 20 U/L Alanine Aminotransferase (ALT/SGPT) 57 U/L Alkaline Phosphatase 90 U/L Troponin I < 0.015 ng/ml Total Protein 8.7 gm/dl Albumin 4.4 gm/dl Globulin 4.3 gm/dl Albumin/Globulin Ratio 1.0 Urine Color YELLOW Urine Appearance CLEAR Urine pH 7.5 Urine Specific [place] > 1.045 Urine Protein NEG Urine Glucose (UA) NEG Urine Ketones 1+ Urine Occult Blood TRACE Urine Nitrite NEG Urine Bilirubin NEG Urine Urobilinogen NEG Urine Leukocyte Esterase SMALL Urine WBC (Auto) 5-10 /hpf Urine RBC (Auto) 0-4 /hpf Urine Hyaline Casts (Auto) 1-5 /lpf Urine Epithelial Cells (Auto) >30 /lpf Urine Bacteria (Auto) 1+ Urine Opiates Screen NEG Urine Methadone, Qualitative POS Urine Barbiturates NEG Urine Phencyclidine (PCP) Level NEG Ur Amphetamine/Methamphetamine NEG MDMA (Ecstasy) Screen NEG Urine Benzodiazepines Screen NEG Urine Cocaine Metabolite NEG Urine Marijuana (THC) NEG Magnesium Level 2.0 mg/dl Mental Examination During interview pt is: alert and oriented, cooperative Appearance: disheveled Eye contact is: good Motor behavior is: psychomotor agitation (demonstrating pain with restless repositioning and rubbing her stomach) Speech: normal in rate, rhythm & volume (with heavy georgian accent) Affect: other (painful) Mood is: anxious Thought process: goal directed Thought content: reality based without delusions Suicidal thought are: denied Homicidal thoughts are: denied Hallucinations: denies auditory, denies visual Intelligence estimated to be: average, consistent with level of education Insight: fair Judgement: fair Impression / Recommendations Impression 32 yo woman who was started on morphine during treatment for lymphoma, now on methadone maintenance. We have an UMAIR for her [place] clinic and will confirm reasons for treatment. The patient is quite honest about her misuse of her meds in the name of treating her pain, and can be expected to experience opiate withdrawal since we have essentially reduced her dose from 110 to 80 mg per day. If the patient were interested in getting off of methadone, rehab could be considered, but I don't have the sense that she is interested in that. The primary team could certainly medicate her for the withdrawal symptoms using clonidine, and lomotil if diarrhea/abd cramps. 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 None the less, the patient would benefit from ongoing education that using more methadone than is prescribed is not the appropriate coping strategy for pain and may result in her dismissal from the methadone clinic. Ideally, she would receive her methadone locally but she has no insurance to help cover the cost. It may be helpful to talk with her and ask him to control the methadone so that she doesn't take more than is prescribed. In terms of psychiatric symptoms, she denies all. I have talked with her about the coincidence of depression in chronic pain, and that antidepressants can be very helpful. I have offered to return if she changes her mind about meds. Recommendations (1) Opiate dependence 09/13 - Consider using clonidine protocol for withdrawal symptoms - Has signed UMAIR for methadone clinic and liaison nurse will call to confirm dose and diagnosis. - Suggest someone speak with her to have him secure methadone, dispensing only the prescribed amount each day. Dr. Olga Carr has personally been involved in the review of this case and development of these recommendations.
[2017-09-13 14:52] VITALS: BP 109/69; PULSE 70; TEMP 37.3; O2SAT 97
[2017-09-13] MEDS: CEFAZOLIN IV SCH ×2 (15:49→23:57)
[2017-09-13] MEDS ORDERED: PIPERACILL/TAZOBAC IV 3.375 GM in DEXTROSE 5% 100ML 100 ML IV SCH (16:00)
[2017-09-13 16:35] VITALS: O2SAT 97
[2017-09-13] MEDS: CLONIDINE HCL 0.1 MG TAB PO SCH (17:51)
[2017-09-13 22:44] VITALS: BP 93/59; PULSE 69; TEMP 36.6; O2SAT 91
[2017-09-14] MEDS: CLONIDINE HCL 0.1 MG TAB PO SCH ×2 (01:00→07:46)
[2017-09-14 01:02] VITALS: BP 93/58; PULSE 57
[2017-09-14] MEDS: METHADONE HCL 10 MG TAB PO SCH ×4 (05:58→23:30)
[2017-09-14] MEDS: SODIUM CHLORIDE 0.9% 1000ML 1,000 ML IV SCH ×2 (05:59→15:51)
[2017-09-14 07:10] LABS: BASO % 0.3 %; BASO ABS # 0.02 K/uL (0-0.2); EOS % 0.5 %; EOS ABS # 0.03 K/uL (0-0.5); HEMATOCRIT 27.2 % (37-47); HEMOGLOBIN 8.4 g/dL (12.0-16.0); IG# 0.02 K/uL (0.00-0.02); LYMPH % 45.5 %; LYMPH ABS # 2.66 K/uL (1.2-3.4); MEAN CELL VOLUME 72.1 fL (80-100); MEAN CORPUSCULAR HEMOGLOBIN 22.3 pg (25-34); MEAN CORPUSCULAR HGB CONC 30.9 g/dl (32-36); MEAN PLATELET VOLUME 10.2 fL (7.4-10.4); MONO % 7.9 %; MONO ABS # 0.46 K/uL (0.11-0.59); NEUT % 45.5 %; NEUT ABS # 2.65 K/uL (1.4-6.5); PLATELET COUNT 246 K/uL (130-400); RED CELL DISTRIBUTION WIDTH CV 17.5 % (11.5-14.5); RED CELL DISTRIBUTION WIDTH SD 45.9 fL (36.4-46.3); WHITE BLOOD COUNT 5.84 K/uL (4.8-10.8)
[2017-09-14 07:27] VITALS: BP 108/67; PULSE 56; TEMP 37; O2SAT 99
[2017-09-14 07:36] LABS: ALBUMIN 2.9 gm/dl (3.4-5.0); ALT/SGPT 35 U/L (12-78); AST/SGOT 23 U/L (15-37); BLOOD UREA NITROGEN 15 mg/dl (7-18); CALCIUM 7.7 mg/dl (8.5-10.1); CARBON DIOXIDE 23 mmol/L (21-32); CREATININE 0.64 mg/dl (0.60-1.20); GLUCOSE 71 mg/dl (70-99); POTASSIUM 3.6 mmol/L (3.5-5.1); SODIUM 141 mmol/L (136-145)
[2017-09-14 07:38] LABS: ALKALINE PHOSPHATASE 55 U/L (45-117); TOTAL PROTEIN 5.9 gm/dl (6.4-8.2)
[2017-09-14] MEDS: SENNA 8.6 MG TAB PO SCH (09:58)
[2017-09-14] MEDS: CEFAZOLIN IV SCH ×3 (09:58→23:30)
[2017-09-14] MEDS: KETOROLAC TROMETHAMINE 15 MG/ML VIAL IV. PRN (14:25)
[2017-09-14] MEDS ORDERED: ONDANSETRON INJ 2 MG/ML 2 ML VIAL IV PRN (14:30)
--- NOTE | 2017-09-14 14:31 | Progress Note ---
Internal Med Progress Note Date of Service: September 14, 2017. Provider Documentation: SUBJECTIVE: Patient's abdominal discomfort is improved today. Vomiting has reduced in frequency but patient does not want to try more solid foods because of concern for nausea symptoms. OBJECTIVE: Exam: General- more comfortable on exam today Eyes- EOMI Neck- no JVD Lungs- CTABL, no wheezing Heart-regular rate Abdomen- positive bowel sounds, soft on palpation Extremities- no edema Neuro- awake, speaks in full sentences ASSESSMENT & PLAN: Abdominal pain associated with nausea and vomiting with differentials of opioid induced constipation vs urinary tract infection in a patient with chronic methadone use and history of Hodgkin lymphoma reportedly in remission Hodgkin 's lymphoma mixed cellularity diagnosed early 2010 -Patient has seen Hematology/oncology 07/19/[address] Jamari Hdz: "last treatment was received in the form of brentuximab in [id number]. Since 2014 she has done quite well and has no evidence of recurrent disease" -Chest CT 12/15/2016 as outpatient: "There is unchanged wedge-shaped consolidation in the anterior aspect of the right upper lobe with nonspecific scattered ground-glass densities in the right upper lobe" -Patient has no respiratory complaints on this admission but admission CT lung has multiple differentials and may be due to lack of comparison outpatient imaging comparisons, however regardless patient should follow up with Hematology /oncology Dr. Jamari Hdz when discharged from inpatient -Hematology/Oncology Consult requested -CT chest lung on admission 1. Nodular opacities in the right upper and lower lobes concerning for infectious bronchiolitis, atypical infectious etiologies not excluded. Nodular opacities should be followed to resolution given the patient's presumed history of malignancy. 2. Anterior subpleural/peripheral consolidation in the right upper lobe likely represents post radiation change if the patient has a history of right breast cancer. 3. Post surgical changes of right middle lobectomy. CT abd/pelvis 1. Circumferential wall thickening of the rectum with associated inflammatory changes. This may represent infectious or post radiation change. If there is clinical concern for neoplasm, direct visualization could be performed though this is felt to be unlikely. 2. Moderate stool burden suggest constipation. Chronic methadone use: possible opioid induced constipation Has been getting methadone prescription from pain management clinic in [place] , reportedly used 440 tabs of methadone 10 mg in 5 weeks Was given Relistor x 1 dose by admitting hospitalist physician, bowel regimen also started Patient restarted on methadone as inpatient by inpatient Pain management consult service on 09/13/17 Behavioral Health/Psychiatry has evaluated the patient on 09/13/17 in regards to patient's chronic methadone use Antiemetics for vomiting, monitor QTc prolonged QTc resolved on 09/13/17 Hypokalemia possibly from GI losses -was repleted with IV potassium previously and serum potassium today is 3.6 and is acceptable Urinary Tract Infection -Patient denies problems with urination -UA: gram negative bacilli with Zosyn initially ordered but decision switched to IV Cefazolin on 09/13/17 after discussing with pharmacy, UA speciated as a fluoroquinolone resistant E.coli, Continue IV Cefazolin ESCHERICHIA COLI Target Route Dose RX AB Cost M.I.C. IQ ------ ----- ------ -- ------ -------- - ------ TRIMET/SULFA S <=2/38 AMPICILLIN S <=8 AMPICILLIN/SUL S <=8/4 CEFAZOLIN S <=8 CEFOXITIN S <=8 CEFOTAXIME S <=2 CEFTRIAXONE S <=1 CEFEPIME S <=4 CEFUROXIME S <=4 IMIPENEM S <=1 GENTAMICIN S <=4 TOBRAMYCIN S <=4 AMIKACIN S <=16 CIPROFLOXACIN R >2 LEVOFLOXACIN R >4 ERTAPENEM S <=1 NITROFURANTOIN S <=32 PIP/TAZO S <=16 S = SENSITIVE I = INTERMEDIATE R = RESISTANT DVT ppx: SCDs Vital Signs: Date Time Temp Pulse Resp B/P (MAP) Pulse Ox O2 Delivery O2 Flow Rate FiO2 09/14/17 08:30 Room Air 09/14/17 07:27 37.0 56 18 108/67 (81) 99 09/14/17 01:02 57 93/58 (70) 09/14/17 00:00 Room Air 09/13/17 22:44 36.6 69 18 93/59 (70) 91 09/13/17 20:00 Room Air 09/13/17 16:35 97 Room Air Lab Results: Results Past 24 Hours Test 09/14/17 05:54 Range/Units White Blood Count 5.84 4.8-10.8 K/uL Red Blood Count 3.77 4.2-5.4 M/uL Hemoglobin 8.4 12.0-16.0 g/dL Hematocrit 27.2 37-47 % Mean Corpuscular Volume 72.1 80-100 fL Mean Corpuscular Hemoglobin 22.3 25-34 pg Mean Corpuscular Hemoglobin Concent 30.9 32-36 g/dl Platelet Count 246 130-400 K/uL Mean Platelet Volume 10.2 7.4-10.4 fL Neutrophils (%) (Auto) 45.5 % Lymphocytes (%) (Auto) 45.5 % Monocytes (%) (Auto) 7.9 % Eosinophils (%) (Auto) 0.5 % Basophils (%) (Auto) 0.3 % Neutrophils # (Auto) 2.65 1.4-6.5 K/uL Lymphocytes # (Auto) 2.66 1.2-3.4 K/uL Monocytes # (Auto) 0.46 0.11-0.59 K/uL Eosinophils # (Auto) 0.03 0-0.5 K/uL Basophils # (Auto) 0.02 0-0.2 K/uL RDW Standard Deviation 45.9 36.4-46.3 fL RDW Coefficient of Variation 17.5 11.5-14.5 % Immature Granulocyte % (Auto) 0.3 % Immature Granulocyte # (Auto) 0.02 0.00-0.02 K/uL Hypochromasia PRESENT Microcytosis PRESENT Sodium Level 141 136-145 mmol/L Potassium Level 3.6 3.5-5.1 mmol/L Chloride Level 111 98-107 mmol/L Carbon Dioxide Level 23 21-32 mmol/L Anion Gap 7.0 3-11 mmol/L Blood Urea Nitrogen 15 7-18 mg/dl Creatinine 0.64 0.60-1.20 mg/dl Estimated GFR () 137.8 Estimated GFR (Non- 118.9 BUN/Creatinine Ratio 23.9 10-20 Random Glucose 71 70-99 mg/dl Calcium Level 7.7 8.5-10.1 mg/dl Total Bilirubin 0.6 0.2-1 mg/dl Aspartate Amino Transf (AST/SGOT) 23 15-37 U/L Alanine Aminotransferase (ALT/SGPT) 35 12-78 U/L Alkaline Phosphatase 55 45-117 U/L Total Protein 5.9 6.4-8.2 gm/dl Albumin 2.9 3.4-5.0 gm/dl Globulin 3.0 2.5-4.0 gm/dl Albumin/Globulin Ratio 1.0 0.9-2
[2017-09-14 14:55] VITALS: BP 101/65; PULSE 56; TEMP 37.1; O2SAT 99
[2017-09-14 23:47] VITALS: BP 94/62; PULSE 100; TEMP 37; O2SAT 100
[2017-09-15] MEDS: SODIUM CHLORIDE 0.9% 1000ML 1,000 ML IV SCH ×2 (01:37→12:28)
[2017-09-15] MEDS: METHADONE HCL 10 MG TAB PO SCH ×2 (05:47→12:28)
[2017-09-15 06:55] VITALS: BP 106/71; PULSE 83; TEMP 37; O2SAT 98
[2017-09-15] MEDS: SENNA 8.6 MG TAB PO SCH (07:43)
[2017-09-15] MEDS: CEFAZOLIN IV SCH (07:43)
[2017-09-15] MEDS ORDERED: SENN-61 PO (13:10)
[2017-09-15] MEDS ORDERED: SULF800T23 PO (13:11)
[2017-09-15] MEDS ORDERED: MTH10 PO (13:24)
--- NOTE | 2017-09-15 13:29 | Progress Note ---
Internal Med Progress Note Date of Service: September 15, 2017. Provider Documentation: SUBJECTIVE: Patient's abdominal discomfort is improved today. She is wanting to go home because there is no one to care for her daughter later today. We have discussed follow up plans in regards to post-hospital care after discharge. Medical Doctor also discussed the case with her medical providers in [place] ( [facility]. [address] [place] [address] ) and spoke with providers NEEMA Benavidez and LUCÍA Guzman in regards for patient's follow up care and also discussed the case with pain management consult Dr. Davila OBJECTIVE: Exam: General- more comfortable on exam today Eyes- EOMI Neck- no JVD Lungs- CTABL, no wheezing Heart-regular rate Abdomen- positive bowel sounds, soft on palpation Extremities- no edema Neuro- awake, speaks in full sentences ASSESSMENT & PLAN: Hospital Course and Discharge Plans Abdominal pain associated with nausea and vomiting with differentials of opioid induced constipation vs urinary tract infection in a patient with chronic methadone use and history of Hodgkin lymphoma reportedly in remission vs methadone withdrawal Hodgkin 's lymphoma mixed cellularity diagnosed early 2010 -Patient has seen Hematology/oncology 07/19/[address] Jamari Hdz: "last treatment was received in the form of brentuximab in [id number]. Since 2014 she has done quite well and has no evidence of recurrent disease" -Chest CT 12/15/2016 as outpatient: "There is unchanged wedge-shaped consolidation in the anterior aspect of the right upper lobe with nonspecific scattered ground-glass densities in the right upper lobe" -Patient has no respiratory complaints on this admission but admission CT lung has multiple differentials and may be due to lack of comparison outpatient imaging comparisons, however regardless patient should follow up with Hematology /oncology Dr. Jamari Hdz when discharged from inpatient -spoke with Dr. Jamari Hdz about having previous CT scans from October 2016 of the chest send to [facility] for radiologists to compare to recent admission CT scan -CT chest lung on admission 1. Nodular opacities in the right upper and lower lobes concerning for infectious bronchiolitis, atypical infectious etiologies not excluded. Nodular opacities should be followed to resolution given the patient's presumed history of malignancy. 2. Anterior subpleural/peripheral consolidation in the right upper lobe likely represents post radiation change if the patient has a history of right breast cancer. 3. Post surgical changes of right middle lobectomy. CT abd/pelvis 1. Circumferential wall thickening of the rectum with associated inflammatory changes. This may represent infectious or post radiation change. If there is clinical concern for neoplasm, direct visualization could be performed though this is felt to be unlikely. 2. Moderate stool burden suggest constipation. -Have called appointment line [phone] to schedule closer appointment with Dr. Hdz earlier than the previous established appointment 01/20/2018 2:15 PM Jamari Hdz MD Hematology/Oncology [facility] Antiemetics for vomiting, monitor QTc -prolonged QTc resolved on 09/13/17 Hypokalemia possibly from GI losses -was repleted with IV potassium on this admission Urinary Tract Infection -Patient denies problems with urination -UA: gram negative bacilli with Zosyn initially ordered but decision switched to IV Cefazolin on 09/13/17 after discussing with pharmacy, UA speciated as a fluoroquinolone resistant E.coli, Continue IV Cefazolin. Cefazolin stopped on discharge date of 09/15/17. Patient to be discharged with 3 day prescription of Bactrim ESCHERICHIA COLI Target Route Dose RX AB Cost M.I.C. IQ ------ ----- ------ -- ------ -------- - ------ TRIMET/SULFA S <=2/38 AMPICILLIN S <=8 AMPICILLIN/SUL S <=8/4 CEFAZOLIN S <=8 CEFOXITIN S <=8 CEFOTAXIME S <=2 CEFTRIAXONE S <=1 CEFEPIME S <=4 CEFUROXIME S <=4 IMIPENEM S <=1 GENTAMICIN S <=4 TOBRAMYCIN S <=4 AMIKACIN S <=16 CIPROFLOXACIN R >2 LEVOFLOXACIN R >4 ERTAPENEM S <=1 NITROFURANTOIN S <=32 PIP/TAZO S <=16 S = SENSITIVE I = INTERMEDIATE R = RESISTANT Chronic methadone use: possible opioid induced constipation vs Methadone withdrawal -Has been getting methadone prescription from pain management clinic in [place] , reportedly used 440 tabs of methadone 10 mg in 5 weeks -Review of PDM P reveals 18 total prescriptions in the past 1 year with 5 prescribers and 3 pharmacies utilized. 30 day average MME per day 208.0 3 most recent prescriptions, the patient received methadone 10 mg 240 tablets on 08/19/2017, methadone 10 mg 200 tablets on 08/03/2017 and methadone 10 mg 240 tablets on 07/06/2017 -Was given Relistor x 1 dose by admitting hospitalist physician, bowel regimen also started -Patient restarted on methadone as inpatient by inpatient Pain management consult service on 09/13/17 as 20 mg PO q6 hours -Behavioral Health/Psychiatry has evaluated the patient on 09/13/17 in regards to patient's chronic methadone use -Have discussed with Pain Management Dr. Monroy and he recommended discharge with 5 days of down-titration methadone doses. Have called medical providers in [place] ([facility]. [address] [place], [place] [address] ) and spoke with providers NEEMA Benavidez and LUCÍA Guzman in regards for patient's follow up care and discussed the need for patient to be referred to a center or medical provider as outpatient who can continue to manage patient's dependence on methadone. They also recommended down -titration methadone doses and would like patient's discharge records faxed to [phone] -Patient will be discharged with reduced doses of methadone for 5 days with prescription instructions "take up to 80 mg total on day 1 (20 mg every 6 hours) take up to 80 mg total on day 2 (20 mg every 6 hours) take up to 60 mg total on day 3 (20 mg every 8 hours) take up to 40 mg total on day 4 (10 mg every 6 hours) take up to 20 mg daily on day 5 (10 mg every 12 hours)" -Patient also to be discharged with senna for prevention of constipation while on methadone -Patient also to establish primary care provider on 09/17/2017 1:00 PM Dylan Paiz III, MD [place] [facility] for follow up up of above health issues and whether Dr. Paiz will continue her treatment for methadone down-titration and help with preventative care to prevent methadone withdrawal Discharge Instructions Patient is to take reduced methadone doses. Prescription: take up to 80 mg total on day 1 (20 mg every 6 hours) take up to 80 mg total on day 2 (20 mg every 6 hours) take up to 60 mg total on day 3 (20 mg every 8 hours) take up to 40 mg total on day 4 (10 mg every 6 hours) take up to 20 mg daily on day 5 (10 mg every 12 hours and follow up with [facility]. [address] [place] [address] ) with providers NEEMA Benavidez and LUCÍA Guzman establish primary care provider on 09/17/2017 1:00 PM Dylan Paiz III, MD [place] [facility] urinary tract infection treatment with Bactrim prescription Take senna bowel regimen to prevent constipation follow up with Jamari Hdz MD Hematology/Oncology [facility] Vital Signs: Date Time Temp Pulse Resp B/P (MAP) Pulse Ox O2 Delivery O2 Flow Rate FiO2 09/15/17 08:00 Room Air 09/15/17 06:55 37.0 83 16 106/71 (83) 98 Room Air 09/15/17 00:01 Room Air 09/14/17 23:47 37.0 100 20 94/62 (73) 100 Room Air 09/14/17 16:00 Room Air 09/14/17 14:55 37.1 56 22 101/65 (77) 99
--- NOTE | 2017-09-15 14:14 | Discharge Instructions ---
Discharge Instructions Date of Service September 15, 2017. Admission Reason for Admission: Abd Pain, Intractable Nausea And Vomiting Discharge Discharge Diagnosis / Problem: Abdominal pain associated with nausea and vomiting, on methadone, UTI Discharge Goals Goal(s): Decrease discomfort, Improve function, Improve disease control Activity Recommendations Activity Limitations: per Instructions/Follow-up section . Instructions / Follow-Up Instructions / Follow-Up Hospital Course and Discharge Plans Abdominal pain associated with nausea and vomiting with differentials of opioid induced constipation vs urinary tract infection in a patient with chronic methadone use and history of Hodgkin lymphoma reportedly in remission vs methadone withdrawal Hodgkin 's lymphoma mixed cellularity diagnosed early 2010 -Patient has seen Hematology/oncology 07/19/[address] Jamari Hdz: "last treatment was received in the form of brentuximab in 5550-1358. Since 2014 she has done quite well and has no evidence of recurrent disease" -Chest CT 12/15/2016 as outpatient: "There is unchanged wedge-shaped consolidation in the anterior aspect of the right upper lobe with nonspecific scattered ground-glass densities in the right upper lobe" -Patient has no respiratory complaints on this admission but admission CT lung has multiple differentials and may be due to lack of comparison outpatient imaging comparisons, however regardless patient should follow up with Hematology /oncology Dr. Jamari Hdz when discharged from inpatient -spoke with Dr. Jamari Hdz about having previous CT scans from October 2016 of the chest send to [facility] for radiologists to compare to recent admission CT scan -CT chest lung on admission 1. Nodular opacities in the right upper and lower lobes concerning for infectious bronchiolitis, atypical infectious etiologies not excluded. Nodular opacities should be followed to resolution given the patient's presumed history of malignancy. 2. Anterior subpleural/peripheral consolidation in the right upper lobe likely represents post radiation change if the patient has a history of right breast cancer. 3. Post surgical changes of right middle lobectomy. CT abd/pelvis 1. Circumferential wall thickening of the rectum with associated inflammatory changes. This may represent infectious or post radiation change. If there is clinical concern for neoplasm, direct visualization could be performed though this is felt to be unlikely. 2. Moderate stool burden suggest constipation. -Have called appointment line [phone] to schedule closer appointment with Dr. Hdz earlier than the previous established appointment 01/20/2018 2:15 PM Jamari Hdz MD Hematology/Oncology [facility] Antiemetics for vomiting, monitor QTc -prolonged QTc resolved on 09/13/17 Hypokalemia possibly from GI losses -was repleted with IV potassium on this admission Urinary Tract Infection -Patient denies problems with urination -UA: gram negative bacilli with Zosyn initially ordered but decision switched to IV Cefazolin on 09/13/17 after discussing with pharmacy, UA speciated as a fluoroquinolone resistant E.coli, Continue IV Cefazolin. Cefazolin stopped on discharge date of 09/15/17. Patient to be discharged with 3 day prescription of Bactrim ESCHERICHIA COLI Target Route Dose RX AB Cost M.I.C. IQ ------ ----- ------ -- ------ -------- - ------ TRIMET/SULFA S <=2/38 AMPICILLIN S <=8 AMPICILLIN/SUL S <=8/4 CEFAZOLIN S <=8 CEFOXITIN S <=8 CEFOTAXIME S <=2 CEFTRIAXONE S <=1 CEFEPIME S <=4 CEFUROXIME S <=4 IMIPENEM S <=1 GENTAMICIN S <=4 TOBRAMYCIN S <=4 AMIKACIN S <=16 CIPROFLOXACIN R >2 LEVOFLOXACIN R >4 ERTAPENEM S <=1 NITROFURANTOIN S <=32 PIP/TAZO S <=16 S = SENSITIVE I = INTERMEDIATE R = RESISTANT Chronic methadone use: possible opioid induced constipation vs Methadone withdrawal -Has been getting methadone prescription from pain management clinic in [place] , reportedly used 440 tabs of methadone 10 mg in 5 weeks -Review of PDM P reveals 18 total prescriptions in the past 1 year with 5 prescribers and 3 pharmacies utilized. 30 day average MME per day 208.0 3 most recent prescriptions, the patient received methadone 10 mg 240 tablets on 08/19/2017, methadone 10 mg 200 tablets on 08/03/2017 and methadone 10 mg 240 tablets on 07/06/2017 -Was given Relistor x 1 dose by admitting hospitalist physician, bowel regimen also started -Patient restarted on methadone as inpatient by inpatient Pain management consult service on 09/13/17 as 20 mg PO q6 hours -Behavioral Health/Psychiatry has evaluated the patient on 09/13/17 in regards to patient's chronic methadone use -Have discussed with Pain Management Dr. Monroy and he recommended discharge with 5 days of down-titration methadone doses. Have called medical providers in [place] ([facility]. [address] [place], [place] [address] ) and spoke with providers NEEMA Benavidez and LUCÍA Guzman in regards for patient's follow up care and discussed the need for patient to be referred to a center or medical provider as outpatient who can continue to manage patient's dependence on methadone. They also recommended down -titration methadone doses and would like patient's discharge records faxed to [phone] -Patient will be discharged with reduced doses of methadone for 5 days with prescription instructions "take up to 80 mg total on day 1 (20 mg every 6 hours) take up to 80 mg total on day 2 (20 mg every 6 hours) take up to 60 mg total on day 3 (20 mg every 8 hours) take up to 40 mg total on day 4 (10 mg every 6 hours) take up to 20 mg daily on day 5 (10 mg every 12 hours)" -Patient also to be discharged with senna for prevention of constipation while on methadone -Patient also to establish primary care provider on 09/17/2017 1:00 PM Dylan Paiz III, MD [facility] for follow up up of above health issues and whether Dr. Paiz will continue her treatment for methadone down-titration and help with preventative care to prevent methadone withdrawal Discharge Instructions Patient is to take reduced methadone doses. Prescription: take up to 80 mg total on day 1 (20 mg every 6 hours) take up to 80 mg total on day 2 (20 mg every 6 hours) take up to 60 mg total on day 3 (20 mg every 8 hours) take up to 40 mg total on day 4 (10 mg every 6 hours) take up to 20 mg daily on day 5 (10 mg every 12 hours and follow up with [facility]. [address] [place], [place] [address] ) with providers NEEMA Benavidez and LUCÍA Guzman establish primary care provider on 09/17/2017 1:00 PM Dylan Paiz III, MD [facility] finish urinary tract infection treatment with Bactrim prescription Take senna bowel regimen to prevent constipation follow up with Jamari Hdz MD Hematology/Oncology [facility] Current Hospital Diet Patient's current hospital diet: Regular Diet Discharge Diet Recommended Diet: Regular Diet Pending Studies Studies pending at discharge: no Laboratory Results 09/14/17 05:54 Red Blood Count 3.77, Mean Corpuscular Volume 72.1, Mean Corpuscular Hemoglobin 22.3, Mean Corpuscular Hemoglobin Concent 30.9, Mean Platelet Volume 10.2, Neutrophils (%) (Auto) 45.5, Lymphocytes (%) (Auto) 45.5, Monocytes (%) (Auto) 7.9, Eosinophils (%) (Auto) 0.5, Basophils (%) (Auto) 0.3, Neutrophils # (Auto) 2.65, Lymphocytes # (Auto) 2.66, Monocytes # (Auto) 0.46, Eosinophils # (Auto) 0.03, Basophils # (Auto) 0.02 09/14/17 05:54 Test 09/12/17 17:55 09/12/17 21:10 09/13/17 07:09 09/14/17 05:54 Prothrombin Time 11.1 SECONDS (9.0-12.0) Prothromb Time International Ratio 1.1 (0.9-1.1) Activated Partial Thromboplast Time 22.8 SECONDS (21.0-31.0) Partial Thromboplastin Ratio 0.9 Troponin I < 0.015 ng/ml (0-0.045) Urine Color YELLOW Urine Appearance CLEAR (CLEAR) Urine pH 7.5 (4.5-7.5) Urine Specific [place] > 1.045 (1.000-1.030) Urine Protein NEG (NEG) Urine Glucose (UA) NEG (NEG) Urine Ketones 1+ (NEG) Urine Occult Blood TRACE (NEG) Urine Nitrite NEG (NEG) Urine Bilirubin NEG (NEG) Urine Urobilinogen NEG (NEG) Urine Leukocyte Esterase SMALL (NEG) Urine WBC (Auto) 5-10 /hpf (0-5) Urine RBC (Auto) 0-4 /hpf (0-4) Urine Hyaline Casts (Auto) 1-5 /lpf (0-5) Urine Epithelial Cells (Auto) >30 /lpf (0-5) Urine Bacteria (Auto) 1+ (NEG) Urine Opiates Screen NEG (NEG) Urine Methadone, Qualitative POS (NEG) Urine Methadone Metabolites 2190 NG/ML (TRJHMQ=559) Urine Methadone Confirm 1210 NG/ML (HGBCFH=485) Urine Barbiturates NEG (NEG) Urine Phencyclidine (PCP) Level NEG (NEG) Ur Amphetamine/Methamphetamine NEG (NEG) MDMA (Ecstasy) Screen NEG (NEG) Urine Benzodiazepines Screen NEG (NEG) Urine Cocaine Metabolite NEG (NEG) Urine Marijuana (THC) NEG (NEG) Magnesium Level 2.0 mg/dl (1.8-2.4) White Blood Count 5.84 K/uL (4.8-10.8) Red Blood Count 3.77 M/uL (4.2-5.4) Hemoglobin 8.4 g/dL (12.0-16.0) Hematocrit 27.2 % (37-47) Mean Corpuscular Volume 72.1 fL (80-100) Mean Corpuscular Hemoglobin 22.3 pg (25-34) Mean Corpuscular Hemoglobin Concent 30.9 g/dl (32-36) Platelet Count 246 K/uL (130-400) Mean Platelet Volume 10.2 fL (7.4-10.4) Neutrophils (%) (Auto) 45.5 % Lymphocytes (%) (Auto) 45.5 % Monocytes (%) (Auto) 7.9 % Eosinophils (%) (Auto) 0.5 % Basophils (%) (Auto) 0.3 % Neutrophils # (Auto) 2.65 K/uL (1.4-6.5) Lymphocytes # (Auto) 2.66 K/uL (1.2-3.4) Monocytes # (Auto) 0.46 K/uL (0.11-0.59) Eosinophils # (Auto) 0.03 K/uL (0-0.5) Basophils # (Auto) 0.02 K/uL (0-0.2) RDW Standard Deviation 45.9 fL (36.4-46.3) RDW Coefficient of Variation 17.5 % (11.5-14.5) Immature Granulocyte % (Auto) 0.3 % Immature Granulocyte # (Auto) 0.02 K/uL (0.00-0.02) Hypochromasia PRESENT Microcytosis PRESENT Anion Gap 7.0 mmol/L (3-11) Estimated GFR () 137.8 Estimated GFR (Non- 118.9 BUN/Creatinine Ratio 23.9 (10-20) Calcium Level 7.7 mg/dl (8.5-10.1) Total Bilirubin 0.6 mg/dl (0.2-1) Aspartate Amino Transf (AST/SGOT) 23 U/L (15-37) Alanine Aminotransferase (ALT/SGPT) 35 U/L (12-78) Alkaline Phosphatase 55 U/L (45-117) Total Protein 5.9 gm/dl (6.4-8.2) Albumin 2.9 gm/dl (3.4-5.0) Globulin 3.0 gm/dl (2.5-4.0) Albumin/Globulin Ratio 1.0 (0.9-2) Date/Time Source Procedure Growth Status 09/12/17 21:10 Urine , Clean Catch Urine Culture - Final Escherichia Coli Complete Medical Emergencies . Who to Call and When: Medical Emergencies: If at any time you feel your situation is an emergency, please call 911 immediately. . Non-Emergent Contact Non-Emergency issues call your: Primary Care Provider, Oncologist Call Non-Emergent contact if: you have any medication questions . . "Provider Documentation" section prepared by Bashir Christine. .
--- NOTE | 2017-09-15 14:16 | Discharge Summary ---
Discharge Summary Date of Service September 15, 2017. Discharge Summary Admission Date: September 12, 2017 at 23:02 Discharge Date: September 15, 2017 Discharge Disposition: Home Principal Diagnosis: Abdominal pain associated with nausea and vomiting with differentials of opioid induced constipation vs urinary tract infection in a patient with chronic methadone use and history of Hodgkin lymphoma reportedly in remission vs methadone withdrawal Medication Reconciliation New Medications: Sulfa/Trimethoprim (Bactrim Ds 800MG/160MG) Tab 1 TAB PO BID for 3 Days, #6 TAB Methadone HCl (Methadone HCl) 10 Mg Tab 10 MG PO DIRECTED, #28 TAB take up to 80 mg total on day 1 (20 mg every 6 hours) take up to 80 mg total on day 2 (20 mg every 6 hours) take up to 60 mg total on day 3 (20 mg every 8 hours) take up to 40 mg total on day 4 (10 mg every 6 hours) take up to 20 mg daily on day 5 (10 mg every 12 hours) Senna (Senokot) 8.6 Mg Tab 8.6 MG PO QAM for 30 Days, #30 TAB Discontinued Medications: Methadone Hcl (Dolophine) 10 Mg Tab 20 MG PO QID for 30 Days, #120 TAB Methadone HCl (Methadone HCl) 10 Mg Tab 20 MG PO Q4 Admission Information HPI (per Admitting provider): 32 years old female with past medical history of Hodgkin lymphoma in remission, chronic methadone use where she gets the prescription in [place] presented to the ER with severe abdominal pain. Patient was recently in the ER on the and for the abdominal pain. Patient came to the ER yesterday requests prescription for methadone because she was having a lot of pain. She said that she ran out of her methadone because she has been taking more due to the pain. Patient said that she has chronic abdominal pain and she has been on methadone for the past 2-3 years. She said that she ran out of her methadone about 4 days ago. She traveled to [place] today's to get a new prescription for methadone but her pain management doctor was off today. She saw her colleague that said that she is not due yet for another prescription until . Patient said that her pain is 10 out of 10, describes it as constant and crampy , diffuse, nonradiating associated with nausea and vomiting. She said she started to vomiting today. She said her last bowel movement was about 5-6 days ago. Reviewed prescription drug monitoring program showed that his last prescription was filled for methadone was on 08/19 for 30 days supply with quantity for 240 tabs. Also she had another prescription that was filled on 08/03 for 200 tablets for 25 days supply. Patient used 440 tabs of methadone 10 mg in 5 weeks. Currently patient is lying in bed moaning in pain. denies any chills, shortness of breath, chest pain, dizziness, and fever. Physical Exam (per Admitting): General Appearance: WD/WN, + pertinent finding (Crying and pain) Head: normocephalic, atraumatic Eyes: normal inspection, PERRL, EOMI ENT: hearing grossly normal Neck: no JVD, trachea midline Respiratory/Chest: lungs clear, no respiratory distress, no accessory muscle use Cardiovascular: regular rate, rhythm, no edema, no murmur Abdomen/GI: soft, + tenderness Back: no CVA tenderness Extremities/Musculoskelatal: no calf tenderness Neurologic/Psych: no motor/sensory deficits, alert, oriented x 3 Skin: warm/dry, no rash Hospital Course Hospital Course and Discharge Plans Abdominal pain associated with nausea and vomiting with differentials of opioid induced constipation vs urinary tract infection in a patient with chronic methadone use and history of Hodgkin lymphoma reportedly in remission vs methadone withdrawal Hodgkin 's lymphoma mixed cellularity diagnosed early 2010 -Patient has seen Hematology/oncology 07/19/[address] Jamari Hdz: "last treatment was received in the form of brentuximab in 9788-5662. Since 2014 she has done quite well and has no evidence of recurrent disease" -Chest CT 12/15/2016 as outpatient: "There is unchanged wedge-shaped consolidation in the anterior aspect of the right upper lobe with nonspecific scattered ground-glass densities in the right upper lobe" -Patient has no respiratory complaints on this admission but admission CT lung has multiple differentials and may be due to lack of comparison outpatient imaging comparisons, however regardless patient should follow up with Hematology /oncology Dr. Jamari Hdz when discharged from inpatient -spoke with Dr. Jamari Hdz about having previous CT scans from October 2016 of the chest send to [facility] [address] for radiologists to compare to recent admission CT scan -CT chest lung on admission 1. Nodular opacities in the right upper and lower lobes concerning for infectious bronchiolitis, atypical infectious etiologies not excluded. Nodular opacities should be followed to resolution given the patient's presumed history of malignancy. 2. Anterior subpleural/peripheral consolidation in the right upper lobe likely represents post radiation change if the patient has a history of right breast cancer. 3. Post surgical changes of right middle lobectomy. CT abd/pelvis 1. Circumferential wall thickening of the rectum with associated inflammatory changes. This may represent infectious or post radiation change. If there is clinical concern for neoplasm, direct visualization could be performed though this is felt to be unlikely. 2. Moderate stool burden suggest constipation. -Have called appointment line [phone] to schedule closer appointment with Dr. Hdz earlier than the previous established appointment 01/20/2018 2:15 PM Jamari Hdz MD Hematology/Oncology [facility] Antiemetics for vomiting, monitor QTc -prolonged QTc resolved on 09/13/17 Hypokalemia possibly from GI losses -was repleted with IV potassium on this admission Urinary Tract Infection -Patient denies problems with urination -UA: gram negative bacilli with Zosyn initially ordered but decision switched to IV Cefazolin on 09/13/17 after discussing with pharmacy, UA speciated as a fluoroquinolone resistant E.coli, Continue IV Cefazolin. Cefazolin stopped on discharge date of 09/15/17. Patient to be discharged with 3 day prescription of Bactrim ESCHERICHIA COLI Target Route Dose RX AB Cost M.I.C. IQ ------ ----- ------ -- ------ -------- - ------ TRIMET/SULFA S <=2/38 AMPICILLIN S <=8 AMPICILLIN/SUL S <=8/4 CEFAZOLIN S <=8 CEFOXITIN S <=8 CEFOTAXIME S <=2 CEFTRIAXONE S <=1 CEFEPIME S <=4 CEFUROXIME S <=4 IMIPENEM S <=1 GENTAMICIN S <=4 TOBRAMYCIN S <=4 AMIKACIN S <=16 CIPROFLOXACIN R >2 LEVOFLOXACIN R >4 ERTAPENEM S <=1 NITROFURANTOIN S <=32 PIP/TAZO S <=16 S = SENSITIVE I = INTERMEDIATE R = RESISTANT Chronic methadone use: possible opioid induced constipation vs Methadone withdrawal -Has been getting methadone prescription from pain management clinic in [place] , reportedly used 440 tabs of methadone 10 mg in 5 weeks -Review of PDM P reveals 18 total prescriptions in the past 1 year with 5 prescribers and 3 pharmacies utilized. 30 day average MME per day 208.0 3 most recent prescriptions, the patient received methadone 10 mg 240 tablets on 08/19/2017, methadone 10 mg 200 tablets on 08/03/2017 and methadone 10 mg 240 tablets on 07/06/2017 -Was given Relistor x 1 dose by admitting hospitalist physician, bowel regimen also started -Patient restarted on methadone as inpatient by inpatient Pain management consult service on 09/13/17 as 20 mg PO q6 hours -Behavioral Health/Psychiatry has evaluated the patient on 09/13/17 in regards to patient's chronic methadone use -Have discussed with Pain Management Dr. Monroy and he recommended discharge with 5 days of down-titration methadone doses. Have called medical providers in [place] ([facility]. [id number] [place] [address] ) and spoke with providers NEEMA Benavidez and LUCÍA Guzman in regards for patient's follow up care and discussed the need for patient to be referred to a center or medical provider as outpatient who can continue to manage patient's dependence on methadone. They also recommended down -titration methadone doses and would like patient's discharge records faxed to [phone] -Patient will be discharged with reduced doses of methadone for 5 days with prescription instructions "take up to 80 mg total on day 1 (20 mg every 6 hours) take up to 80 mg total on day 2 (20 mg every 6 hours) take up to 60 mg total on day 3 (20 mg every 8 hours) take up to 40 mg total on day 4 (10 mg every 6 hours) take up to 20 mg daily on day 5 (10 mg every 12 hours)" -Patient also to be discharged with senna for prevention of constipation while on methadone -Patient also to establish primary care provider on 09/17/2017 1:00 PM Dylan Paiz III, MD [place] [facility] for follow up up of above health issues and whether Dr. Paiz will continue her treatment for methadone down-titration and help with preventative care to prevent methadone withdrawal Discharge Instructions Patient is to take reduced methadone doses. Prescription: take up to 80 mg total on day 1 (20 mg every 6 hours) take up to 80 mg total on day 2 (20 mg every 6 hours) take up to 60 mg total on day 3 (20 mg every 8 hours) take up to 40 mg total on day 4 (10 mg every 6 hours) take up to 20 mg daily on day 5 (10 mg every 12 hours and follow up with [facility]. [address] [place] [id number] ) with providers NEEMA Benavidez and LUCÍA Guzman establish primary care provider on 09/17/2017 1:00 PM Dylan Paiz III, MD [place] [facility] finish urinary tract infection treatment with Bactrim prescription Take senna bowel regimen to prevent constipation follow up with Jamari Hdz MD Hematology/Oncology [facility] Total time spent on discharge = 60 minutes This includes examination of the patient, discharge planning, medication reconciliation, and communication with other providers. Discharge Instructions see above
[2017-09-15 14:21] VITALS: BP 106/71; PULSE 83; TEMP 37; O2SAT 98
== END 2017-09-15 15:30 | disposition home or self-care (01) | DRG 392 ==
LOC: C.EDB 17:36 → C.MS2W 23:02 → MERGE 23:02 → ENRESERV 23:34
PROVIDERS: ADMIT Internal Medicine; ATTEND Hospitalist
DX: R10.9 Unspecified abdominal pain (principal); N39.0 Urinary tract infection, site not specified; F11.20 Opioid dependence, uncomplicated; E87.6 Hypokalemia; B96.20 Unspecified Escherichia coli [E. coli] as the cause of diseases classified elsewhere; R11.2 Nausea with vomiting, unspecified; R91.1 Solitary pulmonary nodule; K59.03 Drug induced constipation; T40.2X5A Adverse effect of other opioids, initial encounter; G89.29 Other chronic pain; Z85.71 Personal history of Hodgkin lymphoma; Z92.3 Personal history of irradiation; Z90.2 Acquired absence of lung [part of]

== ENCOUNTER 2018-06-26 10:29 | Observation (INO) ==
[2018-06-26] MEDS ORDERED: KETOROLAC 30 MG/ML VIAL IV STA (12:23)
[2018-06-26] MEDS ORDERED: SODIUM CHLORIDE 0.9% 1000ML 1,000 ML IV SCH (12:30)
[2018-06-26 12:33] LABS: Basophils # (auto) 0.02 K/uL (0-0.2); Basophils % (auto) 0.6 %; Eosinophils # (auto) 0.02 K/uL (0-0.5); Eosinophils % (auto) 0.6 %; Hematocrit (blood only) 34.5 % (37-47); Hemoglobin 10.8 g/dL (12.0-16.0); Lymphocytes # (auto) 0.83 K/uL (1.2-3.4); Mean Corpuscular Hgb Conc 31.3 g/dL (32-36); Mean Corpuscular Volume 72.3 fL (80-100); Monocytes % (auto) 8.7 %; Neutrophils # (auto) 2.29 K/uL (1.4-6.5); Neutrophils % (auto) 66.1 %; Platelet Count 234 K/uL (130-400); RDW Coefficient of Variation 17.3 % (11.5-14.5); RDW Standard Deviation 45.9 fL (36.4-46.3); Red Blood Count 4.77 M/uL (4.2-5.4); White Blood Count 3.46 K/uL (4.8-10.8)
[2018-06-26 12:38] LABS: Pregnancy Test, Serum Negative (Negative)
[2018-06-26 12:40] LABS: Albumin Level 3.8 gm/dl (3.4-5.0); Calcium 8.1 mg/dl (8.5-10.1); Creatinine Clr Calc Pharmacy 66.5 ml/min; Est GFR (African American) 90.2; Est GFR (Non-African American) 77.8; Potassium 3.9 mmol/L (3.5-5.1)
[2018-06-26 12:43] LABS: Albumin Globulin Ratio 0.9 (0.9-2); Bilirubin,Total 0.4 mg/dl (0.2-1); Globulin 4.2 gm/dl (2.5-4.0)
--- NOTE | 2018-06-26 12:44 | Emergency Department Note ---
History of Present Illness General Chief complaint: Vomiting Stated complaint: PAIN, FEVER Time Seen by Provider: 06/26/18 11:31 History of Present Illness Maximum Pain Intensity: 10 Patient is a 32-year-old female who presents the emergency department for evaluation of her abdominal pain with associated nausea and vomiting times 3 days. She has a past medical history significant for Hodgkin's lymphoma in remission, she does have a history of chronic abdominal pain. She is on methad one for history of opioid dependence. Patient states that she developed left lower abdominal discomfort, with associated nausea and vomiting. She states that her last episode of vomiting was yesterday morning, and did with nausea. She has not had any diarrhea and actually reports feeling constipated and distended, she has not had a bowel movement in 2 days. She subjectively felt feverish, did not check her temperature with a thermometer. She states that she has been compliant with her methadone, and this has helped slightly with her pain. Last menstrual period was June 02, 2017, she denies that she could be . She states that she went to the methadone clinic this morning and got her dose, then came to the emergency department. She rates her pain a 10/10. Home Medications Home Medications Medication Instructions Recorded Confirmed Type methadone [Methadone Intensol] 56 mg PO DAILY 06/26/18 06/26/18 History Allergies Allergy/AdvReac Type Severity Reaction Status Date / Time No Known Allergies Allergy Unverified 06/26/18 11:15 Past Med/Surg History Medical History Chronic abdominal pain (Chronic) Non-Hodgkin lymphoma (Resolved) Opiate dependence (Chronic) Surgical History S/P partial lobectomy of lung (Resolved) S/P thoracotomy (Resolved) Social History Feels Safe at Home: Yes Smoking Status: Never smoker Preferred Language: Kinyarwanda Review of Systems A total of 10 systems reviewed and were otherwise negative Physical Exam Vital Signs Vital Signs - 24 hr 06/26/18 11:00 06/26/18 14:00 06/26/18 15:25 Temperature 37 C Temperature Source Oral Sepsis Recent Fever Within 48 Hours No Sepsis New/Unexplained Change in Mental Status No Sepsis Action Taken by Nursing No Action Required Pulse Rate 85 Pulse Rate [Right Finger] 70 69 Respiratory Rate 18 20 20 Respiratory Effort / Characteristics Non-Labored Spontaneous Respiratory Depth Normal Respiratory Pattern Regular Blood Pressure 99/65 L Blood Pressure [Left Arm] 92/48 L 99/52 L Blood Pressure Mean 76 Blood Pressure Mean [Left Arm] 62 67 Pulse Oximetry 99 97 99 Oxygen Delivery Method Room Air Room Air Room Air 06/26/18 17:12 Temperature Temperature Source Sepsis Recent Fever Within 48 Hours Sepsis New/Unexplained Change in Mental Status Sepsis Action Taken by Nursing Pulse Rate Pulse Rate [Right Finger] 70 Respiratory Rate 18 Respiratory Effort / Characteristics Respiratory Depth Respiratory Pattern Blood Pressure Blood Pressure [Left Arm] 92/52 L Blood Pressure Mean Blood Pressure Mean [Left Arm] 65 Pulse Oximetry 99 Oxygen Delivery Method Room Air CONSTITUTIONAL: Patient is a thin, otherwise well-appearing 32-year-old female who is awake and alert and in no acute distress. EYES: Pupils equal, round, reactive to light and accommodation. EOMs intact w ithout nystagmus. Sclera are anicteric. ENT: Tympanic membranes intact, with normal landmarks. External canals are clear. Oral and nasopharynx are clear. Mucous membranes are moist, no lesions, tongue and gums appear normal. CARDIOVASCULAR: Regular rate and rhythm, with normal S1 and S2, no murmur or gallop or rub is heard. No carotid bruits auscultated. No JVD. Peripheral pulses easy to palpable. RESPIRATORY: Breath sounds equal and clear to auscultation without wheezes, rales, or rhonchi heard. Full and equal chest expansion without accessory muscle use or retractions. GI: Bowel sounds are present. Abdomen is soft, nondistended, tender to percussion throughout, and tender to palpation in the left lower quadrant. No pulsatile masses. No guarding or rebound. MUSCULOSKELETAL: Full range of motion of extremities x 4 with good strength. No cyanosis, edema, joint tenderness or swelling. No deformity. INTEGUMENTARY: No lesions or rash, normal skin turgor. NEUROLOGICAL: Alert, oriented, and cooperative. Cranial nerves, sensation and strength grossly intact. Pupils round, equal, and react to light, EOMs are full. LYMPH: No lymphadenopathy. Course The patient was seen and assessed as above. Her old records were reviewed. She presents the emergency department for evaluation of lower abdominal pain with associated nausea and vomiting. She does have a history of chronic abdominal pain, she is on methadone. She has been applied in the past for misuse of her methadone, and drug-seeking behavior. IV lock was initiated and laboratory studies were collected. The patient was hydrated with normal saline solution. She was medicated with Zofran 4 mg and Toradol 30 mg IV. The patient was made aware that she would not be receiving any narcotic medications in the emergency department. CBC with differential, CMP, lipase, urinalysis, urine tox screen were ordered. Acute abdominal series was obtained. Patient's laboratory studies noted a low white count at 3400. She is anemic with a hemoglobin and hematocrit of 10.8 and 34.5. She has a hypochromic, microcytic pattern. Platelet count is normal. No left shift or bandemia. Electrolytes noted a sodium of 135, otherwise are unremarkable. Renal functions are normal. Total bilirubin is not elevated, but she has elevation of her AST, ALT and alk phos 128, 263 and 189 respectively. Lipase is not elevated. Serum hCG is negative. Urinalysis notes 1+ ketones, otherwise is clear. Urine toxicology screen is positive for methadone, with verification pending. Acute abdominal series noted no acute process in the chest. Nonobstructive bowel gas pattern without pneumoperitoneum. Extensive formed stool throughout the colon compatible with constipation. The patient was reassessed when she returned from x-ray. She was made aware of the results of her laboratory studies. She reported she was still had ongoing abdominal pain and was given Bentyl 20 mg IM. Acetaminophen level was drawn due to the elevated transaminases and was within normal limits. Hepatitis panel was drawn and negative for hepatitis B surface antigen and negative for hepatitis C. Ultrasound of the right upper quadrant was performed. Ultrasound noted cholelithiasis and question trace pericholecystic fluid. There is no definitive sonographic evidence for acute cholecystitis. No gallbladder wall thickening. No ductal dilatation. All laboratory and diagnostic imaging studies were reviewed with Dr. Farrar. He agreed that surgical consultation was reasonable. I did reassess the patient and examined her when she returned from ultrasound. She denied any pain with the ultrasound. She was reexamined, while I was speaking to her and distracting her, and had no pain in the right upper quadrant, and honestly had no pain in the left lower quadrant. I did speak with general surgery on-call, Dr. Mota. She reviewed the patient's record, and presented to the emergency department to evaluate her. She would like to obtain the HIDA scan to further evaluate patient's symptoms. Please refer to her surgical consultation for further information. Patient was reviewed with ED case management, and [facility]. Administered Medications Discontinued Medications Dicyclomine HCl (Bentyl) 20 mg IM NOW ONE Stop: 06/26/18 14:21 Last Admin: 06/26/18 14:41 Dose: 20 mg Sodium Chloride (Nss 1000ml) 1,000 mls @ 999 mls/hr IV .Q1H1M FRANKIE Stop: 06/26/18 13:30 Last Infusion: 06/26/18 13:49 Dose: 0 mls/hr Admin: 06/26/18 12:35 Dose: 999 mls/hr Ketorolac Tromethamine (Toradol) 30 mg IV NOW STA Stop: 06/26/18 12:24 Last Admin: 06/26/18 12:35 Dose: 30 mg Medical Decision Making Differential Diagnosis Differential diagnoses entertained included UTI, pyelonephritis, renal colic, constipation, bowel obstruction, diverticulitis, perforation, mass or malignancy, , ectopic , ovarian cyst, ovarian torsion, among others. Medical Records Attestation: I reviewed the patient's medical records. Home Medications Current Medication List: was personally reviewed by me Laboratory Data Attestation: I reviewed the patient's lab results. Result diagrams: 06/26/18 11:44 06/26/18 11:44 Lab Results 06/26/18 06/26/18 06/26/18 Range/Units 11:40 11:40 11:44 WBC 3.46 L (4.8-10.8) K/uL RBC 4.77 (4.2-5.4) M/uL Hgb 10.8 L (12.0-16.0) g/dL Hct 34.5 L (37-47) % MCV 72.3 L (80-100) fL MCH 22.6 L (25-34) pg MCHC 31.3 L (32-36) g/dL RDW Std Deviation 45.9 (36.4-46.3) fL RDW Coeff of Brii 17.3 H (11.5-14.5) % Plt Count 234 (130-400) K/uL Immature Gran % (Auto) 0.0 % Neut % (Auto) 66.1 % Lymph % (Auto) 24.0 % Hyde % (Auto) 8.7 % Eos % (Auto) 0.6 % Baso % (Auto) 0.6 % Immature Gran # (Auto) 0.00 (0.00-0.02) K/uL Neut # (Auto) 2.29 (1.4-6.5) K/uL Lymph # (Auto) 0.83 L (1.2-3.4) K/uL Hyde # (Auto) 0.30 (0.11-0.59) K/uL Eos # (Auto) 0.02 (0-0.5) K/uL Baso # (Auto) 0.02 (0-0.2) K/uL Sodium (136-145) mmol/L Potassium (3.5-5.1) mmol/L Chloride (98-107) mmol/L Carbon Dioxide (21-32) mmol/L Anion Gap (3-11) BUN (7-18) mg/dl Creatinine (0.6-1.2) mg/dl Est Cr Clr Drug Dosing ml/min Est GFR ( Amer) Est GFR (Non-Af Amer) BUN/Creatinine Ratio (10-20) Glucose (70-99) mg/dl Calcium (8.5-10.1) mg/dl Total Bilirubin (0.2-1) mg/dl AST (15-37) U/L ALT (12-78) U/L Alkaline Phosphatase (45-117) U/L Total Protein (6.4-8.2) gm/dl Albumin (3.4-5.0) gm/dl Globulin (2.5-4.0) gm/dl Albumin/Globulin Ratio (0.9-2) Lipase (73-393) U/L HCG, Qual (Negative) Urine Color Dark Yellow Urine Appearance Cloudy H (Clear) Urine pH 5.0 (4.5-7.5) Ur Specific Sparkman 1.024 (1.000-1.030) Urine Protein Negative (Negative) Urine Glucose (UA) Negative (Negative) Urine Ketones 1+ H (Negative) Urine Blood Negative (Negative) Urine Nitrite Negative (Negative) Urine Bilirubin Negative (Negative) Urine Urobilinogen Negative (Negative) Ur Leukocyte Esterase Negative (Negative) Urine WBC (Auto) 1-5 (0-5) /hpf Urine RBC (Auto) 0-4 (0-4) /hpf U Hyaline Cast (Auto) 5-10 H (0-5) /lpf U Epithel Cells (Auto) >30 H (0-5) /lpf Urine Bacteria (Auto) Negative (Negative) Urine Opiates Screen Neg (Neg) Ur Methadone, Qual Pos H (Neg) Acetaminophen (10-30) ug/ml Urine Barbiturates Neg (Neg) Ur Phencyclidine (PCP) Neg (Neg) U Amphetamin/Meth Scrn Neg (Neg) MDMA (Ecstasy) Screen Neg (Neg) U Benzodiazepines Scrn Neg (Neg) Ur Cocaine Metabolite Neg (Neg) U Marijuana (THC) Screen Neg (Neg) Hep Bs Antigen (Neg) Hepatitis C Antibody (Neg) 06/26/18 06/26/18 06/26/18 Range/Units 11:44 11:44 14:30 WBC (4.8-10.8) K/uL RBC (4.2-5.4) M/uL Hgb (12.0-16.0) g/dL Hct (37-47) % MCV (80-100) fL MCH (25-34) pg MCHC (32-36) g/dL RDW Std Deviation (36.4-46.3) fL RDW Coeff of Brii (11.5-14.5) % Plt Count (130-400) K/uL Immature Gran % (Auto) % Neut % (Auto) % Lymph % (Auto) % Hyde % (Auto) % Eos % (Auto) % Baso % (Auto) % Immature Gran # (Auto) (0.00-0.02) K/uL Neut # (Auto) (1.4-6.5) K/uL Lymph # (Auto) (1.2-3.4) K/uL Hyde # (Auto) (0.11-0.59) K/uL Eos # (Auto) (0-0.5) K/uL Baso # (Auto) (0-0.2) K/uL Sodium 135 L (136-145) mmol/L Potassium 3.9 (3.5-5.1) mmol/L Chloride 107 (98-107) mmol/L Carbon Dioxide 22 (21-32) mmol/L Anion Gap 6.0 (3-11) BUN 13 (7-18) mg/dl Creatinine 0.97 (0.6-1.2) mg/dl Est Cr Clr Drug Dosing 66.5 ml/min Est GFR ( Amer) 90.2 Est GFR (Non-Af Amer) 77.8 BUN/Creatinine Ratio 13.0 (10-20) Glucose 84 (70-99) mg/dl Calcium 8.1 L (8.5-10.1) mg/dl Total Bilirubin 0.4 (0.2-1) mg/dl AST 128 H (15-37) U/L ALT 263 H (12-78) U/L Alkaline Phosphatase 189 H (45-117) U/L Total Protein 8.0 (6.4-8.2) gm/dl Albumin 3.8 (3.4-5.0) gm/dl Globulin 4.2 H (2.5-4.0) gm/dl Albumin/Globulin Ratio 0.9 (0.9-2) Lipase 71 L (73-393) U/L HCG, Qual Negative (Negative) Urine Color Urine Appearance (Clear) Urine pH (4.5-7.5) Ur Specific Sparkman (1.000-1.030) Urine Protein (Negative) Urine Glucose (UA) (Negative) Urine Ketones (Negative) Urine Blood (Negative) Urine Nitrite (Negative) Urine Bilirubin (Negative) Urine Urobilinogen (Negative) Ur Leukocyte Esterase (Negative) Urine WBC (Auto) (0-5) /hpf Urine RBC (Auto) (0-4) /hpf U Hyaline Cast (Auto) (0-5) /lpf U Epithel Cells (Auto) (0-5) /lpf Urine Bacteria (Auto) (Negative) Urine Opiates Screen (Neg) Ur Methadone, Qual (Neg) Acetaminophen < 2 L (10-30) ug/ml Urine Barbiturates (Neg) Ur Phencyclidine (PCP) (Neg) U Amphetamin/Meth Scrn (Neg) MDMA (Ecstasy) Screen (Neg) U Benzodiazepines Scrn (Neg) Ur Cocaine Metabolite (Neg) U Marijuana (THC) Screen (Neg) Hep Bs Antigen (Neg) Hepatitis C Antibody (Neg) 06/26/18 Range/Units 14:40 WBC (4.8-10.8) K/uL RBC (4.2-5.4) M/uL Hgb (12.0-16.0) g/dL Hct (37-47) % MCV (80-100) fL MCH (25-34) pg MCHC (32-36) g/dL RDW Std Deviation (36.4-46.3) fL RDW Coeff of Brii (11.5-14.5) % Plt Count (130-400) K/uL Immature Gran % (Auto) % Neut % (Auto) % Lymph % (Auto) % Hyde % (Auto) % Eos % (Auto) % Baso % (Auto) % Immature Gran # (Auto) (0.00-0.02) K/uL Neut # (Auto) (1.4-6.5) K/uL Lymph # (Auto) (1.2-3.4) K/uL Hyde # (Auto) (0.11-0.59) K/uL Eos # (Auto) (0-0.5) K/uL Baso # (Auto) (0-0.2) K/uL Sodium (136-145) mmol/L Potassium (3.5-5.1) mmol/L Chloride (98-107) mmol/L Carbon Dioxide (21-32) mmol/L Anion Gap (3-11) BUN (7-18) mg/dl Creatinine (0.6-1.2) mg/dl Est Cr Clr Drug Dosing ml/min Est GFR ( Amer) Est GFR (Non-Af Amer) BUN/Creatinine Ratio (10-20) Glucose (70-99) mg/dl Calcium (8.5-10.1) mg/dl Total Bilirubin (0.2-1) mg/dl AST (15-37) U/L ALT (12-78) U/L Alkaline Phosphatase (45-117) U/L Total Protein (6.4-8.2) gm/dl Albumin (3.4-5.0) gm/dl Globulin (2.5-4.0) gm/dl Albumin/Globulin Ratio (0.9-2) Lipase (73-393) U/L HCG, Qual (Negative) Urine Color Urine Appearance (Clear) Urine pH (4.5-7.5) Ur Specific Sparkman (1.000-1.030) Urine Protein (Negative) Urine Glucose (UA) (Negative) Urine Ketones (Negative) Urine Blood (Negative) Urine Nitrite (Negative) Urine Bilirubin (Negative) Urine Urobilinogen (Negative) Ur Leukocyte Esterase (Negative) Urine WBC (Auto) (0-5) /hpf Urine RBC (Auto) (0-4) /hpf U Hyaline Cast (Auto) (0-5) /lpf U Epithel Cells (Auto) (0-5) /lpf Urine Bacteria (Auto) (Negative) Urine Opiates Screen (Neg) Ur Methadone, Qual (Neg) Acetaminophen (10-30) ug/ml Urine Barbiturates (Neg) Ur Phencyclidine (PCP) (Neg) U Amphetamin/Meth Scrn (Neg) MDMA (Ecstasy) Screen (Neg) U Benzodiazepines Scrn (Neg) Ur Cocaine Metabolite (Neg) U Marijuana (THC) Screen (Neg) Hep Bs Antigen Neg (Neg) Hepatitis C Antibody Neg (Neg) Imaging Data Attestation: I personally reviewed and interpreted this imaging study as follows: Radiologist's Impression: ULTRASOUND RIGHT UPPER QUADRANT ABDOMEN CLINICAL HISTORY: Elevated hepatic transaminases. Nausea and vomiting. COMPARISON STUDY: Abdominal CT dated 09/12/2018. TECHNIQUE: Real-time, grayscale, and color flow sonography of the right upper quadrant of the abdomen was performed. Images are reviewed in the transverse and longitudinal planes. FINDINGS: Liver: The liver is normal in size and echotexture. There is no intrahepatic biliary ductal dilatation. The main portal vein is patent. Gallbladder: There are numerous shadowing calcified gallstones. There is no gallbladder wall thickening. Question trace pericholecystic fluid. A sonographic Steinberg's sign is reportedly absent. The common bile duct measures up to 0.5 cm in diameter. Pancreas: Not well visualized due to overlying bowel gas. Right kidney: Survey images of the right kidney demonstrate normal size and echotexture. There is no hydronephrosis. Ascites: None. IMPRESSION: 1. Cholelithiasis and question trace pericholecystic fluid. There is no definitive sonographic evidence of acute cholecystitis at this time. If there is strong clinical concern for acute cholecystitis a nuclear hepatobiliary scan should be considered. 2. The pancreas was not well visualized due to overlying bowel gas. XR abdomen 2V w PA chest HISTORY: 32 years-old Female abd pain, n/v acute generalized abdominal pain with nausea and vomiting COMPARISON: CT abdomen and pelvis 09/12/2017, acute abdominal series radiographs 09/11/2017 TECHNIQUE: PA view of the chest with erect and supine views of the abdomen FINDINGS: Cardiomediastinal and hilar silhouettes are unchanged. Stable positioning of the right subclavian Jiapys-s-Tnhm catheter. Postoperative changes of the right hilum with persistent right hilar and suprahilar densities. No pneumothorax, pleural effusion or overt pulmonary edema. Bones appear grossly intact. No pneumatosis or pneumoperitoneum. Extensive volume of formed stool is noted throughout the colon. Bowel gas pattern is nonobstructive. No urolith identified. No acute fracture. IMPRESSION: 1. No acute processes of the chest. 2. Nonobstructive bowel gas pattern without pneumoperitoneum. 3. Extensive formed stool throughout the colon compatible with constipation. Prescription Drug Monitoring [place] Drug [place] reviewed and no issues identified Prescription Drug Findings: No methadone prescriptions since September 20, 2017. [place], [place] and [place] databases searched. Blood Pressure Blood Pressure Findings: Low blood pressure MDM Narrative See ED Course. Impression & Plan Cholelithiasis, Abnormal LFTs Discharge Plan Visit Data Chief Complaint: Vomiting Stated Complaint: PAIN, FEVER ED Provider: Matt Sotomayor ED Midlevel Provider: Gelacio Londono Discharge Problem: Cholelithiasis, Abnormal LFTs Patient Disposition: Being Evaluated by Hospitalist Forms Stand Alone [facility] Pres[facility] Prescriptions: No Action methadone [Methadone Intensol] 10 mg/mL Concentrate 56 mg PO DAILY RF: 0 Referrals Referrals: [facility],Medicine [Primary Care Provider] -
[2018-06-26 12:58] LABS: Appearance Urine Cloudy (Clear); Bacteria Urine Automated Negative (Negative); Bilirubin Urine Negative (Negative); Blood Urine Negative (Negative); Color Urine Dark Yellow; Epithelial Cell Urine Auto >30 /lpf (0-5); Glucose Urine UA Negative (Negative); Ketones Urine 1+ (Negative); Leukocyte Esterase Urine Negative (Negative); Nitrite Urine Negative (Negative); Protein Urine Negative (Negative); RBC Urine Automated 0-4 /hpf (0-4); Specific Gravity Urine 1.024 (1.000-1.030); Urobilinogen Urine Negative (Negative)
[2018-06-26 13:12] LABS: Amphetamines+Metham, Urine Neg (Neg); Barbiturates, Urine Neg (Neg); Benzodiazepine, Urine Neg (Neg); Cocaine, Urine Neg (Neg); MDMA (Ecstacy), Urine Neg (Neg); Methadone, Urine Pos (Neg); Opiate, Urine Neg (Neg); Phencyclidine, Urine Neg (Neg)
--- NOTE | 2018-06-26 13:35 | XRay Report ---
XR abdomen 2V w PA chest HISTORY: 32 years-old Female abd pain, n/v acute generalized abdominal pain with nausea and vomiting COMPARISON: CT abdomen and pelvis 09/12/2017, acute abdominal series radiographs 09/11/2017 TECHNIQUE: PA view of the chest with erect and supine views of the abdomen FINDINGS: Cardiomediastinal and hilar silhouettes are unchanged. Stable positioning of the right subclavian Inf use-a-Port catheter. Postoperative changes of the right hilum with persistent right hilar and suprahi lar densities. No pneumothorax, pleural effusion or overt pulmonary edema. Bones appear grossly intac t. No pneumatosis or pneumoperitoneum. Extensive volume of formed stool is noted throughout the colon. B owel gas pattern is nonobstructive. No urolith identified. No acute fracture. IMPRESSION: 1. No acute processes of the chest. 2. Nonobstructive bowel gas pattern without pneumoperitoneum. 3. Extensive formed stool throughout the colon compatible with constipation. The above report was generated using voice recognition software. It may contain grammatical, syntax o r spelling errors. Electronically signed by: Rosas Del Toro M.D. 06/26/2018 1:33 PM
[2018-06-26] MEDS ORDERED: DICYCLOMINE HCL 10 MG/ML 2 ML AMP/VIAL IM ONE (14:20)
[2018-06-26 16:02] LABS: Hepatitis B Surface Antigen Neg (Neg)
--- NOTE | 2018-06-26 16:27 | Ultrasound Report ---
ULTRASOUND RIGHT UPPER QUADRANT ABDOMEN CLINICAL HISTORY: Elevated hepatic transaminases. Nausea and vomiting. COMPARISON STUDY: Abdominal CT dated 09/12/2018. TECHNIQUE: Real-time, grayscale, and color flow sonography of the right upper quadrant of the abdomen was performed. Images are reviewed in the transverse and longitudinal planes. FINDINGS: Liver: The liver is normal in size and echotexture. There is no intrahepatic biliary ductal dilatatio n. The main portal vein is patent. Gallbladder: There are numerous shadowing calcified gallstones. There is no gallbladder wall thickeni ng. Question trace pericholecystic fluid. A sonographic Steinberg's sign is reportedly absent. The commo n bile duct measures up to 0.5 cm in diameter. Pancreas: Not well visualized due to overlying bowel gas. Right kidney: Survey images of the right kidney demonstrate normal size and echotexture. There is no hydronephrosis. Ascites: None. IMPRESSION: 1. Cholelithiasis and question trace pericholecystic fluid. There is no definitive sonographic eviden ce of acute cholecystitis at this time. If there is strong clinical concern for acute cholecystitis a nuclear hepatobiliary scan should be considered. 2. The pancreas was not well visualized due to overlying bowel gas. Electronically signed by: Jose Leonardo M.D. 06/26/2018 4:26 PM
[2018-06-26 16:31] LABS: Hepatitis C IgG 13Yrs+Old_Rflx Neg (Neg)
--- NOTE | 2018-06-26 17:39 | Surgery Consultation ---
Date of Consultation June 26, 2018 Assessment & Plan (1) Abnormal LFTs: Pt is a 32 yo female who presents with suprapubic pain with incidental finding of transaminitis of uncertain etiology. She does have cholelithiasis with possible trace pericholecystic fluid, however in the setting of having no symptoms suggestive of acute cholecystitis merits further workup. - Recommend admission to Internal Medicine - Obtain HIDA scan to assess for acute cholecystitis - f/u results of Hepatitis panel - Repeat CBC, LFTs in the morning - Pending above results may require additional workup by GI / Hepatology Present on Admission?: Yes (2) Dysuria: - f/u urinalysis and urine culture Present on Admission?: Yes History of Present Illness Reason for Consultation: Abdominal pain Transaminitis Requesting Physician: Gelacio Londono PA-C History of Present Illness Pt is a 32 yo female with history of lymphoma s/p partial lobectomy, with last chemo 2 years ago, chronic pain on methadone, who presents with suprapubic pain. She states a couple of weeks ago she was treated for a UTI. Current pain is similar. She also reports dysuria. Has nausea, but no vomiting. Denies association with food. Denies RUQ and epigastric pain. She denies any illicit substance use, significant alcohol use, and tobacco use. She is from [facility], last visited > 1 year ago. Has history of blood transfusion in [facility]. She has consumed water from muddy streams before, but not in the past few months. Has not taken any medications aside from recent antibiotics, she is unsure of the name of the antibiotics. Denies a history of biliary, hepatic, and GI disease, denies known history of hepatitis. On presentation today she has a WBC of 3.46, AST 128, ALT 263, Alk Phos 189. Of note, LFTs were normal in August 2017. CT scan was unremarkable. U/S shows cholelithiasis and questionable trace pericholecystic fluid. Allergies Allergy/AdvReac Type Severity Reaction Status Date / Time No Known Allergies Allergy Unverified 06/26/18 11:15 Home Medications Home Medications Medication Instructions Recorded Confirmed Type methadone [Methadone Intensol] 56 mg PO DAILY 06/26/18 06/26/18 History Patient History Medical History Chronic pain (Chronic) Hodgkin lymphoma (Chronic) Chronic abdominal pain (Chronic) Opiate dependence (Chronic) Surgical History History of (Resolved) S/P partial lobectomy of lung (Resolved) S/P thoracotomy (Resolved) Family History Other HTN (hypertension) Prostate cancer Social History Feels Safe at Home: Yes Smoking Status: Never smoker Hx Alcohol Use: No Hx Substance Use: No Preferred Language: Tajik Review of Systems Constitutional: as per Subjective / HPI; no chills Reports subjective fever Respiratory: no cough, no dyspnea and no dyspnea on exertion Cardiovascular: no chest pain, no chest pain with activity, no dyspnea at rest and no palpitations Gastrointestinal: as per Subjective / HPI, + abdominal pain and + nausea; no vomiting Genitourinary (Female): + dysuria recent UTI Physical Exam 2 Vital Signs (Past 24 Hours): Last Vital Signs Temp 37 C 06/26/18 11:00 Pulse 70 06/26/18 17:12 Resp 18 06/26/18 17:12 BP 92/52 L 06/26/18 17:12 Pulse Ox 99 06/26/18 17:12 Constitutional: WD/WN, vitals as above well developed; no acute distress Eyes: PERRL, conjunctivae normal, anicteric sclerae ENMT: external ear and nose normal, oropharynx normal Respiratory: normal respiratory effort, lungs clear to auscultation Cardiovascular: RRR, no murmur, no edema Gastrointestinal (Abdomen): soft, nondistended, suprapubic tendnerness, NO RUQ or epigastric tenderness, no rebound or guarding Results & Data Laboratory Results Laboratory Tests 09/14/17 06/26/18 05:54 11:44 WBC 5.84 3.46 L Hgb 8.4 L 10.8 L Hct 27.2 L 34.5 L Plt Count 246 234 Neut # (Auto) 2.65 2.29 Lymph # (Auto) 2.66 0.83 L [place] # (Auto) 0.46 0.30 Eos # (Auto) 0.03 0.02 Laboratory Tests 09/12/17 17:55 PT 11.1 INR 1.1 APTT 22.8 PTT Ratio 0.9 Laboratory Tests 06/26/18 11:44 Sodium 135 L Potassium 3.9 Chloride 107 Carbon Dioxide 22 Anion Gap 6.0 BUN 13 Creatinine 0.97 Glucose 84 Calcium 8.1 L Laboratory Tests 09/14/17 06/26/18 05:54 11:44 Total Bilirubin 0.6 0.4 AST 23 128 H ALT 35 263 H Alkaline Phosphatase 55 189 H Total Protein 5.9 L D 8.0 Albumin 2.9 L 3.8 Lipase 71 L Laboratory Tests 06/26/18 11:44 HCG, Qual Negative Laboratory Tests 06/26/18 11:40 Urine Color Dark Yellow Urine Appearance Cloudy H Urine pH 5.0 Ur Specific [place] 1.024 Urine Protein Negative Urine Glucose (UA) Negative Urine Ketones 1+ H Urine Blood Negative Urine Nitrite Negative Urine Bilirubin Negative Urine Urobilinogen Negative Ur Leukocyte Esterase Negative Urine WBC (Auto) 1-5 Urine RBC (Auto) 0-4 U Hyaline Cast (Auto) 5-10 H U Epithel Cells (Auto) >30 H Urine Bacteria (Auto) Negative Diagnostic Findings (06/26/18) U/S: Cholelithiasis and question trace pericholecystic fluid. There is no definitive sonographic evidence of acute cholecystitis at this time. If there is strong clinical concern for acute cholecystitis a nuclear hepatobiliary scan should be considered. (06/26/18) CT Abdomen/Pelvis: Unremarkable
--- NOTE | 2018-06-26 18:27 | History & Physical Report ---
Date of Service June 26, 2018 Assessment & Plan (1) Abdominal pain: (2) Cholelithiasis: (3) Abnormal LFTs: Pt presented with mid and lower abdominal pain x 3 days. 2 days ago N/V and tactile fever. In ER afebrile, P: 85, R: 18, BP: 99/65 (baseline SBPs:90's-low 100s), 99% on RA. WBC: 3, AST: 128, ALT: 263, Alk Phos: 189, bili: 0.4, Lipase: 71. Negative HCG GALLBLADDER US: Cholelithiasis and question trace pericholecystic fluid. There is no definitive sonographic evidence of acute cholecystitis at this time. If there is strong clinical concern for acute cholecystitis a nuclear hepatobiliary scan should be considered. The pancreas was not well visualized due to overlying bowel gas. CXR/ABD XRAY: No acute processes of the chest. Nonobstructive bowel gas pattern without pneumoperitoneum. Extensive formed stool throughout the colon compatible with constipation. -In ER was given Toradol, bentyl, 1L NSS. -No significant pain reported at this time, no RUQ tenderness on exam -Pt had normal LFTs during hospital admission in 2018 -Urine culture pending - pt with reported continued dysuria after Bactrim treatment for reported UTI -IVF -NPO -General surgery consulted, recommends HIDA scan -pending hepatitis panel -CBC, CMP, Liver profile in am -May require further workup if continued pain (4) Hodgkin lymphoma: Hx Hodgkin lymphoma dx 2010, s/p surgery, [place] outside country, relapse with last chemo in 2014 treated at [facility] Followed with Dr Hdz early 2017, has not followed up since (5) Chronic pain: Chronic right back pain. On Methadone. Receives from methadone clinic in [place]. -continue methadone (6) Chronic anemia: Hgb: 10.8. At baseline. Reported hx iron deficiency anemia, stopped taking iron supplements -monitor H&H DVT Prophylaxis -ambulate Full Code Follows with [facility] for routine care Pt was seen with Dr Ramires. See addendum History of Present Illness Chief Complaint: Abdominal pain Primary Care Provider: [facility] Pt is 32 y/o F with PMH Hodgkin's Lymphoma s/p surgery and chemo, last chemo 2014 currently reported in remission, hx chronic pain on methadone, chronic anemia presented to ER with c/o abdominal pain x 3 days. Pt states 3 nights ago started with mid and lower abdominal pain. 2 days ago with nausea and vomited 3 times which has since resolved. Had tactile fever 2 days ago. No BM for 2 days. Reports hx chronic constipation. Thought her initial abdominal pain might be secondary to constipation. She reports hx dysuria, urinary frequency and urgency that started a couple of weeks ago and was seen at [facility] and dx with UTI and placed on bactrim x 5 days. Pt states took 4.5 days of the medication. Still reports some dysuria. Took 2 ibuprofen two days ago. Denies Tylenol use, ETOH use. Denies diaphoresis, hematemesis, melena, hematochezia, ENNIS, dizziness, syncope, vision changes, neck pain, CP, SOB, orthopnea, palpitations, cough, sore throat, choking, otalgia, rhinorrhea, paresthesias, weakness, extremity weakness, extremity edema, rashes, hematuria, vaginal discharge. Denies multiple sexual partners. Allergies Allergy/AdvReac Type Severity Reaction Status Date / Time No Known Allergies Allergy Unverified 06/26/18 11:15 Home Medications Home Medications Medication Instructions Recorded Confirmed Type methadone [Methadone Intensol] 56 mg PO DAILY 06/26/18 06/26/18 History Past Med/Surg History Medical History Chronic pain (Chronic) Hodgkin lymphoma (Chronic) Chronic abdominal pain (Chronic) Opiate dependence (Chronic) Surgical History History of (Resolved) S/P partial lobectomy of lung (Resolved) S/P thoracotomy (Resolved) Family History Other HTN (hypertension) Prostate cancer Social History Current Living Situation: Spouse Other Information That Helps Us Care for You: No Feels Safe at Home: Yes Safety Concerns: Feels Safe At This Time Smoking Status: Never smoker Do You Dip or Chew Tobacco: No Second Hand Exposure: No Hx Alcohol Use: No Hx Substance Use: No Beliefs That Will Affect Care: None Communication Ability: Effective Review of Systems All systems reviewed & are unremarkable except as noted in HPI & below Physical Exam 2 Vital Signs (Past 24 Hours): Last Vital Signs Temp 37 C 06/26/18 11:00 Pulse 70 06/26/18 17:12 Resp 18 06/26/18 17:12 BP 92/52 L 06/26/18 17:12 Pulse Ox 99 06/26/18 17:12 Physical Exam: General: no distress, WDWN Head: normocephalic, atraumatic Eyes: PERRL, EOM's intact, conjunctiva non-injected, anicteric ENT: normal inspection external ears, nose, mucous membranes mildly dry Neck: supple, trachea midline, non-tender Lungs: clear, no respiratory distress CV: RRR, no murmur Abd: normal BS, soft, +tender to palpation periumbilical and suprapubic, no RUQ , RLL, LLQ tenderness to palpation, no CVA tenderness to percussion Ext: no cyanosis, no calf tenderness Neuro: A&O x 3, no focal deficits noted, normal affect Skin: warm, dry Results & Data Laboratory Results Short CBC 06/26/18 Range/Units 11:44 WBC 3.46 L (4.8-10.8) K/uL Hgb 10.8 L (12.0-16.0) g/dL Hct 34.5 L (37-47) % Plt Count 234 (130-400) K/uL BMP 06/26/18 11:44 Sodium 135 L Potassium 3.9 Chloride 107 Carbon Dioxide 22 BUN 13 Creatinine 0.97 Glucose 84 Calcium 8.1 L Liver Function 06/26/18 Range/Units 11:44 Total Bilirubin 0.4 (0.2-1) mg/dl AST 128 H (15-37) U/L ALT 263 H (12-78) U/L Alkaline Phosphatase 189 H (45-117) U/L Albumin 3.8 (3.4-5.0) gm/dl Urine 06/26/18 Range/Units 11:40 Urine Color Dark Yellow Urine Appearance Cloudy H (Clear) Urine pH 5.0 (4.5-7.5) Ur Specific [place] 1.024 (1.000-1.030) Urine Protein Negative (Negative) Urine Glucose (UA) Negative (Negative) Diagnostic Findings GALLBALDDER US: IMPRESSION: 1. Cholelithiasis and question trace pericholecystic fluid. There is no definitive sonographic evidence of acute cholecystitis at this time. If there is strong clinical concern for acute cholecystitis a nuclear hepatobiliary scan should be considered. 2. The pancreas was not well visualized due to overlying bowel gas. CXR/ABD XRAY: IMPRESSION: 1. No acute processes of the chest. 2. Nonobstructive bowel gas pattern without pneumoperitoneum. 3. Extensive formed stool throughout the colon compatible with constipation. Supervising Physician Co-Signing Physician Notes HISTORY: Record reviewed. Patient interviewed and examined. Care coordinated with Luz Maria Baez PA-C. Please refer to her documentation for patient's history. Briefly, 32-year-old female with history of Hodgkin's lymphoma, chronic pain, and other problems as noted. Recently treated for UTI with trimethoprim/sulfamethoxazole. Presented to ED with mid abdominal pain, nausea, vomiting, subjective fever. EXAM: General- no distress Lungs- clear to auscultation; no respiratory distress Cardiovascular- RRR; I/ sys murmur at base Abdomen- + bowel sounds, soft, mild mid-abdominal tenderness without rebound or guarding Back- no CVA tenderness Extremities- no cyanosis; no calf tenderness Neuro- alert, oriented Skin- warm & dry DATA: Hgb 10.8, WBC 3460. Total bilirubin 0.4, AST 128, AST 263, alkaline phosphatase 189, albumin 3.8, lipase 71. Other labs as noted. Chest x-ray unremarkable. Abdominal films did not show any evidence of bowel obstruction or free air; extensive stool throughout the colon was noted. Ultrasound right upper quadrant demonstrated cholelithiasis and possible trace pericholecystic fluid. ASSESSMENT AND PLAN: Abdominal pain. Cholelithiasis. Elevated LFTs. Recent UTI. Constipation. Chronic pain syndrome. General Surgery was consulted. HIDA scan recommended. May need further imaging or consultation if abdominal pain and/or elevated LFTs persist and are unexplained. Low risk for VTE per IMPROVE risk assessment model. VTE prophylaxis not indicated. Ambulate. Please refer to NEEMA Welsh's documentation for discussion of other issues. _ (1) Cholelithiasis Biliary obstruction: without biliary obstruction Cholangitis acuity: Cholangitis presence: Cholecystitis acuity: Cholecystitis presence: Cholelithiasis location: gallbladder
[2018-06-26] MEDS ORDERED: HYDROmorphone INJ 1 MG/ML SYRINGE IV ONE (21:11)
[2018-06-26] MEDS: SODIUM CHLORIDE 0.9% 1000ML 1,000 ML IV SCH (21:59)
[2018-06-26] MEDS: ONDANSETRON INJ 2 MG/ML 2 ML VIAL IV PRN (23:20)
[2018-06-27] MEDS ORDERED: KETOROLAC 30 MG/ML VIAL IV STA ×2 (03:28→10:37)
[2018-06-27] MEDS: SODIUM CHLORIDE 0.9% 1000ML 1,000 ML IV SCH (05:41)
[2018-06-27 08:18] LABS: Hematocrit (blood only) 29.9 % (37-47); Mean Corpuscular Hgb Conc 30.1 g/dL (32-36); Mean Corpuscular Volume 73.1 fL (80-100); Mean Platelet Volume 10.1 fL (7.4-10.4); Platelet Count 172 K/uL (130-400); RDW Coefficient of Variation 17.4 % (11.5-14.5); Red Blood Count 4.09 M/uL (4.2-5.4); White Blood Count 3.43 K/uL (4.8-10.8)
[2018-06-27] MEDS: METHADONE ORAL SOLN 2 MG/ML PO SCH ×2 (08:33→16:32)
[2018-06-27] MEDS: PATIENT'S OWN CONTROLLED MED PO SCH (08:33)
[2018-06-27 08:59] LABS: Albumin Level 2.9 gm/dl (3.4-5.0); BUN Creatinine Ratio 25.9 (10-20); Bilirubin Direct 0.1 mg/dl (0-0.2); Calcium 7.3 mg/dl (8.5-10.1); Creatinine Clr Calc Pharmacy 90.8 ml/min; Est GFR (African American) 131.5; Est GFR (Non-African American) 113.5; Potassium 4.3 mmol/L (3.5-5.1)
[2018-06-27 09:03] LABS: Bilirubin,Total 0.4 mg/dl (0.2-1); Globulin 3.1 gm/dl (2.5-4.0)
[2018-06-27] MEDS ORDERED: GLUCOSE 40% GEL 15 GM TUBE PO PRN (09:10)
[2018-06-27] MEDS ORDERED: CARBOHYDRATES FOR HYPOGLYCEMIA PO PRN (09:10)
[2018-06-27] MEDS ORDERED: GLUCAGON FOR INJ 1 MG VIAL SQ PRN (09:10)
[2018-06-27] MEDS ORDERED: DEXTROSE 50% 50 ML SYRINGE IV PRN (09:10)
[2018-06-27] MEDS ORDERED: GLUCOSE 10 TABS/TUBE PO PRN (09:10)
[2018-06-27] MEDS ORDERED: DEXTROSE 50% 50 ML SYRINGE IV ONE (09:19)
--- NOTE | 2018-06-27 10:23 | Hospitalist Progress Note ---
Date of Service June 27, 2018 Assessment & Plan (1) Dysuria: Rocephin started pending Urine Culture results. Will plan to start pyridium when HIDA scan is completed. (2) Abdominal pain: Abdominal pain with differential including but not limited to infection such as persistent cystitis or pyelo (symptoms never improved with Bactrim), less likely gynecologic infection in the setting of no vaginal discharge or rash but she does report recent unprotected intercourse. DDx also includes opioid-induced constipation, biliary spasm 2/2 methadone use, Bactrim-related toxicity (recently on for UTI), bowel obstruction or ileus. Cholecystitis is possible, however, there is no Steinberg's sign on exam, she has been tolerating food at home with no relief of pain and fever has subsided. Her pain is more suprapubic, epigastric and in between down the central abdomen. No CVA tenderness. She appears to be uncomfortable and in pain. Will order CT scan with IV contrast. Currently set up for HIDA scan later today. Methoadone has a very long half-life and this may skew the results of the HIDA scan. Will need to take that into consideration, and I discussed this with Surgery. Will await CT scan findings. Toradol for pain now. (3) Cholelithiasis: (4) Abnormal LFTs: May have been 2/2 Bactrim use vs other. They are trending down today. Proceed with CT scan as above. (5) Hodgkin lymphoma: Hx Hodgkin lymphoma dx 2010, s/p surgery, [place] country, relapse with last chemo in 2014 treated at [facility] Followed with Dr Hdz early 2018, pt reported to me she is in remission. (6) Chronic pain: Chronic right back pain. On Methadone. Receives from methadone clinic in [place]. -continue methadone (7) Chronic anemia: Iron deficinecy anemia. Cont to follow with Hematology or PCP for this. Appears she is seeing [facility] for acute issues only. Will involve Case Managment. (8) DVT prophylaxis: SCDs/ambulate Subjective 32 yo F [place]alander-speaking who recently received Bactrim for a UTI at the local [facility] clinic. She reports persistent dysuria and symptoms despite abx, and came to the ER for persistent pain that is constant and worsening over the past 3 days. She reported some fever at home and some vomiting intiially, which has subsided. She reports normal menstruation with LMP 06/02/18. Hcg was negative. she denies concerns for STD despite unprotected intercourse as no vaginal symptoms and no rash are present. She has tolerated food and reports a BM last night. She is on chronic methadone for a h/o chronic back pain. She reports that her daughter is with a friend and she doesn't have anyone to care for her at home consistently. Physical Exam 2 Vital Signs (Past 24 Hours): Last Vital Signs Temp 36.8 C 06/27/18 07:50 Pulse 82 06/27/18 07:50 Resp 16 06/27/18 07:50 BP 94/58 L 06/27/18 07:50 Pulse Ox 99 06/27/18 07:50 CONSTITUTIONAL: WNWD, vitals as above, in distress, holding abdomen EYES: normal conjuctivae, no scleral icterus, MMM RESPIRATORY: clear to auscultation bilaterally, no crackles, rales or wheezes, normal respiratory effort CARDIOVASCULAR: regular rate and rhythm, S1 and 2 heard without murmurs, gallops or rubs, no JVD, no peripheral edema GASTROINTESTINAL: hypoactive bowel sounds, soft, TTP in suprapubic and epigastric regions. No CVA tenderness, nondistended MUSCULOSKELETAL: strength 5/5 throughout, head is normocephalic and atraumatic SKIN: warm and dry NEUROLOGIC: CN 2-12 grossly intact, no sensory deficit, normal cognition, normal speech, no gross focal deficits. PSYCHIATRIC: alert cooperative and oriented to person, place and time. Speaking through broach operator Results & Data Laboratory Results Short CBC 06/26/18 06/27/18 Range/Units 11:44 07:49 WBC 3.46 L 3.43 L (4.8-10.8) K/uL Hgb 10.8 L 9.0 L (12.0-16.0) g/dL Hct 34.5 L 29.9 L (37-47) % Plt Count 234 172 (130-400) K/uL BMP 06/26/18 06/27/18 11:44 07:49 Sodium 135 L 137 Potassium 3.9 4.3 Chloride 107 111 H Carbon Dioxide 22 16 L BUN 13 18 Creatinine 0.97 0.71 Glucose 84 46 L* Calcium 8.1 L 7.3 L Liver Function 06/26/18 06/27/18 Range/Units 11:44 07:49 Total Bilirubin 0.4 0.4 (0.2-1) mg/dl Direct Bilirubin 0.1 (0-0.2) mg/dl AST 128 H 62 H (15-37) U/L ALT 263 H 150 H (12-78) U/L Alkaline Phosphatase 189 H 132 H (45-117) U/L Albumin 3.8 2.9 L (3.4-5.0) gm/dl Urine 06/26/18 Range/Units 11:40 Urine Color Dark Yellow Urine Appearance Cloudy H (Clear) Urine pH 5.0 (4.5-7.5) Ur Specific [place] 1.024 (1.000-1.030) Urine Protein Negative (Negative) Urine Glucose (UA) Negative (Negative) Medications Administered Current Inpatient Medications Dextrose (Dextrose 50%) 25 - 50 ml IV UD PRN; Protocol PRN Reason: Hypoglycemia Protocol Stop: 07/27/18 09:09 Glucagon (Glucagen) 1 mg SQ UD PRN; Protocol PRN Reason: Hypoglycemia Protocol Stop: 07/27/18 09:09 Glucose (Glucose 40%) 15 - 30 gm PO UD PRN; Protocol PRN Reason: Hypoglycemia Protocol Stop: 07/27/18 09:09 Glucose (Dex4 Glucose) 4 - 8 tabs PO UD PRN; Protocol PRN Reason: Hypoglycemia Protocol Stop: 07/27/18 09:09 Ceftriaxone Sodium 1,000 mg/ (Dextrose) 50 mls @ 100 mls/hr IV Q24H FRANKIE; Protocol Stop: 07/07/18 10:29 Dextrose/Sodium Chloride (D5w And Nss) 1,000 mls @ 100 mls/hr IV .Q10H FRANKIE Stop: 07/27/18 10:29 Ketorolac Tromethamine (Toradol) 30 mg IV Q6H PRN PRN Reason: Pain Stop: 07/02/18 10:35 Ketorolac Tromethamine (Toradol) 30 mg IV NOW STA Stop: 06/27/18 10:38 Methadone HCl (Methadone Hcl) 56 mg PO DAILY FRANKIE Stop: 07/11/18 08:59 Last Admin: 06/27/18 08:33 Dose: Not Given Miscellaneous (Carbohydrates For Hypoglycemia) 15 - 30 gm PO UD PRN PRN Reason: Hypoglycemia Treatment Stop: 07/27/18 09:09 Non-Formulary Medication (Patient's Own Controlled Med) 1 ea PO DAILY FRANKIE Stop: 07/11/18 08:59 Last Admin: 06/27/18 08:33 Dose: Not Given Ondansetron HCl (Zofran) 4 mg IV Q6H PRN PRN Reason: Nausea And Vomiting Stop: 07/26/18 20:17 Last Admin: 06/26/18 23:20 Dose: 4 mg _ (1) Cholelithiasis Biliary obstruction: without biliary obstruction Cholangitis acuity: Cholangitis presence: Cholecystitis acuity: Cholecystitis presence: Cholelithiasis location: gallbladder
[2018-06-27] MEDS ORDERED: KETOROLAC 30 MG/ML VIAL ONE (10:41)
[2018-06-27] MEDS: D5W AND NSS 1,000 ML IV SCH ×2 (10:46→21:11)
[2018-06-27] MEDS ORDERED: IOVERSOL 100ml IV PRN (11:14)
--- NOTE | 2018-06-27 11:31 | Surgery Progress Note ---
Date of Service June 27, 2018 Assessment & Plan (1) Abdominal pain: - Suprapubic pain on examination, no RUQ pain - vitals stable, afebrile - no leukocytosis - improvement of LFTS T. bili- 0.4 (0.4) AST- 62 (108) ALT- 150 (263) Alk phos- 132 (189) Plan: Given suprapubic pain, dysuria, and recent UTI treated with 2 days of ABX (outpatient), agree with CT scan abd and pelvis with IV Contrast to further evaluate etiology of pt's pain. HIDA scan ordered for after CT scan to rule out acute cholecystitis continue pain management as needed Continue IV Rocephin Continue NPO and IV fluids Continue medical management HIDA scan showed nonvisualization of gallbladder consistent with acute cholecystitis. Bladder scan of 636 cc, able to void 800 cc and suprapubic pain resolved. Dr. Galeano discussed imaging findings and options of cholecystectomy vs antibiotics via sql server developer. Please see attending physicians note. May resume Methadone. (2) Dysuria: Supervising Physician Co-Signing Physician Notes I interviewed and examined this patient I agree with the above note. The pet technologist service was used for the discussion. We had a long discussion about her gallstones. I explained that the fact that the biliary scan did not demonstrate the gallbladder would be indicative of gallbladder disease however her symptom complex is not classically consistent with gallbladder disease. We discussed surgery. I explained the laparoscopic approach and the possible need to convert to an open procedure and we discussed her postoperative recovery. She understands that removing her gallbladder may not relieve her abdominal pain that seems to be present any day that she does not take her methadone in the morning according to her. She does not want surgery at the present time. Her abdomen is not tender. I explained that that would be acceptable for now however this may eventually come to removing her gallbladder and she understands. Subjective still having abdominal pain, mostly above bladder + nausea no vomiting Physical Exam Vital Signs (Past 24 Hours): Last Vital Signs Temp 36.8 C 06/27/18 07:50 Pulse 82 06/27/18 07:50 Resp 16 06/27/18 07:50 BP 94/58 L 06/27/18 07:50 Pulse Ox 99 06/27/18 07:50 Constitutional: WD/WN, vitals as above no acute distress Respiratory: normal respiratory effort; no respiratory distress Gastrointestinal (Abdomen): Inspection/Auscultation: abdomen normal to inspection; abdomen not distended Percussion/Palpation: + abdomen tender (suprapubic) and abdomen soft; no guarding and abdomen not rigid No RUQ abdominal pain on palpation Skin: no rashes, warm and dry Psychiatric: A+Ox3, euthymic affect Results & Data Laboratory Results 06/27/18 06/27/18 06/27/18 Range/Units 09:42 07:49 07:49 WBC 3.43 L (4.8-10.8) K/uL RBC 4.09 L (4.2-5.4) M/uL Hgb 9.0 L (12.0-16.0) g/dL Hct 29.9 L (37-47) % MCV 73.1 L (80-100) fL MCH 22.0 L (25-34) pg MCHC 30.1 L (32-36) g/dL RDW Std Deviation 47.0 H (36.4-46.3) fL RDW Coeff of Brii 17.4 H (11.5-14.5) % Plt Count 172 (130-400) K/uL MPV 10.1 (7.4-10.4) fL Immature Gran % (Auto) % Neut % (Auto) % Lymph % (Auto) % [place] % (Auto) % Eos % (Auto) % Baso % (Auto) % Immature Gran # (Auto) (0.00-0.02) K/uL Neut # (Auto) (1.4-6.5) K/uL Lymph # (Auto) (1.2-3.4) K/uL [place] # (Auto) (0.11-0.59) K/uL Eos # (Auto) (0-0.5) K/uL Baso # (Auto) (0-0.2) K/uL Sodium 137 (136-145) mmol/L Potassium 4.3 (3.5-5.1) mmol/L Chloride 111 H (98-107) mmol/L Carbon Dioxide 16 L (21-32) mmol/L Anion Gap 10.0 (3-11) BUN 18 (7-18) mg/dl Creatinine 0.71 (0.6-1.2) mg/dl Est Cr Clr Drug Dosing 90.8 ml/min Est GFR ( Amer) 131.5 Est GFR (Non-Af Amer) 113.5 BUN/Creatinine Ratio 25.9 H (10-20) Glucose 46 L* (70-99) mg/dl POC Glucose 175 H (70-99) Calcium 7.3 L (8.5-10.1) mg/dl Total Bilirubin 0.4 (0.2-1) mg/dl Direct Bilirubin 0.1 (0-0.2) mg/dl AST 62 H (15-37) U/L ALT 150 H (12-78) U/L Alkaline Phosphatase 132 H (45-117) U/L Total Protein 6.0 L D (6.4-8.2) gm/dl Albumin 2.9 L (3.4-5.0) gm/dl Globulin 3.1 (2.5-4.0) gm/dl Albumin/Globulin Ratio 1.0 (0.9-2) Lipase (73-393) U/L HCG, Qual (Negative) Urine Color Urine Appearance (Clear) Urine pH (4.5-7.5) Ur Specific [place] (1.000-1.030) Urine Protein (Negative) Urine Glucose (UA) (Negative) Urine Ketones (Negative) Urine Blood (Negative) Urine Nitrite (Negative) Urine Bilirubin (Negative) Urine Urobilinogen (Negative) Ur Leukocyte Esterase (Negative) Urine WBC (Auto) (0-5) /hpf Urine RBC (Auto) (0-4) /hpf U Hyaline Cast (Auto) (0-5) /lpf U Epithel Cells (Auto) (0-5) /lpf Urine Bacteria (Auto) (Negative) Urine Opiates Screen (Neg) Ur Methadone, Qual (Neg) U Methadone Metabolites Ur Methadone Confirm Acetaminophen (10-30) ug/ml Urine Barbiturates (Neg) Ur Phencyclidine (PCP) (Neg) U Amphetamin/Meth Scrn (Neg) MDMA (Ecstasy) Screen (Neg) U Benzodiazepines Scrn (Neg) Ur Cocaine Metabolite (Neg) U Marijuana (THC) Screen (Neg) Hepatitis A IgM Ab Hep Bs Antigen (Neg) Hep B Core IgM Ab Hepatitis C Antibody (Neg) 06/26/18 06/26/18 06/26/18 Range/Units 14:40 14:40 14:30 WBC (4.8-10.8) K/uL RBC (4.2-5.4) M/uL Hgb (12.0-16.0) g/dL Hct (37-47) % MCV (80-100) fL MCH (25-34) pg MCHC (32-36) g/dL RDW Std Deviation (36.4-46.3) fL RDW Coeff of Brii (11.5-14.5) % Plt Count (130-400) K/uL MPV (7.4-10.4) fL Immature Gran % (Auto) % Neut % (Auto) % Lymph % (Auto) % [place] % (Auto) % Eos % (Auto) % Baso % (Auto) % Immature Gran # (Auto) (0.00-0.02) K/uL Neut # (Auto) (1.4-6.5) K/uL Lymph # (Auto) (1.2-3.4) K/uL [place] # (Auto) (0.11-0.59) K/uL Eos # (Auto) (0-0.5) K/uL Baso # (Auto) (0-0.2) K/uL Sodium (136-145) mmol/L Potassium (3.5-5.1) mmol/L Chloride (98-107) mmol/L Carbon Dioxide (21-32) mmol/L Anion Gap (3-11) BUN (7-18) mg/dl Creatinine (0.6-1.2) mg/dl Est Cr Clr Drug Dosing ml/min Est GFR ( Amer) Est GFR (Non-Af Amer) BUN/Creatinine Ratio (10-20) Glucose (70-99) mg/dl POC Glucose (70-99) Calcium (8.5-10.1) mg/dl Total Bilirubin (0.2-1) mg/dl Direct Bilirubin (0-0.2) mg/dl AST (15-37) U/L ALT (12-78) U/L Alkaline Phosphatase (45-117) U/L Total Protein (6.4-8.2) gm/dl Albumin (3.4-5.0) gm/dl Globulin (2.5-4.0) gm/dl Albumin/Globulin Ratio (0.9-2) Lipase (73-393) U/L HCG, Qual (Negative) Urine Color Urine Appearance (Clear) Urine pH (4.5-7.5) Ur Specific [place] (1.000-1.030) Urine Protein (Negative) Urine Glucose (UA) (Negative) Urine Ketones (Negative) Urine Blood (Negative) Urine Nitrite (Negative) Urine Bilirubin (Negative) Urine Urobilinogen (Negative) Ur Leukocyte Esterase (Negative) Urine WBC (Auto) (0-5) /hpf Urine RBC (Auto) (0-4) /hpf U Hyaline Cast (Auto) (0-5) /lpf U Epithel Cells (Auto) (0-5) /lpf Urine Bacteria (Auto) (Negative) Urine Opiates Screen (Neg) Ur Methadone, Qual (Neg) U Methadone Metabolites Ur Methadone Confirm Acetaminophen < 2 L (10-30) ug/ml Urine Barbiturates (Neg) Ur Phencyclidine (PCP) (Neg) U Amphetamin/Meth Scrn (Neg) MDMA (Ecstasy) Screen (Neg) U Benzodiazepines Scrn (Neg) Ur Cocaine Metabolite (Neg) U Marijuana (THC) Screen (Neg) Hepatitis A IgM Ab Pending Hep Bs Antigen Neg (Neg) Hep B Core IgM Ab Pending Hepatitis C Antibody Neg (Neg) 06/26/18 06/26/18 06/26/18 Range/Units 11:44 11:44 11:44 WBC 3.46 L (4.8-10.8) K/uL RBC 4.77 (4.2-5.4) M/uL Hgb 10.8 L (12.0-16.0) g/dL Hct 34.5 L (37-47) % MCV 72.3 L (80-100) fL MCH 22.6 L (25-34) pg MCHC 31.3 L (32-36) g/dL RDW Std Deviation 45.9 (36.4-46.3) fL RDW Coeff of Brii 17.3 H (11.5-14.5) % Plt Count 234 (130-400) K/uL MPV (7.4-10.4) fL Immature Gran % (Auto) 0.0 % Neut % (Auto) 66.1 % Lymph % (Auto) 24.0 % [place] % (Auto) 8.7 % Eos % (Auto) 0.6 % Baso % (Auto) 0.6 % Immature Gran # (Auto) 0.00 (0.00-0.02) K/uL Neut # (Auto) 2.29 (1.4-6.5) K/uL Lymph # (Auto) 0.83 L (1.2-3.4) K/uL [place] # (Auto) 0.30 (0.11-0.59) K/uL Eos # (Auto) 0.02 (0-0.5) K/uL Baso # (Auto) 0.02 (0-0.2) K/uL Sodium 135 L (136-145) mmol/L Potassium 3.9 (3.5-5.1) mmol/L Chloride 107 (98-107) mmol/L Carbon Dioxide 22 (21-32) mmol/L Anion Gap 6.0 (3-11) BUN 13 (7-18) mg/dl Creatinine 0.97 (0.6-1.2) mg/dl Est Cr Clr Drug Dosing 66.5 ml/min Est GFR ( Amer) 90.2 Est GFR (Non-Af Amer) 77.8 BUN/Creatinine Ratio 13.0 (10-20) Glucose 84 (70-99) mg/dl POC Glucose (70-99) Calcium 8.1 L (8.5-10.1) mg/dl Total Bilirubin 0.4 (0.2-1) mg/dl Direct Bilirubin (0-0.2) mg/dl AST 128 H (15-37) U/L ALT 263 H (12-78) U/L Alkaline Phosphatase 189 H (45-117) U/L Total Protein 8.0 (6.4-8.2) gm/dl Albumin 3.8 (3.4-5.0) gm/dl Globulin 4.2 H (2.5-4.0) gm/dl Albumin/Globulin Ratio 0.9 (0.9-2) Lipase 71 L (73-393) U/L HCG, Qual Negative (Negative) Urine Color Urine Appearance (Clear) Urine pH (4.5-7.5) Ur Specific [place] (1.000-1.030) Urine Protein (Negative) Urine Glucose (UA) (Negative) Urine Ketones (Negative) Urine Blood (Negative) Urine Nitrite (Negative) Urine Bilirubin (Negative) Urine Urobilinogen (Negative) Ur Leukocyte Esterase (Negative) Urine WBC (Auto) (0-5) /hpf Urine RBC (Auto) (0-4) /hpf U Hyaline Cast (Auto) (0-5) /lpf U Epithel Cells (Auto) (0-5) /lpf Urine Bacteria (Auto) (Negative) Urine Opiates Screen (Neg) Ur Methadone, Qual (Neg) U Methadone Metabolites Ur Methadone Confirm Acetaminophen (10-30) ug/ml Urine Barbiturates (Neg) Ur Phencyclidine (PCP) (Neg) U Amphetamin/Meth Scrn (Neg) MDMA (Ecstasy) Screen (Neg) U Benzodiazepines Scrn (Neg) Ur Cocaine Metabolite (Neg) U Marijuana (THC) Screen (Neg) Hepatitis A IgM Ab Hep Bs Antigen (Neg) Hep B Core IgM Ab Hepatitis C Antibody (Neg) 06/26/18 06/26/18 06/26/18 Range/Units 11:40 11:40 11:40 WBC (4.8-10.8) K/uL RBC (4.2-5.4) M/uL Hgb (12.0-16.0) g/dL Hct (37-47) % MCV (80-100) fL MCH (25-34) pg MCHC (32-36) g/dL RDW Std Deviation (36.4-46.3) fL RDW Coeff of Brii (11.5-14.5) % Plt Count (130-400) K/uL MPV (7.4-10.4) fL Immature Gran % (Auto) % Neut % (Auto) % Lymph % (Auto) % Adams % (Auto) % Eos % (Auto) % Baso % (Auto) % Immature Gran # (Auto) (0.00-0.02) K/uL Neut # (Auto) (1.4-6.5) K/uL Lymph # (Auto) (1.2-3.4) K/uL [place] # (Auto) (0.11-0.59) K/uL Eos # (Auto) (0-0.5) K/uL Baso # (Auto) (0-0.2) K/uL Sodium (136-145) mmol/L Potassium (3.5-5.1) mmol/L Chloride (98-107) mmol/L Carbon Dioxide (21-32) mmol/L Anion Gap (3-11) BUN (7-18) mg/dl Creatinine (0.6-1.2) mg/dl Est Cr Clr Drug Dosing ml/min Est GFR ( Amer) Est GFR (Non-Af Amer) BUN/Creatinine Ratio (10-20) Glucose (70-99) mg/dl POC Glucose (70-99) Calcium (8.5-10.1) mg/dl Total Bilirubin (0.2-1) mg/dl Direct Bilirubin (0-0.2) mg/dl AST (15-37) U/L ALT (12-78) U/L Alkaline Phosphatase (45-117) U/L Total Protein (6.4-8.2) gm/dl Albumin (3.4-5.0) gm/dl Globulin (2.5-4.0) gm/dl Albumin/Globulin Ratio (0.9-2) Lipase (73-393) U/L HCG, Qual (Negative) Urine Color Dark Yellow Urine Appearance Cloudy H (Clear) Urine pH 5.0 (4.5-7.5) Ur Specific [place] 1.024 (1.000-1.030) Urine Protein Negative (Negative) Urine Glucose (UA) Negative (Negative) Urine Ketones 1+ H (Negative) Urine Blood Negative (Negative) Urine Nitrite Negative (Negative) Urine Bilirubin Negative (Negative) Urine Urobilinogen Negative (Negative) Ur Leukocyte Esterase Negative (Negative) Urine WBC (Auto) 1-5 (0-5) /hpf Urine RBC (Auto) 0-4 (0-4) /hpf U Hyaline Cast (Auto) 5-10 H (0-5) /lpf U Epithel Cells (Auto) >30 H (0-5) /lpf Urine Bacteria (Auto) Negative (Negative) Urine Opiates Screen Neg (Neg) Ur Methadone, Qual Pos H (Neg) U Methadone Metabolites Pending Ur Methadone Confirm Pending Acetaminophen (10-30) ug/ml Urine Barbiturates Neg (Neg) Ur Phencyclidine (PCP) Neg (Neg) U Amphetamin/Meth Scrn Neg (Neg) MDMA (Ecstasy) Screen Neg (Neg) U Benzodiazepines Scrn Neg (Neg) Ur Cocaine Metabolite Neg (Neg) U Marijuana (THC) Screen Neg (Neg) Hepatitis A IgM Ab Hep Bs Antigen (Neg) Hep B Core IgM Ab Hepatitis C Antibody (Neg)
[2018-06-27] MEDS: cefTRIAXone SODIUM 1,000 MG in DEXTROSE 5% 50 ML IV SCH (11:33)
--- NOTE | 2018-06-27 11:42 | CT Scan Report ---
ABDOMEN AND PELVIS CT WITH IV CONTRAST CT DOSE: 292.45 mGy.cm HISTORY: Acute severe generalized abdominal pain with dysuria severe worsening abd pain, +dysuria TECHNIQUE: Multiaxial CT images of the abdomen and pelvis were performed following the use of intrave nous contrast. A dose lowering technique was utilized adhering to the principles of ALARA. COMPARISON STUDY: Right upper quadrant abdominal ultrasound 06/26/2018, CT abdomen and pelvis 7. FINDINGS: Study is moderately motion degraded. Surgical suture material about the inferomedial right lung base is partially imaged. The lung bases otherwise appear clear. There is no pneumatosis or pneumoperitone um. The imaged inferior cardiac chambers appear unremarkable. Cholelithiasis better appreciated on comparison ultrasound. Mild gallbladder distention without wall thickening or pericholecystic fluid identified. Mild intrahepatic biliary ductal dilation. Additional ly, there is mild dilation of the common bile duct which measures 7 mm transversely. No definite chol edocholithiasis identified. Liver otherwise appears unremarkable. Spleen is mildly enlarged, 14.7 cm. The visualized pancreas and adrenal glands are unremarkable. The kidneys and ureters are within norm al limits. Moderate urinary bladder distention measures up to 10.2 cm in greatest dimension. Uterus a nd left adnexum are unremarkable. Peripherally enhancing cystic structure about the right adnexum, 1. 6 x 1.2 cm suggests involuting follicle. No aortic aneurysm. IVC is unremarkable. No adenopathy. There is no small bowel obstruction. There ar e multiple nondilated fluid-filled loops of small bowel throughout the abdomen show likely physiologi c. Moderate circumferential rectal wall thickening is redemonstrated and appears similar to slightly improved from comparison study. Minimal perirectal inflammation. Moderate to extensive formed stool i s noted throughout the colon suggestive of constipation. Liquid stool also noted about the cecum and ascending colon. The visualized appendix appears unremarkable. Trace free fluid about the pelvis. The breast parenchyma and soft tissues appear unremarkable. The bones appear to be intact. IMPRESSION: 1. Moderately motion degraded exam. 2. Constipation with liquid stool noted about the cecum and ascending colon. 3. Multiple fluid-filled nondilated loops of small bowel may be physiologic or reflect a mild enterit is or ileus. 4. Mildly distended gallbladder with cholelithiasis. Additionally, there is mild intrahepatic and ext rahepatic biliary ductal dilation without definite choledocholithiasis identified. Correlate with LFT s. 5. Moderate urinary bladder distention. 6. Mild nonspecific trace fluid about the inferior bilateral pericolic gutters. 7. Moderate circumferential wall thickening, similar to slightly improved from comparison study dated 11/08/2016. Electronically signed by: Rosas Del Toro M.D. 06/27/2018 11:41 AM
--- NOTE | 2018-06-27 14:22 | Nuclear Medicine Report ---
NM hepatobiliary wo pharm CLINICAL HISTORY: 32 years-old Female with acute generalized abdominal Pain, Elevated LFTs. Cholelit hiasis. TECHNIQUE: Sequential anterior abdominal images were obtained through 60 minutes following the intra venous administration of 5.6 mCi of technetium-99m Choletec. A lateral image was also obtained. COMPARISON: CT abdomen and pelvis of same day, right upper quadrant ultrasound 06/26/2018 FINDINGS: There is prompt, uniform accumulation of the tracer by the liver. There is normal filling of the int rahepatic ducts, common bile duct and normal excretion of the tracer into the duodenum. The gallblad martin does not fill. IMPRESSION: Nonvisualization of the gallbladder suggestive of cystic duct obstruction. This finding is concerning for acute cholecystitis in the appropriate clinical setting. The above report was generated using voice recognition software. It may contain grammatical, syntax o r spelling errors. Electronically signed by: Rosas Del Toro M.D. 06/27/2018 2:21 PM
[2018-06-27] MEDS: KETOROLAC 30 MG/ML VIAL IV PRN ×2 (17:23→23:51)
[2018-06-27] MEDS: HYDROmorphone INJ 0.5 MG/0.5 ML SYR IV PRN (19:59)
[2018-06-28] MEDS: HYDROmorphone INJ 0.5 MG/0.5 ML SYR IV PRN ×3 (04:15→13:51)
[2018-06-28] MEDS: D5W AND NSS 1,000 ML IV SCH (06:14)
[2018-06-28 07:15] LABS: Basophils # (auto) 0.01 K/uL (0-0.2); Basophils % (auto) 0.2 %; Eosinophils # (auto) 0.12 K/uL (0-0.5); Eosinophils % (auto) 2.9 %; Hematocrit (blood only) 28.2 % (37-47); Hemoglobin 8.8 g/dL (12.0-16.0); Immature Granulocytes # (auto) 0.01 K/uL (0.00-0.02); Immature Granulocytes % (auto) 0.2 %; Lymphocytes # (auto) 1.71 K/uL (1.2-3.4); Lymphocytes % (auto) 40.7 %; Mean Corpuscular Hgb Conc 31.2 g/dL (32-36); Mean Corpuscular Volume 71.4 fL (80-100); Mean Platelet Volume 10.1 fL (7.4-10.4); Monocytes # (auto) 0.46 K/uL (0.11-0.59); Neutrophils # (auto) 1.89 K/uL (1.4-6.5); Platelet Count 195 K/uL (130-400); RDW Coefficient of Variation 17.4 % (11.5-14.5); RDW Standard Deviation 45.7 fL (36.4-46.3); Red Blood Count 3.95 M/uL (4.2-5.4)
[2018-06-28 07:52] LABS: Albumin Globulin Ratio 0.9 (0.9-2); Albumin Level 2.7 gm/dl (3.4-5.0); BUN Creatinine Ratio 11.1 (10-20); Bilirubin,Total 0.3 mg/dl (0.2-1); Calcium 7.2 mg/dl (8.5-10.1); Creatinine Clr Calc Pharmacy 97.7 ml/min; Est GFR (African American) 136.4; Est GFR (Non-African American) 117.7; Magnesium 2.1 mg/dl (1.8-2.4); Potassium 4.1 mmol/L (3.5-5.1); Total Protein 5.7 gm/dl (6.4-8.2)
[2018-06-28 08:30] LABS: Ovalocytes 1+; Poikilocytosis Present
[2018-06-28] MEDS: METHADONE ORAL SOLN 2 MG/ML PO SCH (08:44)
[2018-06-28] MEDS: PATIENT'S OWN CONTROLLED MED PO SCH (08:44)
[2018-06-28] MEDS: cefTRIAXone SODIUM 1,000 MG in DEXTROSE 5% 50 ML IV SCH (10:34)
[2018-06-28] MEDS: KETOROLAC 30 MG/ML VIAL IV PRN ×2 (10:39→16:29)
--- NOTE | 2018-06-28 10:41 | Surgery Progress Note ---
Date of Service June 28, 2018 Assessment & Plan (1) Abdominal pain: - Suprapubic pain and distended bladder on CT scan yesterday which has now resolved after voiding 800 cc - vitals stable, afebrile - no leukocytosis - improvement of LFTS T. bili- 0.4 --> 0.4 --> 0.3 AST- 108 --> 62 --> 32 ALT- 263 --> 150 --> 111 Alk phos- 189 --> 132 --> 114 Long discussion with patient yesterday (via ham stringer) and she does not want to have surgery. She is having no RUQ abdominal pain and LFTs improved. T. bili wnl. No plans on surgical intervention at this time. Would continue IV Abx for treatment of UTI which will cover for cholecystitis. Will advance to full liquid diet today. Continue current medical management OOB to chair and ambulate Should start bowel regimen given constipation seen on imaging Dr. Galeano has seen and examined pt, agrees with above. Supervising Physician Co-Signing Physician Notes I interviewed and examined this patient and agree with the above note She has much less pain today There is no tenderness I doubt acute cholecystitis at the present time Can begin diet with full liquids today Subjective abdominal pain is better methadone helped no nausea Hungry Physical Exam Vital Signs (Past 24 Hours): Last Vital Signs Temp 36.7 C 06/28/18 06:54 Pulse 66 06/28/18 06:54 Resp 17 06/28/18 06:54 BP 95/57 L 06/28/18 06:54 Pulse Ox 99 06/28/18 06:54 Constitutional: WD/WN, vitals as above no acute distress and not ill appearing Respiratory: normal respiratory effort; no respiratory distress Gastrointestinal (Abdomen): Inspection/Auscultation: abdomen not distended Percussion/Palpation: abdomen soft; abdomen nontender, no guarding and abdomen not rigid no tenderness in the RUQ on deep palpation Skin: no rashes, warm and dry no jaundice Psychiatric: A+Ox3, euthymic affect Results & Data Laboratory Results 06/28/18 06/28/18 06/28/18 Range/Units 08:02 06:42 06:42 WBC 4.20 L (4.8-10.8) K/uL RBC 3.95 L (4.2-5.4) M/uL Hgb 8.8 L (12.0-16.0) g/dL Hct 28.2 L (37-47) % MCV 71.4 L (80-100) fL MCH 22.3 L (25-34) pg MCHC 31.2 L (32-36) g/dL RDW Std Deviation 45.7 (36.4-46.3) fL RDW Coeff of Brii 17.4 H (11.5-14.5) % Plt Count 195 (130-400) K/uL MPV 10.1 (7.4-10.4) fL Immature Gran % (Auto) 0.2 % Neut % (Auto) 45.0 % Lymph % (Auto) 40.7 % [place] % (Auto) 11.0 % Eos % (Auto) 2.9 % Baso % (Auto) 0.2 % Immature Gran # (Auto) 0.01 (0.00-0.02) K/uL Neut # (Auto) 1.89 (1.4-6.5) K/uL Lymph # (Auto) 1.71 (1.2-3.4) K/uL [place] # (Auto) 0.46 (0.11-0.59) K/uL Eos # (Auto) 0.12 (0-0.5) K/uL Baso # (Auto) 0.01 (0-0.2) K/uL Sodium 140 (136-145) mmol/L Potassium 4.1 (3.5-5.1) mmol/L Chloride 114 H (98-107) mmol/L Carbon Dioxide 23 (21-32) mmol/L Anion Gap 3.0 (3-11) BUN 7 D (7-18) mg/dl Creatinine 0.66 (0.6-1.2) mg/dl Est Cr Clr Drug Dosing 97.7 ml/min Est GFR ( Amer) 136.4 Est GFR (Non-Af Amer) 117.7 BUN/Creatinine Ratio 11.1 (10-20) Glucose 92 (70-99) mg/dl POC Glucose 87 (70-99) Calcium 7.2 L (8.5-10.1) mg/dl Phosphorus 2.0 L (2.5-4.9) mg/dl Magnesium 2.1 (1.8-2.4) mg/dl Total Bilirubin 0.3 (0.2-1) mg/dl Direct Bilirubin (0-0.2) mg/dl AST 32 (15-37) U/L ALT 111 H (12-78) U/L Alkaline Phosphatase 114 (45-117) U/L Total Protein 5.7 L (6.4-8.2) gm/dl Albumin 2.7 L (3.4-5.0) gm/dl Globulin 3.0 (2.5-4.0) gm/dl Albumin/Globulin Ratio 0.9 (0.9-2) Hepatitis A IgM Ab (NON-REACTIVE) Hep B Core IgM Ab (NON-REACTIVE) 06/27/18 06/27/18 06/27/18 Range/Units 18:17 11:56 09:42 WBC (4.8-10.8) K/uL RBC (4.2-5.4) M/uL Hgb (12.0-16.0) g/dL Hct (37-47) % MCV (80-100) fL MCH (25-34) pg MCHC (32-36) g/dL RDW Std Deviation (36.4-46.3) fL RDW Coeff of Brii (11.5-14.5) % Plt Count (130-400) K/uL MPV (7.4-10.4) fL Immature Gran % (Auto) % Neut % (Auto) % Lymph % (Auto) % [place] % (Auto) % Eos % (Auto) % Baso % (Auto) % Immature Gran # (Auto) (0.00-0.02) K/uL Neut # (Auto) (1.4-6.5) K/uL Lymph # (Auto) (1.2-3.4) K/uL [place] # (Auto) (0.11-0.59) K/uL Eos # (Auto) (0-0.5) K/uL Baso # (Auto) (0-0.2) K/uL Sodium (136-145) mmol/L Potassium (3.5-5.1) mmol/L Chloride (98-107) mmol/L Carbon Dioxide (21-32) mmol/L Anion Gap (3-11) BUN (7-18) mg/dl Creatinine (0.6-1.2) mg/dl Est Cr Clr Drug Dosing ml/min Est GFR ( Amer) Est GFR (Non-Af Amer) BUN/Creatinine Ratio (10-20) Glucose (70-99) mg/dl POC Glucose 97 87 175 H (70-99) Calcium (8.5-10.1) mg/dl Phosphorus (2.5-4.9) mg/dl Magnesium (1.8-2.4) mg/dl Total Bilirubin (0.2-1) mg/dl Direct Bilirubin (0-0.2) mg/dl AST (15-37) U/L ALT (12-78) U/L Alkaline Phosphatase (45-117) U/L Total Protein (6.4-8.2) gm/dl Albumin (3.4-5.0) gm/dl Globulin (2.5-4.0) gm/dl Albumin/Globulin Ratio (0.9-2) Hepatitis A IgM Ab (NON-REACTIVE) Hep B Core IgM Ab (NON-REACTIVE) 06/27/18 06/26/18 Range/Units 07:49 14:40 WBC (4.8-10.8) K/uL RBC (4.2-5.4) M/uL Hgb (12.0-16.0) g/dL Hct (37-47) % MCV (80-100) fL MCH (25-34) pg MCHC (32-36) g/dL RDW Std Deviation (36.4-46.3) fL RDW Coeff of Brii (11.5-14.5) % Plt Count (130-400) K/uL MPV (7.4-10.4) fL Immature Gran % (Auto) % Neut % (Auto) % Lymph % (Auto) % [place] % (Auto) % Eos % (Auto) % Baso % (Auto) % Immature Gran # (Auto) (0.00-0.02) K/uL Neut # (Auto) (1.4-6.5) K/uL Lymph # (Auto) (1.2-3.4) K/uL [place] # (Auto) (0.11-0.59) K/uL Eos # (Auto) (0-0.5) K/uL Baso # (Auto) (0-0.2) K/uL Sodium 137 (136-145) mmol/L Potassium 4.3 (3.5-5.1) mmol/L Chloride 111 H (98-107) mmol/L Carbon Dioxide 16 L (21-32) mmol/L Anion Gap 10.0 (3-11) BUN 18 (7-18) mg/dl Creatinine 0.71 (0.6-1.2) mg/dl Est Cr Clr Drug Dosing 90.8 ml/min Est GFR ( Amer) 131.5 Est GFR (Non-Af Amer) 113.5 BUN/Creatinine Ratio 25.9 H (10-20) Glucose 46 L* (70-99) mg/dl POC Glucose (70-99) Calcium 7.3 L (8.5-10.1) mg/dl Phosphorus (2.5-4.9) mg/dl Magnesium (1.8-2.4) mg/dl Total Bilirubin 0.4 (0.2-1) mg/dl Direct Bilirubin 0.1 (0-0.2) mg/dl AST 62 H (15-37) U/L ALT 150 H (12-78) U/L Alkaline Phosphatase 132 H (45-117) U/L Total Protein 6.0 L D (6.4-8.2) gm/dl Albumin 2.9 L (3.4-5.0) gm/dl Globulin 3.1 (2.5-4.0) gm/dl Albumin/Globulin Ratio 1.0 (0.9-2) Hepatitis A IgM Ab NON-REACTIVE (NON-REACTIVE) Hep B Core IgM Ab NON-REACTIVE (NON-REACTIVE)
[2018-06-28] MEDS ORDERED: BISACODYL 10 MG SUPP PR PRN (12:48)
[2018-06-28] MEDS ORDERED: POLYETHYLENE (MIRALAX) 17 GM PACK ONE (12:56)
[2018-06-28] MEDS ORDERED: POLYETHYLENE (MIRALAX) 17 GM PACK PO SCH (13:00)
[2018-06-28] MEDS: ONDANSETRON INJ 2 MG/ML 2 ML VIAL IV PRN (13:48)
[2018-06-28 14:38] LABS: Methadone, Ur Metabolite 25900 NG/ML (CUTOFF=100)
--- NOTE | 2018-06-28 18:27 | Discharge Summary ---
Date of Service June 28, 2018 Admission HPI Per Admitting Provider Pt is 32 y/o F with PMH Hodgkin's Lymphoma s/p surgery and chemo, last chemo 2014 currently reported in remission, hx chronic pain on methadone, chronic anemia presented to ER with c/o abdominal pain x 3 days. Pt states 3 nights ago started with mid and lower abdominal pain. 2 days ago with nausea and vomited 3 times which has since resolved. Had tactile fever 2 days ago. No BM for 2 days. Reports hx chronic constipation. Thought her initial abdominal pain might be secondary to constipation. She reports hx dysuria, urinary frequency and urgency that started a couple of weeks ago and was seen at [facility] and dx with UTI and placed on bactrim x 5 days. Pt states took 4.5 days of the medication. Still reports some dysuria. Took 2 ibuprofen two days ago. Denies Tylenol use, ETOH use. Denies diaphoresis, hematemesis, melena, hematochezia, ENNIS, dizziness, syncope, vision changes, neck pain, CP, SOB, orthopnea, palpitations, cough, sore throat, choking, otalgia, rhinorrhea, paresthesias, weakness, extremity weakness, extremity edema, rashes, hematuria, vaginal discharge. Denies multiple sexual partners. Admission Exam Per Admitting Provider Temp 37 C 06/26/18 11:00 Pulse 70 06/26/18 17:12 Resp 18 06/26/18 17:12 BP 92/52 L 06/26/18 17:12 Pulse Ox 99 06/26/18 17:12 Physical Exam: General: no distress, WDWN Head: normocephalic, atraumatic Eyes: PERRL, EOM's intact, conjunctiva non-injected, anicteric ENT: normal inspection external ears, nose, mucous membranes mildly dry Neck: supple, trachea midline, non-tender Lungs: clear, no respiratory distress CV: RRR, no murmur Abd: normal BS, soft, +tender to palpation periumbilical and suprapubic, no RUQ, RLL, LLQ tenderness to palpation, no CVA tenderness to percussion Ext: no cyanosis, no calf tenderness Neuro: A&O x 3, no focal deficits noted, normal affect Skin: warm, dry Principal Diagnosis Elevated tranaminases 2/2 Bactrim use Abdominal pain 2/2 opioid-induced constipation with ileus-resolved Chronic pain on long-term narcotics Dysuria and urinary retention 2/2 persistent acute cystitis Discharge Data Allergies Allergy/AdvReac Type Severity Reaction Status Date / Time No Known Allergies Allergy Unverified 06/26/18 11:15 Consultations 06/26/18 17:29 ED Decision to Admit Stat 06/26/18 20:18 Consult Case Management - Discharge Planning Routine Consult General Surgery Routine Ordered Studies 06/26/18 14:20 US gallbladder Stat 06/27/18 10:19 CT abd pelvis IV con only Stat Hospital Course (1) Dysuria: (2) Abdominal pain: (3) Cholelithiasis: (4) Abnormal LFTs: (5) Hodgkin lymphoma: (6) Chronic pain: (7) Chronic anemia: 32-year-old female presented to the emergency department for evaluation of abdominal pain associated with nausea and vomiting for the past 3 days. She is was notably on methadone for history of opioid dependence after a cancer diagnosis which is in remission. She had been on methadone for 6 years. She was afebrile and hemodynamically stable oxygenating on room air on arrival to the ER. She was hydrated with normal saline and given Zofran and Toradol 30 mg IV. Labs revealed anemia with an H&H of 10.8 and 34.5. Platelet count was normal. Electrolytes were unremarkable. Renal function was normal. Total bilirubin was not elevated but she had an elevated of her elevation of her AST and ALT. Lipase was not elevated. Serum hCG was negative. Urinalysis noted 1+ ketones but otherwise was clear. Urine tox screen was positive for methadone. Acute abdominal series noted no acute process in the chest and a nonobstructive bowel gas pattern without pneumoperitoneum. Extensive formed stool throughout the colon was present compatible with constipation. She was then given Bentyl 20 mg IM for ongoing abdominal pain. Acetaminophen level was drawn secondary to elevated transaminases and was in within normal limits. Hepatitis panel was drawn and negative. Ultrasound of the right upper quadrant noted cholelithiasis and questionable trace pericholecystic fluid. There was no definitive sonographic evidence for acute cholecystitis and no gallbladder wall thickening. There was no ductal dilation. General surgery was consulted and recommended a HIDA scan to further evaluate patient's symptoms. She was admitted to the hospitalist service. Repeat LFTs the following morning had decreased and were thought secondary to recent Bactrim use for recent UTI. She reported persistent dysuria and was continued on Rocephin empirically pending urine culture results. She had persistent pain the following morning and her methadone had been held awaiting the HIDA scan. She was given Toradol for pain.The HIDA scan revealed nonvisualization of the gallbladder suggestive of cystic duct obstruction. I discussed the case with Dr. Galeano from general surgery who felt this was not consistent with acute cholecystitis. That same day she underwent a CT of the abdomen pelvis to better elucidate the origin of her pain. This revealed constipation present with stool up in the ascending colon and multiple fluid- filled nondilated loops of small bowel which may reflect mild enteritis versus ileus. A mildly distended gallbladder with cholelithiasis was noted. Additionally there was mild intrahepatic and extrahepatic biliary ductal dilation without definite choledocholithiasis identified. There was moderate urinary bladder distention. There was moderate circumferential rectal wall thickening that appeared slightly improved from a comparison study in 2017. A bladder scan was performed and she was found to be retaining approximately 800 cc of urine but was able to void spontaneously resulting in resolution of her suprapubic discomfort. Her residual generalized abdominal pain was thought secondary to possible ileus related to opioid induced versus opioid induced constipation with long-term methadone use. Dr. Galenao felt this was not likely related to the gallbladder as her bilirubin was not elevated. She was started on a liquid diet and eventually transition to solids without issue. A bladder scan was continued and she was continuing to somewhat retain urine but was able to void spontaneously with minimal residual. The following day she improved clinically and her pain was improved after moving her bowels. She was felt stable for discharge and was set up for follow-up with primary care. Ultimately her urine culture revealed lactobacillus greater than 100,000 colony- forming units and she was sent home on ciprofloxacin. All discussions during hospitalization occurred with a Beninese-speaking grants officer via video screen. Total Time Total Time Spent Total Time Spent (In Minutes): 60 Total Time Includes: Examination of the Patient, Discharge Planning, Medication Reconciliation, Communication With Other Providers and Other (set up followup) Discharge Plan Discharge Items Patient Disposition: Home - Self-Care Reason For Visit: TRANSAMINITIS Discharge Diagnosis: Elevated tranaminases 2/2 Bactrim use Abdominal pain 2/2 opioid-induced constipation with ileus-resolved Chronic pain on long-term narcotics Dysuria and urinary retention 2/2 persistent acute cystitis Condition: Good Discharge Goals: Improve disease control Activity: Resume your previous activity Non-emergency contact: Primary Care Provider Call non-emergency contact if: you have any medication questions, your symptoms worsen, your pain is not controlled and you have a fever Follow-up/Referrals: [facility] [Primary Care Provider] - Dylan Paiz [Physician] - Diet: Low Fat Addtl Provider Instructions: It appears your abdominal pain was caused by severe constipation in the setting of chronic opioid use. Additionally, your difficulty urinating, recent fever, flank pain and dysuria may be caused from a persistent urinary tract infection. Please take all medications as instructed on discharge list below. You will need to try to regulate your bowel movements so that you go once daily. You can use OTC Miralax (laxative) to help you move your bowels. Please seek medical attention if your pain returns or if you experience a fever, worsening flank pain, or a return of your dysuria (painful urination). You have the following appointment: Date & Time 07/04/2018 11:00 AM Provider Dylan Paiz III, MD Department Family Practice [facility] It was a pleasure taking care of you! Please call if you have any questions or problems. You can reach a [facility] hospitalist on duty at [facility] 24 hours a day by calling [phone]. Take care of yourself. Sonia Villalobos, DO [facility] Hospitalist Prescriptions: New ibuprofen 600 mg tablet 600 mg PO Q8H PRN (Reason: pain) Qty: 30 RF: 0 ciprofloxacin HCl [Cipro] 500 mg tablet 500 mg PO BID Qty: 14 RF: 0 Continued methadone [Methadone Intensol] 10 mg/mL Concentrate 56 mg PO DAILY RF: 0 Stand-Alone Forms: My [facility] Discharge Orders: Discharge Order (Routine); Ordered 06/28/18 Ordered By: Sonia Villalobos Admission Data Admit Date/Time: 06/26/18 19:01 Attending Provider: Sonia Villalobos Admit Provider: Dylan Ramires [facility] Other Providers: Laly Mota ; Dylan Ramires Service: Surgical Services Other Interventions: Discharge Summary Assessment (RN) Last Done: 06/28/18 18:34 DC Date/Time DO NOT enter until pt leaves facility: 06/28/18 19:34
== END 2018-06-28 19:34 | disposition home or self-care (01) ==
LOC: 3N 10:29 → ED 10:29 → 3N 19:58

== ENCOUNTER 2018-10-28 02:24 | Inpatient (IN) ==
[2018-10-28] MEDS ORDERED: GI COCKTAIL ED USE PO ONE (02:41)
[2018-10-28] MEDS ORDERED: KETOROLAC 30 MG/ML VIAL IV STA (02:41)
[2018-10-28] MEDS ORDERED: DiphenhydrAMINE HCL 50 MG/ML VIAL IV STA (02:41)
[2018-10-28] MEDS ORDERED: PROCHLORPERAZINE 2 ML IV ONE (02:41)
[2018-10-28] MEDS ORDERED: SODIUM CHLORIDE 0.9% 1000ML 1,000 ML IV SCH (02:45)
[2018-10-28 03:07] LABS: Basophils # (auto) 0.01 K/uL (0-0.2); Basophils % (auto) 0.2 %; Eosinophils # (auto) 0.13 K/uL (0-0.5); Eosinophils % (auto) 2.3 %; Hematocrit (blood only) 35.2 % (37-47); Hemoglobin 11.4 g/dL (12.0-16.0); Immature Granulocytes # (auto) 0.01 K/uL (0.00-0.02); Immature Granulocytes % (auto) 0.2 %; Lymphocytes # (auto) 2.45 K/uL (1.2-3.4); Lymphocytes % (auto) 43.1 %; Mean Corpuscular Hgb Conc 32.4 g/dL (32-36); Mean Corpuscular Volume 73.9 fL (80-100); Mean Platelet Volume 10.3 fL (7.4-10.4); Monocytes # (auto) 0.36 K/uL (0.11-0.59); Monocytes % (auto) 6.3 %; Neutrophils # (auto) 2.73 K/uL (1.4-6.5); Neutrophils % (auto) 47.9 %; Platelet Count 242 K/uL (130-400); RDW Standard Deviation 45.8 fL (36.4-46.3); Red Blood Count 4.76 M/uL (4.2-5.4); White Blood Count 5.69 K/uL (4.8-10.8)
[2018-10-28 03:25] LABS: Alanine Aminotransferase 235 U/L (12-78); Albumin Level 3.9 gm/dl (3.4-5.0); Aspartate Aminotransferase 424 U/L (15-37); BUN Creatinine Ratio 12.6 (10-20); Blood Urea Nitrogen 11 mg/dl (7-18); Calcium 8.9 mg/dl (8.5-10.1); Carbon Dioxide 23 mmol/L (21-32); Chloride 109 mmol/L (98-107); Creatinine Clr Calc Pharmacy 80.8 ml/min; Est GFR (African American) 98.1; Est GFR (Non-African American) 84.6; Glucose 113 mg/dl (70-99); Potassium 3.6 mmol/L (3.5-5.1); Sodium 139 mmol/L (136-145)
[2018-10-28 03:36] LABS: Alkaline Phosphatase 125 U/L (45-117); Bilirubin,Total 1.1 mg/dl (0.2-1); Globulin 3.9 gm/dl (2.5-4.0); Total Protein 7.8 gm/dl (6.4-8.2); Troponin I < 0.015 ng/ml (0-0.045)
[2018-10-28 03:49] LABS: T4 Free Thyroxine 1.01 ng/dl (0.8-1.6)
[2018-10-28 04:17] LABS: Appearance Urine Cloudy (Clear); Bacteria Urine Automated 1+ (Negative); Bilirubin Urine Negative (Negative); Blood Urine 3+ (Negative); Cast Urine Automated 0 /lpf (0-5); Color Urine Yellow; Epithelial Cell Urine Auto >30 /lpf (0-5); Glucose Urine UA Negative (Negative); Ketones Urine Negative (Negative); Leukocyte Esterase Urine Trace (Negative); Nitrite Urine Negative (Negative); Protein Urine Negative (Negative); Specific Gravity Urine 1.011 (1.000-1.030); Urobilinogen Urine Negative (Negative); pH Urine 8.5 (4.5-7.5)
[2018-10-28 04:38] LABS: Amphetamines+Metham, Urine Neg (Neg); Barbiturates, Urine Neg (Neg); Benzodiazepine, Urine Neg (Neg); Cocaine, Urine Neg (Neg); MDMA (Ecstacy), Urine Neg (Neg); Methadone, Urine Pos (Neg); Opiate, Urine Neg (Neg); Phencyclidine, Urine Neg (Neg)
[2018-10-28] MEDS ORDERED: DICYCLOMINE HCL 10 MG/ML 2 ML AMP/VIAL IM ONE (04:41)
--- NOTE | 2018-10-28 07:27 | Ultrasound Report ---
ULTRASOUND RIGHT UPPER QUADRANT ABDOMEN CLINICAL HISTORY: Right upper quadrant abdominal pain. Elevated hepatic transaminases. COMPARISON STUDY: Abdominal CT and nuclear hepatobiliary scan dated 06/27/2018. Abdominal ultrasound d ated 06/26/2018. TECHNIQUE: Real-time, grayscale, and color flow sonography of the right upper quadrant of the abdomen was performed. Images are reviewed in the transverse and longitudinal planes. FINDINGS: Liver: The liver is normal in size and slightly heterogeneous in echotexture. There is no intrahepati c biliary ductal dilatation. The main portal vein is patent. Gallbladder: The gallbladder is distended and filled with shadowing gallstones. The gallbladder wall is top normal in thickness measuring up to 3 mm. No pericholecystic fluid is seen. A sonographic Murp hy's sign could not be assessed. The common bile duct measures up to 0.5 cm in diameter. Pancreas: Visualized portions of the pancreatic head and body are normal in appearance. The splenic v ein is patent. Right kidney: Survey images of the right kidney demonstrate normal size and echotexture. There is no hydronephrosis. Ascites: None. IMPRESSION: 1. The gallbladder is distended and filled with shadowing gallstones, and the gallbladder wall is top normal in thickness measuring up to 3 mm. A sonographic Steinberg's sign could not be assessed. Finding s are equivocal, and acute versus chronic cholecystitis is not excluded. Surgical consultation is adv ised. A nuclear hepatobiliary scan on 06/27/2018 indicated cystic duct obstruction. A repeat hepatobil iary scan could be considered for reassessment. 2. There is no intra or extrahepatic biliary ductal dilatation identified. 3. Hepatic echotexture is slightly heterogeneous. Electronically signed by: Jose Leonardo M.D. 10/28/2018 7:26 AM
--- NOTE | 2018-10-28 07:34 | XRay Report ---
KUB CLINICAL HISTORY: Epigastric abdominal pain. FINDINGS: 2 AP supine abdominal radiographs are correlated with abdominal CT dated 06/27/2018. There i s a nonobstructed abdominal bowel gas pattern noting moderate colonic fecal retention. No evidence of intraperitoneal free air is seen on these supine images. Calcified gallstones are seen in the right upper quadrant. Postoperative change is noted at the right lung base. The bony structures appear inta ct. IMPRESSION: 1. Nonobstructed bowel gas pattern noting moderate constipation. 2. Cholelithiasis is noted in the right upper quadrant. Electronically signed by: Jose Leonardo M.D. 10/28/2018 7:33 AM
[2018-10-28] MEDS ORDERED: ACETAMINOPHEN 1,000 MG/100 ML VIAL IV STA (07:44)
--- NOTE | 2018-10-28 07:54 | Emergency Department Note ---
History of Present Illness General Chief complaint: Abdominal Pain Stated complaint: ABD PAIN Time Seen by Provider: 10/28/18 02:29 History of Present Illness Maximum Pain Intensity: 10 This is a 33-year-old female presenting to the emergency department with complaint of 10/10 abdominal pain. The patient states her pain has worsened over the past few hours, prompting her presentation. She does have a history of chronic abdominal pain and known cholelithiasis. The patient is on daily methadone. She is nauseated with vomiting. She does not report fever or chills. No chest pain, chest tightness, or shortness of breath. She denies chance of . The patient has been seen previously with similar complaints, and has not yet followed with a general surgeon for the choleli thiasis. Home Medications Home Medications Medication Instructions Recorded Confirmed Type methadone [Methadone Intensol] 61 mg PO DAILY 06/26/18 10/28/18 History Allergies Allergy/AdvReac Type Severity Reaction Status Date / Time No Known Allergies Allergy Unverified 10/28/18 03:16 Past Med/Surg History Medical History Chronic pain (Chronic) Hodgkin lymphoma (Chronic) Chronic abdominal pain (Chronic) Opiate dependence (Chronic) Surgical History History of (Resolved) S/P partial lobectomy of lung (Resolved) S/P thoracotomy (Resolved) Social History Preferred Language: Albanian Communication Ability: Effective Communication Tools: IPad Beliefs That Will Affect Care: None Current Living Situation: Spouse Feels Safe at Home: Yes Smoking Status: Never smoker Second Hand Exposure: No Hx Alcohol Use: No Hx Substance Use: No Review of Systems A total of 10 systems reviewed and were otherwise negative Physical Exam Vital Signs Vital Signs - 24 hr 10/28/18 02:26 10/28/18 04:07 10/28/18 04:47 Temperature 36.7 C Temperature Source Oral Sepsis Recent Fever Within 48 Hours No Sepsis Action Taken by Nursing No Action Required Pulse Rate 83 Pulse Rate [Left Finger] 70 67 Pulse Rhythm Pulse Rhythm [Left Finger] Regular Pulse Strength [Left Finger] Normal Respiratory Rate 16 18 16 Respiratory Effort / Characteristics Non-Labored Spontaneous Non-Labored Respiratory Depth Normal Normal Respiratory Pattern Regular Blood Pressure 119/62 Blood Pressure [Right Arm] 121/67 114/78 Blood Pressure Mean 81 Blood Pressure Mean [Right Arm] 85 90 Blood Pressure Position [Right Arm] Lying Lying Pulse Oximetry 100 99 100 Oxygen Delivery Method Room Air Room Air Room Air 10/28/18 04:50 10/28/18 06:13 Temperature Temperature Source Sepsis Recent Fever Within 48 Hours Sepsis Action Taken by Nursing Pulse Rate 69 Pulse Rate [Left Finger] 69 Pulse Rhythm Regular Pulse Rhythm [Left Finger] Regular Pulse Strength [Left Finger] Normal Respiratory Rate 16 16 Respiratory Effort / Characteristics Non-Labored Respiratory Depth Normal Respiratory Pattern Regular Blood Pressure Blood Pressure [Right Arm] 107/72 Blood Pressure Mean Blood Pressure Mean [Right Arm] 83 Blood Pressure Position [Right Arm] Lying Pulse Oximetry 100 99 Oxygen Delivery Method Room Air Room Air VITALS: Vitals are noted on the nurse's note and reviewed by myself. Vital signs stable. GENERAL: Well-developed, well-nourished, female who is minimally cooperative. She is screaming and yelling out in pain. She is rocking back and forth in the bed making the exam and interview difficult. HEAD: Normocephalic atraumatic. MOUTH: Mucous membranes moist. Tonsils are not enlarged. Pharynx without erythema, blood, or exudate. Uvula midline. Airway patent. NECK: Supple without nuchal rigidity. No lymphadenopathy. No thyromegaly. Cervical spine is nontender. HEART: Regular rate and rhythm without murmurs gallops or rubs. LUNGS: Clear to auscultation bilaterally without wheezes, rales or rhonchi. No retractions or accessory muscle use. ABDOMEN: Positive normal bowel sounds x 4. Soft with patient guarding throughout the abdomen. MUSCULOSKELETAL: No muscle atrophy, erythema, or edema noted. Full range of motion in all extremities. NEURO: Patient was alert and oriented to person place and time. CN II through XII grossly intact. Course Administered Medications Discontinued Medications Al Hydrox/Mg Hydrox/Simethicone () 1 dose PO ONE ONE Stop: 10/28/18 02:42 Last Admin: 10/28/18 02:58 Dose: 1 dose Documented by: [id number] Dicyclomine HCl (Bentyl) 20 mg IM NOW ONE Stop: 10/28/18 04:42 Last Admin: 10/28/18 04:46 Dose: 20 mg Documented by: [id number] Diphenhydramine HCl (Benadryl) 50 mg IV NOW STA Stop: 10/28/18 02:42 Last Admin: 10/28/18 02:58 Dose: 50 mg Documented by: [id number] Prochlorperazine (Compazine) 2 mls @ 1 mls/min IV ONE ONE Stop: 10/28/18 02:42 Last Admin: 10/28/18 02:58 Dose: 1 mls/min Documented by: [id number] Sodium Chloride (Nss 1000ml) 1,000 mls @ 999 mls/hr IV .Q1H1M FRANKIE Stop: 10/28/18 03:45 Last Infusion: 10/28/18 04:43 Dose: 0 mls/hr Documented by: [id number] Admin: 10/28/18 02:58 Dose: 999 mls/hr Documented by: [id number] Ketorolac Tromethamine (Toradol) 30 mg IV NOW STA Stop: 10/28/18 02:42 Last Admin: 10/28/18 02:58 Dose: 30 mg Documented by: [id number] Medical Decision Making Differential Diagnosis Differential diagnosis: Etiologies such as biliary colic, cholecystitis, hepatitis, pancreatitis, cardiac disease, pancreatitis, gastritis, peptic ulcer disease, appendicitis, cystitis, diverticulitis, mesenteric ischemia, inflammatory bowel disease, ileus, bowel obstruction, testicular/adnexal torsion, aortic pathology, shingles, as well as others were considered Laboratory Data Result diagrams: 10/28/18 02:33 10/28/18 02:33 Lab Results 10/28/18 10/28/18 10/28/18 Range/Units 02:33 02:33 02:57 WBC 5.69 (4.8-10.8) K/uL RBC 4.76 (4.2-5.4) M/uL Hgb 11.4 L (12.0-16.0) g/dL Hct 35.2 L (37-47) % MCV 73.9 L (80-100) fL MCH 23.9 L (25-34) pg MCHC 32.4 (32-36) g/dL RDW Std Deviation 45.8 (36.4-46.3) fL RDW Coeff of Brii 17.0 H (11.5-14.5) % Plt Count 242 (130-400) K/uL MPV 10.3 (7.4-10.4) fL Immature Gran % (Auto) 0.2 % Neut % (Auto) 47.9 % Lymph % (Auto) 43.1 % [place] % (Auto) 6.3 % Eos % (Auto) 2.3 % Baso % (Auto) 0.2 % Immature Gran # (Auto) 0.01 (0.00-0.02) K/uL Neut # (Auto) 2.73 (1.4-6.5) K/uL Lymph # (Auto) 2.45 (1.2-3.4) K/uL [place] # (Auto) 0.36 (0.11-0.59) K/uL Eos # (Auto) 0.13 (0-0.5) K/uL Baso # (Auto) 0.01 (0-0.2) K/uL Sodium 139 (136-145) mmol/L Potassium 3.6 (3.5-5.1) mmol/L Chloride 109 H (98-107) mmol/L Carbon Dioxide 23 (21-32) mmol/L Anion Gap 7.0 (3-11) BUN 11 (7-18) mg/dl Creatinine 0.90 (0.6-1.2) mg/dl Est Cr Clr Drug Dosing 80.8 ml/min Est GFR ( Amer) 98.1 Est GFR (Non-Af Amer) 84.6 BUN/Creatinine Ratio 12.6 (10-20) Glucose 113 H (70-99) mg/dl Calcium 8.9 (8.5-10.1) mg/dl Total Bilirubin 1.1 H (0.2-1) mg/dl AST 424 H (15-37) U/L ALT 235 H (12-78) U/L Alkaline Phosphatase 125 H (45-117) U/L Troponin I < 0.015 (0-0.045) ng/ml Total Protein 7.8 (6.4-8.2) gm/dl Albumin 3.9 (3.4-5.0) gm/dl Globulin 3.9 (2.5-4.0) gm/dl Albumin/Globulin Ratio 1.0 (0.9-2) Lipase 98 (73-393) U/L TSH 8.170 H (0.300-4.500) uIu/ml Free T4 1.01 (0.8-1.6) ng/dl Urine Color Urine Appearance (Clear) Urine pH (4.5-7.5) Ur Specific [place] (1.000-1.030) Urine Protein (Negative) Urine Glucose (UA) (Negative) Urine Ketones (Negative) Urine Blood (Negative) Urine Nitrite (Negative) Urine Bilirubin (Negative) Urine Urobilinogen (Negative) Ur Leukocyte Esterase (Negative) Urine WBC (Auto) (0-5) /hpf Urine RBC (Auto) (0-4) /hpf U Hyaline Cast (Auto) (0-5) /lpf U Epithel Cells (Auto) (0-5) /lpf Urine Bacteria (Auto) (Negative) POC Ur Test (NEG) Urine Opiates Screen (Neg) Ur Methadone, Qual (Neg) Urine Barbiturates (Neg) Ur Phencyclidine (PCP) (Neg) U Amphetamin/Meth Scrn (Neg) MDMA (Ecstasy) Screen (Neg) U Benzodiazepines Scrn (Neg) Ur Cocaine Metabolite (Neg) U Marijuana (THC) Screen (Neg) Ethyl Alcohol mg/dL < 3.0 (0-3) mg/dl 10/28/18 10/28/18 10/28/18 Range/Units 03:56 03:56 03:56 WBC (4.8-10.8) K/uL RBC (4.2-5.4) M/uL Hgb (12.0-16.0) g/dL Hct (37-47) % MCV (80-100) fL MCH (25-34) pg MCHC (32-36) g/dL RDW Std Deviation (36.4-46.3) fL RDW Coeff of Brii (11.5-14.5) % Plt Count (130-400) K/uL MPV (7.4-10.4) fL Immature Gran % (Auto) % Neut % (Auto) % Lymph % (Auto) % [place] % (Auto) % Eos % (Auto) % Baso % (Auto) % Immature Gran # (Auto) (0.00-0.02) K/uL Neut # (Auto) (1.4-6.5) K/uL Lymph # (Auto) (1.2-3.4) K/uL [place] # (Auto) (0.11-0.59) K/uL Eos # (Auto) (0-0.5) K/uL Baso # (Auto) (0-0.2) K/uL Sodium (136-145) mmol/L Potassium (3.5-5.1) mmol/L Chloride (98-107) mmol/L Carbon Dioxide (21-32) mmol/L Anion Gap (3-11) BUN (7-18) mg/dl Creatinine (0.6-1.2) mg/dl Est Cr Clr Drug Dosing ml/min Est GFR ( Amer) Est GFR (Non-Af Amer) BUN/Creatinine Ratio (10-20) Glucose (70-99) mg/dl Calcium (8.5-10.1) mg/dl Total Bilirubin (0.2-1) mg/dl AST (15-37) U/L ALT (12-78) U/L Alkaline Phosphatase (45-117) U/L Troponin I (0-0.045) ng/ml Total Protein (6.4-8.2) gm/dl Albumin (3.4-5.0) gm/dl Globulin (2.5-4.0) gm/dl Albumin/Globulin Ratio (0.9-2) Lipase (73-393) U/L TSH (0.300-4.500) uIu/ml Free T4 (0.8-1.6) ng/dl Urine Color Yellow Urine Appearance Cloudy A (Clear) Urine pH 8.5 H (4.5-7.5) Ur Specific [place] 1.011 (1.000-1.030) Urine Protein Negative (Negative) Urine Glucose (UA) Negative (Negative) Urine Ketones Negative (Negative) Urine Blood 3+ H (Negative) Urine Nitrite Negative (Negative) Urine Bilirubin Negative (Negative) Urine Urobilinogen Negative (Negative) Ur Leukocyte Esterase Trace H (Negative) Urine WBC (Auto) 1-5 (0-5) /hpf Urine RBC (Auto) 10-30 H (0-4) /hpf U Hyaline Cast (Auto) 0 (0-5) /lpf U Epithel Cells (Auto) >30 H (0-5) /lpf Urine Bacteria (Auto) 1+ H (Negative) POC Ur Test NEG (NEG) Urine Opiates Screen Neg (Neg) Ur Methadone, Qual Pos H (Neg) Urine Barbiturates Neg (Neg) Ur Phencyclidine (PCP) Neg (Neg) U Amphetamin/Meth Scrn Neg (Neg) MDMA (Ecstasy) Screen Neg (Neg) U Benzodiazepines Scrn Neg (Neg) Ur Cocaine Metabolite Neg (Neg) U Marijuana (THC) Screen Neg (Neg) Ethyl Alcohol mg/dL (0-3) mg/dl Imaging Data Radiologist's Impression: KUB CLINICAL HISTORY: Epigastric abdominal pain. FINDINGS: 2 AP supine abdominal radiographs are correlated with abdominal CT dated 06/27/2018. There is a nonobstructed abdominal bowel gas pattern noting moderate colonic fecal retention. No evidence of intraperitoneal free air is seen on these supine images. Calcified gallstones are seen in the right upper quadrant. Postoperative change is noted at the right lung base. The bony struc tures appear intact. IMPRESSION: 1. Nonobstructed bowel gas pattern noting moderate constipation. 2. Cholelithiasis is noted in the right upper quadrant. ULTRASOUND RIGHT UPPER QUADRANT ABDOMEN CLINICAL HISTORY: Right upper quadrant abdominal pain. Elevated hepatic transaminases. COMPARISON STUDY: Abdominal CT and nuclear hepatobiliary scan dated 06/27/2018. Abdominal ultrasound dated 06/26/2018. TECHNIQUE: Real-time, grayscale, and color flow sonography of the right upper quadrant of the abdomen was performed. Images are reviewed in the transverse and longitudinal planes. FINDINGS: Liver: The liver is normal in size and slightly heterogeneous in echotexture. There is no intrahepatic biliary ductal dilatation. The main portal vein is patent. Gallbladder: The gallbladder is distended and filled with shadowing gallstones. The gallbladder wall is top normal in thickness measuring up to 3 mm. No pericholecystic fluid is seen. A sonographic Steinberg's sign could not be assessed. The common bile duct measures up to 0.5 cm in diameter. Pancreas: Visualized portions of the pancreatic head and body are normal in appearance. The splenic vein is patent. Right kidney: Survey images of the right kidney demonstrate normal size and echotexture. There is no hydronephrosis. Ascites: None. IMPRESSION: 1. The gallbladder is distended and filled with shadowing gallstones, and the ga llbladder wall is top normal in thickness measuring up to 3 mm. A sonographic Steinberg's sign could not be assessed. Findings are equivocal, and acute versus chronic cholecystitis is not excluded. Surgical consultation is advised. A nuclear hepatobiliary scan on 06/27/2018 indicated cystic duct obstruction. A repeat hepatobiliary scan could be considered for reassessment. 2. There is no intra or extrahepatic biliary ductal dilatation identified. 3. Hepatic echotexture is slightly heterogeneous. MDM Narrative Physical exam and history were performed. Nursing notes, EMR, and Medication List were personally reviewed. Patient appears to have reports of severe abdominal pain past several hours. The patient exam and interview is challenging as she is very histrionic with her presentation. Ultimately IV access was established and labs were obtained. The patient was hydrated with normal saline and given IV Toradol, IV Benadryl, and IV Compazine for comfort. X-ray was performed. Urine was collected. The patient's blood work is as above and was reviewed. She does not have a significantly elevated white blood cell count or gross anemia. The patient does have elevation of her LFTs, with an AST of 424, ALT of 235, and alk phos of 125. These levels are elevated compared to the patient's baseline labs. Her lipase is normal. Total bili is 1.1. Urine is with blood but not obvious infection. Drug of abuse screen is positive for methadone, which was expected. X-ray was reviewed by myself and radiology showing moderate constipation. Due to the patient's elevated LFTs from her baseline, I did elect to perform ultrasound of the right upper quadrant. Ultrasound was performed and reviewed as equivocal for acute cholecystitis. I did speak with the on-call surgeon, Dr. Carnes, and reviewed the case at length. The patient's symptoms certainly could be related to constipation, which she has had chronically because of her me thadone use. The patient also could have acute cholecystitis. Recommendation from Dr. Carnes was to perform HIDA scan. I did return to the patient's room, and had to awaken her from sleep to provide her updates on her evaluation. Upon final reevaluation from myself, the patient awoke, and then immediately began crying out with 10/10 pain. Clinically the patient continues to appear well, and there may be a component of opioid dependence/malingering to her visit. Regardless she does have findings consistent with constipation, and was agreeable to try an enema here in the department. She was also agreeable to having a HIDA scan performed. The patient remained in stable condition until the time of shift change. The case was discussed with my colleague, Alisha Ko PA-C, who will assume care at this time. We are awaiting results of the enema as well as the HIDA scan. Please see Ms. Ko dictation for further patient course, plan, and disposition. The chart was completed utilizing [employer] Speech Voice Recognition Software. Grammatical errors, random word insertions, pronoun errors, and incomplete sentences are an occasional consequence of this system due to software limit ations, ambient noise, and hardware issues. Any formal questions or concerns about the content, text, or information contained within the body of this dictation should be directly addressed to the provider for clarification. . Impression & Plan Abdominal pain, Cholelithiasis, Abnormal LFTs Discharge Plan Visit Data Chief Complaint: Abdominal Pain Stated Complaint: ABD PAIN ED Provider: Koki Frausto ED Midlevel Provider: Fernandez Grigsby Discharge Problem: Abdominal pain, Cholelithiasis, Abnormal LFTs Forms Stand Alone Forms: Call Back Authorization, [facility] Prescriptions Prescriptions: No Action methadone [Methadone Intensol] 10 mg/mL Concentrate 61 mg PO DAILY RF: 0 Referrals Referrals: [facility],Medicine [Primary Care Provider] - Discharge Problem: Abdominal pain Qualifiers: Abdominal location: generalized Qualified Code(s): R10.84 - Generalized abdominal pain Cholelithiasis Qualifiers: Cholelithiasis location: gallbladder Cholecystitis acuity: unspecified acuity Biliary obstruction: without biliary obstruction
[2018-10-28] MEDS ORDERED: MAGNESIUM CITRATE 296 ML/BTL PO STA (08:31)
[2018-10-28] MEDS ORDERED: METOCLOPRAMIDE HCL INJ 5 MG/ML 2 ML VIAL IV STA (08:31)
--- NOTE | 2018-10-28 08:35 | Emergency Department Note ---
ED Visit Note This patient was signed out to me by CHAVA Cochran at the end of his shift. He had done a surgical consult with Dr. Carnes about the patient for acute cholecystitis. He had contacted nuclear medicine about getting a HIDA scan. They contacted me and stated that they did not have a radiology nurse on the weekend and therefore they cannot do the entire study until Tuesday. I reevaluated the patient. She was receiving her IV Tylenol that was ordered prior to Fernandez signing the patient out. She was still in pain. I spoke with the nurse and he stated that she just started to get the IV Tylenol. They had not yet administer the enema. I then spoke with Dr. Carnes that the HIDA scan could not be obtained over the weekend. She stated to do the enema since she thinks her symptoms are most likely secondary to her constipation. If her symptoms resolve after bowel movements she can be discharged otherwise I will call back Dr. Carnes and she will admit the patient. Magnesium citrate p.o. as well as Reglan 10 mg IV was ordered. The patient states that she had a small bowel movement on reevaluation. She was still complaining of pain. The patient was given Bentyl 20 mg p.o.. The patient was again reevaluated and stated that she was still in significant pain. I contacted Dr. Carnes who agreed to admit the patient. DIAGNOSIS: Acute cholecystitis TREATMENT PLAN: Admission to surgery . : Abdominal pain Qualifiers: Abdominal location: generalized Qualified Code(s): R10.84 - Generalized abdominal pain Cholelithiasis Qualifiers: Cholelithiasis location: gallbladder Cholecystitis acuity: unspecified acuity Biliary obstruction: without biliary obstruction
[2018-10-28] MEDS ORDERED: DICYCLOMINE HCL 10 MG CAP PO ONE (11:06)
--- NOTE | 2018-10-28 12:32 | History & Physical Report ---
Date of Service October 28, 2018 Assessment & Plan (1) Abdominal pain: Pt with chronic abdominal pain/ back pain maintained on methadone now with acute exacerbation and findings equivocal for acute cholecystitis. Last HIDA scan in Jun showed nonvisualization of the gallbladder. Discussed that her symptoms are not typical of gallbladder disease. However, as her pain persists despite treatment of her constipation, gallbladder removal is a reasonable option. Reviewed that there is a fair chance that her pain will still persist despite gallbladder removal (in which case the stones were not the cause of her symptoms). Lap cholecystectomy discussed and she is interested in proceeding. Will add on to schedule tomorrow. Will use IV tylenol / toradol for first line pain control. OK to continue methadone. NPO. Present on Admission?: Yes (2) Cholelithiasis: see above. Present on Admission?: Yes (3) Abnormal LFTs: History of elevated LFT's in past but higher now. T. bili is still just on upper end of normal. Given nondilated common duct, not consistent with passage of gallstone. Will monitor. Present on Admission?: Yes History of Present Illness 33 yr old woman on methadone for chronic back pain who was recently admitted in Jun 2018 for acute abdominal pain. At that time, found to have gallstones - HIDA scan showed nonvisualization of the gallbladder. Seen by Dr. Galeano and as pain was not typical of GB disease, decision was made to monitor. Presents today with same abdominal pain - located in epigastrium, acute onset, associated with nausea, no relieving factors, not related to PO intake, not worse with activity, sharp, intense/ severe. US again showed gallstones but no pericholecystic fluid. Xray showed constipation which has been treated in the ER but pain is still persisting. Moaning in bed, requesting more pain medications, sleepy but arousable. Primary Care Provider: [facility] Allergies Allergy/AdvReac Type Severity Reaction Status Date / Time No Known Allergies Allergy Unverified 10/28/18 03:16 Home Medications Home Medications Medication Instructions Recorded Confirmed Type methadone [Methadone Intensol] 61 mg PO DAILY 06/26/18 10/28/18 History Past Med/Surg History Medical History Chronic pain (Chronic) Hodgkin lymphoma (Chronic) Chronic abdominal pain (Chronic) Opiate dependence (Chronic) Surgical History History of (Resolved) S/P partial lobectomy of lung (Resolved) S/P thoracotomy (Resolved) Family History Other Hypertension Prostate cancer Social History Preferred Language: Kyrgyz Communication Ability: Effective Communication Tools: IPad Beliefs That Will Affect Care: None Current Living Situation: Spouse Feels Safe at Home: Yes Smoking Status: Never smoker Second Hand Exposure: No Hx Alcohol Use: No Hx Substance Use: No Review of Systems Review of Systems: All systems reviewed & are unremarkable except as noted in HPI & below Physical Exam Constitutional: WD/WN, vitals as above Eyes: PERRL, conjunctivae normal, anicteric sclerae Respiratory: normal respiratory effort, lungs clear to auscultation right thoracotomy scar Cardiovascular: RRR, no murmur, no edema Gastrointestinal (Abdomen): Inspection/Auscultation: abdomen normal to inspection and normal bowel sounds; abdomen not distended Percussion/Palpation: + abdomen tender (in epigastrium) and abdomen soft; no guarding no henriquez's sign Neurologic: PERRL, EOMI, accommodation nl, no face palsy, no dysarthria Psychiatric: Orientation: alert and oriented to place Affect: + anxious affect Results & Data Vital Signs (Past 12 Hours) Vital Signs Temp Pulse Pulse Resp BP BP Pulse Ox 10/28/18 11:43 72 19 103/63 100 10/28/18 10:00 72 18 111/78 98 10/28/18 08:00 68 24 108/83 98 10/28/18 06:13 69 16 107/72 99 10/28/18 04:50 69 16 100 10/28/18 04:47 67 16 114/78 100 10/28/18 04:07 70 18 121/67 99 10/28/18 02:26 36.7 C 83 16 119/62 [address] normal, AST/ ALT elevated from previous, total bili 1.1 Diagnostic Findings US showed multiple gallstones in distended gallbladder, no pericholecystic fluid, wall measures 3 mm in thickness, no common bile duct dilation Xray shows constipation (1) Abdominal pain Abdominal location: generalized Qualified Code(s): R10.84 - Generalized abdom inal pain (2) Cholelithiasis Biliary obstruction: without biliary obstruction Cholecystitis acuity: unspecified acuity Cholelithiasis location: gallbladder
[2018-10-28] MEDS: LACTATED RINGER'S 1,000 ML IV SCH (13:52)
[2018-10-28] MEDS: ONDANSETRON INJ 2 MG/ML 2 ML VIAL IV PRN (15:24)
[2018-10-28] MEDS: KETOROLAC TROMETHAMINE 15 MG/ML VIAL IV PRN ×2 (15:24→22:37)
[2018-10-28] MEDS: AMPICILLIN/SULBACTAM SOD 1,500 MG in 0.9 % SODIUM CHLORIDE 100 ML IV SCH ×2 (15:25→20:38)
[2018-10-28] MEDS: METHADONE ORAL SOLN 2 MG/ML PO SCH (16:32)
[2018-10-28] MEDS: PATIENT'S OWN CONTROLLED MED PO SCH (16:32)
[2018-10-29] MEDS ORDERED: HEPARIN 100 UNIT/ML 5ML FLUSH FLUSH PRN (00:31)
[2018-10-29] MEDS: AMPICILLIN/SULBACTAM SOD 1,500 MG in 0.9 % SODIUM CHLORIDE 100 ML IV SCH ×4 (02:44→20:22)
[2018-10-29] MEDS: LACTATED RINGER'S 1,000 ML IV SCH ×4 (02:44→23:38)
[2018-10-29] MEDS: MoRPHine SULFATE 2 MG/ML CARP IV PRN (02:51)
[2018-10-29] MEDS ORDERED: PROPOFOL IV EMULSION 10 MG/ML 20 ML VIAL IV ONE (06:44)
[2018-10-29] MEDS ORDERED: PHENYLEPHRINE HCL 10 MG/ML VIAL ONE (06:44)
[2018-10-29] MEDS ORDERED: DEXAMETHASONE SOD INJ 4 MG/ML VIAL ONE (06:44)
[2018-10-29] MEDS ORDERED: ONDANSETRON INJ 2 MG/ML 2 ML VIAL ONE (06:44)
[2018-10-29] MEDS ORDERED: SUCCINYLCHOLINE CHLORIDE 20 MG/ML 10 ML VIAL ONE (06:44)
[2018-10-29] MEDS ORDERED: ePHEDrine sulfate 50 MG/ML AMP ONE (06:44)
[2018-10-29] MEDS ORDERED: NEOSTIGMINE METHYLSULFATE 5 MG/5 ML SYR ONE (06:44)
[2018-10-29] MEDS ORDERED: LIDOCAINE HCL 2% 2 ML VIAL/AMP(20MG/ML) INFIL ONE (06:44)
[2018-10-29] MEDS ORDERED: GLYCOPYRROLATE 0.2 MG/ML VIAL ONE (06:44)
[2018-10-29] MEDS ORDERED: MIDAZOLAM HCL 1 MG/ML 2ML VIAL ONE (06:45)
[2018-10-29] MEDS ORDERED: ROCURONIUM BROMIDE 10 MG/ML 5 ML VIAL ONE (06:45)
[2018-10-29] MEDS ORDERED: fentaNYL citrate 100 MCG/2 ML VIAL ONE ×2 (06:45→11:22)
[2018-10-29] MEDS: KETOROLAC TROMETHAMINE 15 MG/ML VIAL IV PRN ×3 (07:26→21:15)
--- NOTE | 2018-10-29 08:18 | Anesthesiology Consultation ---
Date of Service October 29, 2018 Assessment & Plan (1) Encounter for pre-operative examination: Chart Review Chart Review: Acceptable Risk for Surgery Consults Requested none ASA ASA3 Proposed Anesthesia Anesthesia Type: General Risk / Benefits Reviewed With: PT / POA / Parent / Guardian, Accepts Plan and Informed Consent Obtained History Surgery Operation Date: 10/29/18 09:30 Proposed Procedures p Laparoscopic Cholecystectomy - Joann Carnes MD Height/Weight Height: 5 ft 5 in Weight: 59.9 kg Allergies Allergy/AdvReac Type Severity Reaction Status Date / Time No Known Allergies Allergy Unverified 10/28/18 03:16 Medications Home Medications Medication Instructions Recorded Confirmed Last Taken methadone [Methadone Intensol] 61 mg PO DAILY 06/26/18 10/28/18 10/27/18 Active Medications Generic Name Dose Route Start Last Admin Trade Name Freq PRN Reason Stop Dose Admin Ampicillin Sodium/Sulbactam 104 mls @ 200 mls/hr 10/28/18 15:00 10/29/18 09:17 Sodium 1,500 mg/ Sodium IV 11/07/18 14:59 Infused Chloride Q6H FRANKIE Infusion Protocol Lactated Ringer's 1,000 mls @ 100 mls/hr 10/28/18 12:30 10/29/18 07:29 Lr IV 11/27/18 12:29 100 mls/hr .Q10H FRANKIE Administration Ketorolac Tromethamine 15 mg 10/28/18 12:22 10/29/18 07:26 Toradol IV 11/02/18 12:21 15 mg Q6H PRN Administration MODERATE Pain (Scale 4,5,6) Methadone HCl 61 mg 10/28/18 16:00 10/29/18 09:22 Methadone Hcl PO 11/27/18 15:59 61 mg DAILY FRANKIE Administration Morphine Sulfate 2 mg 10/28/18 12:22 10/29/18 02:51 Morphine Sulfate IV 11/11/18 12:21 2 mg Q3H PRN Administration SEVERE Pain (Scale 7,8,9,10) Non-Formulary Medication 1 ea 10/28/18 16:00 10/29/18 09:22 Patient's Own Controlled Med PO 11/11/18 15:59 61 mg DAILY FRANKIE Administration Ondansetron HCl 4 mg 10/28/18 12:22 10/28/18 15:24 Zofran IV 11/27/18 12:21 4 mg Q4H PRN Administration Nausea And Vomiting NPO Date Last Intake of Fluids: 10/28/18 Time Last Intake of Fluids: 14:00 Date Last Intake of Solids: 10/28/18 Time Last Intake of Solids: 14:00 Past Medical History Medical History Chronic pain (Chronic) Hodgkin lymphoma (Chronic) Chronic abdominal pain (Chronic) Opiate dependence (Chronic) Exercise / Class Metabolic Activity II 4-5 Yardwork/Stairs/Walk up hill Past Family History Family History Other Hypertension Prostate cancer Past Surgical History Surgical History History of (Resolved) S/P partial lobectomy of lung (Resolved) S/P thoracotomy (Resolved) Past Anesthesia History No Hx of Anesthesia Complications and No Family Hx of Anesthesia Complications History of PONV No Hx of PONV and No Hx of Motion Sickness Social History Smoking Status: Never smoker Hx Alcohol Use: No Hx Substance Use: No substance use type: does not use Physical Exam Vital Signs Last Vital Signs Temp 98.4 F 10/29/18 07:29 Pulse 67 10/29/18 07:29 Resp 18 10/29/18 07:29 BP 105/67 10/29/18 07:29 Pulse Ox 96 10/29/18 07:29 ENMT Mouth: + loose teeth (Left upper) Thyromental Distance: > or= 3.5 Finger Breadths Mallampati Class: III Neck normal visual inspection Respiratory normal respiratory effort Auscultation: lungs clear to auscultation bilaterally Cardiovascular Rate/Rhythm: regular rate and regular rhythm Testing Laboratory Results 10/28/18 02:33 10/28/18 02:33 Urine Color Yellow 10/28/18 03:56 Urine Appearance Cloudy (Clear) A 10/28/18 03:56 Urine pH 8.5 (4.5-7.5) H 10/28/18 03:56 Ur Specific Hatley 1.011 (1.000-1.030) 10/28/18 03:56 Urine Protein Negative (Negative) 10/28/18 03:56 Urine Glucose (UA) Negative (Negative) 10/28/18 03:56 Urine Ketones Negative (Negative) 10/28/18 03:56 Urine Nitrite Negative (Negative) 10/28/18 03:56 Ur Leukocyte Esterase Trace (Negative) H 10/28/18 03:56 Urine WBC (Auto) 1-5 /hpf (0-5) 10/28/18 03:56 Urine RBC (Auto) 10-30 /hpf (0-4) H 10/28/18 03:56 U Hyaline Cast (Auto) 0 /lpf (0-5) 10/28/18 03:56 U Epithel Cells (Auto) >30 /lpf (0-5) H 10/28/18 03:56 Urine Bacteria (Auto) 1+ (Negative) H 10/28/18 03:56 10/28/18 03:56 Urine Culture - Final Urine,Clean Catch More than three types of organisms present, all high counts mixed probable skin ellie - No further identifications or sensitivities to follow. 10/28/18 03:56 POC Ur Test NEG Electrocardiogram Date: 10/28/18 Normal sinus rhythm, rate 89 bpm Prolonged QT Diffuse Minor Nonspecific T wave abnormality Abnormal ECG When compared with ECG of 13-SEP-2017 14:42, QT has lengthened Otherwise no significant change Confirmed by Brad Schmitz ([id number]) on 10/28/2018 9:51:39 AM
[2018-10-29] MEDS: PATIENT'S OWN CONTROLLED MED PO SCH (09:22)
[2018-10-29] MEDS: METHADONE ORAL SOLN 2 MG/ML PO SCH (09:22)
--- NOTE | 2018-10-29 09:23 | Surgery Progress Note ---
Date of Service October 29, 2018 Assessment & Plan (1) Cholelithiasis: Known gallstones with abnormal HIDA scan prior admission. This is in setting of methadone dependence and chronic abdominal pain. discussed removal of gallbladder with cameras with risks of persistence of pain, open incision, bleeding, infection, bile leak, diarrhea. Consent signed today. Present on Admission?: Yes Subjective Pt's epigastric pain is improved but still present. No nausea. Review of Systems Review of Systems: unchanged from previous Physical Exam Eyes: PERRL, conjunctivae normal, anicteric sclerae Respiratory: normal respiratory effort, lungs clear to auscultation Cardiovascular: RRR, no murmur, no edema Gastrointestinal (Abdomen): Inspection/Auscultation: abdomen normal to inspection; abdomen not distended Percussion/Palpation: + abdomen tender (mild, epigastrium) and abdomen soft; no guarding Psychiatric: A+Ox3, euthymic affect Results & Data Vital Signs (Past 12 Hours) Vital Signs Temp Pulse Resp BP Pulse Ox 10/29/18 07:29 36.9 C 67 18 105/67 96 10/28/18 23:32 36.8 C 61 18 96/60 L 97 (1) Cholelithiasis Biliary obstruction: without biliary obstruction Cholecystitis acuity: unspecified acuity Cholelithiasis location: gallbladder
[2018-10-29] MEDS ORDERED: BUPIVACAINE 0.5 % 5 MG/1 ML MPF 30ML VIAL ONE (10:32)
[2018-10-29] MEDS ORDERED: ATROPINE SULFATE 0.1 MG/ML 10ML SYR IV PRN (10:43)
[2018-10-29] MEDS ORDERED: ONDANSETRON INJ 2 MG/ML 2 ML VIAL IV PRN (10:43)
[2018-10-29] MEDS ORDERED: MoRPHine SULFATE 10 MG/ML CARP/VIAL IV PRN (10:43)
[2018-10-29] MEDS ORDERED: ePHEDrine sulfate 50 MG/ML AMP IV PRN (10:43)
[2018-10-29] MEDS ORDERED: KETAMINE HCL INJ 50 MG/ML 10 ML VIAL ONE (11:13)
[2018-10-29] MEDS ORDERED: CONRAY 60% 50 ML VIAL ONE (11:48)
--- NOTE | 2018-10-29 12:55 | Operative Report ---
Post Operative Report Pre & Post Diagnosis Operation Date: 10/29/18 09:30 Pre-Op Diagnosis: Acute calculous cholecystitis Post-Op Diagnosis: Acute calculous cholecystitis Procedure Operation Date: 10/29/18 09:30 Actual Procedures p Laparoscopic Cholecystectomy with Cholangiogram - Joann Carnes MD Surgeon Joann Carnes MD Customer Engagement Analyst none Estimated Blood Loss 5 Findings Consistent with Post-Op Diagnosis (IOC did not show flow into duodenum but no discrete stone seen) Specimens gallbladder and contents Description of Procedure see operative report I attest to the content of the Intraoperative Record and any orders documented therein. Any exceptions are noted below.
[2018-10-29] MEDS: fentaNYL citrate 100 MCG/2 ML VIAL IV PRN ×4 (13:13→13:28)
--- NOTE | 2018-10-29 13:32 | Anesthesiology Progress Note ---
Date of Service October 29, 2018 Anesthesia Post Procedure Vital Signs Vital Signs: Temp Pulse Pulse Pulse Resp BP BP 10/29/18 13:20 70 14 113/78 10/29/18 13:10 81 20 109/81 10/29/18 13:03 97.0 F L 78 16 109/74 10/29/18 10:45 98.6 F 74 18 114/73 10/29/18 07:29 98.4 F 67 18 10/28/18 23:32 98.2 F 61 18 10/28/18 15:23 99.1 F 75 19 10/28/18 13:33 74 19 108/70 BP Pulse Ox 10/29/18 13:20 100 10/29/18 13:10 100 10/29/18 13:03 100 10/29/18 10:45 99 10/29/18 07:29 105/67 96 10/28/18 23:32 96/60 L 97 10/28/18 15:23 101/58 L 97 10/28/18 13:33 98 Pain Intensity Upper Medial Abdomen: Pain Intensity: 7 Abdomen: Pain Intensity: 5 Transfer of Care Handoff Completed per policy Notes Mental Status: alert / awake / arousable and participated in evaluation Patient Amnestic to Procedure: Yes Nausea / Vomiting: adequately controlled Pain: adequately controlled Airway Patency, RR, SpO2: stable & adequate BP & HR: stable & adequate Hydration State: stable & adequate Anesthetic Complications: no major complications apparent and Pt Satisfied with anesthetic care
[2018-10-29] MEDS ORDERED: OXYCODONE/ACETAMINOPHEN 5mg/325mg TAB PO PRN (13:55)
[2018-10-29] MEDS: ACETAMINOPHEN 1,000 MG/100 ML VIAL IV PRN (17:03)
[2018-10-29] MEDS: OXYCODONE/ACETAMINOPHEN 5mg/325mg TAB PO PRN ×2 (17:53→23:38)
--- NOTE | 2018-10-29 21:49 | Operative Report ---
DATE OF OPERATION: 10/29/2018 DATE OF PROCEDURE: 10/29/2018 PREOPERATIVE DIAGNOSES: Acute calculous cholecystitis, chronic abdominal pain, on methadone. POSTOPERATIVE DIAGNOSES: Acute calculous cholecystitis, chronic abdominal pain, on methadone. OPERATIVE PROCEDURE: Laparoscopic cholecystectomy with intraoperative cholangiogram. SURGEON: Joann Carnes MD ANESTHESIA: General endotracheal anesthesia. CHIPPER FEEDER: None. ESTIMATED BLOOD LOSS: 5 mL. IV FLUIDS: 700 mL. SPECIMENS: Gallbladder and contents. OPERATIVE FINDINGS: A very distended gallbladder packed with gallstones. This extended into a wide cystic duct which appeared to be near a wide common duct. Thus, intraoperative cholangiogram performed which showed normal common duct anatomy. However, there is no flow of bile into the duodenum, but no stone was visualized. The common duct was mildly dilated. INDICATIONS: Ms. Ram is a 33-year-old woman with a history of gallstones, who was admitted to the hospital with abdominal pain a few months ago. At that time, her gallbladder was not felt to be the source of her problems. A HIDA scan, however, did show nonvisualization of the gallbladder at that time. She re-presented with epigastric abdominal pain which was constant and severe. Ultrasound again showed a gallbladder filled with gallstones with distention. Common bile duct was normal. Her AST and ALT; however, were elevated and her total bilirubin was mildly elevated at 1.1. She was admitted and laparoscopic cholecystectomy discussed. Consent was signed. PROCEDURE: The patient received Unasyn preoperatively. After the induction of general endotracheal anesthesia, she was placed in sequential compression devices. Her abdomen was sterilely prepped and draped. A supraumbilical incision was made and a Veress needle placed into the peritoneal cavity. This was tested with the saline drop test. Initial pressure was 0 mmHg and this was taken up to 15 mmHg. A 5 mm trocar was placed. Inspection of the abdomen revealed some small adhesions of colon to the anterior abdominal wall in the lower pelvic area. Three additional trocars were then placed, an 11 in the epigastrium and two 5 mm trocars in the right side of the abdomen. She was positioned in reverse Trendelenburg. The gallbladder was noted to be markedly distended. This was retracted over the edge of the liver and dissection begun along what appeared to be the triangle of Calot. There was what seems to be a dilated cystic duct extending into and just adjacent to what could have been a dilated common duct. Due to this difficult anatomy, the gallbladder was actually completely dissected off of the liver wall along the infundibulum. This was then followed inferiorly. The cystic artery was clearly seen coursing on to the gallbladder. This was clipped and divided. This was followed to what appeared to be the proximal cystic duct. Two clips were placed on the gallbladder side and a ductotomy created. A cholangiocatheter was then passed. An intraoperative cholangiogram was performed which did not show any evidence of stones. The common duct did appear to be slightly widened. There was no flow into the duodenum; however, no discrete blockage could be seen. It appeared to be smooth tapering into the distal section. At this point, the catheter itself was passed with entire length to see if any stone could potentially be knocked into the duodenum if possible. There was no obstruction felt. The cholangiocatheter was removed. Three clips were placed on the remaining side and then the cystic duct divided. The gallbladder was then dissected off the liver wall. There was a small accessory duct versus vessel and the superior portion which was singly clipped. There was a small accessory branch of the cystic artery which was doubly clipped. The gallbladder was then removed and placed in an Endobag. This was moved to the epigastric incision. This necessitated opening the top of the gallbladder and suctioning out bile and multiple smaller stones. The gallbladder was then sent as a specimen. The abdomen was irrigated and noted to be hemostatic. The trocars were removed. Pneumoperitoneum was released. A 30 mL of 0.5% Marcaine had been used for local anesthesia throughout the procedure. The fascia of the epigastrium was closed with 0 Vicryl stitch placed anteriorly. The skin of all 4 incisions with running subcuticular 4-0 Vicryl sutures. Steri-Strip sterile dressings were applied. She was awakened and taken to recovery in stable condition. I attest to the content of the Intraoperative Record and any orders documented therein. Any exception s are noted below.
[2018-10-30] MEDS: KETOROLAC TROMETHAMINE 15 MG/ML VIAL IV PRN ×3 (03:53→21:08)
[2018-10-30] MEDS: AMPICILLIN/SULBACTAM SOD 1,500 MG in 0.9 % SODIUM CHLORIDE 100 ML IV SCH ×4 (03:53→21:09)
[2018-10-30 05:50] LABS: Basophils # (auto) 0.02 K/uL (0-0.2); Basophils % (auto) 0.3 %; Eosinophils # (auto) 0.01 K/uL (0-0.5); Eosinophils % (auto) 0.1 %; Hematocrit (blood only) 28.6 % (37-47); Hemoglobin 9.2 g/dL (12.0-16.0); Immature Granulocytes # (auto) 0.01 K/uL (0.00-0.02); Immature Granulocytes % (auto) 0.1 %; Lymphocytes # (auto) 1.65 K/uL (1.2-3.4); Lymphocytes % (auto) 24.5 %; Mean Corpuscular Hgb Conc 32.2 g/dL (32-36); Mean Corpuscular Volume 75.3 fL (80-100); Mean Platelet Volume 10.2 fL (7.4-10.4); Monocytes # (auto) 0.56 K/uL (0.11-0.59); Monocytes % (auto) 8.3 %; Neutrophils # (auto) 4.49 K/uL (1.4-6.5); Neutrophils % (auto) 66.7 %; Platelet Count 208 K/uL (130-400); RDW Coefficient of Variation 17.9 % (11.5-14.5); RDW Standard Deviation 49.4 fL (36.4-46.3); White Blood Count 6.74 K/uL (4.8-10.8)
[2018-10-30] MEDS: ACETAMINOPHEN 1,000 MG/100 ML VIAL IV PRN (05:51)
[2018-10-30 06:17] LABS: Albumin Level 2.8 gm/dl (3.4-5.0); BUN Creatinine Ratio 10.4 (10-20); Calcium 7.7 mg/dl (8.5-10.1); Est GFR (African American) 114.8; Est GFR (Non-African American) 99.1; Potassium 3.4 mmol/L (3.5-5.1)
[2018-10-30 06:22] LABS: Albumin Globulin Ratio 0.9 (0.9-2); Bilirubin,Total 3.4 mg/dl (0.2-1); Globulin 3.1 gm/dl (2.5-4.0); Total Protein 5.9 gm/dl (6.4-8.2)
--- NOTE | 2018-10-30 08:36 | Anesthesiology Progress Note ---
Date of Service October 30, 2018 Anesthesia Post Procedure Vital Signs Vital Signs: Temp Pulse Pulse Resp BP BP Pulse Ox 10/30/18 07:16 36.6 C 65 16 117/78 99 10/30/18 03:51 36.5 C 59 L 18 118/70 99 10/29/18 23:34 36.9 C 55 L 18 117/75 99 10/29/18 19:04 36.5 C 70 18 102/66 98 10/29/18 17:01 36.8 C 76 16 99/63 L 96 10/29/18 16:00 36.7 C 74 18 115/76 97 10/29/18 15:04 36.3 C L 70 18 114/74 100 10/29/18 14:30 36.4 C L 61 14 109/59 L 98 10/29/18 14:02 36.4 C L 64 15 110/64 99 10/29/18 13:40 36.3 C L 67 14 118/74 100 10/29/18 13:30 65 16 112/73 100 10/29/18 13:20 70 14 113/78 100 10/29/18 13:10 81 20 109/81 100 10/29/18 13:03 36.1 C L 78 16 109/74 100 10/29/18 10:45 37.0 C 74 18 114/73 99 Pain Intensity Upper Medial Abdomen: Pain Intensity: 10 Abdomen: Pain Intensity: 10 Notes Mental Status: alert / awake / arousable Patient Amnestic to Procedure: Yes Nausea / Vomiting: adequately controlled (pt had PONV but states nausea is better now;) Pain: see Notes below (pt complains of cramping abdominal pain; ) Airway Patency, RR, SpO2: stable & adequate BP & HR: stable & adequate Hydration State: stable & adequate Anesthetic Complications: no major complications apparent
[2018-10-30] MEDS: PATIENT'S OWN CONTROLLED MED PO SCH (08:40)
[2018-10-30] MEDS: METHADONE ORAL SOLN 2 MG/ML PO SCH (08:40)
[2018-10-30] MEDS: MoRPHine SULFATE 2 MG/ML CARP IV PRN (09:15)
[2018-10-30] MEDS: ONDANSETRON INJ 2 MG/ML 2 ML VIAL IV PRN (09:20)
[2018-10-30] MEDS ORDERED: MoRPHine SULFATE 4 MG/ML 1 ML CARP\\VIAL IV ONE (10:48)
--- NOTE | 2018-10-30 11:21 | Gastrointestinal Consultation ---
Date of Consultation October 30, 2018 Assessment & Plan (1) Bile duct obstruction: LFTs and imaging are suggestive of bile duct obstruction, likely from a stone. We are not able to have this pt undergo MRCP as due to pain, she would not be able to be motionless. It is very concerning that she is continuing writhing and shouting with pain but physical exam not consistent with a surgical abdomen: no guarding; not distended, abdomen is soft. (2) Elevated LFTs: This is an acute LFT elevation and is likely related to bile duct obstruction, likely from stones. Supervising Physician Co-Signing Physician Notes I performed a history and physical examination of the patient, including specifically on physical exam - soft, nontender abdomen. I have discussed the patient's management with Ruby . Please refer to the nurse practitioner's note for the documented findings and plan of care. 33 Female patient s/p Lap flaquito yesterday for acute cholecystitis, now with abdominal pain and rising bili. Off note, CT scan few months ago showed biliary ductal dilation. Plan: ERCP today, suspect CBD stone or bile leak. History of Present Illness Reason for Consultation: ? need for ERCP Requesting Physician: Dr. Isabel Attending Physician: Joann Carnes MD History of Present Illness Ms. Taina Ram is a 33 yr old female pt with a hx of Hodgkin's Lymphoma, post partial lung lobectomy with prior narcotic abuse and now on methadone has chronic abdominal pain. She underwent lap choley for acute gallstones and cholecystitis on 10/29/[address] Joann Carnes who noted that IOC did not show a stone but that the contrast did not pass to the duodenum. This, along with mildly elevated LFTs suggests possible CBD obstruction. LFTs were normal in June 2018, then were elevated on 10/28 prior to surgery and were further increased today: T bili 1.1->3.4, AST 424->368, ALT 235->358, Alk Phos 125->131 US prior to surgery on 10/28 with a distended stone filled gallbladder with top normal wall thickness. No intra/extra bile duct dilation was seen. A CT in Jun did show mild intra and extra hepatic bile duct dilation. Though the pt is shouting and writhing around on the bed complaining of pain, she does sometimes listen to questions, is oriented and provide appropriate answers. She reports that she had mild pain prior to yesterday's lap cholecystectomy. Initially, after surgery, she still had mild pain but last evening this severe RUQ pain began and has not relented. She has not been able to eat or drink. She tried liquids this morning but was able to swallow only a few bites of sherbert and has vomited twice since then. She denies any episodes of prior similar pain. . Allergies Allergy/AdvReac Type Severity Reaction Status Date / Time No Known Allergies Allergy Unverified 10/28/18 03:16 Home Medications Home Medications Medication Instructions Recorded Confirmed Type methadone [Methadone Intensol] 61 mg PO DAILY 06/26/18 10/28/18 History Patient History Medical History Chronic pain (Chronic) Hodgkin lymphoma (Chronic) Chronic abdominal pain (Chronic) Opiate dependence (Chronic) Surgical History History of (Resolved) S/P partial lobectomy of lung (Resolved) S/P thoracotomy (Resolved) Family History Other Hypertension Prostate cancer Social History Preferred Language: Occitan Communication Ability: Effective Communication Tools: IPad Tailor'S Aide Required: No Beliefs That Will Affect Care: Mormonism Mormonism Beliefs: Bahai Current Living Situation: Spouse Other Information That Helps Us Care for You: No Feels Safe at Home: Yes Safety Concerns: Feels Safe At This Time Smoking Status: Never smoker Second Hand Exposure: No Hx Alcohol Use: No Hx Substance Use: No Review of Systems Review of Systems: Unable to obtain a full ROS due to pt shouting out with pain. GI: denies similar prior pain. Gen: no fevers, chills, sweats, no weight loss. Card: Denies CP, SOB Resp: Denies SOB, cough Physical Exam Constitutional: well developed, well nourished and + acute distress (Very much distressed; crying out, rolling around on bed. ) appropriate weight Eyes: PERRL, conjunctivae normal, anicteric sclerae no icterus ENMT: external ear and nose normal, oropharynx normal Neck: trachea midline, no thyromegaly Respiratory: normal respiratory effort, lungs clear to auscultation Cardiovascular: RRR, no murmur, no edema Gastrointestinal (Abdomen): Percussion/Palpation: + abdomen tender (very tender but without rebound or guarding: RUQ and lars-umbilical area) and abdomen soft Skin: no rashes, warm and dry normal turgor; no jaundice Neurologic: PERRL, EOMI, accommodation nl, no face palsy, no dysarthria Psychiatric: Orientation: alert Eye Contact: + fair eye contact Motor Behavior: n tremor Speech: normal rate/rhythm/volume of speech (when talking vs when crying out with pain) Results & Data Vital Signs (Past 12 Hours) Vital Signs Temp Pulse Resp BP BP Pulse Ox 10/30/18 10:53 36.9 C 78 18 133/85 97 10/30/18 07:16 36.6 C 65 16 117/78 99 10/30/18 03:51 36.5 C 59 L 18 118/70 99 10/29/18 23:34 36.9 C 55 L 18 117/75 99 Diagnostic Findings Ultrasound 10/28/18 1. The gallbladder is distended and filled with shadowing gallstones, and the gallbladder wall is top normal in thickness measuring up to 3 mm. A sonographic Steinberg's sign could not be assessed. Findings are equivocal, and acute versus chronic cholecystitis is not excluded. Surgical consultation is advised. A nuclear hepatobiliary scan on 06/27/2018 indicated cystic duct obstruction. A repeat hepatobiliary scan could be considered for reassessment. 2. There is no intra or extrahepatic biliary ductal dilatation identified. 3. Hepatic echotexture is slightly heterogeneous. Though no Ct was completed during this admission there is documentation of a CT in Jun 2018 with a "mildly distended gallbladder with cholelithiasis. Additionally, there is mild intrahepatic and extrahepatic biliary ductal dilation without definite choledocholithiasis identified."
--- NOTE | 2018-10-30 11:24 | Surgery Progress Note ---
Date of Service F/U S/P laparoscopic cholecystectomy, intra-op cholangiogram, pt is still have a lot abdominal pain, no vomiting, no fever, today LFT up, ( T ) bilirubin 3.4. pre-op 1.1 October 30, 2018 Assessment & Plan (1) Abdominal pain: S/P laparoscopic cholecystectomy, POD 1 pt is still have abdominal pain, LFT up IMP: possible, CBD stone?, injury CBD?, biliary leak? I recommend GI consult for ERCP today, D/W benefits, risks and alternatives of the ERCP, pt agrees with the plan, NPO, change morphine to dilaudid for control pain, Physical Exam Constitutional: WD/WN, vitals as above well developed and well nourished Neck: trachea midline, no thyromegaly normal visual inspection Respiratory: normal respiratory effort, lungs clear to auscultation normal respiratory effort Cardiovascular: Rate/Rhythm: regular rate and regular rhythm Gastrointestinal (Abdomen): soft, no distend, tenderness at RUQ, no rebound pain, BS + all incision - no redness, no drainage Neurologic: awake Psychiatric: Orientation: alert and oriented x 3 Results & Data Vital Signs (Past 12 Hours) Vital Signs Temp Pulse Resp BP BP Pulse Ox 10/30/18 10:53 36.9 C 78 18 133/85 97 10/30/18 07:16 36.6 C 65 16 117/78 99 10/30/18 03:51 36.5 C 59 L 18 118/70 99 10/29/18 23:34 36.9 C 55 L 18 117/75 99 Laboratory Results Abnormal lab results 10/30/18 10/30/18 Range/Units 05:32 05:32 RBC 3.80 L (4.2-5.4) M/uL Hgb 9.2 L (12.0-16.0) g/dL Hct 28.6 L (37-47) % MCV 75.3 L (80-100) fL MCH 24.2 L (25-34) pg RDW Std Deviation 49.4 H (36.4-46.3) fL RDW Coeff of Brii 17.9 H (11.5-14.5) % Potassium 3.4 L (3.5-5.1) mmol/L Chloride 111 H (98-107) mmol/L Calcium 7.7 L (8.5-10.1) mg/dl Total Bilirubin 3.4 H (0.2-1) mg/dl AST 368 H (15-37) U/L ALT 388 H (12-78) U/L Alkaline Phosphatase 131 H (45-117) U/L Total Protein 5.9 L (6.4-8.2) gm/dl Albumin 2.8 L (3.4-5.0) gm/dl (1) Abdominal pain Abdominal location: generalized Qualified Code(s): R10.84 - Generalized abdominal pain
[2018-10-30] MEDS: HYDROmorphone INJ 1 MG/ML SYRINGE IV PRN ×3 (12:01→22:30)
[2018-10-30] MEDS ORDERED: INDOMETHACIN 50 MG SUPP PR STA (12:49)
[2018-10-30] MEDS ORDERED: HYDROmorphone INJ 1 MG/ML SYRINGE IV STA (12:58)
--- NOTE | 2018-10-30 12:58 | Anesthesiology Consultation ---
Date of Service October 30, 2018 Assessment & Plan (1) Encounter for pre-operative examination: Chart Review Chart Review: Acceptable Risk for Surgery and Patient NOT seen in Pre Admission Testing Consults Requested none ASA ASA3 Proposed Anesthesia Anesthesia Type: General Risk / Benefits Reviewed With: PT / POA / Parent / Guardian, Accepts Plan and Informed Consent Obtained History Surgery Operation Date: 10/29/18 09:30 Proposed Procedures p Laparoscopic Cholecystectomy - Joann Carnes MD Operation Date: 10/30/18 16:10 Proposed Procedures p Endoscopic Retrograde Cholangiopancreatogram - Lino Miranad MD Height/Weight Height: 5 ft 5 in Weight: 59.9 kg Allergies Allergy/AdvReac Type Severity Reaction Status Date / Time No Known Allergies Allergy Unverified 10/28/18 03:16 Medications Home Medications Medication Instructions Recorded Confirmed Last Taken methadone [Methadone Intensol] 61 mg PO DAILY 06/26/18 10/28/18 10/27/18 Active Medications Generic Name Dose Route Start Last Admin Trade Name Freq PRN Reason Stop Dose Admin Hydromorphone HCl 1 mg 10/30/18 11:25 10/30/18 12:01 Dilaudid IV 11/13/18 11:24 1 mg Q3H PRN Administration Pain (5-10) Acetaminophen 1,000 mg in 100 mls @ 400 mls/hr 10/28/18 12:22 10/30/18 06:06 Ofirmev IV 11/27/18 12:21 Infused Q8H PRN Infusion MILD Pain (Scale 1,2,3) Ampicillin Sodium/Sulbactam 104 mls @ 200 mls/hr 10/28/18 15:00 10/30/18 09:15 Sodium 1,500 mg/ Sodium IV 11/07/18 14:59 Infused Chloride Q6H FRANKIE Infusion Protocol Lactated Ringer's 1,000 mls @ 100 mls/hr 10/28/18 12:30 10/30/18 08:43 Lr IV 11/27/18 12:29 0 mls/hr .Q10H FRANKIE Infusion Ketorolac Tromethamine 15 mg 10/28/18 12:22 10/30/18 10:05 Toradol IV 11/02/18 12:21 15 mg Q6H PRN Administration MODERATE Pain (Scale 4,5,6) Methadone HCl 61 mg 10/28/18 16:00 10/30/18 08:40 Methadone Hcl PO 11/27/18 15:59 61 mg DAILY FRANKIE Administration Morphine Sulfate 2 mg 10/28/18 12:22 10/30/18 09:15 Morphine Sulfate IV 11/11/18 12:21 2 mg Q3H PRN Administration SEVERE Pain (Scale 7,8,9,10) Non-Formulary Medication 1 ea 10/28/18 16:00 10/30/18 08:40 Patient's Own Controlled Med PO 11/11/18 15:59 61 mg DAILY FRANKIE Administration Ondansetron HCl 4 mg 10/28/18 12:22 10/30/18 09:20 Zofran IV 11/27/18 12:21 4 mg Q4H PRN Administration Nausea And Vomiting Oxycodone/Acetaminophen 2 tab 10/29/18 13:55 10/29/18 23:38 Percocet 5mg/325mg PO 11/12/18 13:54 2 tab Q4H PRN Administration Severe Pain Oxycodone/Acetaminophen 1 tab 10/29/18 13:55 10/29/18 14:24 Percocet 5mg/325mg PO 11/12/18 13:54 1 tab Q4H PRN Administration Moderate Pain NPO Date Last Intake of Fluids: 10/30/18 Time Last Intake of Fluids: 08:00 Date Last Intake of Solids: 10/28/18 Time Last Intake of Solids: 14:00 Past Medical History Medical History Chronic pain (Chronic) Hodgkin lymphoma (Chronic) Chronic abdominal pain (Chronic) Opiate dependence (Chronic) Exercise / Class Metabolic Activity II 4-5 Yardwork/Stairs/Walk up hill Past Family History Family History Other Hypertension Prostate cancer Past Surgical History Surgical History History of (Resolved) S/P partial lobectomy of lung (Resolved) S/P thoracotomy (Resolved) Past Anesthesia History No Hx of Anesthesia Complications and No Family Hx of Anesthesia Complications History of PONV No Hx of PONV and No Hx of Motion Sickness Social History Smoking Status: Never smoker Hx Alcohol Use: No Hx Substance Use: No substance use type: does not use Physical Exam Vital Signs Last Vital Signs Temp 36.9 C 10/30/18 12:28 Pulse 78 10/30/18 12:28 Resp 16 10/30/18 12:28 BP 133/85 10/30/18 12:28 Pulse Ox 97 10/30/18 12:28 Constitutional + acute distress (crying for pain medication) ENMT Mouth: no dentition abnormality Thyromental Distance: > or= 3.5 Finger Breadths Mallampati Class: II Neck normal visual inspection Respiratory normal respiratory effort Auscultation: lungs clear to auscultation bilaterally Cardiovascular Rate/Rhythm: regular rate and regular rhythm Psychiatric Orientation: alert Testing Laboratory Results 10/30/18 05:32 10/30/18 05:32 Urine Color Yellow 10/28/18 03:56 Urine Appearance Cloudy (Clear) A 10/28/18 03:56 Urine pH 8.5 (4.5-7.5) H 10/28/18 03:56 Ur Specific [place] 1.011 (1.000-1.030) 10/28/18 03:56 Urine Protein Negative (Negative) 10/28/18 03:56 Urine Glucose (UA) Negative (Negative) 10/28/18 03:56 Urine Ketones Negative (Negative) 10/28/18 03:56 Urine Nitrite Negative (Negative) 10/28/18 03:56 Ur Leukocyte Esterase Trace (Negative) H 10/28/18 03:56 Urine WBC (Auto) 1-5 /hpf (0-5) 10/28/18 03:56 Urine RBC (Auto) 10-30 /hpf (0-4) H 10/28/18 03:56 U Hyaline Cast (Auto) 0 /lpf (0-5) 10/28/18 03:56 U Epithel Cells (Auto) >30 /lpf (0-5) H 10/28/18 03:56 Urine Bacteria (Auto) 1+ (Negative) H 10/28/18 03:56 10/28/18 03:56 Urine Culture - Final Urine,Clean Catch More than three types of organisms present, all high counts mixed probable skin ellie - No further identifications or sensitivities to follow. 10/28/18 03:56 POC Ur Test NEG
[2018-10-30] MEDS ORDERED: ATROPINE SULFATE 0.1 MG/ML 10ML SYR IV PRN (12:59)
[2018-10-30] MEDS ORDERED: ePHEDrine sulfate 50 MG/ML AMP IV PRN (12:59)
[2018-10-30] MEDS ORDERED: PROMETHAZINE HCL 6.25 MG in SODIUM CHLORIDE 0.9% 50 ML IV PRN (12:59)
[2018-10-30] MEDS ORDERED: ONDANSETRON INJ 2 MG/ML 2 ML VIAL IV PRN (12:59)
[2018-10-30] MEDS ORDERED: DEXAMETHASONE SOD INJ 4 MG/ML VIAL ONE (13:02)
[2018-10-30] MEDS ORDERED: GLYCOPYRROLATE 0.2 MG/ML VIAL ONE (13:02)
[2018-10-30] MEDS ORDERED: NEOSTIGMINE METHYLSULFATE 5 MG/5 ML SYR ONE (13:02)
[2018-10-30] MEDS ORDERED: MIDAZOLAM HCL 1 MG/ML 2ML VIAL ONE (13:02)
[2018-10-30] MEDS ORDERED: PROPOFOL IV EMULSION 10 MG/ML 20 ML VIAL IV ONE (13:02)
[2018-10-30] MEDS ORDERED: PHENYLEPHRINE HCL 10 MG/ML VIAL ONE (13:02)
[2018-10-30] MEDS ORDERED: ePHEDrine sulfate 50 MG/ML AMP ONE (13:02)
[2018-10-30] MEDS ORDERED: LIDOCAINE HCL 2% 2 ML VIAL/AMP(20MG/ML) INFIL ONE (13:02)
[2018-10-30] MEDS ORDERED: fentaNYL citrate 100 MCG/2 ML VIAL ONE (13:02)
[2018-10-30] MEDS ORDERED: ONDANSETRON INJ 2 MG/ML 2 ML VIAL ONE (13:02)
[2018-10-30] MEDS ORDERED: KETAMINE HCL INJ 50 MG/ML 10 ML VIAL ONE (13:28)
--- NOTE | 2018-10-30 14:00 | Operative Report ---
Post Operative Report Pre & Post Diagnosis Operation Date: 10/29/18 09:30 Pre-Op Diagnosis: Acute cholecystitis Post-Op Diagnosis: Acute cholecystitis Operation Date: 10/30/18 16:10 Pre-Op Diagnosis: Common Bile Duct Stone Post-Op Diagnosis: Common Bile Duct Stone Procedure Operation Date: 10/29/18 09:30 Actual Procedures p Laparoscopic Cholecystectomy with Cholangiogram - Joann Carnes MD Operation Date: 10/30/18 16:10 Actual Procedures p Endoscopic Retrograde Cholangiopancreatogram(Not Applicable) - Lino Miranda MD Surgeon Lino Miranda MD Lining Cementer none Estimated Blood Loss 0 Findings See Below (CBD stones removed, sphincterotomy, CBD and PD stent placd) Specimens None Description of Procedure ERCP I attest to the content of the Intraoperative Record and any orders documented therein. Any exceptions are noted below.
--- NOTE | 2018-10-30 14:15 | Fluoroscopy Report ---
[place] ERCP biliary ductal CLINICAL HISTORY: Common bile duct stone. History of cholecystectomy. COMPARISON STUDY: Biliary ultrasound dated 10/28/2018 intraoperative cholangiogram dated 10/29/2018 FLUOROSCOPY TIME: 122 seconds. NUMBER OF FLUOROSCOPIC IMAGES: 14 FINDINGS: Image #2 demonstrates an endoscope. There is #3 demonstrates a guidewire with the pancreati c duct image #4 demonstrates a guidewire within the common bile duct is #5 demonstrates contrast opac ifying the common bile duct and cystic duct remnant. There is a distal common bile duct filling defec ts suspicious for a calculus. Sphincterotomy was performed. A balloon catheter was swept through the duct. The final image demonstrates placement of a biliary enteric stent. IMPRESSION: Intraprocedural fluoroscopic spot images, obtained during placement of a biliary enteric stent Electronically signed by: Kumar Bhagat M.D. 10/30/2018 2:14 PM
[2018-10-30] MEDS: fentaNYL citrate 100 MCG/2 ML VIAL IV PRN ×5 (14:17→14:56)
--- NOTE | 2018-10-30 14:18 | GI REPORT ---
Patient Name: Taina Ram Procedure Date: 10/30/2018 12:44 PM Date of : 1985 Admit Type: Inpatient Age: 33 Gender: Female Attending MD: Lino Miranda MD Procedure: ERCP Providers: Lino Miranda MD Referring MD: Chcihi Weaver Md, Joann Carnes Indications: Abdominal pain of suspected biliary origin, Abnormal abdominal CT, Evaluation and possible treatment of bile duct stone(s), Jaundice, Elevated liver enzymes Medicines: General Anesthesia Complications: No immediate complications. Estimated Blood Loss: Estimated blood loss: none. Procedure: Pre-Anesthesia Assessment: - Prior to the procedure, a History and Physical was performed, and patient medications and allergies were reviewed. The patient is competent. The risks and benefits of the procedure and the sedation options and risks were discussed with the patient. All questions were answered and informed consent was obtained. Patient identification and proposed procedure were verified by the physician and the nurse in the procedure room. Mental Status Examination: alert and oriented. Airway Examination: normal oropharyngeal airway and neck mobility. Respiratory Examination: clear to auscultation. CV Examination: normal. ASA Grade Assessment: II - A patient with mild systemic disease. After reviewing the risks and benefits, the patient was deemed in satisfactory condition to undergo the procedure. The anesthesia plan was to use general anesthesia. Immediately prior to administration of medications, the patient was re-assessed for adequacy to receive sedatives. The heart rate, respiratory rate, oxygen saturations, blood pressure, adequacy of pulmonary ventilation, and response to care were monitored throughout the procedure. The physical status of the patient was re-assessed after the procedure. After obtaining informed consent, the scope was passed under direct vision. Throughout the procedure, the patient's blood pressure, pulse, and oxygen saturations were monitored continuously.The ERCP was accomplished without difficulty. The patient tolerated the procedure well. The SCOPE was introduced through the mouth, and advanced to the duodenum and used to inject contrast into the bile duct. Findings: A line prep cook film of the abdomen was obtained. Surgical clips, consistent with a previous cholecystectomy, were seen in the area of the right upper quadrant of the abdomen. The esophagus was successfully intubated under direct vision. The scope was advanced to a normal major papilla in the descending duodenum without detailed examination of the pharynx, larynx and associated structures, and upper GI tract. The upper GI tract was grossly normal. The ventral pancreatic duct was inadvertently cannulated. Guidewire was kept in place to aid in biliary cannulation. A 0.035 inch straight Acrobat wire was passed into the biliary tree. The Fusion OMNI sphincterotome was passed over the guidewire and the bile duct was then deeply cannulated. Contrast was injected. I personally interpreted the bile duct images. Ductal flow of contrast was adequate. Image quality was excellent. Contrast extended to the main bile duct. The main bile duct was markedly dilated. The largest diameter was 12 mm. The lower third of the main bile duct contained a stone. Biliary sphincterotomy was made with a monofilament traction (standard) sphincterotome using ERBE electrocautery. There was no post-sphincterotomy bleeding. The biliary tree was swept with a 15 mm balloon starting at the bifurcation. Many stones were removed. No stones remained. Debris was swept from the duct. Due to extensive amount of debris, one 10 Fr by 7 cm plastic biliary stent with a single external flap and a single internal flap was placed into the common bile duct. Bile flowed through the stent. The stent was in good position. One 5 Fr by 5 cm plastic pancreatic stent with a full external pigtail and no internal flaps was placed into the ventral pancreatic duct. Clear fluid flowed through the stent. The stent was in good position. Indomethacin 100 mg was given via suppository to decrease the risk of post-ERCP pancreatitis (PEP). The total fluoroscopy exposure time was 2 minutes and 1 second. Impression: - The entire main bile duct was markedly dilated (Methadone related). - Choledocholithiasis was found. Complete removal was accomplished by biliary sphincterotomy and balloon extraction. - One plastic biliary stent was placed into the common bile duct. - One plastic pancreatic stent was placed into the ventral pancreatic duct. Recommendation: - Return patient to [facility] for [facility] care. - Clear liquid diet. - Repeat ERCP in 4 - 6 weeks to remove stent. - COMMENT: Upon placement of rectal Indomethacin, a small polypoid lesion was palpated in the rectum, will schedule Flex Sig tomorrow for further evaluation. Lino Miranda MD 10/30/2018 2:18:01 PM This report has been signed electronically. Note Initiated On: 10/30/2018 12:44 PM Number of Addenda: 0 I attest to the content of the Intraoperative Record and orders documented therein, exceptions below {[id number]}
[2018-10-30] MEDS: HYDROmorphone INJ 2 MG/ML SYR/VIAL IV PRN ×6 (14:40→15:16)
[2018-10-30] MEDS ORDERED: HYDROmorphone INJ 2 MG/ML SYR/VIAL IV PRN (14:55)
[2018-10-30] MEDS ORDERED: LORazepam 2 MG/4 ML VIAL ONE (15:07)
[2018-10-30] MEDS ORDERED: LORazepam 0.5 MG/1 ML VIAL IV ONE (15:15)
--- NOTE | 2018-10-30 15:31 | Anesthesiology Progress Note ---
Date of Service October 30, 2018 Anesthesia Post Procedure Vital Signs Vital Signs: Temp Pulse Pulse Resp BP BP Pulse Ox 10/30/18 15:20 75 15 142/97 H 99 10/30/18 15:10 36.8 C 74 15 147/100 H 100 10/30/18 15:00 65 15 143/91 H 100 10/30/18 14:50 78 15 123/81 96 10/30/18 14:40 70 16 117/84 98 10/30/18 14:30 74 17 141/98 H 100 10/30/18 14:20 76 10 L 130/88 100 10/30/18 14:10 36.2 C L 91 H 13 130/90 99 10/30/18 12:28 36.9 C 78 16 133/85 97 10/30/18 10:53 36.9 C 78 18 133/85 97 10/30/18 07:16 36.6 C 65 16 117/78 99 10/30/18 03:51 36.5 C 59 L 18 118/70 99 10/29/18 23:34 36.9 C 55 L 18 117/75 99 10/29/18 19:04 36.5 C 70 18 102/66 98 10/29/18 17:01 36.8 C 76 16 99/63 L 96 10/29/18 16:00 36.7 C 74 18 115/76 97 Pain Intensity Upper Medial Abdomen: Pain Intensity: 10 Abdomen: Pain Intensity: 10 Transfer of Care Handoff Completed per policy Notes Mental Status: alert / awake / arousable and participated in evaluation Patient Amnestic to Procedure: Yes Nausea / Vomiting: adequately controlled Pain: improving with treatment Airway Patency, RR, SpO2: stable & adequate BP & HR: stable & adequate Hydration State: stable & adequate Anesthetic Complications: no major complications apparent and Pt Satisfied with anesthetic care
[2018-10-30] MEDS: LACTATED RINGER'S 1,000 ML IV SCH ×2 (16:20→22:14)
[2018-10-31] MEDS: ACETAMINOPHEN 1,000 MG/100 ML VIAL IV PRN (00:31)
[2018-10-31] MEDS: HYDROmorphone INJ 1 MG/ML SYRINGE IV PRN ×3 (02:34→15:48)
[2018-10-31] MEDS: KETOROLAC TROMETHAMINE 15 MG/ML VIAL IV PRN ×2 (03:19→18:40)
[2018-10-31] MEDS: AMPICILLIN/SULBACTAM SOD 1,500 MG in 0.9 % SODIUM CHLORIDE 100 ML IV SCH ×4 (03:21→21:32)
--- NOTE | 2018-10-31 07:38 | Anesthesiology Progress Note ---
Date of Service October 31, 2018 Anesthesia Post Procedure Vital Signs Vital Signs: Temp Pulse Pulse Pulse Resp BP BP 10/31/18 03:24 37.1 C 68 16 118/42 L 10/30/18 22:35 37.0 C 70 16 119/74 10/30/18 19:26 37.2 C 71 16 126/82 10/30/18 17:56 37.1 C 77 15 118/78 10/30/18 17:08 37.0 C 81 18 127/85 10/30/18 16:31 36.9 C 79 15 142/95 H 10/30/18 16:00 36.7 C 69 14 137/88 10/30/18 15:40 36.8 C 81 16 144/89 H 10/30/18 15:30 36.8 C 77 15 142/98 H 10/30/18 15:20 75 15 142/97 H 10/30/18 15:10 36.8 C 74 15 147/100 H 10/30/18 15:00 65 15 143/91 H 10/30/18 14:50 78 15 123/81 10/30/18 14:40 70 16 117/84 10/30/18 14:30 74 17 141/98 H 10/30/18 14:20 76 10 L 130/88 10/30/18 14:10 36.2 C L 91 H 13 130/90 10/30/18 12:28 36.9 C 78 16 133/85 10/30/18 10:53 36.9 C 78 18 133/85 Pulse Ox 10/31/18 03:24 98 10/30/18 22:35 98 10/30/18 19:26 99 10/30/18 17:56 94 10/30/18 17:08 97 10/30/18 16:31 95 10/30/18 16:00 98 10/30/18 15:40 100 10/30/18 15:30 100 10/30/18 15:20 99 10/30/18 15:10 100 10/30/18 15:00 100 10/30/18 14:50 96 10/30/18 14:40 98 10/30/18 14:30 100 10/30/18 14:20 100 10/30/18 14:10 99 10/30/18 12:28 97 10/30/18 10:53 97 Pain Intensity Upper Medial Abdomen: Pain Intensity: 2 Abdomen: Pain Intensity: 2 Notes Mental Status: alert / awake / arousable and participated in evaluation Nausea / Vomiting: adequately controlled Pain: adequately controlled Airway Patency, RR, SpO2: stable & adequate BP & HR: stable & adequate Hydration State: stable & adequate Anesthetic Complications: Pt Satisfied with anesthetic care
[2018-10-31 08:08] LABS: Methadone, Ur Metabolite 3950 NG/ML (CUTOFF=100)
[2018-10-31] MEDS: OXYCODONE/ACETAMINOPHEN 5mg/325mg TAB PO PRN ×2 (08:08→21:31)
[2018-10-31] MEDS: METHADONE ORAL SOLN 2 MG/ML PO SCH (08:54)
[2018-10-31] MEDS: PATIENT'S OWN CONTROLLED MED PO SCH (08:55)
[2018-10-31] MEDS: LACTATED RINGER'S 1,000 ML IV SCH ×2 (08:57→16:43)
--- NOTE | 2018-10-31 10:22 | Gastroenterology Progress Note ---
Date of Service October 31, 2018 Assessment & Plan (1) Rectal mass: Most likely this is a rectal polyp. Plan: flex sig today for diagnosis (bx and/or removal) Further recommendations to follow flex sig but likely will advance diet and await path. Will need labs today: CBC, CMP ordered. Supervising Physician Co-Signing Physician Notes I performed a history and physical examination of the patient, including specifically on physical exam - soft, nontender abdomen. I have discussed the patient's management with Ruby. Please refer to the nurse practitioner's note for the documented findings and plan of care. Flex Sig today Subjective Ms. Ram is a 33-year-old female who underwent laparoscopic cholecystectomy on 10/29/2018 then ERCP yesterday with sphincterotomy and stone extraction. Pain is improved today. No nausea or vomiting. Tolerating a clear liquid diet well. During ERCP yesterday, while the physician was inserting indomethacin rectal suppository, he noted a polypoid mass. Patient denies rectal bleeding or pain. No prior colonoscopy. Review of Systems Review of Systems: ROS: Gen: Denies weakness, fevers, weight loss Eyes: No eye redness, or pain, no recent vision changes Resp: No SOB, no cough Cardio: No palpitations/irregular beats, no chest pain GI: + abdominal pain - much improved; no nausea/vomiting : Denies pain on urination Skin: No jaundice, itching or new rashes Physical Exam Constitutional: WD/WN, vitals as above Eyes: PERRL, conjunctivae normal, anicteric sclerae ENMT: external ear and nose normal, oropharynx normal Neck: trachea midline, no thyromegaly Respiratory: normal respiratory effort, lungs clear to auscultation Cardiovascular: RRR, no murmur, no edema Gastrointestinal (Abdomen): normal bowel sounds, soft, nontender, no hepatosplenomegaly Musculoskeletal: no cyanosis or clubbing, extremities motor strength 5/5 Skin: no rashes, warm and dry no jaundice Neurologic: PERRL, EOMI, accommodation nl, no face palsy, no dysarthria Psychiatric: Orientation: oriented x 3 Provides good eye contact today. Became tearful and crying, worrying about cancers but I talked with her about the rectal mass. Results & Data Vital Signs (Past 12 Hours) Vital Signs Temp Pulse Resp BP BP Pulse Ox 10/31/18 07:48 37.1 C 65 14 114/77 98 10/31/18 03:24 37.1 C 68 16 118/42 L 98 10/30/18 22:35 37.0 C 70 16 119/74 98
[2018-10-31 10:58] LABS: Basophils # (auto) 0.02 K/uL (0-0.2); Basophils % (auto) 0.3 %; Eosinophils # (auto) 0.03 K/uL (0-0.5); Eosinophils % (auto) 0.5 %; Hematocrit (blood only) 28.2 % (37-47); Immature Granulocytes # (auto) 0.01 K/uL (0.00-0.02); Immature Granulocytes % (auto) 0.2 %; Lymphocytes # (auto) 1.33 K/uL (1.2-3.4); Mean Corpuscular Hgb Conc 31.9 g/dL (32-36); Mean Corpuscular Volume 75.6 fL (80-100); Mean Platelet Volume 9.7 fL (7.4-10.4); Monocytes # (auto) 0.54 K/uL (0.11-0.59); Monocytes % (auto) 9.3 %; Neutrophils # (auto) 3.86 K/uL (1.4-6.5); Neutrophils % (auto) 66.7 %; Platelet Count 199 K/uL (130-400); RDW Coefficient of Variation 17.7 % (11.5-14.5); RDW Standard Deviation 48.9 fL (36.4-46.3); Red Blood Count 3.73 M/uL (4.2-5.4); White Blood Count 5.79 K/uL (4.8-10.8)
[2018-10-31 11:34] LABS: Albumin Globulin Ratio 0.9 (0.9-2); BUN Creatinine Ratio 9.7 (10-20); Bilirubin,Total 1.2 mg/dl (0.2-1); Calcium 7.9 mg/dl (8.5-10.1); Creatinine Clr Calc Pharmacy 94.4 ml/min; Est GFR (African American) 118.4; Est GFR (Non-African American) 102.2; Globulin 3.2 gm/dl (2.5-4.0); Potassium 2.8 mmol/L (3.5-5.1); Total Protein 6.2 gm/dl (6.4-8.2)
[2018-10-31] MEDS ORDERED: ATROPINE SULFATE 0.1 MG/ML 10ML SYR IV PRN (13:20)
[2018-10-31] MEDS ORDERED: ePHEDrine sulfate 50 MG/ML AMP IV PRN (13:20)
[2018-10-31] MEDS ORDERED: LIDOCAINE HCL 2% 2 ML VIAL/AMP(20MG/ML) INFIL ONE (14:30)
[2018-10-31] MEDS ORDERED: PROPOFOL IV EMULSION 10 MG/ML 20 ML VIAL IV ONE (14:30)
--- NOTE | 2018-10-31 14:53 | GI REPORT ---
Patient Name: Taina Ram Procedure Date: 10/31/2018 2:03 PM Date of : 1985 Admit Type: Inpatient Age: 33 Gender: Female Attending MD: Lino Miranda MD Procedure: Flexible Sigmoidoscopy Providers: Lino Miranda MD Referring MD: Joann Carnes, Kyle Hughes . Md Indications: Suspected colon polyps, Rectal pain, Abnormal [facility]EL Medicines: Monitored Anesthesia Care Complications: No immediate complications. Estimated Blood Loss: Estimated blood loss: none. Procedure: Pre-Anesthesia Assessment: - Prior to the procedure, a History and Physical was performed, and patient medications and allergies were reviewed. The patient is competent. The risks and benefits of the procedure and the sedation options and risks were discussed with the patient. All questions were answered and informed consent was obtained. Patient identification and proposed procedure were verified by the physician and the nurse in the procedure room. Mental Status Examination: alert and oriented. Airway Examination: normal oropharyngeal airway and neck mobility. Respiratory Examination: clear to auscultation. CV Examination: normal. ASA Grade Assessment: II - A patient with mild systemic disease. After reviewing the risks and benefits, the patient was deemed in satisfactory condition to undergo the procedure. The anesthesia plan was to use monitored anesthesia care (MAC). Immediately prior to administration of medications, the patient was re-assessed for adequacy to receive sedatives. The heart rate, respiratory rate, oxygen saturations, blood pressure, adequacy of pulmonary ventilation, and response to care were monitored throughout the procedure. The physical status of the patient was re-assessed after the procedure. After obtaining informed consent, the endoscope was passed under direct vision. Throughout the procedure, the patient's blood pressure, pulse, and oxygen saturations were monitored continuously. The Endoscope was introduced through the anus and advanced to the sigmoid colon. After obtaining informed consent, the endoscope was passed under direct vision. Throughout the procedure, the patient's blood pressure, pulse, and oxygen saturations were monitored continuously.The flexible sigmoidoscopy was accomplished without difficulty. The patient tolerated the procedure well. The quality of the bowel preparation was fair. Findings: The perianal examination was normal. A single (solitary) large ulcer was found in the rectum. No bleeding was present. Biopsies were taken with a cold forceps for histology. Verification of patient identification for the specimen was done by the physician and nurse using the patient's name and date. Impression: - Preparation of the colon was fair. - A single (solitary) ulcer in the rectum. Biopsied. DDx: Stercoral ulcer, r/o CMV, less likely IBD. Recommendation: - Use fiber, for example Citrucel, Fibercon, Konsyl or Metamucil. - Miralax 1 capful (17 grams) in 8 ounces of water PO daily. Lino Miranda MD 10/31/2018 2:53:16 PM This report has been signed electronically. Note Initiated On: 10/31/2018 2:03 PM Number of Addenda: 0 I attest to the content of the Intraoperative Record and orders documented therein, exceptions below {[id number]}
--- NOTE | 2018-10-31 15:22 | Anesthesiology Progress Note ---
Date of Service October 31, 2018 Anesthesia Post Procedure Vital Signs Vital Signs: Temp Pulse Pulse Pulse Resp BP BP 10/31/18 15:02 57 L 16 107/75 10/31/18 14:45 56 L 12 104/71 10/31/18 13:02 36.8 C 60 16 99/71 L 10/31/18 07:48 37.1 C 65 14 114/77 10/31/18 03:24 37.1 C 68 16 118/42 L 10/30/18 22:35 37.0 C 70 16 119/74 10/30/18 19:26 37.2 C 71 16 126/82 10/30/18 17:56 37.1 C 77 15 118/78 10/30/18 17:08 37.0 C 81 18 127/85 10/30/18 16:31 36.9 C 79 15 142/95 H 10/30/18 16:00 36.7 C 69 14 137/88 10/30/18 15:40 36.8 C 81 16 144/89 H 10/30/18 15:30 36.8 C 77 15 142/98 H Pulse Ox 10/31/18 15:02 98 10/31/18 14:45 98 10/31/18 13:02 98 10/31/18 07:48 98 10/31/18 03:24 98 10/30/18 22:35 98 10/30/18 19:26 99 10/30/18 17:56 94 10/30/18 17:08 97 10/30/18 16:31 95 10/30/18 16:00 98 10/30/18 15:40 100 10/30/18 15:30 100 Pain Intensity Upper Medial Abdomen: Pain Intensity: 2 Abdomen: Pain Intensity: 9 Transfer of Care Handoff Completed per policy Notes Mental Status: alert / awake / arousable Patient Amnestic to Procedure: Yes Nausea / Vomiting: adequately controlled Pain: adequately controlled Airway Patency, RR, SpO2: stable & adequate BP & HR: stable & adequate Hydration State: stable & adequate Anesthetic Complications: no major complications apparent and Pt Satisfied with anesthetic care
--- NOTE | 2018-10-31 17:01 | Surgery Progress Note ---
Date of Service F/U S/P lap flaquito, pt is doing better, less abdominal pain, no nausea, no vomiting, October 31, 2018 Assessment & Plan (1) Abdominal pain: S/P laparoscopic cholecystectomy, POD 1 pt is still have abdominal pain, LFT up IMP: possible, CBD stone?, injury CBD?, biliary leak? I recommend GI consult for ERCP today, D/W benefits, risks and alternatives of the ERCP, pt agrees with the plan, NPO, change morphine to dilaudid for control pain, 10/31/2018 5:00PM doing better, LFT better, I answered pt and her family members questions, possible go home tomorrow, Subjective Ms. Ram is a 33-year-old female who underwent laparoscopic cholecystectomy on 10/29/2018 then ERCP yesterday with sphincterotomy and stone extraction. Pain is improved today. No nausea or vomiting. Tolerating a clear liquid diet well. During ERCP yesterday, while the physician was inserting indomethacin rectal suppository, he noted a polypoid mass. Patient denies rectal bleeding or pain. No prior colonoscopy. Physical Exam Constitutional: WD/WN, vitals as above well developed and well nourished Neck: trachea midline, no thyromegaly normal visual inspection Respiratory: normal respiratory effort, lungs clear to auscultation normal respiratory effort Cardiovascular: RRR, no murmur, no edema Gastrointestinal (Abdomen): Percussion/Palpation: abdomen soft slightly tenderness lars-umbilical area, no rebound pain, no distend Neurologic: awake Psychiatric: Orientation: alert and oriented x 3 Results & Data Vital Signs (Past 12 Hours) Vital Signs Temp Pulse Pulse Resp BP BP Pulse Ox 10/31/18 16:40 37.2 C 67 16 92/54 L 95 10/31/18 15:20 58 L 16 113/87 98 10/31/18 15:02 57 L 16 107/75 98 10/31/18 14:45 56 L 12 104/71 98 10/31/18 13:02 36.8 C 60 16 99/71 L 98 10/31/18 07:48 37.1 C 65 14 114/77 98 Laboratory Results Abnormal lab results 10/28/18 10/31/18 10/31/18 Range/Units 03:56 10:44 10:44 RBC 3.73 L (4.2-5.4) M/uL Hgb 9.0 L (12.0-16.0) g/dL Hct 28.2 L (37-47) % MCV 75.6 L (80-100) fL MCH 24.1 L (25-34) pg MCHC 31.9 L (32-36) g/dL RDW Std Deviation 48.9 H (36.4-46.3) fL RDW Coeff of Brii 17.7 H (11.5-14.5) % Potassium 2.8 L D (3.5-5.1) mmol/L BUN/Creatinine Ratio 9.7 L (10-20) Glucose 113 H (70-99) mg/dl Calcium 7.9 L (8.5-10.1) mg/dl Total Bilirubin 1.2 H D (0.2-1) mg/dl AST 174 H (15-37) U/L ALT 347 H (12-78) U/L Alkaline Phosphatase 139 H (45-117) U/L Total Protein 6.2 L (6.4-8.2) gm/dl Albumin 3.0 L (3.4-5.0) gm/dl U Methadone Metabolites 3950 A ([id number]) NG/ML Ur Methadone Confirm 377 A ([id number]) NG/ML (1) Abdominal pain Abdominal location: generalized Qualified Code(s): R10.84 - Generalized abdominal pain
--- NOTE | 2018-10-31 17:53 | Progress Note ---
Date of Service October 31, 2018 Subjective I have seen and examined the patient, abdominal pain resolved after ERCP with CBD stone removal. LFTs improving. Flex Sig showed large rectal ulcer, she reports rectal pain and intermittent bleeding and constipation related to her Methadone use. Plan: Daily Fibers and Miralax. ERCP as OP in 4 weeks for stents removal. Recall GI as needed. Results & Data Vital Signs (Past 12 Hours) Vital Signs Temp Pulse Pulse Resp BP BP Pulse Ox 10/31/18 16:40 37.2 C 67 16 92/54 L 95 10/31/18 15:20 58 L 16 113/87 98 10/31/18 15:02 57 L 16 107/75 98 10/31/18 14:45 56 L 12 104/71 98 10/31/18 13:02 36.8 C 60 16 99/71 L 98 10/31/18 07:48 37.1 C 65 14 114/77 98
[2018-11-01] MEDS: KETOROLAC TROMETHAMINE 15 MG/ML VIAL IV PRN ×2 (00:57→07:20)
[2018-11-01] MEDS: LACTATED RINGER'S 1,000 ML IV SCH (02:34)
[2018-11-01] MEDS: AMPICILLIN/SULBACTAM SOD 1,500 MG in 0.9 % SODIUM CHLORIDE 100 ML IV SCH ×2 (02:34→08:24)
[2018-11-01] MEDS: OXYCODONE/ACETAMINOPHEN 5mg/325mg TAB PO PRN (02:37)
[2018-11-01] MEDS: METHADONE ORAL SOLN 2 MG/ML PO SCH (08:24)
[2018-11-01] MEDS: PATIENT'S OWN CONTROLLED MED PO SCH (08:25)
[2018-11-01] MEDS ORDERED: POTASSIUM CHLORIDE 20 MEQ TABCR PO STA (09:24)
--- NOTE | 2018-11-01 10:07 | Surgery Progress Note ---
Date of Service doing better, no signicant abdominal pain, she tolertaed the diet, no nausea, no vomiting, November 01, 2018 Assessment & Plan (1) Abdominal pain: S/P laparoscopic cholecystectomy, POD 1 pt is still have abdominal pain, LFT up IMP: possible, CBD stone?, injury CBD?, biliary leak? I recommend GI consult for ERCP today, D/W benefits, risks and alternatives of the ERCP, pt agrees with the plan, NPO, change morphine to dilaudid for control pain, 10/31/2018 5:00PM doing better, LFT better, I answered pt and her family members questions, possible go home tomorrow, 11/01/2018 10:05am doing much better, pt wants to go home today, pt will see her pain manage clinic today for her pain medicine, the post -op care instruction was given, F/U Deyvi Delgado in 1-2 weeks, I answered all questions, Subjective I have seen and examined the patient, abdominal pain resolved after ERCP with CBD stone removal. LFTs improving. Flex Sig showed large rectal ulcer, she reports rectal pain and intermittent bleeding and constipation related to her Methadone use. Plan: Daily Fibers and Miralax. ERCP as OP in 4 weeks for stents removal. Recall GI as needed. Physical Exam Constitutional: WD/WN, vitals as above well developed and well nourished Neck: trachea midline, no thyromegaly Respiratory: normal respiratory effort, lungs clear to auscultation Cardiovascular: RRR, no murmur, no edema Rate/Rhythm: regular rate and regular rhythm Heart Sounds: normal S1 and normal S2 Gastrointestinal (Abdomen): Percussion/Palpation: abdomen soft NT, ND all incisions intact, no redness, Neurologic: awake Psychiatric: Orientation: alert and oriented x 3 Results & Data Vital Signs (Past 12 Hours) Vital Signs Temp Pulse Resp BP Pulse Ox 11/01/18 07:11 36.8 C 58 L 16 114/77 98 11/01/18 03:52 36.8 C 60 16 114/78 96 10/31/18 23:34 37.1 C 59 L 16 112/75 96 Laboratory Results Abnormal lab results 10/31/18 10/31/18 Range/Units 10:44 10:44 RBC 3.73 L (4.2-5.4) M/uL Hgb 9.0 L (12.0-16.0) g/dL Hct 28.2 L (37-47) % MCV 75.6 L (80-100) fL MCH 24.1 L (25-34) pg MCHC 31.9 L (32-36) g/dL RDW Std Deviation 48.9 H (36.4-46.3) fL RDW Coeff of Brii 17.7 H (11.5-14.5) % Potassium 2.8 L D (3.5-5.1) mmol/L BUN/Creatinine Ratio 9.7 L (10-20) Glucose 113 H (70-99) mg/dl Calcium 7.9 L (8.5-10.1) mg/dl Total Bilirubin 1.2 H D (0.2-1) mg/dl AST 174 H (15-37) U/L ALT 347 H (12-78) U/L Alkaline Phosphatase 139 H (45-117) U/L Total Protein 6.2 L (6.4-8.2) gm/dl Albumin 3.0 L (3.4-5.0) gm/dl (1) Abdominal pain Abdominal location: generalized Qualified Code(s): R10.84 - Generalized abdominal pain
--- NOTE | 2018-11-01 14:35 | Fluoroscopy Report ---
[place] cholangiogram OR HISTORY: Post cholecystectomy. FLUOROSCOPY TIME: 5 seconds. FINDINGS: Fluoroscopy was provided for an intraoperative cholangiogram status post cholecystectomy. C ontrast was injected through the cystic duct remnant. Common bile duct is moderately distended. Sugge stion of a filling defect distal common duct. No significant flow to the small bowel. Fall IMPRESSION: Fluoroscopy provided for an intraoperative cholangiogram status post cholecystectomy. Art ifact versus filling defects distal common bile duct. No significant contrast passage to the small turner wel. The above report was generated using voice recognition software. It may contain grammatical, syntax or spelling errors. Electronically signed by: Rosalino Ko M.D. 11/01/2018 2:34 PM
[2018-11-01] MEDS ORDERED: POTASSIUM CHLORIDE 10 MEQ TABCR PO SCH (21:00)
--- NOTE | 2018-11-14 08:09 | Discharge Summary ---
Date of Service November 14, 2018 Admission HPI Per Admitting Provider 33 yr old woman on methadone for chronic back pain who was recently admitted in Jun 2018 for acute abdominal pain. At that time, found to have gallstones - HIDA scan showed nonvisualization of the gallbladder. Seen by Dr. Galeano and as pain was not typical of GB disease, decision was made to monitor. Presents today with same abdominal pain - located in epigastrium, acute onset, associated with nausea, no relieving factors, not related to PO intake, not worse with activity, sharp, intense/ severe. US again showed gallstones but no pericholecystic fluid. Xray showed constipation which has been treated in the ER but pain is still persisting. Moaning in bed, requesting more pain medications, sleepy but arousable. Principal Diagnosis Abdominal pain Cholelithiasis chronic pain on Methadone Chornic constipation Discharge Data Allergies Allergy/AdvReac Type Severity Reaction Status Date / Time No Known Allergies Allergy Unverified 10/28/18 03:16 Consultations 10/28/18 11:51 ED Decision to Admit Stat 10/30/18 11:07 Consult Gastroenterology Routine Procedures Performed Operation Date: 10/29/18 09:30 Actual Procedures p Laparoscopic Cholecystectomy with Cholangiogram - Joann Carnes MD Operation Date: 10/30/18 16:10 Actual Procedures p Endoscopic Retrograde Cholangiopancreatogram(Not Applicable) - Lino Miranda MD Operation Date: 10/31/18 09:00 Actual Procedures p Flexible Sigmoidoscopy Biopsy - Lino Miranda MD Ordered Studies 10/28/18 03:34 US gallbladder Stat 10/29/18 07:30 [place] cholangiogram OR Routine 10/30/18 13:00 [place] ERCP biliary ductal Routine Hospital Course (1) Abdominal pain: Patient was admitted to hospital and placed on IV fluids, kept NPO, Continued Methadone PO for pain, IV Zofran prn nausea, activity as tolerated, and SCDs for DVT prophylaxis. Patient was scheduled for cholecystectomy by Dr. Carnes on HD#1. Patient found to have large distended gallbladder with multiple stones. Also had dilated cystic duct and common bile duct. Intraoperative cholangiogram was performed due to anatomy. There was no filling defects in CBD however there was no flow of contrast into the duodenum. Patient tolerated procedure well and was transferred to recovery and then back to medical floor for postoperative care. POD #1 her pain persisted and t. bili elevated to 3.4 (1.1 preop). GI was consulted who performed ERCP which showed dilated CBD due to Methadone treatment and choledocholithiasis was found. Biliary and pancreatic stents placed. Rectal Indomethacin was given and a polypoid lesion was palpated therefore a flex sigmoidoscopy was schedule for the following day which showed a rectal ulcer which was biopsied. Likely secondary to chronic co nstipation on Methadone. Patient tolerated procedure well. Diet was advanced, pain was controlled. POD # 2 t. bili decreased to 1.2. LFTS improved. Patient was discharged home on POD # 2 in stable condition and to follow with pain clinic for her Methadone. F/u surgical office in 1-2 weeks. Total Time Total Time Spent Total Time Spent (In Minutes): 30 Total Time Includes: Examination of the Patient, Discharge Planning and Medication Reconciliation Discharge Plan Discharge Items Patient Disposition: Home - Self-Care Reason For Visit: ABD PAIN Discharge Diagnosis: s/p laparoscopic cholecystectomy Condition: Good Discharge Goals: Decrease discomfort Activity: Resume your previous activity Activity Comment: walking/ stairs OK Lifting: No more than 10 pounds Lifting Comment: for 2 weeks Bathing: No limitations Bathing Comment: OK to shower in 24 hrs, remove outer dressings first Sexual Activity: After two weeks Exercise/Sports: Wait until after follow-up appointment Driving/Machine Use: Resume 3 days after discharge Driving/Machine Use Comment: if off of extra narcotic pain meds Non-emergency contact: Surgeon Call non-emergency contact if: you have any medication questions, your symptoms worsen, your pain is not controlled, your pain is worsening, your pain is unusual for you, your pain is concerning for you, your temperature is above 101.5, your wound has increased redness, your wound has increased drainage and your wound pain has increased Follow-up/Referrals: [facility],Medicine [Primary Care Provider] - Diet: Low Fat Diet Comment: low fat food for 4 -6 weeks Addtl Provider Instructions: OK to return to work in 2 weeks with no restrictions (on 11/13/18) Prescriptions: Continued methadone [Methadone Intensol] 10 mg/mL Concentrate 61 mg PO DAILY RF: 0 Stand-Alone Forms: Call Back Authorization, [facility] Discharge Orders: Discharge Order (Routine); Ordered 11/01/18 Ordered By: Kyle Otto Admission Data Admit Date/Time: 10/31/18 16:29 Attending Provider: Joann Carnes Admit Provider: Joann Carnes [facility] Other Providers: Joann Carnes ; Ruby Arroyo ; Ashley Garza ; Tricia Leyva ; Fareed Vega ; Brandy Carnes ; [place] ; Gabriela Rocha ; Kevin Lima ; Chevy Carlson ; Heide Tam ; Kaylie Hinson ; Jessica Skelton ; Laly Maldonado ; Lino Miranda Service: Surgical Services Other Interventions: Discharge Summary Assessment (RN) Last Done: 11/01/18 10:19 Pending Studies at Discharge: No DC Date/Time DO NOT enter until pt leaves facility: 11/01/18 11:24
== END 2018-11-01 11:24 | disposition home or self-care (01) | DRG 418 ==
LOC: ED 02:24 → 3N 02:24